=== PATIENT | female | born 1960 | race African-American/Black ===

== ENCOUNTER 2021-01-08 03:40 | Emergency (ER) | payer MEDICAID, SELFPAY ==
[2021-01-08 03:49] VITALS: BP 113/54; PULSE 79; RESP 16; TEMP 36.8; O2SAT 94; BMI 54.1
--- NOTE | 2021-01-08 07:08 | ED_ITS ---
HPI - Weakness General Chief complaint: Weakness Stated complaint: ? Time Seen by Provider: 01/08/21 07:07 Source: patient Mode of arrival: ambulatory Limitations: no limitations History of Present Illness HPI Narrative: Patient with history of CKD stage 4 been followed by shell trim tool setter plan for dialysis in future was seen in clinic and hospital 3 days ago for same creatinine was 3.9 comes here for increased nausea unable to eat because of nausea not any nausea medications no abdominal pain no vomiting no diarrhea patient is still able to urinate Related Data Previous Rx's Medication Instructions Recorded ondansetron 4 mg disintegrating 4 mg PO Q6-8H PRN #20 tab 01/08/21 tablet Allergies Allergy/AdvReac Type Severity Reaction Status Date / Time No Known Allergies Allergy Verified 01/08/21 07:09 Review of Systems Review of Systems: Constitutional : No Weight loss, No Fever, No Chills ENT/Mouth : No sore throat, No Rhinorrhea Eyes: No Eye Pain, No Swelling Cardiovascular : No Chest Pain, no palpitations Respiratory : No Cough, No Sputum, no shortness of breath Gastrointestinal :++ Nausea, No Vomiting, No Diarrhea, No abdominal Pain, no black stools Genitourinary : No Dysuria, No Urinary Frequency Musculoskeletal : No joint pain, No Myalgias, No Joint Swelling Skin : No Skin Lesions, No rash Neuro : No Weakness, No Numbness, No Dizziness, No Headache Psych : No Anxiety/Panic, No Depression Heme/Lymph: No Bruising, No Lymphadenopathy Endocrine : No Polyuria, No Polydipsia All other systems reviewed and are negative [facility] Social History Social History Advance Directives: No Advance Directives Information Provided: Yes Patient : No Physical Exam Vital Signs: Vital Signs: Last Vital Signs Temp 98.6 F 01/08/21 08:22 Pulse 74 01/08/21 09:41 Resp 78 H 01/08/21 09:41 BP 131/61 01/08/21 09:41 Pulse Ox 95 01/08/21 09:41 Body Mass Index 54.1 Appearance: Alert. Oriented X3. No acute distress. Eyes: PERRLA no pallor or icterus ENT: Pharynx normal. Oral Mucosa moist Neck: Normal inspection. Neck supple. CVS: Normal heart rate and rhythm. Pulses normal. Respiratory: No respiratory distress. Equal air entry bilateral, no w heezing/rales/rhonchi Abdomen: Soft and nontender. Bowel sounds are present, no mass palpable, no CVA tenderness Skin: Skin warm and dry. Normal skin color. Normal skin turgor. Extremities: No lower extremity edema. No calf tenderness Neuro: Oriented X 3. No motor deficit. No sensory deficit.No cerebellar signs , cranial nerves II-XII intact MDM - Weakness MDM Narrative Medical decision making narrative: Patient has CKD old records from [facility] were reviewed patient had creatinine of 3.2 and BUN of 89 on 01/05 patient already been following Dr. Angel shell trim tool setter which she saw yesterday patient received 1 L of saline bolus advised to follow with shell trim tool setter as scheduled Medical Records Attestation: I reviewed the patient's medical records. Lab Data Attestation: I reviewed the patient's lab results. Result diagrams: 01/08/21 08:22 01/08/21 08:22 Labs: Lab Results 01/08/21 01/08/21 01/08/21 Range/Units 08:22 08:22 08:22 WBC 7.0 (4.8-10.8) X10*3/uL RBC 3.66 L (4.20-5.50) X10*6/uL Hgb 10.7 L (12.0-16.0) g/dl Hct 33.5 L (37-47) % MCV 91.5 (80-98) fL MCH 29.2 (27.0-33.0) pg MCHC 31.9 (31.0-35.0) g/dl RDW 15.8 (11.0-16.0) % Plt Count 238 (160-400) X10*3/uL MPV 10.8 (9.4-12.3) fL Immature Gran % (Auto) 0.4 (0.0-0.4) % Neut % (Auto) 70.2 (45-73) % Lymph % (Auto) 16.8 L (20-40) % [place] % (Auto) 9.4 (2-11) % Eos % (Auto) 3.1 (0-4) % Baso % (Auto) 0.1 (0-2) % Lymph # (Auto) 1.2 (1.2-4.9) X10*3/uL [place] # (Auto) 0.7 (0.1-1.2) X10*3/uL Eos # (Auto) 0.2 (0.0-0.4) X10*3/uL Baso # (Auto) 0.0 (0.0-0.2) X10*3/uL Abs Immat Gran (auto) 0.03 (0.00-0.03) X10*3/uL Absolute Neuts (auto) 4.9 (2.0-8.3) X10*3/uL Absolute Nucleated RBC 0.000 (0.0-0.012) X10*3/uL Nucleated RBC % (auto) 0.0 (0.0-0.2) /100WBC Sodium 137 (135-145) mmol/L Potassium 4.2 (3.3-5.1) mmol/L Chloride 90 L (96-108) mmol/L Carbon Dioxide 36 H (22-29) mmol/L Anion Gap 15 (12-20) BUN 91 H* (9-16) mg/dL Creatinine 4.01 H* (0.5-1.4) mg/dL Estim Creat Clear Calc 18.2 Estimated GFR 11 Random Glucose 133 H (60-115) mg/dL Calcium 8.8 (8.4-10.2) mg/dL Magnesium 1.8 (1.6-2.6) mg/dL Total Bilirubin 0.2 (0.0-1.0) mg/dL Direct Bilirubin < 0.2 (0.0-0.5) mg/dL AST 23 (5-31) U/L ALT 10 (0-31) U/L Alkaline Phosphatase 82 (39-117) U/L Total Protein 6.7 (6.5-8.0) g/dL Albumin 3.7 (3.5-5.0) g/dL Discharge Plan Discharge Clinical Impression: Chronic kidney failure Qualifiers: Chronic kidney disease stage: stage 4 (severe) Qualified Code(s): N18.4 - Chronic kidney disease, stage 4 (severe) Patient Disposition: Home, Self-Care Instructions: Chronic Kidney Disease (ED) Additional Instructions: Follow-up with shell trim tool setter as scheduled Nausea medication as prescribed Prescriptions: New ondansetron 4 mg tablet,disintegrating 4 mg PO Q6-8H PRN (Reason: nausea and vomiting) Qty: 20 RF: 0 Interventions: ED Discharge Assessment Last Done: 01/08/21 12:56 Discharge Date/Time: 01/08/21 12:56
[2021-01-08 08:22] VITALS: BP 122/44; PULSE 69; RESP 16; TEMP 37; O2SAT 94
[2021-01-08 08:32] LABS: MANUAL DIFF FLAG NO
[2021-01-08 08:41] LABS: Basophils Percent Auto 0.1 % (0-2); Eosinophils Absolute Auto 0.2 X10*3/uL (0.0-0.4); Eosinophils Percent Auto 3.1 % (0-4); Hematocrit 33.5 % (37-47); Hemoglobin 10.7 g/dl (12.0-16.0); Imm Gran Abs Auto 0.03 X10*3/uL (0.00-0.03); Imm Gran Pct Auto 0.4 % (0.0-0.4); Lymphocytes Absolute Auto 1.2 X10*3/uL (1.2-4.9); Lymphocytes Percent Auto 16.8 % (20-40); Mean Corpuscular HGB Conc 31.9 g/dl (31.0-35.0); Mean Corpuscular Hemoglobin 29.2 pg (27.0-33.0); Mean Corpuscular Volume 91.5 fL (80-98); Mean Platelet Volume 10.8 fL (9.4-12.3); Monocytes Absolute Auto 0.7 X10*3/uL (0.1-1.2); Monocytes Percent Auto 9.4 % (2-11); Neutrophils Absolute Auto 4.9 X10*3/uL (2.0-8.3); Neutrophils Percent Auto 70.2 % (45-73); Platelet Count 238 X10*3/uL (160-400); Red Blood Count 3.66 X10*6/uL (4.20-5.50); Red Cell Distribution Width 15.8 % (11.0-16.0)
[2021-01-08 09:08] LABS: Alanine Aminotransferase 10 U/L (0-31); Albumin Level 3.7 g/dL (3.5-5.0); Alkaline Phosphatase 82 U/L (39-117); Aspartate Amino Transferase 23 U/L (5-31); Bilirubin Direct < 0.2 mg/dL (0.0-0.5); Bilirubin Total 0.2 mg/dL (0.0-1.0); Magnesium 1.8 mg/dL (1.6-2.6); Total Protein 6.7 g/dL (6.5-8.0)
[2021-01-08 09:22] LABS: Anion Gap 15 (12-20); Blood Urea Nitrogen 91 mg/dL (9-16); Calcium 8.8 mg/dL (8.4-10.2); Carbon Dioxide 36 mmol/L (22-29); Chloride 90 mmol/L (96-108); Creatinine Clr Calc Pharmacy 18.2; Estimated Glomerular Filt Rate 11; Glucose Random 133 mg/dL (60-115); Potassium 4.2 mmol/L (3.3-5.1); Sodium 137 mmol/L (135-145)
[2021-01-08] MEDS: Ondansetron ODT 4 MG TAB.RAPDIS TRANSLINGU (09:38)
[2021-01-08 09:41] VITALS: BP 131/61; PULSE 74; RESP 78; O2SAT 95
--- NOTE | 2021-01-08 10:27 | MHC.CM.ED ---
Addendum entered by Alice Figueroa 01/08/21 12:53: [facility] aware [facility] is in the ER and will be discharged home. Original Note: Received case management consult from Dr Arriaga. Patient came to ER due to weakness. Was recently at [facility]. Has a history of chronic kidney disease. Patient feels she is too weak to return home. Met with patient in regards to discharge planning. Patient lives alone, uses a cane for walking and a scotter for mobility when outside of her apartment. Patient has [employer] services through [facility]'s home care. PCP verified has Yolande Hardy in [place]. Patient received [employer] Covid vaccine. Patient is denying the need for STR at d/c. Cinthya SCHMITT and Dr Arriaga aware. Continue to monitor for d/c needs.
[2021-01-08] MEDS: 0.9 % Sodium Chloride 1,000 ML 999 ML IVCONT (10:46)
--- NOTE | 2021-01-08 11:00 | PC.NURSE ---
Pt alert and oriented x3, vss. Pt states she has been feeling nauseous for a few days, she took zofran at home but did not get any relief. Pt denies vomiting/diarrhea, no dizziness, no fever, no abdominal pain. Pt is a hard stick. An IJ was placed in left neck by ED provider, pt tolerated well. Fluid and med given as documented.
== END 2021-01-08 12:56 | disposition home or self-care (01) ==
PROVIDERS: Emergency Provider Internal Medicine; PCP Physician Assistant
DX: R11.0 Nausea (principal); N18.4 Chronic kidney disease, stage 4 (severe)
CPT/HCPCS: 36415; 80048; 80076; 83735; 85025; 96361; 96374; 99284

== ENCOUNTER 2023-02-19 02:17 | Emergency (ER) | payer MEDICAID, SELFPAY ==
[2023-02-19 02:21] VITALS: BP 102/53; PULSE 82; RESP 18; TEMP 36.6; O2SAT 97; BMI 23.4
--- NOTE | 2023-02-19 02:33 | ED.GENADULT ---
HPI - General Adult General Chief complaint: Anxiety Stated complaint: behavioral Time Seen by Provider: 02/19/23 02:32 Source: patient and EMS Mode of arrival: EMS History of Present Illness HPI narrative: 62-year-old female brought in by EMS for reported a verbal altercation with family. Patient states that the house is hers and that she has her own room and that she was trying to go to sleep and that her sister kept coming in in bothering her. She reports that she has an old fistula to the left upper extremity but currently gets dialysis Tuesday, , Tuesday through a left chest wall port. She denies any current shortness of breath or chest pain but does report lower abdominal discomfort of her skin. Related Data Previous Rx's Medication Instructions Recorded ondansetron 4 mg disintegrating 4 mg PO Q6-8H PRN nausea and 01/08/21 tablet vomiting #20 tabs nystatin 100,000 unit/gram topical 1 appl topical BID #60 grams 02/19/23 powder Allergies Allergy/AdvReac Type Severity Reaction Status Date / Time No Known Allergies Allergy Verified 01/08/21 07:09 Review of Systems Review of Systems: Pertinent positives and negatives as stated in HPI [facility] Past Medical History Source: nursing notes reviewed Social History Social History Advance Directives: No Advance Directives Information Provided: No Physical Exam ED Vital Signs: Vital Signs - 24 hr 02/19/23 02:21 Temperature 97.8 F Pulse Rate 82 Respiratory Rate 18 Blood Pressure 102/53 L Pulse Oximetry 97 Oxygen Delivery Method Room Air BMI result Body Mass Index 23.4 VITAL SIGNS: Reviewed. GENERAL: Well developed, well nourished, in no acute distress. HEAD: Normocephalic/atraumatic EYES: PERRLA, EOMI EARS: Ext canals without abnormality NOSE: Nares patent bilateral OROPHARYNX: no oral lesions noted, posterior pharynx clear NECK: Supple, no adenopathy LUNGS: Normal breath sounds. No adventitious sounds or accessory muscle use. SpO2<97>; CHEST WALL: There is a port at the left anterior chest wall without surrounding erythema or induration. CARDIOVASCULAR: Regular rate and rhythm without noted murmurs, no JVD or lower extremity edema. ABDOMEN: Soft, non-tender, non-distended with bowel sounds, patient has skin candidiasis of the pannus MUSCULOSKELETAL: No tenderness, deformities, or effusions noted on gross inspection. EXTREMITIES: No cyanosis, clubbing or edema. SKIN: Inspection of the skin reveals no rashes NEUROLOGIC: Alert and oriented x 4. Strength and sensation to light touch were grossly intact x 4. Medical Decision Making Medical Decision Making [facility] Narrative: 62-year-old female with history and clinical presentation, DDX: Will insure that there is no evidence of infection/electrolyte or other metabolic etiologies for or patient's behavioral outburst. In addition, requested that nursing contact family to obtain collateral information. Nystatin ordered for scanned candidiasis of the abdominal pannus. Nursing contacted the patient's daughter and they have concerns about patient's memory. I do not agree with this at all as patient is demonstrating that she is oriented to person time and place. In addition, patient is actively involved in working on a crossword puzzle, she is aware of her dialysis appointments. 0315: Informed by nursing that no Nystatin is available in the hospital. I reviewed all investigations and there is no leukocytosis, there is a normocytic anemia which is consistent with patient's underlying CKD. There is otherwise no evidence of tachycardia or hypotension. There is no thrombocytopenia. Chemistry indices are grossly within chronic stability there is no electrolyte abnormality and patient has a known CKD and has scheduled dialysis today. It is my impression the patient has appropriate cognitive function but obviously require some assistance with ADLs. Family does live with her in her home, patient has a shuttle available for transportation to and from the dialysis session. There is no evidence of infection or other concerns. She does have a skin yeast infection of the abdominal pannus for which she will receive a prescription as this hospital has no medication to treat this. Differential Diagnosis Differential Diagnoses: The differential diagnosis associated with the presentation includes Please see the discussion above Admission/Observation Consideration of admission/observation: Escalation of care including admission/observation considered Please see the discussion above Lab Data [facility] Lab Attestation statement: I reviewed the patient's lab results. Please see the discussion above 02/19/23 03:00 02/19/23 03:00 Labs: Lab Results 02/19/23 Range/Units 03:00 WBC 4.4 L (4.8-10.8) X10*3/uL RBC 2.98 L (4.20-5.50) X10*6/uL Hgb 8.5 L (12.0-16.0) g/dl Hct 26.2 L (37.0-47.0) % MCV 87.9 (80.0-98.0) fL MCH 28.5 (27.0-33.0) pg MCHC 32.4 (31.0-35.0) g/dl RDW 18.1 H (11.0-16.0) % Plt Count 214 (160-400) X10*3/uL MPV 10.8 (9.4-12.3) fL Immature Gran % (Auto) 0.2 (0.0-0.4) % Neut % (Auto) 48.6 (45-73) % Lymph % (Auto) 31.9 (20-40) % [place] % (Auto) 16.1 H (2-11) % Eos % (Auto) 2.1 (0-4) % Baso % (Auto) 1.1 (0-2) % Lymph # (Auto) 1.4 (1.2-4.9) X10*3/uL [place] # (Auto) 0.7 (0.1-1.2) X10*3/uL Eos # (Auto) 0.1 (0.0-0.4) X10*3/uL Baso # (Auto) 0.1 (0.0-0.2) X10*3/uL Abs Immat Gran (auto) 0.01 (0.00-0.03) X10*3/uL Absolute Neuts (auto) 2.1 (2.0-8.3) x10*3/uL Absolute Nucleated RBC 0.000 (0.0-0.012) X10*3/uL Nucleated RBC % (auto) 0.0 (0.0-0.2) /100WBC Sodium 138 (135-145) mmol/L Potassium 3.7 (3.3-5.1) mmol/L Chloride 101 (96-108) mmol/L Carbon Dioxide 23 (22-29) mmol/L Anion Gap 18 (12-20) BUN 24 H (9-16) mg/dL Creatinine 3.27 H (0.5-1.4) mg/dL Estim Creat Clear Calc 12.8 Estimated GFR 14 Random Glucose 91 (60-115) mg/dL Calcium 8.5 (8.4-10.2) mg/dL Total Bilirubin 0.3 (0.0-1.0) mg/dL AST 33 H (5-31) U/L ALT 30 (0-31) U/L Alkaline Phosphatase 143 H (39-117) U/L Ammonia 23 (13-55) umol/L Total Protein 5.7 L (6.5-8.0) g/dL Albumin 2.5 L (3.5-5.0) g/dL External Record Review External record reviewed: Outpatient record, Prior outpatient labs and Prior outpatient radiology Chronic Conditions Patient?s care impacted by: Diabetes and Other ESRD/dialysis Discharge Plan Discharge Clinical Impression: Encounter for medical assessment, ESRD on dialysis Patient Disposition: Home, Self-Care Instructions: End Stage Kidney Disease (ED) Additional Instructions: 1. Resume all home medications as prescribed. 2. Please attend your scheduled dialysis appointment today. 3. Follow-up with your primary care doctor by calling the office on Tuesday morning. Return to the ER for any worsening symptoms. Prescriptions: New nystatin 100,000 unit/gram powder 1 appl topical BID Qty: 60 0RF No Action ondansetron 4 mg tablet,disintegrating 4 mg PO Q6-8H PRN (Reason: nausea and vomiting) Qty: 20 0RF
--- OUTSIDE RECORDS SUMMARY | 2023-02-19 02:39 | XMS_ITS | Summary of Care ---
Author Name Unknown Organization [facility] Address [address] [place] [address]- Encounter 12/31/22 - 01/12/23 [facility] [address] [place] [address]- [place] [phone] Discharge Disposition: Home with Home Health Care Attending Physician: Dutch Esteban MD Admitting Physician: Brooke Ramirez MD Allergies, Adverse Reactions, Alerts Substance Reaction Severity Status acetaminophen-oxycodone Acti ve oxyCODONE Itching Active traZODone Itching Active Medications acetaminophen 325 mg oral tablet 650 mg = 2 tab, Oral, q6hr PRN, PAIN (Scale 1-6) Start Date: 12/31/22 Status: Ordered albuterol 2.5 mg/3 mL (0.083%) inhalation solution 2.5 mg, 3 mL, Soln-Inh, NEB, q4hr RT PRN, 50 EA, 0 Refill(s), Wheezing, Route to Pharmacy Electronically, [facility] #[id number], 152, cm, 01/12/23 6:05:00 EDT, Height/Length Dosing, 63.4, kg, 01/12/23 6:05:00 EDT, Weight Dosing Start Date: 01/12/23 Status: Ordered albuterol CFC free 90 mcg/inh inhalation aerosol 180 mcg, 2 puff, Aerosol, INH, q4hr RT PRN, 1 EA, 0 Refill(s), Wheezing, Route to Pharmacy Electronically, [facility] #[id number], 152, cm, 01/12/23 6:05:00 EDT, Height/Length Dosing, 63.4, kg, 01/12/23 6:05:00 EDT, Weight Dosing Start Date: 01/12/23 Status: Ordered albuterol-ipratropium 2.5 mg-0.5 mg/3 mL inhalation solution 3 mL, Soln-Inh, NEB, QID RT, EA Start Date: 12/31/22 Status: Ordered amiodarone 200 mg oral tablet 200 mg = 1 tab, Tab, Oral, Daily, 30 tab, 0 Refill(s), Route to Pharmacy Electronically, [facility]/pharmacy #[id number], 152, 01/12/23 6:05:00 EDT, Height/Length Dosing, cm, 63.4, 01/12/23 6:05:00 EDT, Weight Dosing, kg Start Date: 01/12/23 Status: Ordered amitriptyline 100 mg oral tablet 100 mg = 1 tab, Oral, QHS Start Date: 12/31/22 Status: Ordered Aspirin Enteric Coated 325 mg oral delayed release tablet 325 mg, = 1 tab, Tab-DR, Oral, Daily, 30 tab, 0 Refill(s), Route to Pharmacy Electronically, [facility]/pharmacy #[id number], 152, 01/12/23 6:05:00 EDT, Height/Length Dosing, cm, 63.4, 01/12/23 6:05:00 EDT, Weight Dosing, kg Start Date: 01/12/23 Status: Ordered atorvastatin 10 mg oral tablet 10 mg = 1 tab, Oral, QHS Start Date: 12/31/22 Status: Ordered benzocaine-menthol 6 mg-10 mg mucous membrane lozenge 1 lozenge, Oral, q2hr PRN, Sore throat Start Date: 12/31/22 Status: Ordered bisacodyl 10 mg rectal suppository 10 mg = 1 supp, Per rectum, Daily PRN, Constipation Start Date: 12/31/22 Status: Ordered calcitriol 0.5 mcg oral capsule 0.5 mcg = 1 cap, Cap, Oral, Daily Start Date: 12/31/22 Status: Ordered darbepoetin yessenia 60 mcg/mL injectable solution 60 mcg = 1 mL, Soln-Inj, IV Push, qSAT, 0 Refill(s) Start Date: 01/10/23 Status: Ordered diazePAM 2 mg oral tablet 2 mg = 1 tab, Tab, Oral, Daily PRN, 0 Refill(s), Anxiety Start Date: 01/10/23 Status: Ordered diazePAM 2 mg oral tablet 2 mg = 1 tab, Tab, Oral, BID, 60 tab, 0 Refill(s), Route to Pharmacy Electronically, [facility]/pharmacy #[id number], 152, 01/12/23 6:05:00 EDT, Height/Length Dosing, cm, 63.4, 01/12/23 6:05:00 EDT, Weight Dosing, kg Start Date: 01/12/23 Status: Ordered docusate sodium 100 mg oral capsule 100 mg, Cap, Oral, BID PRN, 60 cap, 0 Refill(s), as needed for constipation, Route to Pharmacy Electronically, [facility]/pharmacy #[id number], 152, 01/12/23 6:05:00 EDT, Height/Length Dosing, cm, 63.4, 01/12/23 6:05:00 EDT, Weight Dosing, kg Start Date: 01/12/23 Status: Ordered fexofenadine 180 mg oral tablet 180 mg, 1 tab, Tab, Oral, Daily, 30 tab, 0 Refill(s), Route to Pharmacy Electronically, [facility]/pharmacy #[id number], 152, 01/12/23 6:05:00 EDT, Height/Length Dosing, cm, 63.4, 01/12/23 6:05:00 EDT, Weight Dosing, kg Start Date: 01/12/23 Status: Ordered HumaLOG STANDARD Sliding Scale Insulin Subcutaneous, TIDAC Start Date: 12/31/22 Status: Ordered HumuLIN R STANDARD Sliding Scale Insulin Subcutaneous, QHS Start Date: 12/31/22 Status: Ordered HYDROmorphone 2 mg oral tablet 1 mg = 0.5 tab, Tab, Oral, q6hr PRN, 10 tab, 0 Refill(s), Partial fill upon patient request., PAIN (Scale 7-10), Route to Pharmacy Electronically, [facility]/pharmacy #[id number], 152, 01/12/23 6:05:00 EDT, Height/Length Dosing, cm, 63.4, 01/12/23 6:05:00 EDT, kg,... Start Date: 01/12/23 Status: Ordered hydrOXYzine hydrochloride 25 mg oral tablet 50 mg = 2 tab, Tab, Oral, q8hr PRN, 180 tab, 0 Refill(s), Anxiety, Route to Pharmacy Electronically, [facility]/pharmacy #[id number], 152, 01/12/23 6:05:00 EDT, Height/Length Dosing, cm, 63.4, 01/12/23 6:05:00 EDT, Weight Dosing, kg Start Date: 01/12/23 Status: Ordered lamoTRIgine 100 mg oral tablet 100 mg = 1 tab, Tab, Oral, QHS, 30 tab, 0 Refill(s), Route to Pharmacy Electronically, [facility]/pharmacy#[id number], 152, 01/12/23 6:05:00 EDT, Height/Length Dosing, cm, 63.4, 01/12/23 6:05:00 EDT, Weight Dosing, kg Start Date: 01/12/23 Status: Ordered lidocaine 4% topical film 2 patch, Film, Transdermal, QHS Start Date: 12/31/22 Status: Ordered lidocaine 4% topical film 2 patch, Film, Transdermal, QHS, 60 patch, 0 Refill(s), Route to Pharmacy Electronically, [facility]/pharmacy #[id number], 152, 01/12/23 6:05:00 EDT, Height/Length Dosing, cm, 63.4, 01/12/23 6:05:00 EDT, Weight Dosing, kg Start Date: 01/12/23 Status: Ordered melatonin 5 mg oral tablet 5 mg = 1 tab, Tab, Oral, QHS, 0 Refill(s) Start Date: 01/10/23 Status: Ordered metoprolol 12.5 mg = 0.5 tab (0.5 x 25 mg), Tab-ER, Oral, Start date 01/12/23 9:00:00 EDT, 12/31/22 16:35:00 EDT Start Date: 01/12/23 Stop Date: 01/12/23 Status: Completed metoprolol succinate 25 mg oral tablet, extended release 12.5 mg = 0.5 tab, Tab-ER, Oral, q12hr, 30 tab, 0 Refill(s), Route to Pharmacy Electronically, [facility]/pharmacy #[id number], 152, 01/12/23 6:05:00 EDT, Height/Length Dosing, cm, 63.4, 01/12/23 6:05:00 EDT, Weight Dosing, kg Start Date: 01/12/23 Status: Ordered miconazole 2% topical cream 1 bella, Cream, Topical BID, 30 gm, 0 Refill(s), Indication: Empiric Therapy, Route to Pharmacy Electronically, [facility]/pharmacy #[id number], 152, 01/12/23 6:05:00 EDT, Height/Length Dosing, cm, 63.4, 01/12/23 6:05:00 EDT, Weight Dosing, kg Start Date: 01/12/23 Status: Ordered midodrine 5 mg oral tablet 10 mg = 2 tab, Tab, Oral, Daily PRN, 0 Refill(s), Other (see comment) Start Date: 01/10/23 Status: Ordered midodrine 5 mg oral tablet 5 mg = 1 tab, Tab, Oral, TIDAC, 90 tab, 0 Refill(s), Route to Pharmacy Electronically, [facility]/pharmacy#[id number], 152, 01/12/23 6:05:00 EDT, Height/Length Dosing, cm, 63.4, 01/12/23 6:05:00 EDT, Weight Dosing, kg Start Date: 01/12/23 Status: Ordered mirtazapine 15 mg oral tablet 22.5 mg = 1.5 tab, Tab, Oral, QHS, 45 tab, 0 Refill(s), Route to Pharmacy Electronically, [facility]/pharmacy #[id number], 152, 01/12/23 6:05:00 EDT, Height/Length Dosing, cm, 63.4, 01/12/23 6:05:00 EDT, Weight Dosing, kg Start Date: 01/12/23 Status: Ordered Nephrocaps oral capsule 1 cap, Cap, Oral, Daily, 30 cap, 0 Refill(s), Route to Pharmacy Electronically, [facility]/pharmacy #[id number], 01/12/23 6:05:00 EDT, Height/Length Dosing, cm, 63.4, 01/12/23 6:05:00 EDT, Weight Dosing, kg Start Date: 01/12/23 Status: Ordered Normal Saline BOLUS 1000mL 0 Refill(s) Start Date: 01/10/23 Status: Ordered [place] 0.65% nasal spray 1 spray, Nasal, QID PRN, Nasal congestion Start Date: 12/31/22 Status: Ordered ocular lubricant preserved ophthalmic solution 1 drop, Soln-Opth, Eye-Both, QID PRN, mL, Dry eyes Start Date: 12/31/22 Status: Ordered omeprazole 20 mg oral delayed release capsule 20 mg = 1 cap, Cap-DR, Oral, Before breakfast, 30 cap, 0 Refill(s), Route to Pharmacy Electronically, [facility]/pharmacy #[id number], 152, 01/12/23 6:05:00 EDT, Height/Length Dosing, cm, 63.4, 01/12/23 6:05:00 EDT, Weight Dosing, kg Start Date: 01/12/23 Status: Ordered phenol 1.4% topical spray 1 spray, Oral q4hr, PRN, Sore throat Start Date: 12/31/22 Status: Ordered polyethylene glycol 3350 17 gm, Powder, Oral, BID Start Date: 12/31/22 Status: Ordered prochlorperazine 5 mg oral tablet 5 mg, = 1 tab, Tab, Oral, q6hr PRN, 30 tab, 0 Refill(s), Nausea or vomiting, Route to Pharmacy Electronically, [facility]/pharmacy #[id number], 152, 01/12/23 6:05:00 EDT, Height/Length Dosing, cm, 63.4, 01/12/23 6:05:00 EDT, Weight Dosing, kg Start Date: 01/12/23 Status: Ordered rOPINIRole 1 mg oral tablet 1 mg = 1 tab, Tab, Oral, TID, 90 tab, 0 Refill(s), Route to Pharmacy Electronically, [facility]/pharmacy #[id number], 152, 01/12/23 6:05:00 EDT, Height/Length Dosing, cm, 63.4, 01/12/23 6:05:00 EDT, Weight Dosing, kg Start Date: 01/12/23 Status: Ordered Sarna 0.5%-0.5% topical lotion 1 bella, Lotion, Topical QID, PRN, 1 EA, Refill(s) 0, May apply to other parts of the body as well, Itching, Route to Pharmacy Electronically, [facility]/pharmacy #[id number], 152, 01/12/23 6:05:00 EDT, Height/Length Dosing, cm, 63.4, 01/12/23 6:05:00 EDT, Weight Do... Start Date: 01/12/23 Status: Ordered senna (sennosides) 8.6 mg oral tablet 17.2 mg = 2 tab, Tab, Oral, BID, 50 tab, 0 Refill(s), Route to Pharmacy Electronically, [facility]/pharmacy #[id number], 152, 01/12/23 6:05:00 EDT, Height/Length Dosing, cm, 63.4, 01/12/23 6:05:00 EDT, Weight Dosing, kg Start Date: 01/12/23 Status: Ordered venlafaxine 75 mg oral capsule, extended release 75 mg = 1 cap, Cap-ER, Oral, Daily, 30 cap, 0 Refill(s), Route to Pharmacy Electronically, [facility]/pharmacy #[id number], 152, 01/12/23 6:05:00 EDT, Height/Length Dosing, cm, 63.4, 01/12/23 6:05:00 EDT, Weight Dosing, kg Start Date: 01/12/23 Status: Ordered Problem List Condition Effective Dates Status Health Status Inform ant Activity of daily living (AD L) alteration(Confirmed) Active Anemia(Confirmed) Active At risk of venous thromboembolus(Confirmed) 1 04/09/22 Active Balance impairment(Confirmed) Active Bathing-hygiene self-care deficit(Confirmed) Active CHF - Congestive heart failure(Confirmed) Active Chronic renal insufficiency(Confirmed) Active COPD (Chronic Obstructive Pulmonary Disease) Assessment Test scale(Confirmed) Active Depression(Confirmed) Active Diabetes(Confirmed) Active Gait difficulty(Confirmed) Active GERD - Gastro-esophageal ref lux disease(Confirmed) Active HTN - Hypertension(Confirmed) Active Hyperlipedemia(Confirmed) Active Impaired activity tolerance(Confirmed) Active MVR - Mitral valve replacement(Confirmed) Active Obesity(Confirmed) Active PTSD (post-traumatic stress disorder) checklist for DSM-5 (Diagnostic and Statistical Manual of Mental Disorders - Fifth Edition) total symptom severity score(Confirmed) Active Sleep apnea(Confirmed) Active Suspected disease caused by 2019 novel coronavirus(Confirmed) 2 04/09/22 - 04/09/22 Resolved 1Problem added by Discern Expert Rule: [id number]_VTERISKPROB_3 2Problem added automatically by Discern Expert based on clinical documentation Results Laboratory List Name Date Glucose, POC 01/10/23 Complete Blood Count w/Auto Diff - HN (C BC w/Diff - HN) 01/10/23 Glucose, POC 01/08/23 Glucose, POC 01/08/23 Basic Metabolic Panel - HN (BMP - HN) Complete Blood Count w/Auto Diff - HN (C BC w/Diff - HN) 01/08/23 Basic Metabolic Panel - HN (BMP - HN) Complete Blood Count w/Auto Diff - HN (C BC w/Diff - HN) 01/06/23 Basic Metabolic Panel - HN (BMP - HN) Albumin - HN 01/01/23 Magnesium - HN 01/01/23 Phosphorous - HN 01/01/23 Prealbumin - HN 01/01/23 Most recent to oldest [Reference Range]: 1 2 3 Creatinine Level 3.66 mg/dL *HI* (01/08/23 7:02 AM) 3.95 mg/dL *HI* (01/06/23 6:50 AM) 3.39 mg/dL *HI* (01/03/23 8:45 AM) est GFR(mL/min/1.73 sqM) [60] 13 1 *LOW* (01/08/23 7:02 AM) 11 2 *LOW* (01/06/23 6:50 AM) 14 3 *LOW* (01/03/23 8:45 AM) Estimated Creatinine Clearance 11.36 mL/min 4 (01/12/23 6:05 AM) 11.36 mL/min 5 (01/09/23 5:45 AM) 11.36 mL/min 6 (01/08/23 7:02 AM) Glucose POC RALS [74-106 mg/dL] 61 mg/dL 7 *LOW* (01/10/23 12:04 PM) 104 mg/dL (01/08/23 7:22 AM) 53 mg/dL 8 *LOW* (01/08/23 6:11 AM) Albumin - HN [3.5-5.0 gm/dL] 3.5 gm/dL (01/01/23 11:35 AM) BUN - HN [8-23 mg/dL] 20 mg/dL (01/08/23 7:02 AM) 19 mg/dL (01/06/23 6:50 AM) 13 mg/dL (01/03/23 8:45 AM) Calcium - HN [8.4-10.4 mg/dL] 8.9 mg/dL 9 (01/08/23 7:02 AM) 8.5 mg/dL 10 (01/06/23 6:50 AM) 8.9 mg/dL 11 (01/03/23 8:45 AM) Creatinine - HN [0.50-1.12 mg/dL] 3.66 mg/dL *HI* (01/08/23 7:02 AM) 3.95 mg/dL *HI* (01/06/23 6:50 AM) 3.39 mg/dL *HI* (01/03/23 8:45 AM) Magnesium - HN [1.5-2.5 mg/dL] 2.4 mg/dL (01/01/23 11:35 AM) Phosphorous - HN [2.5-4.5 mg/dL] 2.6 mg/dL (01/01/23 11:35 AM) Potassium - HN [3.5-5.1] 5.0 (01/08/23 7:02 AM) 5.2 *HI* (01/06/23 6:50 AM) 5.2 12 *HI* (01/03/23 8:45 AM) Prealbumin - HN [20-40 mg/dL] 11.1 mg/dL 13 *LOW* (01/01/23 11:35 AM) Sodium - HN [136-145] 135 *LOW* (01/08/23 7:02 AM) 134 *LOW* (01/06/23 6:50 AM) 137 (01/03/23 8:45 AM) MCHC - HN [31.0-36.0 G/DL] 31.9 G/DL (01/10/23 7:45 AM) 31.3 G/DL (01/08/23 7:02 AM) 31.7 G/DL (01/06/23 6:51 AM) RDWCV - HN [12-15 %] 18.5 % *HI* (01/10/23 7:45 AM) 18.7 % *HI* (01/08/23 7:02 AM) 19.2 % *HI* (01/06/23 6:51 AM) PLT - HN [140-440] 329 (01/10/23 7:45 AM) 300 (8/19/23 7:02 AM) 251 (01/06/23 6:51 AM) Segmented Neutrophils % - HN [50-75 %] 59 % (01/10/23 7:45 AM) 57 % (01/08/23 7:02 AM) 51 % (01/06/23 6:51 AM) Immature Granulocytes% - HN [0.0-0.9 %] 0.4 % (01/10/23 7:45 AM) 0.4 % (01/08/23 7:02 AM) 0.2 % (01/06/23 6:51 AM) Lymphocytes % - HN [20-44 %] 23 % (01/10/23 7:45 AM) 24 % (01/08/23 7:02 AM) 28 % (01/06/23 6:51 AM) Monocytes % - HN [0-14 %] 11 % (01/10/23 7:45 AM) 11 % (01/08/23 7:02 AM) 13 % (01/06/23 6:51 AM) MCH - HN [26.0-34.0 pg] 28.4 pg (01/10/23 7:45 AM) 28.1 pg (01/08/23 7:02 AM) 28.1 pg (01/06/23 6:51 AM) RDW-SD - HN [36.4-46.3 fL] 59.7 fL *HI* (01/10/23 7:45 AM) 62.5 fL *HI* (01/08/23 7:02 AM) 62.4 fL *HI* (01/06/23 6:51 AM) WBC - HN [4.8-10.8] 4.8 (01/10/23 7:45 AM) 4.5 *LOW* (01/08/23 7:02 AM) 4.5 *LOW* (01/06/23 6:51 AM) RBC - HN [4.20-5.40] 3.51 *LOW* (01/10/23 7:45 AM) 3.55 *LOW* (01/08/23 7:02 AM) 2.95 *LOW* (01/06/23 6:51 AM) Hemoglobin - HN [11.7-15.5 G/DL] 10.0 G/DL *LOW* (01/10/23 7:45 AM) 10.0 G/DL 14 *LOW* (01/08/23 7:02 AM) 8.3 G/DL *LOW* (01/06/23 6:51 AM) Hematocrit - HN [35.7-45.8 %] 31.3 % *LOW* (01/10/23 7:45 AM) 32.0 % *LOW* (01/08/23 7:02 AM) 26.2 % *LOW* (01/06/23 6:51 AM) MCV - HN [81.0-99.0] 89.2 (01/10/23 7:45 AM) 90.1 (01/08/23 7:02 AM) 88.8 (01/06/23 6:51 AM) MPV - HN [9.4-12.3 fL] 11.0 fL (01/10/23 7:45 AM) 10.7 fL (01/08/23 7:02 AM) 11.0 fL (01/06/23 6:51 AM) Eosinophils % - HN [0-5 %] 5 % (01/10/23 7:45 AM) 6 % *HI* (01/08/23 7:02 AM) 6 % *HI* (01/06/23 6:51 AM) Segmented Neutrophils Abs - HN [1.80-7.70] 2.82 (01/10/23 7:45 AM) 2.58 (01/08/23 7:02 AM) 2.31 (01/06/23 6:51 AM) Lymphocytes Abs - HN [1.00-4.75] 1.11 (01/10/23 7:45 AM) 1.06 (01/08/23 7:02 AM) 1.25 (01/06/23 6:51 AM) Basophils % - HN [0-2 %] 1 % (01/10/23 7:45 AM) 2 % (01/08/23 7:02 AM) 1 % (01/06/23 6:51 AM) Immature Granulocytes Abs - HN [0.00-0.03] 0.02 (01/10/23 7:45 AM) 0.02 (01/08/23 7:02 AM) 0.01 (01/06/23 6:51 AM) Monocytes Abs - HN [0-0.86] 0.53 (01/10/23 7:45 AM) 0.50 (01/08/23 7:02 AM) 0.59 (01/06/23 6:51 AM) Eosinophils Abs - HN [0.00-0.80] 0.26 (01/10/23 7:45 AM) 0.27 (01/08/23 7:02 AM) 0.27 (01/06/23 6:51 AM) Basophils Abs - HN [0.00-0.20] 0.06 (01/10/23 7:45 AM) 0.09 (01/08/23 7:02 AM) 0.05 (01/06/23 6:51 AM) NRBC - HN [0-0] 0 15 (01/10/23 7:45 AM) 0 16 (01/08/23 7:02 AM) 0 17 (01/06/23 6:51 AM) Platelets Appearance - HN ADEQUATE (01/03/23 8:45 AM) ADEQUATE (01/01/23 11:35 AM) Hypochromasia - HN 1+ (01/03/23 8:45 AM) 1+ (01/01/23 11:35 AM) Microcytosis - HN 1+ (01/01/23 11:35 AM) Macrocytosis - HN 1+ (01/03/23 8:45 AM) 1+ (01/01/23 11:35 AM) Target Cells - HN 1+ (01/03/23 8:45 AM) Tear Drop Cells - HN OCC (01/03/23 8:45 AM) Ovalocytes - HN OCC 18 (01/01/23 11:35 AM) Polychromasia - HN 1+ (01/01/23 11:35 AM) Schistocytes - HN 1+ 19 (01/03/23 8:45 AM) Chloride - HN [98.0-109.0] 98 (01/08/23 7:02 AM) 100 (01/06/23 6:50 AM) 99 (01/03/23 8:45 AM) Carbon Dioxide - HN [23-32] 21 *LOW* (01/08/23 7:02 AM) 22 *LOW* (01/06/23 6:50 AM) 23 (01/03/23 8:45 AM) Anion Gap - HN [11-21] 21 (01/08/23 7:02 AM) 17 (01/06/23 6:50 AM) 20 (01/03/23 8:45 AM) Glucose - HN [60-99 mg/dL] 74 mg/dL (01/08/23 7:02 AM) 64 mg/dL (01/06/23 6:50 AM) 88 mg/dL (01/03/23 8:45 AM) Hepatitis B Surface Antigen - HN [NONREACTIVE-NONREACTIVE] NONREACTIVE 20 (01/07/23 6:14 AM) NRBC Abs - HN [0.00-0.13] 0.00 21 (01/10/23 7:45 AM) 0.00 22 (01/08/23 7:02 AM) 0.00 23 (01/06/23 6:51 AM) 1Result Comment: GFR<15mL/min/1.73m\S\2; VERY SEVERE OR ENDSTAGE KIDNEY FAILURE (STAGE G5) 2Result Comment: GFR<15mL/min/1.73m\S\2; VERY SEVERE OR ENDSTAGE KIDNEY FAILURE (STAGE G5) 3Result Comment: GFR<15mL/min/1.73m\S\2; VERY SEVERE OR ENDSTAGE KIDNEY FAILURE (STAGE G5) 4Result Comment: Calculated using method: Cockcroft-Gault (default) Calculated using Formula : 0.85*(140-ageInYears)*IBW/(72*scrInMGperDL) Age: 62 (45993881415.0) Serum Creatinine: 3.66 mg/dL (35520956568.0) Height: 152 cm (14505225681.0) Weight: 63.4 kg (IBW = 45.138 kg) 5Result Comment: Calculated using method: Cockcroft-Gault (default) Calculated using Formula : 0.85*(140-ageInYears)*IBW/(72*scrInMGperDL) Age: 62 (46754748780.0) Serum Creatinine: 3.66 mg/dL (15056252447.0) Height: 152 cm (29439849314.0) Weight: 65.9 kg (IBW = 45.138 kg) 6Result Comment: Calculated using method: Cockcroft-Gault (default) Calculated using Formula : 0.85*(140-ageInYears)*IBW/(72*scrInMGperDL) Age: 62 (84361564161.0) Serum Creatinine: 3.66 mg/dL (77299811982.0) Height: 152 cm (77906353825.0) Weight: 62.6 kg (IBW = 45.138 kg) 7Result Comment: Notify DR/RN 8Result Comment: Notify DR/RN 9Result Comment: Performing Lab: [facility] 10Result Comment: Performing Lab: [facility] 11Result Comment: Performing Lab: [facility] 12Result Comment: ALL DELTA RESULTS REVIEWED 13Result Comment: Performing Lab: [facility] 14Result Comment: ALL DELTA RESULTS REVIEWED 15Result Comment: NORMALS FOR NRBC Premature Infant = 0 - 6 /100WBC Term Infant = 0 - 2 /100WBC Normal Adult = 0 - 0 /100WBC 16Result Comment: NORMALS FOR NRBC Premature Infant = 0 - 6 /100WBC Term = 0 - 2 /100WBC Normal Adult = 0 - 0 /100WBC 17Result Comment: NORMALS FOR NRBC Premature Infant = 0 - 6 /100WBC Term Infant = 0 - 2 /100WBC Normal Adult = 0 - 0 /100WBC 18Result Comment: Performing Lab: [facility] 19Result Comment: Performing Lab: [facility] 20Result Comment: Performing Lab: [facility] 21Result Comment: Performing Lab: [facility] 22Result Comment: Performing Lab: [facility] 23Result Comment: Performing Lab: [facility] Vital Signs Most recent to oldest [Reference Range]: 1 2 3 Temperature Oral F [96.4-99.1 DegF] 97.9 DegF (01/12/23 11:56 AM) 97.4 DegF (01/12/23 6:00 AM) 98.7 DegF (01/11/23 7:19 PM) Peripheral Pulse Rate [60-100 bpm] 89 bpm (01/12/23 11:57 AM) 80 bpm (01/12/23 9:39 AM) 80 bpm (01/12/23 6:00 AM) Respiratory Rate [14-20 br/min] 18 br/min (01/02/23 2:07 AM) 18 br/min (01/02/23 1:00 AM) 18 br/min (01/01/23 8:22 AM) Blood Pressure [90-140/60-90 mmHg] 121/77mmHg (01/12/23 11:56 AM) 102/69mmHg (01/12/23 9:39 AM) 102/69mmHg (01/12/23 5:58 AM) Mean Arterial Pressure, Cuff 92 mmHg (01/12/23 11:56 AM) 80 mmHg (01/12/23 5:58 AM) 75 mmHg (01/11/23 11:42 PM) Extremity used to obtain blood pressure Right Arm (01/07/23 2:22 PM) Right Arm (12/31/22 4:10 PM) Cuff Size. Medium (12/31/22 4:10 PM) Vital Signs Additional Information see I and O (01/01/23 10:30 AM) Temperature Oral 36.6 DegC 1 (01/12/23 11:56 AM) 36.3 DegC 2 (01/12/23 6:00 AM) 37.1 DegC 3 (01/11/23 7:19 PM) 1Result Comment: Charted by SYSTEM secondary to charting of Temperature Oral F on a Vitals Monitor. Rule: VITALSLINK_CALCULATIONS_2 2Result Comment: Charted by SYSTEM secondary to charting of Temperature Oral F on a Vitals Monitor. Rule: VITALSLINK_CALCULATIONS_2 3Result Comment: Charted by SYSTEM secondary to charting of Temperature Oral F on a Vitals Monitor. Rule: VITALSLINK_CALCULATIONS_2
--- OUTSIDE RECORDS SUMMARY | 2023-02-19 02:40 | XMS_ITS | Continuity of Care Document ---
Author Name Unknown Organization [facility] Address [address] [place] [address]- Care Team Providers Care Auto Rental Supervisor Name Role Phone Wily PETERSON, Oli Cevallos Primary Care Physician [phone] Encounter [facility] [place] Date(s): 05/07/21 - 05/14/21 [facility] [address] [place] [address]- Attending Physician: Cullen Smart MD Admitting Physician: Cullen Smart MD Referring Physician: Vinny Goff MD Allergies, Adverse Reactions, Alerts Substance Reaction Severity Status Percocet Active Medications Allopurinol Refills 0, Maintenance, 05/08/21 14:09:00 EST, Partial fill upon patient request if the prescription is for a schedule II opioid drug. Start Date: 05/08/21 Status: Ordered amiTRIPTYLINE By Mouth, Daily at bedtime, 0 Refills, Maintenance, 05/08/21 14:09:00 EST, Partial fill upon patient request if the prescription is for a schedule II opioid drug. Start Date: 05/08/21 Status: Ordered BD CARISA 2 GEN PEN NDL [id number] Maintenance, 05/07/21 14:48:00 EST, Supply Start Date: 05/07/21 Status: Ordered Carvedilol By Mouth, Refills 0, Maintenance, 05/08/21 14:10:00 EST, Partial fill upon patient request if the prescription is for a schedule II opioid drug. Start Date: 05/08/21 Status: Ordered Diazepam 0 Refills, Maintenance, 05/08/21 14:09:00 EST, Partial fill upon patient request if the prescription is for a schedule II opioid drug. Start Date: 05/08/21 Status: Ordered Diltiazem 0 Refills, Maintenance, 05/08/21 14:10:00 EST, Partial fill upon patient request if the prescription is for a schedule II opioid drug. Start Date: 05/08/21 Status: Ordered Diltiazem 0 Refills, Maintenance, 05/08/21 14:11:00 EST, Partial fill upon patient request if the prescription is for a schedule II opioid drug. Start Date: 05/08/21 Status: Ordered Gabapentin By Mouth, 0 Refills, Maintenance, 05/08/21 14:10:00 EST, Partial fill upon patient request if the prescription is for a schedule II opioid drug. Start Date: 05/08/21 Status: Ordered Humalog Kwik Pen 100 units/mL subcutaneous injection 0 Refills, Maintenance, 05/07/21 14:48:00 EST, Partial fill upon patient request if the prescription is for a schedule II opioid drug. Start Date: 05/07/21 Status: Ordered hydrALAZINE 0 Refills, Maintenance, 05/08/21 14:10:00 EST, Partial fill upon patient request if the prescription is for a schedule II opioid drug. Start Date: 05/08/21 Status: Ordered Lantus Solostar Pen 100 units/mL subcutaneous solution 0 Refills, Maintenance, 05/07/21 14:48:00 EST, Partial fill upon patient request if the prescription is for a schedule II opioid drug. Start Date: 05/07/21 Status: Ordered Meclizine By Mouth, 3 times a day, 0 Refills, Maintenance, 05/08/21 14:13:00 EST, Partial fill upon patient request if the prescription is for a schedule II opioid drug. Start Date: 05/08/21 Status: Ordered Omeprazole By Mouth, Daily, 0 Refills, Maintenance, 05/08/21 14:11:00 EST, Partial fill upon patient request if the prescription is for a schedule II opioid drug. Start Date: 05/08/21 Status: Ordered Remeron Tablet By Mouth, Daily at bedtime, 0 Refills, Maintenance, 05/08/21 14:08:00 EST, Partial fill upon patient request if the prescription is for a schedule II opioid drug. Start Date: 05/08/21 Status: Ordered Vital Signs Most recent to oldest [Reference Range]: 1 Weight 112.2 kg (05/07/21 2:46 PM) Oxygen Saturation [94-100 %] 93 % *L* (05/07/21 2:46 PM) Pulse Rate [55-90 bpm] 57 bpm (05/07/21 2:46 PM) Blood Pressure [90-138/55-84 mm Hg] 106/ 72mm Hg (05/07/21 2:46 PM) Mode of Delivery (Oxygen) Room air (05/07/21 2:46 PM) Blood pressure sites Arm, left (05/07/21 2:46 PM) Weight Obtained Via Patient/family state d (05/07/21 2:46 PM)
--- OUTSIDE RECORDS SUMMARY | 2023-02-19 02:40 | XMS_ITS | Continuity of Care Document ---
Author Name Unknown Organization [facility] Address [address] [place] [address]- Care Team Providers Care Mulcher Operator Name Role Phone Wily PETERSON, Oli Cevallos Primary Care Physician [phone] [place] [facility] [place] 07/[place]/21 - 10/02/21 [facility] [address] [place], [place] [address] Attending Physician: Cullen Smart MD Admitting Physician: Cullen Smart MD Allergies, Adverse Reactions, Alerts Substance Reaction Severity Status Percocet itching Active TraZODone Hydrochloride Acti ve Medications acyclovir 400 mg oral tablet 1 tablet = 400 mg, By Mouth, 2 times a day, # 14 tablet, 0 Refills, Maintenance, 07/03/21 12:15:00 EST, Tablet, Partial fill upon patient request if the prescription is for a schedule II opioid drug. Start Date: 07/03/21 Status: Ordered Allopurinol 100 mg, 2 times a day, Refills 0, Maintenance, 05/08/21 14:09:00 EST, Partial fill upon patient request if the prescription is for a schedule II opioid drug. Start Date: 05/08/21 Status: Ordered amiTRIPTYLINE = 100 mg, By Mouth, Daily at bedtime, 0 Refills, Maintenance, 05/08/21 14:09:00 EST, Partial fill upon patient request if the prescription is for a schedule II opioid drug. Start Date: 05/08/21 Status: Ordered aspirin 81 mg oral delayed release tablet 81 mg, 1, tablet, By Mouth, Daily, # 30 tablet, Refills 0, Maintenance, 07/03/21 12:10:00 EST, Partial fill upon patient request if the prescription is for a schedule II opioid drug. Start Date: 07/03/21 Status: Ordered atorvastatin 40 mg oral tablet 1 tablet = 40 mg, By Mouth, Daily at bedtime, # 30 tablet, 5 Refills, Maintenance, 07/03/21 12:15:00 EST, Tablet, Partial fill upon patient request if the prescription is for a schedule II opioid drug. Start Date: 07/03/21 Status: Ordered Auryxia 210 mg oral tablet 2 tablet = 420 mg, By Mouth, 3 times a day with meals, # 200 each, 0 Refills, Maintenance, 08/13/2217:20:00 EDT, Tablet, Partial fill upon patient request if the prescription is for a schedule II opioid drug. Start Date: 08/13/21 Status: Ordered BD CARISA 2 GEN PEN NDL [id number] Maintenance, 05/07/21 14:48:00 EST, Supply Start Date: 05/07/21 Status: Ordered busPIRone 30 mg oral tablet 1 tablet = 30 mg, By Mouth, 2 times a day, # 60 tablet, 0 Refills, Maintenance, 07/03/21 12:14:00 EST, Tablet, Partial fill upon patient request if the prescription is for a schedule II opioid drug. Start Date: 07/03/21 Status: Ordered Carvedilol 25 mg, By Mouth, 2 times a day, Refills 0, Maintenance, 05/08/21 14:10:00 EST, Partial fill upon patient request if the prescription is for a schedule II opioid drug. Start Date: 05/08/21 Status: Ordered Compazine Tablet = 10 mg, By Mouth, 4 times a day, 0 Refills, Maintenance, 08/13/21 18:13:00 EDT, Tablet, Partial fill upon patient request if the prescription is for a schedule II opioid drug. Start Date: 08/13/21 Status: Ordered Diazepam = 5 mg, 2 times a day, 0 Refills, Maintenance, 05/08/21 14:09:00 EST, Partial fill upon patient request if the prescription is for a schedule II opioid drug. Start Date: 05/08/21 Status: Ordered Diltiazem = 360 mg, Daily, 0 Refills, Maintenance, 05/08/21 14:11:00 EST, Partial fill upon patient request if the prescription is for a schedule II opioid drug. Start Date: 05/08/21 Status: Ordered duloxetine 60 mg oral enteric coated capsule 1 capsule = 60 mg, By Mouth, Daily, # 30 capsule, 0 Refills, Maintenance, 07/03/21 12:16:00 EST, ECCapsule, Partial fill upon patient request if the prescription is for a schedule II opioid drug. Start Date: 07/03/21 Status: Ordered Humalog Kwik Pen 100 units/mL subcutaneous injection slidhs scale 2/10 units, 0 Refills, Maintenance, 05/07/21 14:48:00 EST, Partial fill upon patient request if the prescription is for a schedule II opioid drug. Start Date: 05/07/21 Status: Ordered Lantus Solostar Pen 100 units/mL subcutaneous solution = 17 units, Daily at bedtime, sliding scale, 0 Refills, Maintenance, 05/07/21 14:48:00 EST, Partialfill upon patient request if the prescription is for a schedule II opioid drug. Start Date: 05/07/21 Status: Ordered Meclizine By Mouth, 3 times a day, 0 Refills, Maintenance, 05/08/21 14:13:00 EST, Partial fill upon patient request if the prescription is for a schedule II opioid drug. Start Date: 05/08/21 Status: Ordered Omeprazole = 40 mg, By Mouth, 2 times a day, 0 Refills, Maintenance, 05/08/21 14:11:00 EST, Partial fill upon patient request if the prescription is for a schedule II opioid drug. Start Date: 05/08/21 Status: Ordered Remeron Tablet = 30 mg, By Mouth, Daily at bedtime, 0 Refills, Maintenance, 05/08/21 14:08:00 EST, Partial fill upon patient request if the prescription is for a schedule II opioid drug. Start Date: 05/08/21 Status: Ordered Requip = 5 mg, By Mouth, 2 times a day, 0 Refills, Maintenance, 07/03/21 12:13:00 EST, Partial fill upon patient request if the prescription is for a schedule II opioid drug. Start Date: 07/03/21 Status: Ordered Problem List Condition Effective Dates Status Health Status Inform ant Severe obesity(Confirmed) Active
--- OUTSIDE RECORDS SUMMARY | 2023-02-19 02:40 | XMS_ITS | Continuity of Care Document ---
Author Name Unknown Organization [facility] Address [address] [place] [address]- Care Team Providers Care Humidifier Attendant Name Role Phone Wily PETERSON, Oli Cevallos Primary Care Physician [place] [facility] [place] 08/19/21 [facility] [address] [place], [place] [address] Allergies, Adverse Reactions, Alerts Substance Reaction Severity Status Percocet itching Active TraZODone Hydrochloride Acti ve Medications acetaminophen 650 mg oral tablet, extended release 2 tablet = 1,300 mg, By Mouth, Every 4 hours, PRN as needed for pain, for 5 days, # 60 tablet, 0 Refills, Acute 08/24/21 11:49:00 EDT, 08/19/21 11:49:00 EDT, ER Tablet, [id number], Partial fill upon patient request if the prescription is for a... Start Date: 08/19/21 Stop Date: 08/24/21 Status: Ordered acyclovir 400 mg oral tablet 1 tablet [...] Ordered BD CARISA 2 GEN PEN NDL [id number] Maintenance, 05/07/21 14:48:00 EST, Supply Start Date: [...] opioid drug. Start Date: 05/08/21 Status: Ordered Dilaudid 2 mg oral tablet 1 tablet = 2 mg, By Mouth, Every 6 hours, PRN as needed for pain, for 2 days, # 5 tablet, 0 Refills, Acute 08/21/21 11:49:00 EDT, 08/19/21 11:49:00 EDT, Tablet, [id number], Partial fill upon patient request if the prescription is for a schedul... Start Date: 08/19/21 Stop Date: 08/21/21 Status: Ordered Diltiazem = 360 mg, Daily, [...] opioid drug. Start Date: 07/03/21 Status: Ordered Tylenol 325 mg oral tablet 650 mg, 2, tablet, By Mouth, Every 4 hours, PRN, Refills 0, Maintenance, Pain , Mild, 07/15/21 13:58:00 EST, Partial fill upon patient request if the prescription is for a schedule II opioid drug. Start Date: 07/15/21 Status: Ordered Problem List Condition Effective Dates Status Health Status Inform ant Severe obesity(Confirmed) Active
--- OUTSIDE RECORDS SUMMARY | 2023-02-19 02:40 | XMS_ITS | Continuity of Care Document ---
Author Name Unknown Organization [facility] Address [address] [place] [address]- Care Team Providers Care Cushion Cover Inspector Name Role Phone Oli Julien MD Primary Care Physician Encounter [facility] [place] Date(s): 07/15/21 - 08/14/[address] [address] Attending Physician: Not on Staff, Attending MD Admitting Physician: Not on Staff, Admitting MD Referring Physician: Not on Staff, Referring MD Allergies, Adverse Reactions, Alerts Substance Reaction Severity Status Percocet itching Active Medications acyclovir 400 mg oral tablet 1 [...] Ordered BD CARISA 2 GEN PEN NDL [id number] Maintenance, 05/07/21 14:48:00 EST, Supply Start Date: [...]
--- OUTSIDE RECORDS SUMMARY | 2023-02-19 02:40 | XMS_ITS | Continuity of Care Document ---
Author Name Unknown Organization [facility] Address [address] [place] [address]- Care Team Providers Care Strategic Intelligence Officer Name Role Phone Yolande Gallagher Primary Care Physician [id number] Date(s): 10/15/21 - 01/17/22 [facility] [address] [place] [address]- Attending Physician: Cullen Smart MD Admitting Physician: [...] Ordered BD CARISA 2 GEN PEN NDL [id number] Maintenance, 05/07/21 14:48:00 EST, Supply Start Date: [...] Health Status Inform ant Severe obesity(Confirmed) Active Care Team Personnel Name: Yolande Gallagher Address: [address] [place] [address]
--- OUTSIDE RECORDS SUMMARY | 2023-02-19 02:40 | XMS_ITS | Continuity of Care Document ---
Author Name Unknown Organization [facility] Address Unknown Care Team Providers Care Customs And Border Protection Inspector Name Role Phone Wily PETERSON, Oli Cevallos Primary Care Physician [place] [facility] [place] Date(s): 08/25/21 - 10/22/21 [facility] Attending Physician: Mason Morrison MD Admitting Physician: Mason Morrison MD Allergies, Adverse Reactions, Alerts Substance Reaction [...] Ordered BD CARISA 2 GEN PEN NDL [id number] Maintenance, 05/07/21 14:48:00 EST, Supply Start Date: [...]
--- OUTSIDE RECORDS SUMMARY | 2023-02-19 02:40 | XMS_ITS | Continuity of Care Document ---
Author Name Unknown Organization [facility] Address [address] [place] [address]- Care Team Providers Care Marketing Intelligence Manager Name Role Phone Oli Julien MD Primary Care Physician [place] [facility] [place] 08/29/21 [facility] [address] [place], [place] [address] Attending Physician: Benny Borges Admitting Physician: AdmBenny calzada Referring Physician: Admtr Ar8 Allergies, Adverse Reactions, Alerts Substance Reaction Severity [...] Ordered BD CARISA 2 GEN PEN NDL [id number] Maintenance, 05/07/21 14:48:00 EST, Supply Start Date: [...]
--- OUTSIDE RECORDS SUMMARY | 2023-02-19 02:40 | XMS_ITS | Continuity of Care Document ---
Author Name Unknown Organization [facility] Address [address] [place] [address]- Care Team Providers Care Central Service Supply Distributor Name Role Phone Wily PETERSON, Oli Cevallos Primary Care Physician [phone] Encounter [facility] [place] Date(s): 07/07/21 - 08/06/21 [facility] [address] [place], [place] [address] Allergies, Adverse Reactions, Alerts Substance Reaction [...] opioid drug. Start Date: 07/03/21 Status: Ordered BD CARISA 2 GEN PEN NDL [id number] Maintenance, 05/07/21 14:48:00 EST, Supply Start Date: [...] drug. Start Date: 05/08/21 Status: Ordered Diazepam = 5 mg, 2 [...] opioid drug. Start Date: 07/03/21 Status: Ordered sevelamer carbonate 800 mg oral tablet 3 tablet = 2,400 mg, By Mouth, 3 times a day, # 270 tablet, 0 Refills, Maintenance, 07/03/21 12:14:00 EST, [...]
--- OUTSIDE RECORDS SUMMARY | 2023-02-19 02:40 | XMS_ITS | Continuity of Care Document ---
Author Name Unknown Organization [facility] Address [address] [facility] [address] [place] [address]- Care Team Providers Care Paving And Surfacing Labourer Name Role Phone Yolande Gallagher Primary Care Physician Encounter [facility] [place] Date(s): 12/13/22 - 01/12/23 [facility] [address] [facility] [address] [place] [address]- Attending Physician: Benny Borges Admitting Physician: Benny Borges Referring Physician: AdmtrBenny Allergies, Adverse Reactions, Alerts Substance Reaction Severity Status Percocet itching Active TraZODone Hydrochloride Acti ve Medications amiTRIPTYLINE = 100 mg, By Mouth, Daily [...] drug. Start Date: 07/03/21 Status: Ordered atorvastatin 10 mg oral tablet 1 tablet = 10 mg, By Mouth, Daily, # 30 tablet, 0 Refills, Maintenance, 11/14/22 5:06:00 EDT, Partial fill upon patient request if the prescription is for a schedule II opioid drug. Start Date: 11/14/22 Status: Ordered Auryxia 210 mg oral tablet 2 tablet = 420 mg, By Mouth, 3 times a day with meals, # 200 each, 0 Refills, Maintenance, 08/13/2217:20:00 EDT, Tablet, Partial fill upon patient request if the prescription is for a schedule II opioid drug. Start Date: 08/13/21 Status: Ordered BD CARISA 2 GEN PEN NDL [id number] Maintenance, 05/07/21 14:48:00 EST, Supply Start Date: 05/07/21 Status: Ordered Compazine Tablet = 5 mg, By Mouth, Daily, PRN Nausea, 0 Refills, Maintenance, 08/13/21 18:13:00 EDT, Tablet, Partialfill upon patient request if the prescription is for a schedule II opioid drug. Start Date: 08/13/21 Status: Ordered diazepam 2 mg oral tablet 2 mg, 1, tablet, By Mouth, 2 times a day, PRN, Anxiety, Refills 0, Maintenance, Other, 11/14/22 5:11:00 EDT, Partial fill upon patient request if the prescription is for a schedule II opioid drug. Start Date: 11/14/22 Status: Ordered Epoetin Thomas 0.5 mL = 20,000 units, Subcutaneous Injection, Every week, 0 Refills, Maintenance, 11/22/22 13:49:00 EDT, Injection, Partial fill upon patient request if the prescription is for a schedule II opioid drug. Start Date: 11/22/22 Status: Ordered hydrOXYzine hydrochloride 25 mg oral tablet 1 tablet = 25 mg, By Mouth, 4 times a day, PRN for anxiety, # 40 tablet, 0 Refills, Maintenance, 11/14/22 5:11:00 EDT, Tablet, Partial fill upon patient request if the prescription is for a schedule II opioid drug. Start Date: 11/14/22 Status: Ordered metoprolol 25 mg oral tablet, extended release 25 mg, By Mouth, Daily, Refills 0, Maintenance, 11/22/22 13:49:00 EDT, Partial fill upon patient request if the prescription is for a schedule II opioid drug. Start Date: 11/22/22 Status: Ordered midodrine 5 mg oral tablet 10 mg, 2, tablet, By Mouth, Daily, PRN, hypotension for dialysis, # 180 tablet, Refills 0, Maintenance, other, 11/14/22 5:13:00 EDT, Partial fill upon patient request if the prescription is for a schedule II opioid drug. Start Date: 11/14/22 Status: Ordered Omeprazole = 40 mg, By Mouth, 2 times a day, 0 Refills, Maintenance, 05/08/21 14:11:00 EST, Partial fill upon patient request if the prescription is for a schedule II opioid drug. Start Date: 05/08/21 Status: Ordered Remeron Tablet = 22.5 mg, By Mouth, Daily at bedtime, 0 Refills, Maintenance, 05/08/21 14:08:00 EST, Partial fill upon patient request if the prescription is for a schedule II opioid drug. Start Date: 05/08/21 Status: Ordered Requip = 1 mg, By Mouth, 3 times a day, 0 Refills, Maintenance, 07/03/21 12:13:00 EST, Partial fill upon patient request if the prescription is for a schedule II opioid drug. Start Date: 07/03/21 Status: Ordered venlafaxine 75 mg oral tablet 1 tablet = 75 mg, By Mouth, Daily, 0 Refills, Maintenance, 11/14/22 5:10:00 EDT, Tablet, Partial fill upon patient request if the prescription is for a schedule II opioid drug. Start Date: 11/14/22 Stop Date: 12/14/22 Status: Ordered Patient Care team information Care Team Personnel Name: Enid Mcguire RN Position: [facility] AMB Nurse Member Role: Primary Care Nurse Name: Sree Matamoros MD Position: [facility] Renal MD Member Role: Lifetime Consulting Physician Address: Address: [address] [place] [address] [facility] [address] Name: Yolande Gallagher Position: Reference Physician Member Role: PCP Address: Address: [address] [place] [address]- Name: Denver Pierce DO Position: [facility] Renal MD Member Role: Lifetime Consulting Physician Address: Address: [address] [place] [address] [facility] [place] [address]- Name: Kamila Blair Position: [facility] Outreach Member Role: Lifetime Consulting Physician Name: Darvin Cardona Position: [facility] Associate Professional Member Role: Lifetime Consulting Provider Address: Address: [address] [place] [address]- Name: Phoebe Zazueta RN Position: [facility] RN Member Role: Primary Care Nurse Name: Alyssa Alcazar Position: [facility] Outreach Member Role: Lifetime Consulting Physician Name: Butch Maria MD Position: [facility] Renal MD Member Role: Lifetime Consulting Physician Address: Address: [address] [facility] [address] [facility] [place] [address]- Name: Xiao Navarro RN Position: [facility] RN Member Role: Primary Care Nurse Care Team Related Persons Name: DENIA STEVENS Address: home [address] [address] Name: VIRGIL ROMO Address: home [address] [place] [address]
--- OUTSIDE RECORDS SUMMARY | 2023-02-19 02:40 | XMS_ITS | Continuity of Care Document ---
Author Name Unknown Organization [facility] Address [address] [place] [address]- Care Team Providers Care Ukrainian Folk Arts Instructor Name Role Phone Oli Julien MD Primary Care Physician Encounter 07/18/21 - 07/21/21 [facility] [address] [place] [address]- Discharge Disposition: CLIENT NO LONGER REQUIRES SKILLED CARE Allergies, Adverse Reactions, Alerts Substance Reaction Severity [...] Ordered BD CARISA 2 GEN PEN NDL [id number] Maintenance, 05/07/21 14:48:00 EST, Supply Start Date: [...]
--- OUTSIDE RECORDS SUMMARY | 2023-02-19 02:40 | XMS_ITS | Continuity of Care Document ---
Author Name Unknown Organization [facility] Address [address] [place] [address]- Care Team Providers Care Fish Farm Manager Name Role Phone Oli Julien MD Primary Care Physician Encounter [facility] [place] [place] Date(s): 05/07/21 - 06/06/21 [facility] [address] [place], [place] [address] Attending Physician: Benny Borges Admitting Physician: AdmtrBenny Referring Physician: Admtr Ar8 Allergies, Adverse Reactions, [...] Ordered BD CARISA 2 GEN PEN NDL [id number] Maintenance, 05/07/21 14:48:00 EST, Supply Start Date: [...]
--- OUTSIDE RECORDS SUMMARY | 2023-02-19 02:40 | XMS_ITS | Continuity of Care Document ---
Author Name Unknown Organization [facility] Address [address] [place] [address]- Care Team Providers Care Cd Mixer Helper Name Role Phone Wily PETERSON, Oli Cevallos Primary Care Physician En[place] [facility] [place](s): 07/30/21 - 08/06/21 [facility] [address] [place], [place] [address] Attending Physician: Wale GONZALEZ, Jazmin Remy Admitting Physician: Wale GONZALEZ, Jazmin Remy Referring Physician: Cullen Smart MD Allergies, Adverse Reactions, [...] Ordered BD CARISA 2 GEN PEN NDL [id number] Maintenance, 05/07/21 14:48:00 EST, Supply Start Date: [...] Health Status Inform ant Severe obesity(Confirmed) Active Vital Signs Most recent to oldest [Reference Range]: 1 Height 152.3 cm (07/30/21 9:30 AM) Weight 111.81 kg (07/30/21 9:30 AM) Pulse Rate [55-90 bpm] 75 bpm (07/30/21 9:30 AM) Body Mass Index [18.5-24.99] 48.2 *>HHI* (07/30/21 9:30 AM) Blood Pressure [90-138/55-84 mm Hg] 128/ 78mm Hg (07/30/21 9:30 AM) Mode of Delivery (Oxygen) Room air (07/30/21 9:30 AM) Blood pressure sites Arm, left (07/30/21 9:30 AM) Weight Obtained Via Patient/family state d (07/30/21 9:30 AM)
--- OUTSIDE RECORDS SUMMARY | 2023-02-19 02:40 | XMS_ITS | Continuity of Care Document ---
Author Name Unknown Organization [facility] Address [address] [place] [address]- Care Team Providers Care Near Eastern Archaeology Lecturer Name Role Phone Yolande Gallagher Primary Care Physician [place] [facility] [place] 04/26/22 - 05/26/22 [facility] [address] [place] [address]- Allergies, Adverse Reactions, Alerts Substance Reaction Severity [...] Ordered BD CARISA 2 GEN PEN NDL [id number] Maintenance, 05/07/21 14:48:00 EST, Supply Start Date: [...] Date: 07/03/21 Status: Ordered Problem List Condition Confirmation Course Effective Dates Status Health St atus Informant Severe obesity Confirmed Active Patient Care team information Care Team Personnel Name: Enid Mcguire RN Position: [facility] RN Member Role: Primary Care Nurse Name: Yolande Gallagher Position: Reference Physician Member Role: PCP Address: Address: [address] [place] [address] [id number] Name: Kamila Blair Position: [facility] Outreach Member Role: Lifetime Consulting Physician Name: Darvin Cardona Position: [facility] Associate Professional Member Role: Lifetime Consulting Provider Address: Address: [address] [place] [address]- Name: Phoebe Zazueta RN Position: [facility] RN Member Role: Primary Care Nurse Name: Alyssa Alcazar Position: [facility] Outreach Member Role: Lifetime Consulting Physician Name: Butch Maria MD Position: [facility] Renal MD Member Role: Lifetime Consulting Physician Address: Address: [address] [place] [address] [address] [facility] [place] [address]- Name: Xiao Navarro RN Position: [facility] RN Member Role: Primary Care Nurse Care Team Related Persons Name: DENIA STEVENS Address: home [address] [address] Name: VIRGIL ROMO Address: home [address] [place] [address]
--- OUTSIDE RECORDS SUMMARY | 2023-02-19 02:40 | XMS_ITS | Continuity of Care Document ---
Author Name Unknown Organization [facility] Address [address] [place] [address]- Care Team Providers Care Contact Lens Technician Name Role Phone Wily PETERSON, Oli Cevallos Primary Care Physician [place] [facility] [facility] [place] 08[place]21 [facility] [address] [place], [place] [address] Allergies, Adverse Reactions, Alerts Substance Reaction Severity [...] Ordered BD CARISA 2 GEN PEN NDL [id number] Maintenance, 05/07/21 14:48:00 EST, Supply Start Date: [...]
--- OUTSIDE RECORDS SUMMARY | 2023-02-19 02:40 | XMS_ITS | Continuity of Care Document ---
Author Name Unknown Organization [facility] Address Unknown Care Team Providers Care Dynamotor Repairer Name Role Phone Wily PETERSON, Oli Cevallos Primary Care Physician En[place] [facility] [place] Date(s): 12/08/21 - 01/07/22 [facility] Attending Physician: Benny Borges Admitting Physician: Benny Borges Referring Physician: Benny Borges Allergies, Adverse Reactions, Alerts Substance Reaction Severity [...] Ordered BD CARISA 2 GEN PEN NDL [id number] Maintenance, 05/07/21 14:48:00 EST, Supply Start Date: [...]
--- OUTSIDE RECORDS SUMMARY | 2023-02-19 02:40 | XMS_ITS | Continuity of Care Document ---
Author Name Unknown Organization [facility] ter Address [address] [place] [address]- Care Team Providers Care Quality Rn Name Role Phone Wily PETERSON, Oli Cevallos Primary Care Physician Encounter [facility] [place] Date(s): 08/19/21 - 08/20/[address] [address] Discharge Disposition: A-D/C Home Attending Physician: Cullen Smart MD Admitting Physician: Cullen Smart MD Referring Physician: Cullen Smart MD Allergies, Adverse Reactions, Alerts Substance Reaction Severity Status Percocet itching Active TraZODone Hydrochloride Acti ve Medications acetaminophen 325 mg oral tablet 650 mg, Tablet, By Mouth, 08/20/21 1:00:00 EDT Start Date: 08/20/21 Stop Date: 08/20/21 Status: Completed acetaminophen 650 mg oral tablet, extended release 2 tablet = 1,300 mg, By Mouth, Every 4 hours, PRN as needed for pain, for 5 days, not to exceed 6 tablets/day (4000mg) do not crush or chew, # 60 tablet, 0 Refills, Acute 08/24/21 11:49:00 EDT, 08/19/21 11:49:00 EDT, ER Tablet, [facility]/pharmacy #[id number], [place]... Start Date: 08/19/21 Stop Date: 08/24/21 Status: [...] Ordered BD CARISA 2 GEN PEN NDL [id number] Maintenance, 05/07/21 14:48:00 EST, Supply Start Date: [...] opioid drug. Start Date: 05/08/21 Status: Ordered carvedilol 25 mg oral tablet 25 mg, Tablet, By Mouth, 08/20/21 9:00:00 EDT Start Date: 08/20/21 Stop Date: 08/20/21 Status: Completed Compazine Tablet = 10 mg, By Mouth, [...] 08/21/21 11:49:00 EDT, 08/19/21 11:49:00 EDT, Tablet, [facility]/pharmacy #[id number], Partial fill upon patient request if the prescription is for a schedul... Start Date: 08/19/21 Stop Date: 08/21/21 Status: Ordered Dilaudid 2 mg oral tablet 2 mg, Tablet, By Mouth, Every 4 hours, PRN for Pain , Severe, Routine, 08/19/21 15:31:00 EDT Start Date: 08/19/21 Stop Date: 08/20/21 Status: Discontinued Diltiazem = 360 mg, Daily, 0 Refills, [...] to oldest [Reference Range]: 1 2 3 Height 152.40 cm (08/20/21 8:18 AM) 152.40 cm (08/19/21 6:28 PM) 152.40 cm (08/19/21 8:01 AM) Weight 111.0 kg (08/19/21 6:28 PM) 115.8 kg (08/19/21 8:01 AM) Oxygen Saturation [94-100 %] 99 % (08/20/21 8:18 AM) 91 % *L* (08/20/21 4:00 AM) 91 % *L* (08/20/21 12:00 AM) Pulse Rate [55-90 bpm] 85 bpm (08/20/21 9:50 AM) 79 bpm (08/20/21 8:18 AM) 85 bpm (08/20/21 4:00 AM) Body Mass Index [18.5-24.99] 47.79 *>HHI* (08/19/21 6:28 PM) 49.86 *>HHI* (08/19/21 8:01 AM) Blood Pressure [90-138/55-84 mm Hg] 113/56mm Hg (08/20/21 9:50 AM) 113/56mm Hg (08/20/21 8:18 AM) 116/83mm Hg (08/20/21 4:00 AM) Respiratory Rate [16-30 br/min] 22 br/min (08/20/21 9:53 AM) 18 br/min (08/20/21 8:18 AM) 18 br/min (08/20/21 4:32 AM) Temperature [96.8-100.4 DegF] 97.9 DegF (08/20/21 8:18 AM) 98.9 DegF (08/20/21 4:00 AM) 98.5 DegF (08/20/21 12:00 AM) Liters per Minute 2 L/min (08/19/21 1:15 PM) 3 L/min (08/19/21 12:00 PM) 4 L/min (08/19/21 11:30 AM) Mode of Delivery (Oxygen) Room air (08/20/21 8:18 AM) Room air (08/20/21 4:00 AM) Room air (08/20/21 12:00 AM) Blood pressure sites Arm, right (08/20/21 8:18 AM) Arm, right (08/20/21 4:00 AM) Arm, right (08/20/21 12:00 AM) Temperature Route Oral (08/20/21 8:18 AM) Oral (08/20/21 4:00 AM) Oral (08/20/21 12:00 AM) Weight Obtained Via Bed scale (08/19/21 6:28 PM) Standing scale (08/19/21 8:01 AM)
--- OUTSIDE RECORDS SUMMARY | 2023-02-19 02:40 | XMS_ITS | Continuity of Care Document ---
Author Name Unknown Organization [facility] Address [address] [place] [address]- Care Team Providers Care Coffin Maker Name Role Phone Oli Julien MD Primary Care Physician Encounter [facility] [place] Date(s): 10/15/21 - 10/22/21 [facility] [address] [place], [place] [address] Attending Physician: Cullen Smart MD Admitting Physician: Cullen Smart MD Referring Physician: Oli Julien MD Allergies, Adverse Reactions, Alerts Substance Reaction [...] Ordered BD CARISA 2 GEN PEN NDL [id number] Maintenance, 05/07/21 14:48:00 EST, Supply Start Date: [...] recent to oldest [Reference Range]: 1 Height 152.40 cm (10/15/21 11:49 AM) Weight 109.0 kg (10/15/21 11:49 AM) Pulse Rate [55-90 bpm] 80 bpm (10/15/21 11:49 AM) Body Mass Index [18.5-24.99] 46.93 *>HHI* (10/15/21 11:49 AM) Blood Pressure [90-138/55-84 mm Hg] 124/ 76mm Hg (10/15/21 11:49 AM) Blood pressure sites Arm, right (10/15/21 11:49 AM) Weight Obtained Via Patient/family state d (10/15/21 11:49 AM)
--- OUTSIDE RECORDS SUMMARY | 2023-02-19 02:40 | XMS_ITS | Continuity of Care Document ---
Author Name Unknown Organization [facility] Address Unknown Care Team Providers Care Railway Signalling Engineer Name Role Phone Wily PETERSON, Oli Cevallos Primary Care Physician [phone] Encounter [facility] [place] Date(s): 08/05/21 - 09/24/21 [facility] Attending Physician: Zoya Dunlap MD Admitting Physician: Zoya Dunlap MD Allergies, Adverse Reactions, Alerts Substance Reaction [...] Ordered BD CARISA 2 GEN PEN NDL [id number] Maintenance, 05/07/21 14:48:00 EST, Supply Start Date: [...]
--- OUTSIDE RECORDS SUMMARY | 2023-02-19 02:40 | XMS_ITS | Continuity of Care Document ---
Author Name Unknown Organization [facility] Address Unknown Care Team Providers Care Mobile Qa Tester Name Role Phone Wily PETERSON, Oli Cevallos Primary Care Physician Encounter [facility] [place] Date(s): 11/24/21 - 01/07/22 [facility] Attending Physician: Mason Morrison MD [...] Ordered BD CARISA 2 GEN PEN NDL [id number] Maintenance, 05/07/21 14:48:00 EST, Supply Start Date: [...]
--- OUTSIDE RECORDS SUMMARY | 2023-02-19 02:40 | XMS_ITS | Continuity of Care Document ---
Author Name Unknown Organization [facility] Address [address] [place] [address]- Care Team Providers Care Gas Dispenser Name Role Phone Yolande Gallagher Primary Care Physician [id number] Date[facility] - 01/12/23 [facility] [address] [facility] [address] [place] [address]- Attending Physician: Marv Toney MD Admitting Physician: Marv Toney MD Referring Physician: Yolande Gallagher Allergies, Adverse Reactions, Alerts Substance Reaction Severity [...] Ordered BD CARISA 2 GEN PEN NDL [id number] Maintenance, 05/07/21 14:48:00 EST, Supply Start Date: [...] Team Personnel Name: Enid Mcguire RN Position: [facility] AMB Nurse Member Role: Primary Care Nurse Name: Sree Matamoros MD Position: [facility] Renal MD Member Role: Lifetime Consulting Physician Address: Address: [address] [place] [address] [facility] [address] Name: Yolande Gallagher Position: Reference Physician Member Role: PCP Address: Address: [address] [place] [address]- Name: Denver Pierce DO Position: [facility] Renal MD Member Role: Lifetime Consulting Physician Address: Address: [address] [place] [address] [facility] [place] [address]- Name: Kamila Blair Position: [facility] Outreach Member Role: Lifetime Consulting Physician Name: Darvin Cardona Position: [facility] Associate Professional Member Role: Lifetime Consulting Provider Address: Address: [address] [place] [address]- Name: Phoebe Zazueta RN Position: [facility] RN Member Role: Primary Care Nurse Name: Alyssa Alcazar Position: [facility] Outreach Member Role: Lifetime Consulting Physician Name: Butch Maria MD Position: [facility] Renal MD Member Role: Lifetime Consulting Physician Address: Address: [address] [facility] [place] [address]- Name: Xiao Navarro RN Position: [facility] RN Member Role: Primary Care Nurse Care Team Related Persons Name: DENIA STEVENS Address: home [address] [address] Name: VIRGIL ROMO Address: home [address] [place] [address] UM
--- OUTSIDE RECORDS SUMMARY | 2023-02-19 02:40 | XMS_ITS | Continuity of Care Document ---
Author Name Unknown Organization [facility] Address [address] [place] [address]- Care Team Providers Care Signals Officer Name Role Phone Wily PETERSON, Oli Cevallos Primary Care Physician [phone] [place] [facility] [place]/21 [facility] [address] [place], [place] [address] Attending Physician: Benny Borges Admitting Physician: Benny [...] Ordered BD CARISA 2 GEN PEN NDL [id number] Maintenance, 05/07/21 14:48:00 EST, Supply Start Date: [...]
--- OUTSIDE RECORDS SUMMARY | 2023-02-19 02:40 | XMS_ITS | Continuity of Care Document ---
Author Name Unknown Organization [facility] Address [address] [place] [address]- Care Team Providers Care Therapist Asst Name Role Phone Yolande Gallagher Primary Care Physician [place] [facility] [place] 12/18/21 - 01/17/22 [facility] [address] [place], [place] [address] Attending Physician: Benny Borges Admitting Physician: AdmBenny calzada Referring Physician: AdmtrBenny Allergies, Adverse Reactions, Alerts [...] Ordered BD CARISA 2 GEN PEN NDL [id number] Maintenance, 05/07/21 14:48:00 EST, Supply Start Date: [...] Care Team Personnel Name: Yolande Gallagher Address: [address] [place] [address]
--- OUTSIDE RECORDS SUMMARY | 2023-02-19 02:40 | XMS_ITS | Continuity of Care Document ---
Author Name Unknown Organization [facility] Address Unknown Care Team Providers Care Machine Assistant Name Role Phone Wily PETERSON, Oli Cevallos Primary Care Physician [id number] Date(s[facility] 11/04/21 - 12/24/21 [facility] Attending Physician: Mason Morrison MD Admitting Physician: Mason oMrrison MD Allergies, Adverse Reactions, Alerts Substance Reaction [...] Ordered BD CARISA 2 GEN PEN NDL [id number] Maintenance, 05/07/21 14:48:00 EST, Supply Start Date: [...]
--- OUTSIDE RECORDS SUMMARY | 2023-02-19 02:40 | XMS_ITS | Continuity of Care Document ---
Author Name Unknown Organization [facility] Address [address] [place] [address]- Care Team Providers Care Buy Boat Operator Name Role Phone Wily PETERSON, Oli Cevallos Primary Care Physician [place] [facility] [place] 07/30/21 - 08/29/21 [facility] [address] [place] [address]- Allergies, Adverse Reactions, Alerts Substance Reaction Severity [...] Ordered BD CARISA 2 GEN PEN NDL [id number] Maintenance, 05/07/21 14:48:00 EST, Supply Start Date: [...]
--- OUTSIDE RECORDS SUMMARY | 2023-02-19 02:40 | XMS_ITS | Continuity of Care Document ---
Author Name Unknown Organization [facility] Address [address] [place] [address]- Care Team Providers Care Sack Cleaner Name Role Phone Oli Julien MD Primary Care Physician [phone] [facility] [place] Date(s): 05/07/21 - 06/06/21 [facility] [address] [place], [place] [address] Attending Physician: Benny Borges Admitting Physician: AdmtrBenny Referring Physician: Admtr, Ar8 Allergies, Adverse Reactions, Alerts Substance Reaction [...] Ordered BD CARISA 2 GEN PEN NDL [id number] Maintenance, 05/07/21 14:48:00 EST, Supply Start Date: [...]
--- OUTSIDE RECORDS SUMMARY | 2023-02-19 02:41 | XMS_ITS | Continuity of Care Document ---
Author Name Unknown Organization [facility] Address Unknown Care Team Providers Care Featheredge Machine Operator Name Role Phone Wily PETERSON, Oli Cevallos Primary Care Physician [place] [facility] [place] 09[place]21 - 10/22/21 [facility] Attending Physician: Benny Borges Admitting [...] Ordered BD CARISA 2 GEN PEN NDL [id number] Maintenance, 05/07/21 14:48:00 EST, Supply Start Date: [...]
--- OUTSIDE RECORDS SUMMARY | 2023-02-19 02:41 | XMS_ITS | Continuity of Care Document ---
Author Name Unknown Organization [facility] ter Address [address] [place] [address]- Care Team Providers Care Sewing Teacher Name Role Phone Oli Julien MD Primary Care Physician Encounter [facility] [place] Date(s): 07/14/21 - 07/15/[address] [address] Discharge Disposition: A-D/C Home Attending Physician: [...] Ordered BD CARISA 2 GEN PEN NDL [id number] Maintenance, 05/07/21 14:48:00 EST, Supply Start Date: [...] Ordered Dilaudid 2 mg oral tablet 1 mg, Tablet, By Mouth, Once, Routine, 07/15/21 10:10:00 EST, Stop date 07/15/21 10:10:00 EST Start Date: 07/15/21 Stop Date: 07/15/21 Status: Completed Diltiazem = 360 mg, Daily, 0 Refills, [...] opioid drug. Start Date: 07/03/21 Status: Ordered traMADol 50 mg oral tablet 0.5 tablet = 25 mg, By Mouth, Every 4 hours, PRN Pain , Moderate, for 5 days, # 15 tablet, 0 Refills, Acute 07/20/21 14:00:00 EST, 07/15/21 14:00:00 EST, Tablet, [facility]/pharmacy #[id number], Partial fill uponpatient request if the prescription is for a schedu... Start Date: 07/15/21 Stop Date: 07/20/21 Status: Ordered Tylenol 325 mg oral tablet [...] oldest [Reference Range]: 1 2 3 Height 152.3 cm (07/15/21 1:30 PM) 152.3 cm (07/15/21 8:45 AM) 152.3 cm (07/15/21 5:36 AM) Weight 96.9 kg (07/15/21 5:41 AM) 98.2 kg (07/14/21 3:30 PM) 112.5 kg (07/14/21 7:23 AM) Oxygen Saturation [94-100 %] 100 % (07/15/21 1:30 PM) 98 % (07/15/21 8:45 AM) 96 % (07/15/21 5:36 AM) Pulse Rate [55-90 bpm] 80 bpm (07/15/21 1:30 PM) 75 bpm (07/15/21 8:45 AM) 79 bpm (07/15/21 5:36 AM) Body Mass Index [18.5-24.99] 42.34 *>HHI* (07/14/21 3:30 PM) 48.5 *>HHI* (07/14/21 7:23 AM) 48.5 *>HHI* (07/03/21 1:03 PM) Blood Pressure [90-138/55-84 mm Hg] 90/64mm Hg (07/15/21 1:30 PM) 117/72mm Hg (07/15/21 8:45 AM) 98/62mm Hg (07/15/21 5:36 AM) Respiratory Rate [16-30 br/min] 17 br/min (07/15/21 1:30 PM) 20 br/min (07/15/21 10:14 AM) 18 br/min (07/15/21 8:45 AM) Temperature [96.8-100.4 DegF] 98.4 DegF (07/15/21 1:30 PM) 98.7 DegF (07/15/21 8:45 AM) 98.7 DegF (07/15/21 5:36 AM) Liters per Minute 2 L/min (07/14/21 1:15 PM) 2 L/min (07/14/21 11:30 AM) 2 L/min (07/14/21 11:15 AM) Mode of Delivery (Oxygen) Room air (07/15/21 1:30 PM) Room air (07/15/21 8:45 AM) Room air (07/15/21 5:36 AM) Blood pressure sites Arm, right (07/15/21 1:30 PM) Arm, right (07/15/21 8:45 AM) Arm, right (07/14/21 11:27 PM) Temperature Route Oral (07/15/21 1:30 PM) Oral (07/15/21 8:45 AM) Oral (07/15/21 5:36 AM) Dry Weight 112.5 kg (07/14/21 7:23 AM) 112.5 kg (07/03/21 1:03 PM) Weight Obtained Via Bed scale (07/15/21 5:41 AM) Bed scale (07/14/21 3:30 PM) Dry Weight Obtained Via Patient/family s tated (07/03/21 1:03 PM)
--- OUTSIDE RECORDS SUMMARY | 2023-02-19 02:41 | XMS_ITS | Continuity of Care Document ---
Author Name Unknown Organization [facility] ter Address [address] [place] [id number]- Care Team Providers Care Input Output Clerk Name Role Phone Yolande Gallagher Primary Care Physician [place] [facility] [place]): [place]13/22 - 11/22/[address] [id number] Discharge Disposition: Discharge Spec Fac/Child or Cancer Ctr Attending Physician: Jennie Lei MD Admitting Physician: Nabeel Forbes MD Referring Physician: Not on Staff, Referring [...] Ordered BD CARISA 2 GEN PEN NDL [id number] Maintenance, 05/07/21 14:48:00 EST, Supply Start Date: [...] drug. Start Date: 11/14/22 Status: Ordered Epoetin Yessenia 0.5 mL = 20,000 units, Subcutaneous Injection, [...] opioid drug. Start Date: 11/22/22 Status: Ordered metoprolol 25 mg oral tablet, extended release 25 mg, XL Tablet, By Mouth, Hold for: SBP <85, 11/22/22 9:00:00 EDT Start Date: 11/22/22 Stop Date: 11/22/22 Status: Completed midodrine 5 mg oral tablet 10 mg, 2, tablet, By Mouth, Daily, PRN, hypotension for dialysis, # 180 tablet, Refills 0, Maintenance, other, 11/14/22 5:13:00 EDT, Partial fill upon patient request if the prescription is for a schedule II opioid drug. Start Date: 11/14/22 Status: Ordered midodrine 5 mg oral tablet 10 mg, Tablet, By Mouth, 11/22/22 15:00:00 EDT Start Date: 11/22/22 Stop Date: 11/22/22 Status: Completed Omeprazole = 40 mg, By Mouth, 2 [...] Date: 11/14/22 Stop Date: 12/14/22 Status: Ordered Results Orders for Microbiology Reports Name Date Blood Culture 11/13/22 Blood Culture #2 11/13/22 Microbiology Reports TEST:Blood Culture STATUS:Auth (Verified) BODY SITE: SOURCE:Blood COLLECTED DATE/TIME:11/13/22 9:12 PM Blood Culture SPECIMEN DESCRIPTION : BLOOD R HAND SPECIAL REQUESTS : NONE CULTURE : NO GROWTH 5 DAYS. REPORT STATUS : FINAL 11/18/2022 TEST:Blood Culture, Second Order STATUS:Auth (Verified) BODY SITE: SOURCE:Blood COLLECTED DATE/TIME:11/13/22 9:12 PM Blood Culture, Second Order SPECIMEN DESCRIPTION : BLOOD RAC SPECIAL REQUESTS : NONE CULTURE : NO GROWTH 5 DAYS. REPORT STATUS : FINAL 11/18/2022 Radiology Reports * Exam Date Time Procedure Performing Provider Status 11/19/22 9:[address] Chest W/O Contrast Petra Moser; Margarette (Verified) Notes: (CT Chest W/O Contrast) Reason For Exam: 62 yo F with concern for pulmonary fibrosis/interstitial lung disease.;Other: RESULT: CT Chest W/O Contrast CT Chest W/O Contrast INDICATION: Reason: Other:; 62 yo F with concern for pulmonary fibrosis interstitial lung disease.;Clinical Question(s): Other:; Pulmonary fibrosis; Order Comment: TECHNIQUE: Helical CT scan of the chest without IV contrast, formatted in 3 planes. Weight-based protocol was performed using automatic exposure control. CTDIvol Body: 5.53 mGy, DLP Body: 365 mGy*cm. COMPARISON: None. FINDINGS: Leasing Associate view findings, lines and tubes: There is a right IJ central line with its tip in the right atrium. Trachea and airways: Patent without evidence of tracheal or endobronchial lesion. Lungs and pleura: There is interlobular septal thickening with predominantly perihilar groundglass and solid lung opacities with bronchiectasis. No effusion or pneumothorax. Mediastinum and jared: Limited noncontrast evaluation demonstrates soft tissue prominence at the right mediastinum/hilum. There is a moderate-sized hiatal hernia. Heart: Heart is normal in size. No pericardial effusion. Moderate coronary artery calcification. Aorta: Mild vascular calcification but no aneurysm. Pulmonary arteries: The central pulmonary artery at is prominent. Chest wall soft tissues: No acute abnormality. Diaphragm: Intact. Upper abdomen: Limited evaluation of the imaged portion of the kidneys demonstrate multiple renal lesions some of which demonstrate fluid attenuation and some of which demonstrate soft tissue attenuation. Bones: No acute abnormality. Multilevel discogenic degenerative changes at the thoracic spine. IMPRESSION: 1. Soft tissue prominence at the right mediastinum/hilum. Further evaluation with a contrast-enhanced study is recommended. 2. Prominence of the main pulmonary artery which may be related to pulmonary artery hypertension. 3. Extensive bilateral predominantly perihilar groundglass/solid airspace opacities. 4. Interlobular septal thickening with bronchiectasis. 5. Indeterminate bilateral renal lesions. Further evaluation with renal ultrasound scan DEDICATED pre and postcontrast ultrasound scan of the abdomen is recommended. WSN: [id number] Ordering Physician: Caron Du Dictated By: Claudia Wyatt MD Dictated Date/Time: 11/20/22 5:17 pm Reviewed By: Claudia Wyatt MD Signed By: Claudia Wyatt MD Signed Date/Time: 11/20/22 5:17 pm Transcribed By: WESTON Transcribed Date/Time: 11/20/22 5:05 pm * Exam Date Time Procedure Performing Provider Status 11/17/22 10:49 AM Chest Portable Gino Medina; Auth ( Verified) Notes: (Chest Portable) Reason For Exam: Cough RESULT: Chest Portable Chest Portable Reason: Cough; Clinical Question(s): Pneumonia / Pneumonia COMPARISON: 11/13/2022 FINDINGS: LINES AND TUBES: Right internal jugular PermCath with tip projecting in the right atrium. LUNGS AND PLEURA: Bilateral primarily perihilar interstitial and alveolar opacities, minimally improved from prior. No pleural effusion. No pneumothorax. HEART, MEDIASTINUM AND JARED: Unchanged. BONES AND SOFT TISSUES: No acute abnormality. Surgical clips in the upper abdomen. IMPRESSION: Minimally improved aeration of the lungs. WSN: [id number] Ordering Physician: Caron Du Dictated By: Amari De MD Dictated Date/Time: 11/17/22 11:17 a Reviewed By: Amari De MD Signed By: Amari De MD Signed Date/Time: 11/17/22 11:17 am Transcribed By: WESTON Transcribed Date/Time: 11/17/22 11:16 am * Exam Date Time Procedure Performing Provider Status 11/13/22 10:10 PM Chest Portable Rock Arora; Auth (Ve rified) Notes: (Chest Portable) Reason For Exam: port placement;Other: RESULT: Chest Portable Chest Portable Reason: Other:; port placement; Clinical Question(s): Other: COMPARISON: None. FINDINGS: LINES AND TUBES: Right IJ dual-lumen catheter with the tip projecting over the right atrium. LUNGS AND PLEURA: Bilateral airspace opacities, predominantly central. Probable trace right pleural effusion. Low lung volumes. No pneumothorax. HEART, MEDIASTINUM AND JARED: Mild prominence of the cardiac silhouette. Normal mediastinal and hilar contour. BONES AND SOFT TISSUES: No acute abnormality. Extensive upper abdominal surgical clips. IMPRESSION: Bilateral predominately central airspace opacities and probable trace right pleural effusion which may represent pulmonary edema in the proper clinical setting. I have personally reviewed the images and I agree with this report. WSN: [id number] Ordering Physician: Rich Padron Dictated By: Cindy Weir MD Dictated Date/Time: 11/13/22 10:28 p Reviewed By: Rodri Chatterjee MD Signed By: Rodri Chatterjee MD Signed Date/Time: 11/13/22 10:33 pm Transcribed By: WESTON Transcribed Date/Time: 11/13/22 10:19 pm Vital Signs Most recent to oldest [Reference Range]: 1 2 3 Height 152 cm (11/22/22 2:41 PM) 152 cm (11/22/22 7:19 AM) 152 cm (11/22/22 2:47 AM) Weight 66.6 kg (11/22/22 5:19 AM) 65.1 kg (11/21/22 5:17 AM) 65.0 kg (11/20/22 5:52 AM) Oxygen Saturation [94-100 %] 96 % (11/22/22 2:41 PM) 96 % (11/22/22 7:19 AM) 97 % (11/22/22 2:47 AM) Pulse Rate [55-90 bpm] 84 bpm (11/22/22 2:41 PM) 94 bpm *H* (11/22/22 2:23 PM) 89 bpm (11/22/22 8:53 AM) Body Mass Index [18.5-24.99 kg/m2] 27.35 kg/m2 *H* (11/13/22 6:44 PM) Blood Pressure [90-138/55-84 mm Hg] 103/78mm Hg (11/22/22 2:23 PM) 83/55mm Hg *L* (11/22/22 8:58 AM) 111/94mm Hg (11/22/22 8:53 AM) Respiratory Rate [16-30 br/min] 18 br/min (11/22/22 2:41 PM) 18 br/min (11/22/22 2:00 PM) 18 br/min (11/22/22 7:19 AM) Temperature [96.8-100.4 DegF] 97.6 DegF (7/3/23 2:41 PM) 97.8 DegF (11/22/22 2:00 PM) 97.0 DegF (11/22/22 7:19 AM) Liters per Minute 2 L/min (11/20/22 2:09 PM) 2 L/min (11/20/22 1:31 AM) 2 L/min (11/19/22 8:02 PM) Mode of Delivery (Oxygen) Room air (11/22/22 2:41 PM) Room air (11/22/22 2:00 PM) Room air (11/22/22 7:19 AM) Blood pressure sites Arm, right (11/22/22 2:00 PM) Arm, right (11/22/22 7:19 AM) Arm, right (11/22/22 2:47 AM) Temperature Route Temporal (11/22/22 2:41 PM) Temporal (11/22/22 2:00 PM) Temporal (11/22/22 7:19 AM) Dry Weight 64 kg (11/13/22 6:44 PM) Weight Obtained Via Bed scale (11/22/22 5:19 AM) Bed scale (11/21/22 5:17 AM) Bed scale (11/20/22 5:52 AM) Consult note * Quinten Corley: MODIFY, PERFORM Event Display: Consult Authored Date: [id number] Patient: ??MICHELLE AYALA ? Age:??62 Years?Sex:??Female?:??1960?? History of Present Illness The patient is a 61-year-old female with past medical history of extensive MR, two prior endocarditis (c/b pseudomonas/MRSA in 01/2022, and with??Staph Epi??in 05/2022), ESRD on hemodialysis Tuesday, COPD on 2 L oxygen, type 2 diabetes not controlled with diet after massive weight loss, presented to [facility] for worsening weakness and shortness of breath. ?? The patient was admitted to [facility] for worsening respiratory distress (she??needed 5L supplemental O2??upon admission)??and evaluated by a imaging center manager , who admitted the patient in the setting of severe mitral regurgitation contributing to her volume overload. Written report of CT from [facility] has evidence of acute volume overload with pulmonary edema with a BNP of 14,677 (baseline appears to be bella 1520). CT also revealed background chronic pulmonary fibrotic changes??which prompted Dr. Radhika Bansal??to obtain serologic testing to evaluate for bronchiectasis and ILD (we don't have access to results of these tests at the moment). She was started on empiric ceftriaxone and doxycycline.??The patient underwent dialysis after which an arrangement for transfer to [facility]??was made by Dr. Alberto??to [facility] [place] the patient to be evaluated for mitral valve replacement. Pulmonary Medicine was consulted for further recommendations on her respiratory distress. ?? On our interview, the patient reports that she has been feeling progressively weak, and has worsening dry cough. She denies chest pain, dizziness, shortness of breath, nausea, nasuea, vomiting, any recent sick contacts, recent travel, exposure to chemicals, and exposure to TB. ?? Of note, the patient had a sleep study in August of 2021, which was consistent with nocturnal hypoxia presumably??in the setting of obesity hypoventilation syndrome. ?? Review of Systems Constitutional:??+weight loss, no fever, cno hills, +weakness or fatigue. Allergy/Immune: Denies any??Eczema or hives Eyes:??No visual loss, blurred vision, double vision or yellow sclera ENT:??No hearing loss, sneezing, congestion, runny nose or sore throat. Respiratory:??+shortness of breath, +cough, no sputum production. Cardiovascular:??No chest pain, chest pressure or chest discomfort. No palpitations or pedal edema. Gastrointestinal:??No anorexia, nausea, vomiting or diarrhea. No abdominal pain or blood in stool. Neurologic:??No headache, dizziness, syncope, unilateral weakness, ataxia, numbness or tingling in the extremities. No change in bowel or bladder control. Musculoskeletal:??No muscle pain, back pain, joint pain or stiffness. Psychiatric:??No depression or anxiety. Physical Exam Vitals & Measurements T:??97.3?F?? TMIN:??97.3?F?? TMAX:??98.2?F?? HR:??87??(Peripheral)?? RR:??16?? BP:??96/76?? SpO2:??100%?? WT:??63.5??kg?? Constitutional: Alert, in no distress. Mental Status: Oriented to person, place and time. Head: Normocephalic. Eyes: Pupils are equal, round and reactive to light. Extraocular muscles intact. Ear, Nose and Throat: Oropharynx clear, mucous membranes moist. Ears and nose without masses, lesions or deformities. Trachea midline. Neck: Supple, Full range of motion. Respiratory: Course crackles throughout, worse on bases Cardiovascular: . Peripheral pulses are 2+ bilaterally. Normal S1 and S2. Holosystolic murmur best heard on apex. Gastrointestinal: Abdomen soft, non-tender, non-distended. Normal bowel sounds. No pulsatile mass. No hepatosplenomegaly. Neurologic: Cranial nerves II-XII grossly intact. No focal neurological deficits. Flexor plantar response. Moves all extremities spontaneously. Sensation intact bilaterally. Psychiatric: Normal mood and affect Assessment/Plan #Acute Respiratory Failure with Hypoxia #Community Acquired Pneumonia #Possible Fibrosis/ILD ?? # Michelle is a 62 y/o F with a PMHx as mentioned above??transferred??from [facility] with worsening SOB,??with??CT imaging revealing volume overload along with interstitial changes of inflammation versus infection versus fibrosis. Patient was seen by cardiology and renal, underwent dialysis and then was transferred to [facility] for evaluation for MV replacement. #??Procal elevated at 0.52, patient has course??crackles on lung exam. Currently saturating at 100%on 2L O2 # ASTON at [facility] showed very severe, highly eccentric (posteriorly directed) mitral??regurgitation.There is moderate tricuspid regurgitation.??The pulmonary artery systolic pressure estimation is severely elevated, 66??mmHg plus CVP. # Etiology of her symptoms are multifactorial. She does have severe MR??leading to pulmonary congestion.??Elevated procalc may suggest underlying PNA, though no leukocytosis and fever are present. The patient may have underlying ILD but she will need outpatient work-up once she is euvolemic. COPD exacerbation is possible, though she does not have a documented diagnosis, and we did not appreciate wheezing on exam. ?? Recommendations - Continue steroids as patient's being treated for CAP.?? 5 day course is reasonable. - Please repeat procalcitonin level. Plan for 5-7 day course of abx. - Would recommend high resolution chest CT w/out contrast - Aggressive airway clearance measures such as IS, acapella, bed CPT - Duonebs can be moved to as needed - Outpatient follow up with pulmonary function testing ?? Case Discussed with MD Linda ?? Quinten Villarrealdemir, MS-4 Problem List/Past Medical History Ongoing No qualifying data Medications Inpatient acetaminophen 325 mg oral tablet, 975 mg, By Mouth, Every 6 hours, PRN aspirin 81 mg oral delayed release tablet, 81 mg, By Mouth, Daily atorvastatin 10 mg oral tablet, 10 mg, By Mouth, Daily Benzonatate Capsule, 100 mg, By Mouth, 3 times a day, PRN Ceftriaxone Inj, 1 Gm, IVPB, Every 24 hours Colace sodium 100 mg oral capsule, 100 mg= 1 capsule, By Mouth, 2 times a day diazepam 2 mg oral tablet, 2 mg, By Mouth, 2 times a day, PRN Docusate/Senna Tablet, 1 tablet, By Mouth, 2 times a day, PRN Doxycycline Tablet, 100 mg, By Mouth, Every 12 hours Duoneb Inhalation Solution, 1 vials, BAND Nebulizer, 4 times a day Elavil Tablet, 100 mg, By Mouth, Daily at bedtime Heparin Inj, 5000 units= 1 mL, Subcutaneous Injection, 3 times a day hydrOXYzine pamoate 25 mg oral capsule, 25 mg, By Mouth, 3 times a day, PRN Insulin LISPRO Sliding Scale, 2-10 units, Subcutaneous Injection, 3 times a day before meals Lansoprazole OD Tablet, 15 mg, By Mouth, Daily Melatonin Tablet, 3 mg, By Mouth, Daily at bedtime, PRN metoprolol 25 mg oral tablet, extended release, 25 mg, By Mouth, Daily midodrine 5 mg oral tablet, 10 mg, By Mouth, 3 times a day MiraLax Powder, 17 Gm= 1 pack/packet, By Mouth, Daily, PRN NaCL 0.9% Flush, 3 mL, IV Push, Every 8 hours NaCL 0.9% Flush, 3 mL, IV Push, Every 8 hours, PRN Nephrocap Capsule, 1 capsule, By Mouth, Daily predniSONE 20 mg oral tablet, 40 mg, By Mouth, Daily Remeron Tablet, 22.5 mg, By Mouth, Daily at bedtime Robitussin DM Liquid, 10 mL, By Mouth, Every 4 hours, PRN rOPINIRole 1 mg oral tablet, 1 mg, By Mouth, 2 times a day Senna 8.6 mg oral tablet, 8.6 mg= 1 tablet, By Mouth, Daily Simethicone Tablet, 80 mg, Chew, 3 times a day, PRN Venlafaxine IR 75 mg tablet, 75 mg, By Mouth, Daily Home amiTRIPTYLINE, 100 mg, By Mouth, Daily at bedtime aspirin 81 mg oral delayed release tablet, 81 mg= 1 tablet, By Mouth, Daily atorvastatin 10 mg oral tablet, 10 mg= 1 tablet, By Mouth, Daily Auryxia 210 mg oral tablet, 420 mg= 2 tablet, By Mouth, 3 times a day with meals BD ACRISA 2 GEN PEN NDL [id number] Compazine Tablet, 5 mg, By Mouth, Daily, PRN diazepam 2 mg oral tablet, 2 mg= 1 tablet, By Mouth, 2 times a day, PRN hydrOXYzine hydrochloride 25 mg oral tablet, 25 mg= 1 tablet, By Mouth, 4 times a day, PRN Metoprolol Succinate ER 25 mg oral tablet, extended release, 12.5 mg= 0.5 tablet, By Mouth, Daily midodrine 5 mg oral tablet, 10 mg= 2 tablet, By Mouth, Daily, PRN Omeprazole, 40 mg, By Mouth, 2 times a day Remeron Tablet, 22.5 mg, By Mouth, Daily at bedtime Requip, 1 mg, By Mouth, 3 times a day Tiadylt ER 180 mg/24 hours oral capsule, extended release venlafaxine 75 mg oral tablet, 75 mg= 1 tablet, By Mouth, Daily Allergies Percocet??(itching) TraZODone Hydrochloride Social History - Smoked on-off until 2003 Family History - No known lung disease in the family * Shoaib PETERSON, Wale Meyers: PERFORM Event Display: Consult Authored Date: Patient seen and discussed with Quinten BUTLERIV and agree with his findings and recommendations. * Event Display: Consultation Note Authored Date: [id number] CONSULTATION DATE: 11/17/2022 CHIEF COMPLAINT: Shortness of breath. HISTORY OF PRESENT ILLNESS: The patient is a 62-year-old Quaker, who has an extensive past medical history. It includes mitral regurgitation secondary to endocarditis about 6 months ago, history of pulmonary hypertension, end-stage renal disease on hemodialysis, chronic respiratory failure, on 2 liters oxygen at home, COPD, type 2 diabetes, status post massive weight loss secondary to gastric sleeve operation. The patient presents with worsening shortness of breath and congestive heart failure and worsening mitral regurgitation and is referred for consideration for mitral valve repair or replacement. Her past medical history is remarkable for chronic renal failure, has been on dialysis for about 2 years. She is diabetic. In 2017, she underwent a gastric sleeve resection and haslost a remarkable amount of weight since then. She has a history of chronic heart failure. She has type 2 diabetes, pulmonary artery hypertension, chronic anemia secondary to CKD, hypertension, suprav entricular tachycardia. She has a left renal mass, which is undiagnosed. She has restless leg syndrome and depression, anxiety. She presented to [facility] and was transferred to [facility]. Past surgical history is remarkable for access surgeries in the left arm. She also has had a gastric sleeve resection. She has had a transesophageal echo. She has a history of endocarditis. It was thought to have a perforation of the anterior leaflet of the mitral valve. However, on ASTON today, it appears as though there might be a perforation, maybe a ruptured cord with prolapse of the anterior leaflet over the posterior leaflet. List of her medications includes albuterol, amitriptyline, aspirin, atorvastatin, ceftriaxone, docusate, heparin, insulin, lansoprazole, metoprolol, mirtazapine, ropinirole, senna, venlafaxine, diazepam, melatonin, midodrine, simethicone. SOCIAL HISTORY: Remarkable for being . She has 2 children, one of whom has . She used to smoke, stopped in 2003 and has a rare alcoholic beverage. PAST SURGICAL HISTORY: Also include bilateral carpal tunnel with revisions. She had arthroscopic knee surgery as well, and hysterectomy. PHYSICAL EXAMINATION: GENERAL: She is an elderly-appearing female. She appears much older than her stated age of 62. VITAL SIGNS: Remarkable for a height of 152 cm and weight of 62 kg. Her heart rate in the 90s. Her blood pressure is in the mid 80s/60s. Her O2 sat is 93% on 2 liters nasal cannula. HEENT: Normocephalic, atraumatic. PERRLA, EOMI. Membranes are moist. NECK: Supple, no masses, no jugular venous distention. LUNGS: Remarkable for bilateral crackles in the bases. HEART: Sounds are remarkable for a grade 3/6 systolic murmur heard across the precordium. ABDOMEN: Not obese, without palpable masses or tenderness, no hepatosplenomegaly, no ascites. EXTREMITIES: She has an old fistula in the left arm. She has a Perm-A-Cath overlying the right chest. MUSCULOSKELETAL: Intact. NEUROLOGIC: No gross motor or sensory deficits. Review of the ASTON is remarkable for severe MR. It was a posteriorly directed jet, which looks like it comes from the A2 P2 area and there might be a ruptured cord, although there is evidence of healed vegetation there as well; it is hard to tell really. EF is 55%. There is pulmonary hypertension with PA pressures of 66+ CVP. In summary, Ms. Michelle Ayala is a 62-year-old lady with severe mitral regurgitation, probably secondary to previous endocarditis. The mechanism of the EMR that appears on her most recent ASTON is possible ruptured cord on the anterior leaflet with a posterior directed jet. This would conceivably be s omething relatively easy to fix at the time of mitral valve surgery; however, she represents a significant risk for open mitral valve surgery due to her chronic renal failure and chronic anemia and her Quaker desire not to receive any blood transfusions. I think given her body size and the obligatory dilution from the heart lung machine, she will be starting off with a hematocrit between 20-21 once we went on bypass. This does not give me enough margin of error to safely repair or replace her mitral valve and get through that major surgery without a transfusion and she without reservation said that she would rather than to get a blood transfusion. For this reason, I do not think that I can in good conscious offer her a mitral valve operation since I do not think I could accomplish it with a margin of safety. For that reason some alternative approach to her mitral regurgitation should be investigated and carefully evaluated. If indeed she has a ruptured cord on the anterior leaflet, a MitraClip may serve as an alternative treatment for her mitral regurgitation and could probably be accomplished without the need of blood transfusion. This was discussed with Dr. Lebron Cade, who considers MitraClip is a possible option. Dictated by: Derrell Chamberlain M.D. Signing Clinician: Derrell Chamberlain M.D. Dictated: 11/17/2022 05:44:08 Transcribed: 01:34:18 PM Transcribed by: JO ANN/LESLIE DocID: [id number] PRELIMINARY REPORT UNLESS MANUALLY/ELECTRONICALLY SIGNED * Rayo PETERSON, Shannan Montez: MODIFY, PERFORM Event Display: Consultation Note Authored Date: [id number] Patient: ??MICHELLE AYALA ? Age:??62 Years?Sex:??Female?:??1960?? History of Present Illness/Interval History 62-year-old lady with complex past medical history including??chronic respiratory failure??on oxygen, end-stage renal disease on dialysis, history of mitral valve endocarditis, anterior mitral leaflet perforation and severe mitral regurgitation, tricuspid regurgitation, pulmonary hypertension, discitis and osteomyelitis, heart failure with preserved EF, diabetes, anemia, SVT, hypertension, renal mass, anxiety, depression who has had recurrent admission to outside hospitals with acute on chronicrespiratory failure, now was transferred from [facility] for management of respiratory failure, severe MR and renal mass ?? Patient reports has had??many hospital admissions.?? April last year??reportedly she was at [facility]??with bacteremia,??ASTON showed 5 mm??mitral valve vegetation??and large??A2 perforation??with severe MR and EROA of??0.7??cm, moderate TR, pulmonary hypertension and normal LV systolic function.?? Atthat time cardiac catheterization did not show obstructive CAD.?? I do not have the full records from [facility], we should obtain the records.?? According to the patient??she was told she needs a??mitralvalve surgery??but it has not happened. ?? She continues to feel short of breath,??coughing and decompensated congestive heart failure.She hasorthopnea and PND. ?? On telemetry she is in sinus rhythm. ?? Labs are significant for hemoglobin of 11.2, white cell count is reduced at 2.1, sodium 133, potassium 4.8, blood cultures drawn on 11/13 are negative, chest x- ray shows bilateral central airspace opacities possible due to pulmonary edema. ?? EKG shows sinus rhythm heart rate of 89 bpm, baseline artifact. Review of Systems All systems reviewed and negative except as in HPI Physical Exam Vitals & Measurements T:??98.4?F?? HR:??80??(Peripheral)?? RR:??19?? BP:??86/65?? SpO2:??97%?? HT:??152??cm?? WT:??65.1??kg?? BMI:??27.35?? Weight lb/oz: 143 lb 8 oz HEENT:? pale conjunctivae.?No jaundice.? Mouth: moist mucous membranes.? Neck: carotid pulses symmetrical.?No carotid bruit.? Cardiac:??Regular rate and rhythm, no JVD,??systolic murmur but difficult to appreciate heart sounds due to significant??additional breathing sounds and crackles Chest: Bilateral crackles, airway sounds??and reduced air entry Abdomen: soft, nontender, bowel sounds present.? Peripheral exam:??Dialysis access in upper extremities.?? No significant peripheral edema. Assessment/Plan 1.??Acute on chronic respiratory failure 2.??Volume overload 3.??Mitral regurgitation 4.??History of endocarditis 5.??Heart failure with preserved ejection fraction 6.??ESRD on dialysis 7.??Type 2 diabetes mellitus 8.??Pulmonary artery hypertension 9.??History of anemia due to CKD 10.??Chronic hypotension 11.??SVT (supraventricular tachycardia) 12.??Left renal mass 13.??Restless leg syndrome 14.??Depression 15.??Anxiety Orders: Echo Transesophageal NPO after Midnight Except for Meds 62-year-old lady with complex past medical history including??chronic respiratory failure??on oxygen, end-stage renal disease on dialysis, history of mitral valve endocarditis, anterior mitral leaflet perforation and severe mitral regurgitation, tricuspid regurgitation, pulmonary hypertension, discitis and osteomyelitis, heart failure with preserved EF, diabetes, anemia, SVT, hypertension, renal mass, anxiety, depression who has had recurrent admission to outside hospitals with acute on chronicrespiratory failure, now was transferred from [facility] for management of respiratory failure, severe MR and renal mass ?? History of mitral valve endocarditis, perforation of anterior mitral valve leaflet??and severe MR??based on ASTON??in April??last year??done in outside hospital Recurrent admissions with decompensated congestive heart failure Chronic respiratory failure on home oxygen COPD End-stage renal disease on dialysis ?? We should obtain the full records from??[facility].?? She needs a ASTON??to reassess the mitral valve??anatomy. ??We will keep her n.p.o.??from midnight.?I have??requested a??cardiac surgery consultation.?? Her volume status??adjusted by dialysis and she will need more volume removal during the dialysis if possible. ?? Thank you for your consultation Allergies Percocet??(itching) TraZODone Hydrochloride Home Medications amiTRIPTYLINE: 100 mg, By Mouth, Daily at bedtime Aspirin: 81 mg = 1 tablet, By Mouth, Daily Atorvastatin: 10 mg = 1 tablet, By Mouth, Daily Diazepam: 2 mg = 1 tablet, By Mouth, 2 times a day, PRN (Other), Anxiety Diltiazem: TAKE 2 CAPSULES BY MOUTH EVERY DAY Durable Medical Equipment ferric citrate: 420 mg = 2 tablet, By Mouth, 3 times a day with meals HydrOXYzine: 25 mg = 1 tablet, By Mouth, 4 times a day, PRN (for anxiety) Metoprolol: 12.5 mg = 0.5 tablet, By Mouth, Daily Midodrine: 10 mg = 2 tablet, By Mouth, Daily, PRN (other), hypotension for dialysis Mirtazapine: 22.5 mg, By Mouth, Daily at bedtime Omeprazole: 40 mg, By Mouth, 2 times a day PROCHLORperazine: 5 mg, By Mouth, Daily, PRN (Nausea) Ropinirole: 1 mg, By Mouth, 3 times a day Venlafaxine: 75 mg = 1 tablet, By Mouth, Daily Hospital Medications Medications (25) Active SCHEDULED: (16) Albuterol/Ipratropium Inhalation Thu 3mL (Duoneb Inhalation Solution) ??1 vials, BAND Nebulizer, 4 times a day Amitriptyline 25 mg Tablet (Elavil Tablet) ??100 mg, By Mouth, Daily at bedtime Aspirin 81 mg EC Tablet (aspirin 81 mg oral delayed release tablet) ??81 mg, By Mouth, Daily Atorvastatin 10 mg Tablet (atorvastatin 10 mg oral tablet) ??10 mg, By Mouth, Daily Ceftriaxone 1 Gm Inj (Ceftriaxone Inj) ??1 Gm, IVPB, Every 24 hours Docusate Sodium 100 mg Capsule (Colace sodium 100 mg oral capsule) ??100 mg 1 capsule, By Mouth, 2 times a day Doxycycline 100 mg Tablet (Doxycycline Tablet) ??100 mg, By Mouth, Every 12 hours Heparin 5000 units/mL Inj (1 mL) (Heparin Inj) ??5,000 units 1 mL, Subcutaneous Injection, 3 times a day Insulin Lispro 100 units/mL Inj (3mL) (Insulin LISPRO Sliding Scale) ??2-10 units, Subcutaneous Injection, 3 times a day before meals Lansoprazole 15 mg OD Tablet (Lansoprazole OD Tablet) ??15 mg, By Mouth, Daily Metoprolol 25 mg XL Tablet (metoprolol 25 mg oral tablet, extended release) ??25 mg, By Mouth, Daily Mirtazapine 15 mg Tablet (Remeron Tablet) ??22.5 mg, By Mouth, Daily at bedtime NaCl 0.9% Flush 3ml (NaCL 0.9% Flush) ??3 mL, IV Push, Every 8 hours Ropinirole 1 mg Tablet (rOPINIRole 1 mg oral tablet) ??1 mg, By Mouth, 2 times a day Senna Tablet (Senna 8.6 mg oral tablet) ??8.6 mg 1 tablet, By Mouth, Daily Venlafaxine IR 75 mg Tablet (Venlafaxine IR 75 mg tablet) ??75 mg, By Mouth, Daily CONTINUOUS: (0) PRN: (9) Dextromethorphan-Guaifenesin 20 mg-200 mg/10 mL Liqu UD (Robitussin DM Liquid) ??10 mL, By Mouth, Every 4 hours Diazepam 2 mg Tablet (diazepam 2 mg oral tablet) ??2 mg, By Mouth, 2 times a day HydrOXYzine Pamoate 25mg Capsule (hydrOXYzine pamoate 25 mg oral capsule) ??25 mg, By Mouth, 3 times a day Melatonin 3 mg Tablet (Melatonin Tablet) ??3 mg, By Mouth, Daily at bedtime Midodrine 5 mg Tablet (midodrine 5 mg oral tablet) ??10 mg, By Mouth, Daily NaCl 0.9% Flush 3ml (NaCL 0.9% Flush) ??3 mL, IV Push, Every 8 hours Polyethylene Glycol 17 Gm Powder (MiraLax Powder) ??17 Gm 1 pack/packet, By Mouth, Daily Senna 8.6 mg / Docusate 50 mg tablet (Docusate/Senna Tablet) ??1 tablet, By Mouth, 2 times a day Simethicone 80 mg Chewable Tablet (Simethicone Tablet) ??80 mg, Chew, 3 times a day Lab Results Cardiology Labs WBC:??2.1 k/mm3??Low (11/13/22) RBC:??4.14 m/mm3??Low (11/13/22) Hgb:??11.2 Gm/dL??Low (11/13/22) Hct:??33.9 %??Low (11/13/22) MCV: 81.9 femtoliters (11/13/22) MCH: 27.1 pg (11/13/22) MCHC: 33 g/dL (11/13/22) Platelet Count: 240 k/mm3 (11/13/22) RDW-SD: 46.9 femtoliters (11/13/22) Nucleated RBC (Automated): 0 #/100 WBC'S (11/13/22) Sodium: 133 mmol/L (11/13/22) Potassium: 4.8 mmol/L (11/13/22) Chloride:??96 mmol/L??Low (11/13/22) Bicarbonate Level:??21 mmol/L??Low (11/13/22) Glucose Level:??275 mg/dL??High (11/13/22) BUN: 12 mg/dL (11/13/22) Creatinine-Blood:??2.5 mg/dL??High (11/13/22) Calcium: 8.9 mg/dL (11/13/22) Protein, Total: 7.3 Gm/dL (11/13/22) Albumin: 3.7 Gm/dL (11/13/22) Alkaline Phosphatase:??121 units/L??High (11/13/22) AST (SGOT):??39 units/L??High (11/13/22) ALT (SGPT):??38 units/L??High (11/13/22) Bilirubin, Total: 0.2 mg/dL (11/13/22) Diagnostic Impression ECG ECG 12-Lead ?? 07:50:49 Please click on pdf link to open report ?? Signed By: Dewey Barton MD ?? ECG 12-Lead ?? 07:50:49 Ventricular Rate: 89 BPM Atrial Rate: 89 BPM P-R Interval: 144 ms QRS Duration: 88 ms Q-T Interval: 374 ms QTC Calculation(Bazett): 455 ms P [place]: 45 degrees R [place]: 54 degrees T [place]: 13 degrees Normal sinus rhythm Normal ECG When compared with ECG of 20-MAR-1996 18:09, T wave inversion no longer evident in Lateral leads Confirmed by MARIO BARTON MD ([id number]) on 11/14/2022 10:10:02 PM ?? Holly: MARIO BARTON MD ?? Signed By: Dewey Barton MD Problem List/Past Medical History Ongoing No qualifying data Procedure/Surgical History No qualifying data available. Family History No family history recorded. * Event Display: Consultation Note Authored Date: [id number] CONSULTATION DATE: 11/14/2022 RENAL INITIAL VISIT/CONSULTATION PRIMARY CARE PROVIDER: Yolande Hardy, physician office manager executive assistant. REQUESTING PHYSICIAN: Rich Padron M.D. REASON FOR CONSULTATION: Management of end-stage renal disease. HISTORY OF PRESENT ILLNESS: Ms. Ayala is a 62-year-old female, well known to me with history of end-stage renal disease due to presumed diabetic nephropathy, receiving maintenance hemodialysis every Tuesday, , Tuesday via permanent right IJ tunneled dialysis catheter at [facility], who was transferred from [facility] yesterday after she was admitted therea couple of days ago with recurrent pulmonary edema. She underwent ultrafiltration with her dialysis for which we removed 3.8 liters, but then was transferred down here electively due to worsening mitral regurgitation. She has lost a lot of weight over the last several months and has been very compliant with trying to limit her fluid intake, nevertheless, she has had recurring issues with pulmonary edema. Her imaging center manager, Dr. Alberto, feels that the valve could be playing a major role in this recurrent pulmonary edema. She does suffer from endocarditis secondary to osteomyelitis less than a year ago, when she was hospitalized at [facility]. Since she has been admitted, she was placed on ceftriaxone out of concerns for possible pneumonia as well. She denies any fevers or chills and has a nonproductive cough. She is otherwise feeling welland I saw her today and denied any significant dyspnea. She reports that the dialysis treatment didhelp her quite a bit. Remainder of 12-point review of systems was obtained and otherwise negative. PAST MEDICAL HISTORY: Significant for end-stage renal disease due to diabetic nephropathy. She has had a failed AV graft in the past and now has been living with a tunneled dialysis catheter, right IJ, which she received all of her dialysis treatments. She has a prior history of osteomyelitis of the spine with subsequent endocarditis over 6 months ago as mentioned above. She also has a history of; 1. Type 2 diabetes mellitus. 2. History of previous morbid obesity. 3. COPD with baseline 2 liters nasal cannula oxygen requirement. 4. Anemia of chronic kidney disease. 5. Secondary hyperparathyroidism from renal disease. 6. Hypertension. 7. Depression. 8. History of intradialytic hypotension. ALLERGIES: She has allergies to PERCOCET, TRAZODONE. MEDICATIONS: Reviewed in the MAR to include; 1. Amitriptyline 100 mg at bedtime. 2. Baby aspirin daily. 3. Atorvastatin 10 mg daily. 4. Diazepam 2 mg b.i.d. p.r.n. anxiety. 5. Diltiazem 360 mg daily. 6. Auryxia 2 tablets with each meal. 7. Hydroxyzine p.r.n. anxiety. 8. Metoprolol succinate ER 12.5 mg daily. 9. Midodrine 10 mg b.i.d. p.r.n. hypotension. 10. Remeron 22.5 mg at bedtime. 11. Omeprazole 40 mg daily. 12. Requip 1 mg t.i.d. 13. Venlafaxine 75 mg daily. 14. Ceftriaxone was initiated. SOCIAL HISTORY: Negative for any active tobacco, alcohol, or illicit drug use. FAMILY HISTORY: Noncontributory. PHYSICAL EXAMINATION: GENERAL: She is pleasant, alert, in no acute distress. HEENT: Sclerae nonicteric. Oropharynx clear. NECK: Supple. There was no JVD. VITAL SIGNS: Show temperature 97.1, pulse 92, blood pressure 99/67, satting 91% on 3 liters nasal cannula. HEART: Regular. LUNGS: Showed diminished breath sounds in the bases, but no rales or rhonchi. ABDOMEN: Soft, nontender. EXTREMITIES: Shows minimal lower extremity edema. She has remnants of an old upper extremity AV graft and a right IJ tunneled dialysis catheter that is clean, dry and intact. NEUROLOGIC: She is nonfocal. LABORATORY DATA: Significant for white count 2.1, hemoglobin 11.2, platelet count 240,000. Sodium 133, potassium 4.8, chloride 96, bicarbonate 21, anion gap 16, BUN 12, creatinine 2.5, alkaline phosphatase 121, AST is 39, ALT is 38. Normal bilirubin. Normal lactate at 1.5 with a procalcitonin levelof 0.52, within normal limits. Her chest x-ray report showed bilateral central airspace opacities with trace right pleural effusion. IMPRESSION: Ms. Ayala is a 62-year-old female with end-stage renal disease due to presumed diabetic nephropathy, receiving maintenance hemodialysis every Tuesday, , Tuesday at [facility] via permanent right IJ tunneled dialysis catheter, who was transferred from [facility] to [facility] for possible surgical management of severe mitral regurgitation with recurrent pulmonary edema. 1. End-stage renal disease. -- Status post ultrafiltration and dialysis yesterday with 3.8 liters of volume removal. -- Clinically stable from a volume perspective today after we balanced this with some of her chronic hypotension. -- She has a history of some atrial arrhythmias, which she is on diltiazem and metoprolol, which wehad to balance out with the use of midodrine p.r.n. We could certainly add Florinef 0.1 mg b.i.d. if needed, if systolic blood pressures remain less than 100 mmHg. -- We will otherwise plan for next dialysis treatment on Tuesday and reassess tomorrow for possibleultrafiltration as clinically indicated. -- I am perfectly fine with her receiving IV contrast loads via heart catheterization if needed. 2. Severe mitral regurgitation. -- Await further input from cardiology and cardiothoracic surgery potentially. 3. Anemia of chronic kidney disease. -- Hemoglobin 11.2 with no indication for MEGAN at this time. 4. Elevated liver function tests. -- Including alkaline phosphatase, AST and ALT with normal bilirubin going against biliary pathology. I wonder if this is related to some hepatic congestion from her mitral regurgitation leading to biventricular dysfunction. We would at least trend this and I will make sure we have updated hepatitis serologies on her as well. Thank you very much for allowing me to participate in her care. Sincerely, Dictated by: Denver Pierce D.O. Signing Clinician: Denver Pierce D.O. Dictated: 11/14/2022 11:59:01 Transcribed: 07:53:22 AM Transcribed by: MARILEE DocID: [id number] PRELIMINARY REPORT UNLESS MANUALLY/ELECTRONICALLY SIGNED cc: Rich Padron M.D. [address], [address] History and physical note * Vito PETERSON, Rich: PERFORM Event Display: History and Physical Hospital Authored Date: [id number] Patient: ??MICHELLE AYALA ? Age:??62 Years?Sex:??Female?:??1960?? Chief Complaint/Reason for Consultation shortness of breath History of Present Illness 61-year-old female with past medical history of extensive MR, endocarditis about 6 months ago, history of pulmonary hypertension, end-stage renal disease on hemodialysis Tuesday, chronic respiratory failure on 2 L oxygen, COPD, type 2 diabetes not controlled with diet after massive weight loss, presented to [facility] with worsening shortness of breath.?? CT imaging revealed volume overload along with interstitial changes of inflammation versus infection versus fibrosis.?? Patient was seen by cardiology and renal, underwent dialysis and is now being transferred here for mitral valve evaluation ?? She reports feeling??slightly improved after dialysis??but continues to feel short of breath??with minimal activity. ??He denies any chest pain??or palpitation to me.?? She reports anxiety and wants her??neck medications.?? She denies any fever or chills. ??She has been coughing for the past fewdays??but is mostly nonproductive now.?? She denies any history of DVT or PE.?? She is unable to provide much details about her??endocarditis admission.?? No??confusion or headache or lightheadedness. ??No??new weakness. ??No??abdominal pain no constipation or diarrhea or nausea or vomiting. ??No urinary complaints.?? She is being admitted for further management. Review of Systems All other review of systems were negative with the exception of those noted above in the HPI.?? Objective Measurements?? Height: 152 cm (11/14/22) Weight: 63.9 kg (11/14/22) Dry Weight: 64 kg (11/13/22) Body Mass Index:??27.35 kg/m2??High (11/13/22) ? Vital Signs?? Temperature: 97.4 DegF (11/14/22 03:25:00) Temperature Route: Temporal (11/14/22 03:25:00) Pulse Rate: 81 bpm (11/14/22 03:25:00) Respiratory Rate: 18 br/min (11/14/22 03:25:00) Systolic Blood Pressure: 90 mm Hg (11/14/22 03:25:00) Diastolic Blood Pressure: 59 mm Hg (11/14/22 03:25:00) Blood pressure sites: Arm, right (11/14/22 03:25:00) Mean Arterial Pressure: 69 mm Hg (11/14/22 03:25:00) Pulse Pressure: 31 mm Hg (11/14/22 03:25:00) Oxygen Saturation: 97 % (11/14/22 03:25:00) Liters per Minute: 2.5 L/min (11/14/22 03:25:00) Mode of Delivery (Oxygen): Nasal cannula (11/14/22 03:25:00) Early Warning Score: 7 (11/14/22 03:28:21) ? Intake/Output? 11/13 18:41 11/14 07:00 11/13 07:00 11/12 07:00 11/11 07:00 ?? 11/14 06:22 11/14 06:22 11/14 06:59 11/13 06:59 11/12 06:59 Intake ?420 ?0 ?420 ?0 ?0 Output ?0 ?0 ?0 ?0 ?0 Net Total ?420 ?0 ?420 ?0 ?0 ? Physical Exam Constitutional: Alert, in no acute distress. Head EENT: Extraocular muscle movement intact.??Moist mucous membranes.?? Neck: Supple. No JVD. Respiratory: Bilateral rhonchi present. Cardiovascular: Murmur present, regular Gastrointestinal: Abdomen soft, non-tender, non-distended. Normal bowel sounds. Genitourinary: No CVA tenderness. Extremities: No lower extremity pitting??edema. No cyanosis or clubbing. Neurologic: AAOx3, Speech normal. No focal neurological deficits. Skin: No new??rash Psychiatric: No SI or HI Assessment/Plan Diagnoses 1. ??Acute on chronic respiratory failure ??(J96.20) 2. ??Volume overload ??(E87.70) 3. ??Mitral regurgitation ??(I34.0) 4. ??History of endocarditis ??(Z86.79) 5. ??Heart failure with preserved ejection fraction ??(I50.30) 6. ??ESRD on dialysis ??(N18.6) 7. ??Type 2 diabetes mellitus ??(E11.9) 8. ??Pulmonary artery hypertension ??(I27.21) 9. ??History of anemia due to CKD ??(N18.9) 10. ??Chronic hypotension ??(I95.89) 11. ??SVT (supraventricular tachycardia) ??(I47.1) 12. ??Left renal mass ??(N28.89) 13. ??Restless leg syndrome ??(G25.81) 14. ??Depression ??(F32.A) 15. ??Anxiety ??(F41.9) ?? Acute on chronic respiratory failure (J96.20):??: ?? Volume overload (E87.70):??: ?? Mitral regurgitation (I34.0):??: ?? History of endocarditis (Z86.79):??: ?? Heart failure with preserved ejection fraction (I50.30):? Possible pneumonia Possible pulmonary fibrosis COPD ?? -Respiratory failure thought to be multifactorial secondary to volume overload in the setting of possible pneumonia and fibrosis. BNP 69288 on presentation -Volume overload thought to be in part due to several mitral regurgitation. Per??records sent,??shehad a ASTON and heart cath 6 months ago at [facility] per records with an episode of endocarditis.??Cath at that time revealed normal coronary arteries and severe pulmonary regurgitation.??ASTON and cath report not available for my review.?At [facility]??she was seen by cardiology Dr. Alberto and given severe MR with recurrent hospitalization with volume overload requiring dialysisrecommended transfer to [facility] for definite mitral valve replacement.??Team at [facility] discussed with ??Perry??at [facility]. [facility] cardiology??consulted to assistwith??volume management, heart failure management,??ASTON/planning for??mitral valve replacement - EKG ordered, pending -We will defer troponin she is not??having any chest pain or shortness of breath at this time -Continue aspirin, statin. Hold metoprolol??in the setting of??borderline hypotension. --CT revealing worsening peribronchial and subpleural opacities in both lungs question of infectionversus inflammatory etiology. CT also revealed background chronic pulmonary fibrotic changes. He was evaluated by pulmonology at outside hospital, serological testing submitted to evaluate for bronchiectasis and ILD. On empiric ceftriaxone and doxycycline underlying pneumonia.??Procalcitonin checked, 0.52, continue ceftriaxone??and doxycycline for now.??Blood cultures sent., Pending.??Day team can request other serology sent at outside hospital.??Consider pulmonary consult in the morning. Recommendation per outside hospital discharge summary was to follow with Dr. Olivares once discharged from [facility] for results of testing.??Plan for repeat CT in about 8 weeks.? - Breathing treatment for COPD, prednisone 60 mg daily recommended??by pulmonary??ordered, day team to taper prednisone ?? ESRD on dialysis (N18.6):??-Midodrine for support of the blood pressure through dialysis, -On hemodialysis Tuesday -Renal consulted to assess for dialysis -May need ultrafiltration if blood pressure is unable to support. ?? Type 2 diabetes mellitus (E11.9):??Managed with diet, sliding scale insulin and POC glucose for now ?? Pulmonary artery hypertension (I27.21):??Pulmonary management as above ?? History of anemia due to CKD (N18.9):??Monitor ?? Chronic hypotension (I95.89):??Midodrine??as needed with dialysis ?? SVT (supraventricular tachycardia) (I47.1):?? -Hold diltiazem and metoprolol in the setting of borderline hypotension Continue telemetry monitoring Restart diltiazem and metoprolol as able. ?? 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 Will need follow-up with nephrology with regards to this left renal mass ?? Restless leg syndrome (G25.81): Continue??ropinirole ?? Depression (F32.A):?? Anxiety (F41.9):?? Continue venlafaxine??and amitriptyline??with as needed??diazepam as she takes at home Continue??hydroxyzine as needed Anxious but??denies any SI or HI to me ?? VTE Prophylaxis:??;??Heparin ? Full code, confirmed with patient ? Histories Allergies Allergies ?(Active and Proposed Allergies Only) TraZODone Hydrochloride? (Severity: Unknown severity, Onset: Unknown) Percocet? (Severity: Unknown severity, Onset: Unknown) ?Reactions: itching ? Past Medical History/Problem List/past surgical history See HPI ?? Social History She denies any active smoking or alcohol use at this time??but remote history is unclear ? Family History Unknown ? Medications Home Medications amiTRIPTYLINE?100?Milligram?By Mouth?Daily at bedtime Aspirin (aspirin 81 mg oral delayed release tablet)?81?Milligram?1?tablet?By Mouth?Daily Atorvastatin (atorvastatin 10 mg oral tablet)?1?tab(s)?10?Milligram?By Mouth?Daily Diazepam (diazepam 2 mg oral tablet)?2?Milligram?1?tablet?By Mouth?2 times a day?as needed?Anxiety?Other Diltiazem?360?Milligram?Daily ferric citrate (Auryxia 210 mg oral tablet)?2?tab(s)?420?Milligram?By Mouth?3 times a day with meals HydrOXYzine (hydrOXYzine hydrochloride 25 mg oral tablet)?1?tab(s)?25?Milligram?By Mouth?4 times a day?as needed?for anxiety Metoprolol (Metoprolol Succinate ER 25 mg oral tablet, extended release)?0.5?tab(s)?12.5?Milligram?By Mouth?Daily Midodrine (midodrine 5 mg oral tablet)?10?Milligram?2?tablet?By Mouth?Daily?asneeded?hypotension for dialysis?other Mirtazapine (Remeron Tablet)?22.5?Milligram?By Mouth?Daily at bedtime Omeprazole?40?Milligram?By Mouth?2 times a day PROCHLORperazine (Compazine Tablet)?5?Milligram?By Mouth?Daily?as needed?Nausea Ropinirole (Requip)?1?Milligram?By Mouth?3 times a day Venlafaxine (venlafaxine 75 mg oral tablet)?1?tab(s)?75?Milligram?By Mouth?Daily?for 30?Days ? Inpatient Medications Medications (21) Active SCHEDULED: (12) Albuterol/Ipratropium Inhalation Thu 3mL (Duoneb Inhalation Solution) ??1 vials, BAND Nebulizer, 4 times a day Amitriptyline 25 mg Tablet (Elavil Tablet) ??100 mg, By Mouth, Daily at bedtime Aspirin 81 mg EC Tablet (aspirin 81 mg oral delayed release tablet) ??81 mg, By Mouth, Daily Atorvastatin 10 mg Tablet (atorvastatin 10 mg oral tablet) ??10 mg, By Mouth, Daily Ceftriaxone 1 Gm Inj (Ceftriaxone Inj) ??1 Gm, IVPB, Every 24 hours Doxycycline 100 mg Tablet (Doxycycline Tablet) ??100 mg, By Mouth, Every 12 hours Insulin Lispro 100 units/mL Inj (3mL) (Insulin LISPRO Sliding Scale) ??2-10 units, Subcutaneous Injection, 3 times a day before meals Lansoprazole 15 mg OD Tablet (Lansoprazole OD Tablet) ??15 mg, By Mouth, Daily Mirtazapine 15 mg Tablet (Remeron Tablet) ??22.5 mg, By Mouth, Daily at bedtime NaCl 0.9% Flush 3ml (NaCL 0.9% Flush) ??3 mL, IV Push, Every 8 hours Ropinirole 1 mg Tablet (rOPINIRole 1 mg oral tablet) ??1 mg, By Mouth, 2 times a day Venlafaxine IR 75 mg Tablet (Venlafaxine IR 75 mg tablet) ??75 mg, By Mouth, Daily CONTINUOUS: (0) PRN: (9) Dextromethorphan-Guaifenesin 20 mg-200 mg/10 mL Liqu UD (Robitussin DM Liquid) ??10 mL, By Mouth, Every 4 hours Diazepam 2 mg Tablet (diazepam 2 mg oral tablet) ??2 mg, By Mouth, 2 times a day HydrOXYzine Pamoate 25mg Capsule (hydrOXYzine pamoate 25 mg oral capsule) ??25 mg, By Mouth, Every 12 hours Melatonin 3 mg Tablet (Melatonin Tablet) ??3 mg, By Mouth, Daily at bedtime Midodrine 5 mg Tablet (midodrine 5 mg oral tablet) ??10 mg, By Mouth, Daily NaCl 0.9% Flush 3ml (NaCL 0.9% Flush) ??3 mL, IV Push, Every 8 hours Polyethylene Glycol 17 Gm Powder (MiraLax Powder) ??17 Gm 1 pack/packet, By Mouth, Daily Senna 8.6 mg / Docusate 50 mg tablet (Docusate/Senna Tablet) ??1 tablet, By Mouth, 2 times a day Simethicone 80 mg Chewable Tablet (Simethicone Tablet) ??80 mg, Chew, 3 times a day ? Results Recent Labs BLOOD COUNT & DIFF WBC 2.1 k/mm3 (Low)?? 11/13/2022 21:12 RBC 4.14 m/mm3 (Low)?? 11/13/2022 21:12 Hgb 11.2 Gm/dL (Low)?? 11/13/2022 21:12 Hct 33.9 % (Low)?? 11/13/2022 21:12 MCV 81.9 femtoliters ()?? 11/13/2022 21:12 MCH 27.1 pg ()?? 11/13/2022 21:12 MCHC 33.0 g/dL ()?? 11/13/2022 21:12 Platelet Count 240 k/mm3 ()?? 11/13/2022 21:12 RDW-SD 46.9 femtoliters ()?? 11/13/2022 21:12 MPV 11.0 femtoliters ()?? 11/13/2022 21:12 Nucleated RBC (Automated) 0.0 #/100 WBC'S ()?? 11/13/2022 21:12 Abs. NRBC 0.0 k/mm3 ()?? 11/13/2022 21:12 ?? CHEM GENERAL Sodium 133 mmol/L ()?? 11/13/2022 21:12 Potassium 4.8 mmol/L ()?? 11/13/2022 21:12 Chloride 96 mmol/L (Low)?? 11/13/2022 21:12 Bicarbonate Level 21 mmol/L (Low)?? 11/13/2022 21:12 Anion Gap 16 ()?? 11/13/2022 21:12 Glucose Level 275 mg/dL (High)?? 11/13/2022 21:12 Glucose, POC 253 mg/dL (High)?? 11/13/2022 19:43 BUN 12 mg/dL ()?? 11/13/2022 21:12 Creatinine-Blood 2.5 mg/dL (High)?? 11/13/2022 21:12 Estimated GFR Creatinine 21 ML/MIN/1.73 M2 ()?? 11/13/2022 21:12 Calcium 8.9 mg/dL ()?? 11/13/2022 21:12 Phosphorus 3.0 mg/dL ()?? 11/13/2022 21:12 Magnesium 1.9 mg/dL ()?? 11/13/2022 21:12 Protein, Total 7.3 Gm/dL ()?? 11/13/2022 21:12 Albumin 3.7 Gm/dL ()?? 11/13/2022 21:12 AG Ratio 1.0 ()?? 11/13/2022 21:12 Alkaline Phosphatase 121 units/L (High)?? 11/13/2022 21:12 AST (SGOT) 39 units/L (High)?? 11/13/2022 21:12 ALT (SGPT) 38 units/L (High)?? 11/13/2022 21:12 Bilirubin, Total 0.2 mg/dL ()?? 11/13/2022 21:12 Lactate 1.5 mmol/L ()?? 11/13/2022 21:12 ?? HEME OTHER Hold Lavender Top SPECIMEN DISCARDED AFTER 24 HOURS. ()?? 11/13/2022 21:12 Hold Blue Top SPECIMEN DISCARDED AFTER 4 HOURS. ()?? 11/13/2022 21:12 ?? MISC. CHEMISTRY Hold Green Top SPECIMEN DISCARDED AFTER 1 WEEK ()?? 11/13/2022 21:12 Procalcitonin 0.52 ng/mL ()?? 11/13/2022 21:12 ?? URINE OTHER Est Creatinine Clearance 16.63 mL/min ()?? 11/13/2022 21:58 ? EKG study * Event Display: EKG Authored Date: * Event Display: ECG 12-Lead Authored Date: Please click on pdf link to open report * Event Display: ECG 12-Lead Authored Date: Ventricular Rate: 89 BPM Atrial Rate: 89 BPM P-R Interval: 144 ms QRS Duration: 88 ms Q-T Interval: 374 ms QTC Calculation(Bazett): 455 ms P [place]: 45 degrees R [place]: 54 degrees T [place]: 13 degrees Normal sinus rhythm Normal ECG When compared with ECG of 20-MAR-1996 18:09, T wave inversion no longer evident in Lateral leads Confirmed by MARIO BARTON MD ([id number]) on 11/14/2022 10:10:02 PM Holly: MARIO BARTON MD US Heart Transesophageal * Event Display: Trans-esophageal Echocardiogram Authored Date: [id number] Transesophageal Echocardiography Report (ASTON) Patient Demographics Patient Name MICHELLE AYALA Date of Study 11/16/2022 Corporate Gender Female Facility Race Black Ethnicity Date of 1960 Height: 60 inches Age 62 year(s) Weight: 185 pounds Accession Number [id number] BSA: 1.81 m2 Room Number [id number] BMI: 36.13 kg/m2 Referring Physician Shannan Montez Interpreting Rayo Feng Physician Cardiac Cath Tech Valencia Campos CS Indications Endocarditis. Study Data Type of Study ASTON procedure:ASTON with Doppler and Colorflow, 3D Rendering without post processing. Study Date11/16/2022 Start Time: 03:48 PM Study Location: [facility] Study Status: ASTON Suite Patient Status: Routine Technical Quality: Adequate Blood Pressure:92/77 mmHg EKG: Normal sinus rhythm HR: 95 bpm ASTON Performed By: Robi Lambert MD Type of Anesthesia: Anesthesia administered by anesthesiologist. Doppler Measurements MV Mean Gradient: 5 mmHg TR Velocity:287 cm/s TR Gradient:32.95 mmHg Cardiac Anatomy Left Ventricle/Interventricular Septum Overall left ventricular systolic function appears normal. LVEF 60-65%. Left Atrium/Interatrial Septum The left atrium is severely dilated. Left atrial appendage function is normal. There is no thrombus in the left atrium or left atrial appendage. The interatrial septum appears intact. There is rightward deviation of the interatrial septum consistent with elevated left atrial pressure. Aortic Valve The aortic valve appears mildly thickened. No evidence of mitral stenosis Mitral Valve The posterior mitral annulus is severely thickened and calcified. The posterior leaflet is tethered, restricted, and shortened. There is no significant mitral stenosis. There is a torn anterior chord with a partially flail A2 segment of the anterior leaflet. There is a 0.7 x 0.5cm echodensity on the tip of the anterior leaflet that appears most consistent with calcification or healed vegetation. There is very severe, highly eccentric (posteriorly directed) mitral regurgitation. Aorta There is severe plaque in the descending aorta . Right Ventricle The right ventricular size and function appear grossly normal. Right Atrium There is no mass or thrombus in the right atrium. Pulmonic Valve The pulmonic valve morphology is poorly visualized. The pulmonic valve if functionally normal. Tricuspid Valve The tricuspid valve annulus is dilated. There is moderate tricuspid regurgitation. Pumonary Artery The pulmonary artery systolic pressure estimation is severely elevated, 66 mmHg plus CVP. Venous Structures There is systolic flow reversal in 3 of 4 pulmonary veins consistent with severe mitral regurgitation. Pericardium/Extracardiac There is no significant pericardial effusion. Summary Technically difficult transgastric windows. Good transesophageal windows. Normal biventricular systolic function. The posterior leaflet is tethered, restricted, and shortened. There is no significant mitral stenosis. There is a torn anterior chord with a partially flail A2 segment of the anterior leaflet. There is a 0.7 x 0.5cm echodensity on the tip of the anterior leaflet that appears most consistent with calcification or healed vegetation. There is very severe, highly eccentric (posteriorly directed) mitral regurgitation. There is systolic flow reversal in 3 of 4 pulmonary veins consistent with severe mitral regurgitation. There is moderate tricuspid regurgitation. The pulmonary artery systolic pressure estimation is severely elevated, 66 mmHg plus CVP. There is severe plaque in the descending aorta . Recommendation Consider cardiac surgery consultation. Comparison Direct visual comparison is made to the (outside) study of May 07, 2022. Degree of mitral regurgitation appears similar. Signature * Event Display: Trans-esophageal Echocardiogram Authored Date: [id number] Cardiology * Event Display: Cardiac Rhythm Strips Authored Date: * Event Display: Cardiac Rhythm Strips Authored Date: * Event Display: Outside Images Cath Images acquired from non-[facility] facility Demographics Patient Name LUCY MARTINEZ Gender Female Corporate Race Black Facility BSA 1.81 m2 Date of 1960 Age 61 year(s) Accession Number [id number] Procedure Procedure Type Outside Images/Consult:Outside Images Cath * Event Display: Outside Images Echo Images acquired from non-[facility] facility Demographics Patient Name LUCY MARTINEZ Gender Female Corporate Race Black Facility BSA 1.81 m2 Date of 1960 Age 61 year(s) Accession Number [id number] Procedure Procedure Type Outside Images:Outside Images Echo * Event Display: Outside Images Echo Images acquired from non-[facility] facility Demographics Patient Name LUCY MARTINEZ Gender Female Corporate Race Black Facility BSA 1.81 m2 Date of 1960 Age 61 year(s) Accession Number [id number] Procedure Procedure Type Outside Images:Outside Images Echo Hospital Progress note * Obdulia Augustin RN: VERIFY, PERFORM, SIGN Event Display: Progress Note Hospital Authored Date: [id number] Patient: MICHELLE AYALA Age: 62 years Sex: Female : 1960 Associated Diagnoses: None Author: Obdulia Augustin RN Findings Problem Related to Alteration in Cardiac Function (new) : Alteration in Cardiac Function/new 11/21/2022 18:00 EDT Alteration in Cardiac Status Related to Heart failure Goals & Outcomes, Cardiac Status Pt will resume/maintain adequate cardiac output, Pt will resume/maintain adequate hemodynamic status, Pt will resume/maintain adequate respiratory function Cardiac Interventions Implemented Assess/monitor cardiac status, Assess/monitor neuro status, Assess/monitor respiratory status, Call/Report variances in ECG to provider, Document & Monitor O2 Sats; Administer O2 as ordered, Ensure adequate caloric intake, If no bowel movement in 3 days activate bowel regime, Monitor & document daily weight, Monitor anticoagulation values, Monitor ECG w/ad ministration of antiarrhythmics (CO 13.420), Obtain 12 Lead ECG and CXR as ordered, Prep pt for treatments & procedures, Teach/encourage deep breath & cough exercises, Teach/encourage use of incentive spirometer, Team conversation regarding appropriate level of care BH Goals/Interventions, Cardiac Yes Cardiac, Problem Start 11/14/2022 3:55 Reviewed Plan with, Cardiac Status Patient, Children Patient Progression, Cardiac Status Patient progressing according to plan . Nursing Data Vital Signs : VITAL SIGNS SECTION 11/22/2022 14:23 EDT Pulse Rate 94 bpm H Systolic Blood Pressure 103 mm Hg Diastolic Blood Pressure 78 mm Hg 11/22/2022 14:00 EDT Temperature 97.8 DegF Temperature Route Temporal Respiratory Rate 18 br/min Blood pressure sites Arm, right Mode of Delivery (Oxygen) Room air . Narrative/Incidental Continues on scheduled midodrine. Report called to Derrick Bland at [facility]. Report given to EMS. Transported to [facility] via stretcher by EMS. All belongings sent with patient.. Discharge Information Case Management Discharge Plan : Case Management Discharge Plan Data 11/22/2022 17:35 EDT Discharge Level of Care at Discharge Inpatient Rehab Facility/Unit Rehabilitation Discharge : Rehab Discharge Index 11/19/2022 16:26 EDT Walker: distance >50 * Pranay Herrera MD, I: PERFORM, SIGN, VERIFY Event Display: Progress Note Hospital Authored Date: [id number] Patient: MICHELLE AYALA Age: 62 years Sex: Female : 1960 Associated Diagnoses: None Author: Pranay Herrera MD, I Overnight Events & Current Issues breathing is better off oxygen this am Review of Systems Review of Systems Respiratory: shortness of breath. Cardiovascular: peripheral edema. Constitutional negative. Review / Management Kern Catheter No. Physical Examination Vitals Vitals : VITAL SIGNS SECTION 11/22/2022 14:41 EDT Early Warning Score 3.00 11/22/2022 14:41 EDT Temperature 97.6 DegF Temperature Route Temporal Pulse Rate 84 bpm Respiratory Rate 18 br/min Oxygen Saturation 96 % Mode of Delivery (Oxygen) Room air 11/22/2022 14:33 EDT Early Warning Score 3.00 11/22/2022 14:33 EDT Early Warning Score 3.00 11/22/2022 14:23 EDT Pulse Rate 94 bpm H Systolic Blood Pressure 103 mm Hg Diastolic Blood Pressure 78 mm Hg . General Appearance Fatigued. Respiratory Decreased breath sounds. Cardiac No murmur/gallop/rub. Rhythms: RRR. Abdomen/GI Soft. Non-tender. Non-distended. Bowel sounds. Extremities No edema. Neurologic Alert. Impression and Plan Ms. Ayala is a 62-year-old female with end-stage renal disease due to presumed diabetic nephropathy, receiving maintenance hemodialysis every Tuesday, , Tuesday at [facility] via permanent right IJ tunneled dialysis catheter, who was transferred from [facility] to [facility] for possible surgical management of severe mitral regurgitation with recurrent pulmonary edema. 1. End-stage renal disease. - continue HD TTS - epogen is ordered -K was high today, s/p lokelma, HD tomorrow 2. Severe mitral regurgitation. -- Await further input from cardiology and cardiothoracic surgery potentially, I was told primary team found cardiac surgeon in [place] who will do mitral valve 3. Anemia of chronic kidney disease. -- Hemoglobin 11.5 with no indication for MEGAN at this time. 4. Anion gap MA --resolved 5. CAP --on antibiotics 6. 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 Age:??62 Years?Sex:??Female?:??1960?? Subjective No acute events overnight Patient??sitting up in bed listening to music, in good spirits.?? She reports feeling a little bit better but still has a troublesome cough and chest congestion. Potassium elevated, given??Lokelma, insulin, calcium gluconate. Review of Systems All ROS negative except those stated above Objective Vital Signs?? Temperature: 97.6 DegF (11/21/22 07:16:00) Temperature Route: Temporal (11/21/22 07:16:00) Pulse Rate: 87 bpm (11/21/22 08:58:00) Pulse Rate: 87 bpm (11/21/22 08:58:00) Respiratory Rate: 18 br/min (11/21/22 07:16:00) Systolic Blood Pressure: 103 mm Hg (11/21/22 08:58:00) Systolic Blood Pressure: 103 mm Hg (11/21/22 08:58:00) Diastolic Blood Pressure: 64 mm Hg (11/21/22 08:58:00) Diastolic Blood Pressure: 64 mm Hg (11/21/22 08:58:00) Blood pressure sites: Arm, right (11/21/22 07:16:00) Mean Arterial Pressure: 77 mm Hg (11/21/22 07:16:00) Pulse Pressure: 39 mm Hg (11/21/22 07:16:00) Oxygen Saturation: 94 % (11/21/22 07:16:00) Mode of Delivery (Oxygen): Room air (11/21/22 07:16:00) Early Warning Score: 6 (11/21/22 11:45:21) ? Intake/Output? 11/13 18:41 11/21 07:00 11/20 07:00 11/19 07:00 11/18 07:00 ?? 11/21 15:28 11/21 15:28 11/21 06:59 11/20 06:59 11/19 06:59 Intake ? 6800 ?470 ? 1320 ?840 ?780 Output ? 5100 ?0 ? 1500 ?0 ?500 Net Total ? 1700 ?470 ? -180 ?840 ?280 ? Physical Exam General: Alert, sitting up on side of bed in NAD. Head:??Normocephalic. Atraumatic. Eyes:??PERRL. EOMI.?? ENT:??Moist mucous membranes. Respiratory:??Lungs more clear today, still with areas that are coarse, rhonchorous. Bibasilar crackles. No wheeze appreciated Cardiovascular:??Regular rate and rhythm. S1, S2 normal. Systolic murmur best appreciated at LSB. Gastrointestinal:??Soft. Non-distended. Normoactive bowel sounds. Non-tender. Musculoskeletal:??No clubbing, cyanosis. No edema. Skin:??Warm, dry. No rashes. _ Inpatient Medications Medications (27) Active SCHEDULED: (18) Albuterol/Ipratropium Inhalation Thu 3mL (Duoneb Inhalation Solution) ??1 vials, BAND Nebulizer, 4 times a day Amitriptyline 25 mg Tablet (Elavil Tablet) ??100 mg, By Mouth, Daily at bedtime Aspirin 81 mg EC Tablet (aspirin 81 mg oral delayed release tablet) ??81 mg, By Mouth, Daily Atorvastatin 10 mg Tablet (atorvastatin 10 mg oral tablet) ??10 mg, By Mouth, Daily Docusate Sodium 100 mg Capsule (Colace sodium 100 mg oral capsule) ??100 mg 1 capsule, By Mouth, 2 times a day Epoetin Yessenia biosimilar 40,000 Units/ml Inj (ESRD) (Retacrit Inj (ESRD)) ??20,000 units 0.5 mL, Subcutaneous Injection, Every week Folic Acid/Vit B Comp/C Capsule (Nephrocap Capsule) ??1 capsule, By Mouth, Daily Heparin 5000 units/mL Inj (1 mL) (Heparin Inj) ??5,000 units 1 mL, Subcutaneous Injection, 3 times a day Insulin Lispro 100 units/mL Inj (3mL) (Insulin LISPRO Sliding Scale) ??2-10 units, Subcutaneous Injection, 3 times a day before meals Lansoprazole 15 mg OD Tablet (Lansoprazole OD Tablet) ??15 mg, By Mouth, Daily Metoprolol 25 mg XL Tablet (metoprolol 25 mg oral tablet, extended release) ??25 mg, By Mouth, Daily Midodrine 5 mg Tablet (midodrine 5 mg oral tablet) ??10 mg, By Mouth, 3 times a day Mirtazapine 15 mg Tablet (Remeron Tablet) ??22.5 mg, By Mouth, Daily at bedtime NaCl 0.9% Flush 3ml (NaCL 0.9% Flush) ??3 mL, IV Push, Every 8 hours Polyethylene Glycol 17 Gm Powder (MiraLax Powder) ??17 Gm 1 pack/packet, By Mouth, 2 times a day Ropinirole 1 mg Tablet (rOPINIRole 1 mg oral tablet) ??1 mg, By Mouth, 2 times a day Senna Tablet (Senna 8.6 mg oral tablet) ??8.6 mg 1 tablet, By Mouth, Daily Venlafaxine IR 75 mg Tablet (Venlafaxine IR 75 mg tablet) ??75 mg, By Mouth, Daily CONTINUOUS: (0) PRN: (9) Acetaminophen 325 mg Tablet (acetaminophen 325 mg oral tablet) ??975 mg, By Mouth, Every 6 hours Benzonatate 100 mg Capsule (Benzonatate Capsule) ??100 mg, By Mouth, 3 times a day Dextromethorphan-Guaifenesin 20 mg-200 mg/10 mL Liqu UD (Robitussin DM Liquid) ??10 mL, By Mouth, Every 4 hours Diazepam 2 mg Tablet (diazepam 2 mg oral tablet) ??2 mg, By Mouth, 2 times a day HydrOXYzine Pamoate 25mg Capsule (hydrOXYzine pamoate 25 mg oral capsule) ??25 mg, By Mouth, 3 times a day Melatonin 3 mg Tablet (Melatonin Tablet) ??3 mg, By Mouth, Daily at bedtime NaCl 0.9% Flush 3ml (NaCL 0.9% Flush) ??3 mL, IV Push, Every 8 hours Senna 8.6 mg / Docusate 50 mg tablet (Docusate/Senna Tablet) ??1 tablet, By Mouth, 2 times a day Simethicone 80 mg Chewable Tablet (Simethicone Tablet) ??80 mg, Chew, 3 times a day ? Results Recent Labs BLOOD COUNT & DIFF WBC 5.3 k/mm3 ()?? 11/21/2022 06:33 RBC 3.43 m/mm3 (Low)?? 11/21/2022 06:33 Hgb 9.2 Gm/dL (Low)?? 11/21/2022 06:33 Hct 28.2 % (Low)?? 11/21/2022 06:33 MCV 82.2 femtoliters ()?? 11/21/2022 06:33 MCH 26.8 pg (Low)?? 11/21/2022 06:33 MCHC 32.6 g/dL (Low)?? 11/21/2022 06:33 Platelet Count 257 k/mm3 ()?? 11/21/2022 06:33 RDW-SD 50.5 femtoliters (High)?? 11/21/2022 06:33 MPV 10.5 femtoliters ()?? 11/21/2022 06:33 Nucleated RBC (Automated) 0.0 #/100 WBC'S ()?? 11/21/2022 06:33 Abs. NRBC 0.0 k/mm3 ()?? 11/21/2022 06:33 ?? CHEM GENERAL Sodium 129 mmol/L (Low)?? 11/21/2022 06:36 Potassium 5.7 mmol/L (High)?? 11/21/2022 06:36 Chloride 93 mmol/L (Low)?? 11/21/2022 06:36 Bicarbonate Level 25 mmol/L ()?? 11/21/2022 06:36 Anion Gap 11 ()?? 11/21/2022 06:36 Glucose Level 277 mg/dL (High)?? 11/21/2022 06:36 Glucose, POC 218 mg/dL (High)?? 11/21/2022 11:43 BUN 48 mg/dL (High)?? 11/21/2022 06:36 Creatinine-Blood 3.4 mg/dL (High)?? 11/21/2022 06:36 Estimated GFR Creatinine 15 ML/MIN/1.73 M2 ()?? 11/21/2022 06:36 Calcium 8.7 mg/dL ()?? 11/21/2022 06:36 Phosphorus 3.3 mg/dL ()?? 11/21/2022 06:36 Magnesium 2.2 mg/dL ()?? 11/21/2022 06:36 ?? IMMUNOLOGY GENERAL IgG 1120 mg/dL ()?? 11/21/2022 06:36 IgA 256 mg/dL ()?? 11/21/2022 06:36 IgM 73 mg/dL ()?? 11/21/2022 06:36 Immunoglobulin IgE 22 IU/mL ()?? 11/21/2022 06:36 ?? MISC. CHEMISTRY Procalcitonin 0.19 ng/mL ()?? 11/20/2022 06:55 ?? URINE OTHER Est Creatinine Clearance 12.22 mL/min ()?? 11/21/2022 07:33 ? Assessment/Plan Michelle is a 62 y/o F with a PMHx of extensive MR, endocarditis about 6 months ago, Pul HTN, ESRD on HD TTS, chronic respiratory failure on 2 L NC, COPD, T2DM uncontrolled??with diet after massive weight loss who presented to [facility] with worsening SOB.??CT imaging revealed volume overload along with interstitial changes of inflammation versus infection versus fibrosis. Additionally found to be in CHF exacerbation likely 2/2 MV dysfunction v ?pulmonary fibrosis. Patient was seen by cardiology and renal, underwent dialysis and then was transferred to [facility] for evaluation for MV replacement. ? Severe Mitral Regurgitation?? Hypotension - improved with midodrine History of endocarditis? HFpEF History of Hypertension Patient presented??on 11/13??with??SOB, BNP 14,667. On 2 L O2 at home for chronic respiratory failure Acute??on chronic resp failure??thought to be multifactorial 2/2 fluid overload in the setting of MV dysfunction vs pneumonia, pulmonary fibrosis, COPD exacerbation?? Per??records sent,??she had a ASTON and heart cath 6 months ago at [facility] with an episode of endocarditis Cath at that time revealed normal coronary arteries and severe MR At[facility]she [facility] evaluated by [facility], given severe MR with recurrent hospitalization with volume overload requiring dialysis recommended transfer to[facility] [place] valve replacement Patient continues to be symptomatic with dyspnea, orthopnea requiring dialysis sessions for fluid removal, has also had periods of hypotension BP 80s systolic ASTON 11/16 with very severe, highly eccentric (posteriorly directed)??MR. ?? Status: Seen by CT surg and cardiology.??Patient is not a candidate for surgical MVR or MitraClip. There is a??Cardiac Surgeon??in [place] Dr. Derrell Elmore who would be willing to do mitral valve repair ?? Plan: - Plan for possibly transfer to [place] for mitral valve repair with Dr. Derrell Elmore (He is out of office until 11/24, will keep patient at [facility] until then) - [facility] cardiology??consulted, appreciate recommendations - Midodrine 10 mg increasing to three times daily given hypotension - continue aspirin 81 mg daily - continue atorvastatin 10 mg daily - Continue Metoprolol 25 mg??XL daily; hold for SBP <85 ? Acute on Chronic Respiratory Failure Suspected Pulmonary Fibrosis/ILD COPD exacerbation, on 2 L home O2 Community Acquired Pneumonia - resolved CT revealing worsening peribronchial and subpleural opacities in both lungs question of infection versus inflammatory etiology;??also revealed background chronic pulmonary fibrotic changes Evaluated by pulmonology at[facility], serological testing submitted to evaluate for bronchiectasis and ILD. Has been treated for CAP (5 days of CTX, Doxy). Also has been treated for COPD exacerbation with 7 days of steroids. Pulmonology consulted. ?? CT chest obtained 11/19: 1. Soft tissue prominence at the right mediastinum/hilum. Further evaluation with a contrast-enhanced study is recommended. 2. Prominence of the main pulmonary artery which may be related to pulmonary artery hypertension. 3. Extensive bilateral predominantly perihilar groundglass/solid airspace opacities. 4. Interlobular septal thickening with bronchiectasis. ? Plan: - Finished steroid course - Stopped antibiotics -??Pulmonology consulted, appreciate recs - Obtain records of CT chest from [facility] - Elena PRN - CPT mckenna, IS - Jessica - Recommendation per outside hospital discharge summary was to follow with Dr. Olivares once discharged for results of pulmonary testing - Plan for repeat CT in about 8 weeks.? ESRD on dialysis TTS History of anemia due to CKD Chronic hypotension in the setting of HD Receives HD ?? Plan: - Midodrine scheduled??for support of the blood pressure through dialysis --> increased to 10 mgTID - Renal??consulted, appreciate recommendations - Started epogen??to optimize patients anemia before mitral valve repair ? 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 Spoke with urology, given mass has been stable for approximately a year and very small urology recommends??following up with [facility] in 1 month for further work up (closer in location to patient than [facility] urology) ? Weight Loss Family and patient very concerned that patient has had an approximately 70-80 lb??unintentional weight loss over the last year She has had a gastric bypass per daughter but this was years ago in 2017 Suspect this is multifactorial from her??multiple illnesses and hospitalizations. Over last year patient has had endocarditis and now with severe mitral??regurgitation, suspected interstitial lung disease, end stage renal disease on HD. Renal mass??pending further work up with urology,??unclear if she??has undiagnosed malignancy Nutrition consulted, appreciate recs ?? Plan: - Cardiac diet with extra protein, double portions - Consider appetite stimulant - Oral supplements - Monitor weight ? Type 2 diabetes mellitus - Managed with diet - sliding scale insulin and??POC glucose??while inpt ? Restless leg syndrome - Continue??ropinirole 1 mg BID ? Depression Anxiety - Continue venlafaxine??75 mg daily - Continue??amitriptyline 100 mg daily - Continue mirtazapine 22.5 mg at??bedtime - Diazepam 2 mg BID PRN - Continue??hydroxyzine 25 mg BID PRN ? Quality Measures: Code Status: Full Code, confirmed with patient DVT PPx: Heparin Subcu Diet: Cardiac, extra protein, double portions ?? Patient care was discussed with ??Kurtis ?? Caron Du MD PGY-3, Internal Medicine-Pediatrics Pager: [phone] * Kurtis PETERSON [place]: PERFORM Event Display: Progress Note Hospital Authored Date: [id number] Attending Attestation:??I saw and examined the patient with the resident team and reviewed the chart on the day of service. ??I have discussed the case and its management??with the resident as documented in the resident note on the day of service.??I agree with the resident's note and plan as documented. Note * Obdulia Augustin RN: PERFORM Event Display: Discharge/Transfer Note Hospital Authored Date: [id number] Nursing Discharge Note Entered On: 11/22/2022 18:10 EDT Performed On: 11/22/2022 17:35 EDT by Obdulia Augustin RN Nursing Discharge Note 2 Discharge Time : 11/22/2022 17:35 EDT Discharge Level of Care at Discharge : Inpatient Rehab Facility/Unit Patient Left Unit Via : Ambulance Patient Accompanied Off Unit with : Ambulance/Chair Van Personnel Handover Given to Transport Personnel : Yes DC Instructions Provided & Signed by Pt : Yes Patient Understands D/C Instructions : Yes Patient Instructions Discharge Signed : Yes Did Pt have Specialty Bed or Wound Vac : No Obdulia Augustin RN - 11/22/2022 18:09 EDT * Jean Sow MD: MODIFY, MODIFY, PERFORM, MODIFY, MODIFY, MODIFY Event Display: Discharge/Transfer Note Hospital Authored Date: [id number] Patient: ??MICHELLE AYALA ? Age:??62 Years?Sex:??Female?:??1960?? Patient Information Discharge Location: 7 Primary Care Physician: Yolande Gallagher Admit Date/Time: 11/13/22 18:41 Discharge Disposition Discharge Disposition:?[facility] [place] Diagnosis Acute on chronic respiratory failure (J96.20) Volume overload (E87.70) Mitral regurgitation (I34.0) History of endocarditis (Z86.79) Heart failure with preserved ejection fraction (I50.30) ESRD on dialysis (N18.6) Type 2 diabetes mellitus (E11.9) Pulmonary artery hypertension (I27.21) History of anemia due to CKD (N18.9) Chronic hypotension (I95.89) SVT (supraventricular tachycardia) (I47.1) Left renal mass (N28.89) Restless leg syndrome (G25.81) Depression (F32.A) Anxiety (F41.9) ?? _ Discharge Medications amiTRIPTYLINE?100?Milligram?By Mouth?Daily at bedtime Aspirin (aspirin 81 mg oral delayed release tablet)?81?Milligram?1?tablet?By Mouth?Daily Atorvastatin (atorvastatin 10 mg oral tablet)?1?tab(s)?10?Milligram?By Mouth?Daily Diazepam (diazepam 2 mg oral tablet)?2?Milligram?1?tablet?By Mouth?2 times a day?as needed?Anxiety?Other Epoetin Yessenia?0.5?Milliliter?20,000?unit(s)?Subcutaneous Injection?Every week ferric citrate (Auryxia 210 mg oral tablet)?2?tab(s)?420?Milligram?By Mouth?3 times a day with meals HydrOXYzine (hydrOXYzine hydrochloride 25 mg oral tablet)?1?tab(s)?25?Milligram?By Mouth?4 times a day?as needed?for anxiety Metoprolol (metoprolol 25 mg oral tablet, extended release)?25?Milligram?By Mouth?Daily Midodrine (midodrine 5 mg oral tablet)?10?Milligram?2?tablet?By Mouth?Daily?asneeded?hypotension for dialysis?other Mirtazapine (Remeron Tablet)?22.5?Milligram?By Mouth?Daily at bedtime Omeprazole?40?Milligram?By Mouth?2 times a day PROCHLORperazine (Compazine Tablet)?5?Milligram?By Mouth?Daily?as needed?Nausea Ropinirole (Requip)?1?Milligram?By Mouth?3 times a day Venlafaxine (venlafaxine 75 mg oral tablet)?1?tab(s)?75?Milligram?By Mouth?Daily?for 30?Days ? Inpatient Medications Medications (30) Active SCHEDULED: (19) Albuterol/Ipratropium Inhalation Thu 3mL (Duoneb Inhalation Solution) ??1 vials, BAND Nebulizer, 4 times a day Amitriptyline 25 mg Tablet (Elavil Tablet) ??100 mg, By Mouth, Daily at bedtime Aspirin 81 mg EC Tablet (aspirin 81 mg oral delayed release tablet) ??81 mg, By Mouth, Daily Atorvastatin 10 mg Tablet (atorvastatin 10 mg oral tablet) ??10 mg, By Mouth, Daily Bisacodyl 10 mg Suppository (Bisacodyl Supp) ??10 mg 1 supp, Rectally, Once Docusate Sodium 100 mg Capsule (Colace sodium 100 mg oral capsule) ??100 mg 1 capsule, By Mouth, 2 times a day Epoetin Yessenia biosimilar 40,000 Units/ml Inj (ESRD) (Retacrit Inj (ESRD)) ??20,000 units 0.5 mL, Subcutaneous Injection, Every week Folic Acid/Vit B Comp/C Capsule (Nephrocap Capsule) ??1 capsule, By Mouth, Daily Heparin 5000 units/mL Inj (1 mL) (Heparin Inj) ??5,000 units 1 mL, Subcutaneous Injection, 3 times a day Insulin Lispro 100 units/mL Inj (3mL) (Insulin LISPRO Sliding Scale) ??2-10 units, Subcutaneous Injection, 3 times a day before meals Lansoprazole 15 mg OD Tablet (Lansoprazole OD Tablet) ??15 mg, By Mouth, Daily Metoprolol 25 mg XL Tablet (metoprolol 25 mg oral tablet, extended release) ??25 mg, By Mouth, Daily Midodrine 5 mg Tablet (midodrine 5 mg oral tablet) ??10 mg, By Mouth, 3 times a day Mirtazapine 15 mg Tablet (Remeron Tablet) ??22.5 mg, By Mouth, Daily at bedtime NaCl 0.9% Flush 3ml (NaCL 0.9% Flush) ??3 mL, IV Push, Every 8 hours Polyethylene Glycol 17 Gm Powder (MiraLax Powder) ??17 Gm 1 pack/packet, By Mouth, 2 times a day Ropinirole 1 mg Tablet (rOPINIRole 1 mg oral tablet) ??1 mg, By Mouth, 2 times a day Senna Tablet (Senna 8.6 mg oral tablet) ??8.6 mg 1 tablet, By Mouth, Daily Venlafaxine IR 75 mg Tablet (Venlafaxine IR 75 mg tablet) ??75 mg, By Mouth, Daily CONTINUOUS: (0) PRN: (11) Acetaminophen 325 mg Tablet (acetaminophen 325 mg oral tablet) ??975 mg, By Mouth, Every 6 hours Benzonatate 100 mg Capsule (Benzonatate Capsule) ??100 mg, By Mouth, 3 times a day Dextromethorphan-Guaifenesin 20 mg-200 mg/10 mL Liqu UD (Robitussin DM Liquid) ??10 mL, By Mouth, Every 4 hours Diazepam 2 mg Tablet (diazepam 2 mg oral tablet) ??2 mg, By Mouth, 2 times a day HydrOXYzine Pamoate 25mg Capsule (hydrOXYzine pamoate 25 mg oral capsule) ??25 mg, By Mouth, 3 times a day Lactulose 20 Gm/30mL Syrup (lactulose 10 gm/15 ml oral syrup) ??20 Gm 30 mL, By Mouth, 3 times a day Melatonin 3 mg Tablet (Melatonin Tablet) ??3 mg, By Mouth, Daily at bedtime NaCl 0.9% Flush 3ml (NaCL 0.9% Flush) ??3 mL, IV Push, Every 8 hours PROCHLORperazine 5mg/ml Inj (Compazine Inj) ??5 mg 1 mL, IV Push, Every 6 hours Senna 8.6 mg / Docusate 50 mg tablet (Docusate/Senna Tablet) ??1 tablet, By Mouth, 2 times a day Simethicone 80 mg Chewable Tablet (Simethicone Tablet) ??80 mg, Chew, 3 times a day ? Medications Started Erythropoietin ?? Medications Discontinued Diltiazem Doses Changed Midodrine increased to 10 mg TID Metoprolol increased to??25 mg XL QD Allergies Allergies ?(Active and Proposed Allergies Only) TraZODone Hydrochloride? (Severity: Unknown severity, Onset: Unknown) Percocet? (Severity: Unknown severity, Onset: Unknown) ?Reactions: itching ? Hospital Course 62-year-old female with PMH of??COPD/ILD, chronic respiratory failure on home oxygen, cDCHF, ESRD on TTS HD, remote tobacco use, Obesity/LALI, type 2 diabetes diet-controlled, progressive end-stage renal disease on hemodialysis, progressive mitral regurgitation secondary TR and PAH, now in the severe range diagnosed a few months ago based on imaging at [facility], suspicion for perforated mitral leaflet is a sequelae of endocarditis, presented with recurrent congestive heart failure [facility], and was ??transferred to [facility] [place] ??evaluation for MV replacement. ??Due to her chronic renal failure, chronic anemia and being a Quaker with desire to not receive any blood transfusions, she was deemed high risk by cardiac surgery and intervention was not offered. ??She also diagnosed with community-acquired pneumonia and treated with 5-day course of steroidsas well as ceftriaxone and doxycycline. ??She was deemed to not be a candidate for MitraClip considering anteriorly perforation, short posterior leaflet and MAC. ??She was subsequently excepted at [facility] for consideration of mitral valve repair. Objective Michelle is a 62 y/o F with a PMHx of extensive MR, endocarditis about 6 months ago, Pul HTN, ESRD on HD TTS, chronic respiratory failure on 2 L NC, COPD, T2DM uncontrolled??with diet after massive weight loss who presented to [facility] with worsening SOB.??CT imaging revealed volume overload along with interstitial changes of inflammation versus infection versus fibrosis. Additionally found to be in CHF exacerbation likely 2/2 MV dysfunction v ?pulmonary fibrosis. Patient was seen by cardiology and renal, underwent dialysis and then was transferred to [facility] for evaluation for MV replacement. ? Severe Mitral Regurgitation?? Hypotension - improved with midodrine History of endocarditis? HFpEF History of Hypertension Patient presented??on 11/13??with??SOB, BNP 14,667. On 2 L O2 at home for chronic respiratory failure Acute??on chronic resp failure??thought to be multifactorial 2/2 fluid overload in the setting of MV dysfunction vs pneumonia, pulmonary fibrosis, COPD exacerbation?? Per??records sent,??she had a ASTON and heart cath 6 months ago at [facility] with an episode of endocarditis Cath at that time revealed normal coronary arteries and severe MR At[facility]she was evaluated by [facility], given severe MR with recurrent hospitalization with volume overload requiring dialysis recommended transfer to??[facility] for mitral valve replacement Patient continues to be symptomatic with dyspnea, orthopnea requiring dialysis sessions for fluid removal, has also had periods of hypotension BP 80s systolic ASTON 11/16 with very severe, highly eccentric (posteriorly directed)??MR. ?? Status: Seen by CT surg and cardiology.??Patient is not a candidate for surgical MVR or MitraClip. There is a??Cardiac Surgeon??in [place] Dr. Derrell Elmore who would be willing to do mitral valve repair Plan for transfer to [place] for mitral valve repair with Dr. Derrell Elmore Recommendations - Midodrine 10 mg increasing to three times daily given hypotension - continue aspirin 81 mg daily - continue atorvastatin 10 mg daily - Continue Metoprolol 25 mg??XL daily; hold for SBP <85 ? Acute on Chronic Respiratory Failure Suspected Pulmonary Fibrosis/ILD COPD exacerbation, on 2 L home O2 Community Acquired Pneumonia - resolved CT revealing worsening peribronchial and subpleural opacities in both lungs question of infection versus inflammatory etiology;??also revealed background chronic pulmonary fibrotic changes Evaluated by pulmonology at[facility], serological testing submitted to evaluate for bronchiectasis and ILD. Has been treated for CAP (5 days of CTX, Doxy). Also has been treated for COPD exacerbation with 7 days of steroids. Pulmonology consulted. ?? CT chest obtained 11/19: 1. Soft tissue prominence at the right mediastinum/hilum. Further evaluation with a contrast-enhanced study is recommended. 2. Prominence of the main pulmonary artery which may be related to pulmonary artery hypertension. 3. Extensive bilateral predominantly perihilar groundglass/solid airspace opacities. 4. Interlobular septal thickening with bronchiectasis. ? Recommendations: - Elena PRN - CPT acapella, IS - Recommendation per outside hospital discharge summary was to follow with Dr. Olivares once discharged for results of pulmonary testing - Plan for repeat CT in about 8 weeks.? Hyperkalemia given lokelma 10 gm on 11/21 and 11/22, last dialysis done on?? 11/20 ESRD on dialysis TTS History of anemia due to CKD Chronic hypotension in the setting of HD Receives HD T, , Sa ?? Recommendations: - TTS dialysis - Midodrine scheduled??for support of the blood pressure through dialysis --> increased to 10 mgTID - Renal??consulted, appreciate recommendations - Continue epogen, started??to optimize patients anemia before mitral valve repair ? 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 Spoke with urology, given mass has been stable for approximately a year and very small urology recommends??following up with [facility] in 1 month for further work up (closer in location to patient than [facility] urology) Recommendations: - Urology F/U outpatient ?? Weight Loss Family and patient very concerned that patient has had an approximately 70-80 lb??unintentional weight loss over the last year She has had a gastric bypass per daughter but this was years ago in 2017 Suspect this is multifactorial from her??multiple illnesses and hospitalizations. Over last year patient has had endocarditis and now with severe mitral??regurgitation, suspected interstitial lung disease, end stage renal disease on HD. Renal mass??pending further work up with urology,??unclear if she??has undiagnosed malignancy Recommendations: - Cardiac diet with extra protein, double portions - Consider appetite stimulant - Oral supplements - Monitor weight - Urology F/Ul outpatient ? Type 2 diabetes mellitus - Managed with diet - sliding scale insulin and??POC glucose??while inpt ? Restless leg syndrome - Continue??ropinirole 1 mg BID ? Depression Anxiety - Continue venlafaxine??75 mg daily - Continue??amitriptyline 100 mg daily - Continue mirtazapine 22.5 mg at??bedtime - Diazepam 2 mg BID PRN - Continue??hydroxyzine 25 mg BID PRN ? . Physical Exam General: sitting comfortably, alert, in no acute distress Cardiovascular: RRR; systolic murmur loudest at LLSB Respiratory: fine crackles B/L GI: soft, non-tender, non-distended abdomen with normal bowel sounds Neuro: AAO x3, Speech: normal, no facial droop, moving all 4 extremities Psychiatric: Normal mood and affect?? Consultants Cardiology: Perry PETERSON, Oliver Cardiac surgery: Bulmaro PETERSON, Derrell Ladd Renal: Denver Pierce DO Pulm: Shoaib PETERSON, Marty'Dutch Meyers Pending Results Add On Lab Order ordered on 11/16/2022 Add On Lab Order ordered on 11/16/2022 Add On Lab Order ordered on 11/16/2022 Add On Lab Order ordered on 11/18/2022 Add On Lab Order ordered on 11/18/2022 Add On Lab Order ordered on 11/19/2022 Sputum Culture w/ Gram Smear ordered on 11/13/2022 Patient Education Titles Understanding Mitral Valve Regurgitation?? Patient Instructions You were admitted for evaluation of severe mitral valve regurgitation. During this hospitalization,you were evaluated by the cardiac surgery and cardiology teams and due to your complex medical history and the anatomy of your valve, the decision was made to transfer you a bigger center for cardiacsurgery evaluation for mitral valve repair. Post Discharge Care Discharge ?11/22/22 13:54:00 EDT Discharge Prescriptions ?None, ??11/22/22 13:54:00 EDT Code Status: Full Code DVT PPx: Heparin Subcut Diet: Cardiac, extra protein, double portions Home Health Face to Face ^HomeHealthFTF Results Discharge Labs BLOOD COUNT & DIFF WBC 6.9 k/mm3 ()?? 11/22/2022 02:27 RBC 3.65 m/mm3 (Low)?? 11/22/2022 02:27 Hgb 9.8 Gm/dL (Low)?? 11/22/2022 02:27 Hct 31.2 % (Low)?? 11/22/2022 02:27 MCV 85.5 femtoliters ()?? 11/22/2022 02:27 MCH 26.8 pg (Low)?? 11/22/2022 02:27 MCHC 31.4 g/dL (Low)?? 11/22/2022 02:27 Platelet Count 242 k/mm3 ()?? 11/22/2022 02:27 RDW-SD 55.0 femtoliters (High)?? 11/22/2022 02:27 MPV 10.6 femtoliters ()?? 11/22/2022 02:27 Nucleated RBC (Automated) 0.0 #/100 WBC'S ()?? 11/22/2022 02:27 Abs. NRBC 0.0 k/mm3 ()?? 11/22/2022 02:27 Abs. Neut 4.0 k/mm3 ()?? 11/15/2022 15:06 Abs. Lymph 1.4 k/mm3 ()?? 11/15/2022 15:06 Abs. Dickey 0.5 k/mm3 ()?? 11/15/2022 15:06 Abs. Eo 0.0 k/mm3 ()?? 11/15/2022 15:06 Abs. Baso 0.0 k/mm3 ()?? 11/15/2022 15:06 Neut % 66.9 % ()?? 11/15/2022 15:06 Lymph % 23.5 % ()?? 11/15/2022 15:06 Dickey % 8.8 % ()?? 11/15/2022 15:06 Eos % 0.3 % ()?? 11/15/2022 15:06 Baso % 0.2 % ()?? 11/15/2022 15:06 Imm Gran 0.3 % ()?? 11/15/2022 15:06 Abs. Imm Gran 0.0 k/mm3 ()?? 11/15/2022 15:06 ?? BLOOD GAS pH, Venous 7.36 ()?? 11/16/2022 14:33 ? CARDIAC CK, Total 58 units/L ()?? 11/16/2022 14:33 Nt-Probnp 7912 pg/mL (High)?? 11/19/2022 07:23 ?? CHEM GENERAL Sodium 131 mmol/L (Low)?? 11/22/2022 08:44 Potassium 5.4 mmol/L (High)?? 11/22/2022 08:44 Chloride 93 mmol/L (Low)?? 11/22/2022 08:44 Bicarbonate Level 23 mmol/L ()?? 11/22/2022 08:44 Anion Gap 15 ()?? 11/22/2022 08:44 Glucose Level 300 mg/dL (High)?? 11/22/2022 08:44 Glucose, POC 186 mg/dL (High)?? 11/22/2022 11:55 Beta Hydroxybutyrate 0.05 mmol/L ()?? 11/22/2022 08:44 BUN 65 mg/dL (High)?? 11/22/2022 08:44 Creatinine-Blood 4.7 mg/dL (High)?? 11/22/2022 08:44 Estimated GFR Creatinine 10 ML/MIN/1.73 M2 ()?? 11/22/2022 08:44 Calcium 8.7 mg/dL ()?? 11/22/2022 08:44 Phosphorus 3.3 mg/dL ()?? 11/21/2022 06:36 Magnesium 2.2 mg/dL ()?? 11/21/2022 06:36 Protein, Total 7.1 Gm/dL ()?? 11/15/2022 16:00 Albumin 3.5 Gm/dL ()?? 11/15/2022 16:00 AG Ratio 1.0 ()?? 11/15/2022 16:00 Alkaline Phosphatase 104 units/L ()?? 11/15/2022 16:00 AST (SGOT) HEMOLYZED units/L ()?? 11/16/2022 05:02 ALT (SGPT) 42 units/L (High)?? 11/16/2022 05:02 Bilirubin, Total 0.2 mg/dL ()?? 11/15/2022 16:00 Vitamin B12 Level 1083 pg/mL ()?? 11/19/2022 07:23 Folic Acid Level 11.4 ng/mL ()?? 11/19/2022 07:23 Lactate 1.7 mmol/L ()?? 11/22/2022 08:44 Iron Level 50 mcg/dL ()?? 11/19/2022 07:23 Iron Binding Capacity, Unsaturated 129 mcg/dL ()?? 11/19/2022 07:23 Iron Binding Capacity, Estimated Total 179 mcg/dL ()?? 11/19/2022 07:23 % Iron Saturation 28 % ()?? 11/19/2022 07:23 Ferritin Level 515 ng/mL (High)?? 11/19/2022 07:23 ? HEME OTHER Hold Lavender Top SPECIMEN DISCARDED AFTER 24 HOURS. ()?? 11/19/2022 07:23 Hold Blue Top SPECIMEN DISCARDED AFTER 4 HOURS. ()?? 11/13/2022 21:12 ?? IMMUNOLOGY GENERAL IgG 1120 mg/dL ()?? 11/21/2022 06:36 IgA 256 mg/dL ()?? 11/21/2022 06:36 IgM 73 mg/dL ()?? 11/21/2022 06:36 Immunoglobulin IgE 22 IU/mL ()?? 11/21/2022 06:36 Transferrin 129 mg/dL (Low)?? 11/18/2022 07:50 ? MISC. CHEMISTRY 25 OH-Vitamin D Level 28.7 ng/mL ()?? 11/19/2022 07:23 Hold Green Top SPECIMEN DISCARDED AFTER 1 WEEK ()?? 11/13/2022 21:12 Procalcitonin 0.19 ng/mL ()?? 11/20/2022 06:55 ? URINE OTHER Est Creatinine Clearance 8.84 mL/min ()?? 11/22/2022 09:24 ? VIROLOGY COVID-19 PCR Specimen Source NASAL ()?? 11/13/2022 18:53 COVID-19 PCR Result NEGATIVE ()?? 11/13/2022 18:53 ? Microbiology ?? COVID-19 (2019 Novel Coronavirus) PCR?? Completed?? Source: Nasal Body Site: Nose Collected Dt/Tm: 11/13/2022 18:53 Last Updated Dt/Tm: 11/14/2022 09:07 Blood Culture?? Completed?? Source: Blood Body Site: ?? Collected Dt/Tm: 11/13/2022 20:45 Last Updated Dt/Tm: 11/13/2022 20:45 ?SPECIMEN DESCRIPTION : BLOOD R HANDSPECIAL REQUESTS : NONECULTURE : NO GROWTH 5 DAYS.REPORT STATUS : FINAL 11/18/2022 Blood Culture #2?? Completed?? Source: Blood Body Site: ?? Collected Dt/Tm: 11/13/2022 20:45 Last Updated Dt/Tm: 11/13/2022 20:45 ?SPECIMEN DESCRIPTION : BLOOD RACSPECIAL REQUESTS : NONECULTURE : NO GROWTH 5 DAYS.REPORT STATUS: FINAL 11/18/2022 ?? Result type:?CT Chest W/O Contrast Result date:?November 19, 2022 21:53 EDT Result status:?Auth (Verified) Result title:?CT Chest W/O Contrast Performed by:?Claudia Wyatt MD on November 20, 2022 17:17 EDT Verified by:?Claudia Wyatt MD on November 20, 2022 17:17 EDT Encounter info:?[id number], [facility]22 -? * Final Report * ?? Reason For Exam 62 yo F with concern for pulmonary fibrosis/interstitial lung disease.;Other: ?? RESULT: CT Chest W/O Contrast CT Chest W/O Contrast? INDICATION: Reason: Other:; 62 yo F with concern for pulmonary fibrosis interstitial lung disease.;Clinical Question(s): Other:; Pulmonary fibrosis; Order Comment: ?? TECHNIQUE: Helical CT scan of the chest without IV contrast, formatted in 3 planes. Weight-based protocol was performed using automatic exposure control.? CTDIvol Body: 5.53 mGy, ??DLP Body: 365 mGy*cm. ? COMPARISON: None. ?? FINDINGS:? Leasing Associate view findings, lines and tubes: There is a right IJ central line with its tip in the right atrium. ?? Trachea and airways: Patent without evidence of tracheal or endobronchial lesion. ?? Lungs and pleura: There is interlobular septal thickening with predominantly perihilar groundglass and solid lung opacities with bronchiectasis. No effusion or pneumothorax. ?? Mediastinum and jared: Limited noncontrast evaluation demonstrates soft tissue prominence at the right mediastinum/hilum. There is a moderate-sized hiatal hernia. ?? Heart: Heart is normal in size. No pericardial effusion. Moderate coronary artery calcification. ?? Aorta: Mild vascular calcification but no aneurysm. ?? Pulmonary arteries: The central pulmonary artery at is prominent. ?? Chest wall soft tissues: No acute abnormality. ?? Diaphragm: Intact. ?? Upper abdomen: Limited evaluation of the imaged portion of the kidneys demonstrate multiple renal lesions some of which demonstrate fluid attenuation and some of which demonstrate soft tissue attenuation. ?? Bones: No acute abnormality. Multilevel discogenic degenerative changes at the thoracic spine. ?? IMPRESSION: ? 1. Soft tissue prominence at the right mediastinum/hilum. Further evaluation with a contrast-enhanced study is recommended. 2. Prominence of the main pulmonary artery which may be related to pulmonary artery hypertension. 3. Extensive bilateral predominantly perihilar groundglass/solid airspace opacities. 4. Interlobular septal thickening with bronchiectasis. 5. Indeterminate bilateral renal lesions. Further evaluation with renal ultrasound scan DEDICATED pre and postcontrast ultrasound scan of the abdomen is recommended. ? Result type:?Trans-esophageal Echocardiogram Result date:?November 16, 2022 15:48 EDT Result status:?Modified Result title:?ASTON with Doppler and Colorflow Performed by:?Robi Lambert MD on November 16, 2022 15:48 EDT Verified by:?Robi Lambert MD on November 16, 2022 15:48 EDT Encounter info:?[id number], [facility], [place]13/2022 -?? Contributor system:?SOFTMED ?? * Final Report * ?? ASTON with Doppler and Colorflow Transesophageal Echocardiography Report (ASTON) ?Patient Demographics ?Patient Name ?MICHELLE AYALA ?Date of Study ? 11/16/2022 ?Corporate ? Gender ?Female ?Facility ? Race ?Black ?Ethnicity ?Date of ? 1960 ?Height: ? 60 inches ?Age ? 62 year(s) ?Weight: ? 185 pounds ?Accession Number ?[id number] ?BSA: ?1.81 m2 ?Room Number ? M712 ?BMI: ?36.13 kg/m2 ?Referring Physician Shannan Montez ? Interpreting ?Robi Lambert, ? Kashef ?Physician ? MD ?Cardiac Cath Tech ? Qiwen Ye RDCS ?? Indications Endocarditis. ?? Study Data ?? Type of Study ?ASTON procedure:ASTON with Doppler and Colorflow, 3D Rendering without post ??processing. ?? Study 11/16/2022 Start Time: 03:48 PM Study Location: CARE UNIT Study Status: ASTON Suite Patient Status: Routine Technical Quality: Adequate Blood Pressure:92/77 mmHg EKG: Normal sinus rhythm HR: 95 bpm ?? ASTON Performed By: Robi Lambert MD ?Type of Anesthesia: Anesthesia administered by anesthesiologist. ?? Doppler Measurements ?MV Mean Gradient: 5 mmHg ?TR Velocity:287 cm/s ??TR Gradient:32.95 mmHg ?Cardiac Anatomy ?Left Ventricle/Interventricular Septum ??Overall left ventricular systolic function appears normal. LVEF 60-65%. ?Left Atrium/Interatrial Septum ??The left atrium is severely dilated. Left atrial appendage function is ??normal. There is no thrombus in the left atrium or left atrial appendage. ??The interatrial septum appears intact. There is rightward deviation of the ??interatrial septum consistent with elevated left atrial pressure. ?Aortic Valve ??The aortic valve appears mildly thickened. No evidence of mitral stenosis ?Mitral Valve ??The posterior mitral annulus is severely thickened and calcified. The ??posterior leaflet is tethered, restricted, and shortened. There is no ??significant mitral stenosis. There is a torn anterior chord with a partially ??flail A2 segment of the anterior leaflet. There is a 0.7 x 0.5cm echodensity ??on the tip of the anterior leaflet that appears most consistent with ??calcification or healed vegetation. There is very severe, highly eccentric ??(posteriorly directed) mitral regurgitation. ?Aorta ??There is severe plaque in the descending aorta . ?Right Ventricle ??The right ventricular size and function appear grossly normal. ?Right Atrium ??There is no mass or thrombus in the right atrium. ?Pulmonic Valve ??The pulmonic valve morphology is poorly visualized. The pulmonic valve if ??functionally normal. ?Tricuspid Valve ??The tricuspid valve annulus is dilated. There is moderate tricuspid ??regurgitation. ?Pumonary Artery ??The pulmonary artery systolic pressure estimation is severely elevated, 66 ??mmHg plus CVP. ?Venous Structures ??There is systolic flow reversal in 3 of 4 pulmonary veins consistent with ??severe mitral regurgitation. ?Pericardium/Extracardiac ??There is no significant pericardial effusion. ?Summary ??Technically difficult transgastric windows. Good transesophageal windows. ??Normal biventricular systolic function. ??The posterior leaflet is tethered, restricted, and shortened. There is no ??significant mitral stenosis. There is a torn anterior chord with a partially ??flail A2 segment of the anterior leaflet. There is a 0.7 x 0.5cm echodensity ??on the tip of the anterior leaflet that appears most consistent with ??calcification or healed vegetation. ??There is very severe, highly eccentric (posteriorly directed) mitral ??regurgitation. There is systolic flow reversal in 3 of 4 pulmonary veins ??consistent with severe mitral regurgitation. ??There is moderate tricuspid regurgitation. ??The pulmonary artery systolic pressure estimation is severely elevated, 66 ??mmHg plus CVP. ??There is severe plaque in the descending aorta . ?Recommendation ??Consider cardiac surgery consultation. ?Comparison ??Direct visual comparison is made to the (outside) study of May 07, ??2021. Degree of mitral regurgitation appears similar. ? Cardiology consult note 11/14/[address] Oliver Amador ?? 62-year-old female with history significant for??COPD/ILD, chronic respiratory failure on home oxygen, cDCHF, remote tobacco use, Obesity/LALI, type 2 diabetes diet-controlled,??progressive end-stage renal disease on hemodialysis,??progressive??mitral regurgitation secondary TR and PAH, now in the severe range??diagnosed??a few months ago based on imaging at [facility], suspicion for perforated mitral leaflet??is a sequelae of??endocarditis,??presenting with recurrent congestive heart failure [facility], transferred for further??definitive care. ?? On evaluation at [facility] she was??noted to have some pulmonary congestion on chest x-ray. ??CT scan??showed volume overload with interstitial changes??peribronchial and subpleural??thickening consistent with??worsening parenchymal inflammatory changes.?? She was dialyzed??with some improvement in her symptoms.?? Blood pressure is borderline.?? Blood work with??leukopenia??stablehemoglobin??and hyperglycemia with some transaminitis. ??Procalcitonin of 0.52??twelve-lead EKG with??normal sinus rhythm early transition??normal axis??intervals with nonspecific??inferior T wave flattening. ?? Echo from 04/2022 see addended below. Had had workup at [facility] and declined for surgery and seeking second opinion. Likely known endocarditis from [facility] Epi since november 2021, s/p abx and subsequent multiple hospitalizations with CHF work up with cath and TTE ASTON at [facility] in 04/2022. ?? Recommendations: 1.?? Significant mitral regurgitation??with??anterior mitral??leaflet perforation as a sequelae of??endocarditis. ??Prior work-up at [facility] with ASTON and cardiac catheterization. ??Apparently she had normal coronaries??with no evidence of obstructive CAD.?? There was significant mitral??regurgitationnoted with overall preserved LV function with TR and moderaet PAH.?? [facility]and images transferred over for review. 2.?? We will repeat a surface??echocardiogram??and if needed ASTON for further evaluation??of extent of mitral regurgitation. 3.?? Consider noncontrast CT scan of the chest??given interstitial changes, treat for COPD and get pulmonary consultation.?? Need to optimize pulmonary status for periop eval. 4.?? Based on the above findings will??get CT surgery consultation to assess her candidacy for??surgery. 5.?? Assess need for multiple psychotropic medications. 6.?? ESRD on dialysis??which we will continue. Check probnp. Surveillance blood cultures X1. 7. ??History of SVT she is on dual efrain blocking agents??which we will continue and monitor on??telemetry. ?? Thank you for the kind consultation. ??Primary imaging center manager: Dr. Alberto. ? Cardiac surgery consult Note ? Result type:?Consultation Note Result date:?November 17, 2022 17:44 EDT Result status:?Auth (Verified) Result title:?Consultation Performed by:?Derrell Chamberlain MD on November 17, 2022 17:44 EDT Verified by:?Derrell Chamberlain MD on November 21, 2022 22:16 EDT Encounter info:[place][id number], [facility] [place]?? Contributor system:?[facility] ? Consultation??(Verified) CONSULTATION ?? DATE: ??11/17/2022 ?? CHIEF COMPLAINT: ??Shortness of breath. ?? HISTORY OF PRESENT ILLNESS: ??The patient is a 62-year-old Quaker, who has an extensive past medical history. ??It includes mitral regurgitation secondary to endocarditis about 6 months ago, history of pulmonary hypertension, end-stage renal disease on hemodialysis, chronic respiratory failure, on 2 liters oxygen at home, COPD, type 2 diabetes, status post massive weight loss secondaryto gastric sleeve operation. ??The patient presents with worsening shortness of breath and congestive heart failure and worsening mitral regurgitation and is referred for consideration for mitral valve repair or replacement. ??Her past medical history is remarkable for chronic renal failure, has been on dialysis for about 2 years. ??She is diabetic. ??In 2017, she underwent a gastric sleeve resection and has lost a remarkable amount of weight since then. ??She has a history of chronic heart failure. ??She has type 2 diabetes, pulmonary artery hypertension, chronic anemia secondary to CKD, hype rtension, supraventricular tachycardia. ??She has a left renal mass, which is undiagnosed. She has restless leg syndrome and depression, anxiety. ??She presented to [facility] and was transferred to [facility]. ?? Past surgical history is remarkable for access surgeries in the left arm. ??She also has had a gastric sleeve resection. ??She has had a transesophageal echo. ?? She has a history of endocarditis. ??It was thought to have a perforation of the anterior leaflet of the mitral valve. ??However, on ASTON today, it appears as though there might be a perforation, maybe a ruptured cord with prolapse of the anterior leaflet over the posterior leaflet. ?? List of her medications includes albuterol, amitriptyline, aspirin, atorvastatin, ceftriaxone, docusate, heparin, insulin, lansoprazole, metoprolol, mirtazapine, ropinirole, senna, venlafaxine, diazepam, melatonin, midodrine, simethicone. ?? SOCIAL HISTORY: ??Remarkable for being . ??She has 2 children, one of whom has . ??She used to smoke, stopped in 2003 and has a rare alcoholic beverage. ?? PAST SURGICAL HISTORY: ??Also include bilateral carpal tunnel with revisions. ??She had arthroscopic knee surgery as well, and hysterectomy. ?? PHYSICAL EXAMINATION: ?? GENERAL: ??She is an elderly-appearing female. ??She appears much older than her stated age of 62. VITAL SIGNS: ??Remarkable for a height of 152 cm and weight of 62 kg. ??Her heart rate in the 90s. ??Her blood pressure is in the mid 80s/60s. ??Her O2 sat is 93% on 2 liters nasal cannula. HEENT: ??Normocephalic, atraumatic. ??PERRLA, EOMI. ??Membranes are moist. NECK: ??Supple, no masses, no jugular venous distention. LUNGS: ??Remarkable for bilateral crackles in the bases. HEART: ??Sounds are remarkable for a grade 3/6 systolic murmur heard across the precordium. ABDOMEN: ??Not obese, without palpable masses or tenderness, no hepatosplenomegaly, no ascites. EXTREMITIES: ??She has an old fistula in the left arm. ??She has a Perm-A-Cath overlying the right chest. MUSCULOSKELETAL: ??Intact. NEUROLOGIC: ??No gross motor or sensory deficits. ?? Review of the ASTON is remarkable for severe MR. ??It was a posteriorly directed jet, which looks like it comes from the A2 P2 area and there might be a ruptured cord, although there is evidence of healed vegetation there as well; it is hard to tell really. ??EF is 55%. ??There is pulmonary hypertension with PA pressures of 66+ CVP. ?? In summary, Ms. Michelle Ayala is a 62-year-old lady with severe mitral regurgitation, probably secondary to previous endocarditis. ??The mechanism of the EMR that appears on her most recent ASTON is possible ruptured cord on the anterior leaflet with a posterior directed jet. ??This would conceivablybe something relatively easy to fix at the time of mitral valve surgery; however, she represents a significant risk for open mitral valve surgery due to her chronic renal failure and chronic anemia and her Quaker desire not to receive any blood transfusions. ??I think given her body sizeand the obligatory dilution from the heart lung machine, she will be starting off with a hematocrit between 20-21 once we went on bypass. ??This does not give me enough margin of error to safely repair or replace her mitral valve and get through that major surgery without a transfusion and she without reservation said that she would rather than to get a blood transfusion. ??For this reason, Michele not think that I can in good conscious offer her a mitral valve operation since I do not think Icould accomplish it with a margin of safety. For that reason some alternative approach to her mitral regurgitation should be investigated and carefully evaluated. ??If indeed she has a ruptured cord on the anterior leaflet, a MitraClip may serve as an alternative treatment for her mitral regurgitation and could probably be accomplished without the need of blood transfusion. ?? This was discussed with Dr. Lebron Cade, who considers MitraClip is a possible option. ? Cardiology Follow up Note 11/20 ?? Result type: Progress Note Hospital Result date: November 20, 2022 11:25 EDT Result status: Auth (Verified) Result title: Cardiology Follow Up Note Performed by: Shannan Cade MD on November 20, 2022 11:29 EDT Verified by: Shannan Cade MD on November 20, 2022 11:29 EDT Encounter info: [id number], [facility] [place] ?? Assessment/Plan 1.??Acute on chronic respiratory failure 2.??Volume overload 3.??Mitral regurgitation 4.??History of endocarditis 5.??Heart failure with preserved ejection fraction 6.??ESRD on dialysis 7.??Type 2 diabetes mellitus 8.??Pulmonary artery hypertension 9.??History of anemia due to CKD 10.??Chronic hypotension 11.??SVT (supraventricular tachycardia) 12.??Left renal mass 13.??Restless leg syndrome 14.??Depression 15.??Anxiety 62-year-old lady with complex past medical history including??chronic respiratory failure??on oxygen, end-stage renal disease on dialysis, history of mitral valve endocarditis, anterior mitral leaflet perforation and severe mitral regurgitation, tricuspid regurgitation, pulmonary hypertension, discitis and osteomyelitis, heart failure with preserved EF, diabetes, anemia, SVT, hypertension, renal mass, anxiety, depression who has had recurrent admission to outside hospitals with acute on chronicrespiratory failure, now was transferred from [facility] for management of respiratory failure, severe MR ?? History of mitral valve endocarditis, perforation of anterior mitral valve leaflet??and severe MR??based on ASTON??in April??last year??done in outside hospital Recurrent admissions with decompensated congestive heart failure Chronic respiratory failure on home oxygen COPD End-stage renal disease on dialysis Anemia??and Quaker ?? As discussed above??she??will need to be transferred??to [facility] [place]for mitral valve replacement. Continue??Procrit. ? 30 minutes spent on discharge ?? Patient care discussed with attending, ??Quique. ?? Jean Sow MD Internal Medicine PGY-3 Pager # [phone] * Jennie Lei MD: PERFORM Event Display: Discharge/Transfer Note Hospital Authored Date: I have seen and evaluated the patient on the day of service. I have discussed the case and its management with medical dosimetrist and I agree with assessment and plan as documented in resident's note Patient with hyperkalemia in the setting of ESRD on HD (TTSat), received lokelma today and yesterday, needs close monitor of K level and treat as needed * Jake SCHMITT, Yolande Jacobson: PERFORM, MODIFY Event Display: Patient Education/Instruction Authored Date: [id number] Inpatient Adult Discharge Instructions [address] [address] Name: MICHELLE AYALA : 1960 Visit: 11/13/2022 18:41:00 Current Date: 11/22/2022 14:22 Account: [id number] Inpatient Adult Discharge Instructions We would like to thank you for allowing us to assist you with your healthcare needs. The following includes patient education materials and information regarding your injury/illness. Our entire staffstrives to provide an excellent experience for our patients and their families. PLEASE ENSURE YOU FOLLOW-UP PER THE INSTRUCTIONS BELOW! ?? YOUR OPINION IS IMPORTANT TO US! Please complete the survey you may receive by mail or email. Your feedback will be used to make improvements to the healthcare experiences of our patients and their families. Surveys are administered by [employer] ?? If further treatment with your primary care physician or another doctor is recommended, it is important for you to keep the appointment. Call your primary care physician or return to the Emergency Department immediately if your condition worsens, fails to improve, or new symptoms develop. If you need to find a doctor, you can call [facility] for a referral at [phone] or toll free at [phone] or log in to [email or web address] ?? You can view and manage your care through the patient portal or by using a health care bella of your choosing. [employer] is a website that allows you to securely view your medical information including your hospital discharge summary, office visit summaries, medications and follow-up visits. You can also request appointments, renew medications, and request access to your medical information using a health care bella of your choosing, or just ask a question. You can enroll at [email or web address] or register during your next office visit. You have been discharged from [facility], Patient Care Unit: M7. If you have any questions regarding these instructions after you leave, please call us and we will be happy to assist you. [facility] Your Care Team Attending Physician Quique PETERSON, Jennie Consulting Providers Shoaib PETERSON, Wale Meyers; Glen Alberto DO, MD, Sae Zuniga MD, Shannan Valdivia Discharging Providers Magi PETERSON, Jean Reason for Admission CHF SEVERE MITRAL REGURGITATION Your Diagnosis Mitral regurgitation Acute on chronic respiratory failure Volume overload ESRD on dialysis Type 2 diabetes mellitus Heart failure with preserved ejection fraction History of endocarditis Pulmonary artery hypertension History of anemia due to CKD Chronic hypotension SVT (supraventricular tachycardia) Left renal mass Restless leg syndrome Depression Anxiety Tests Performed Below is a partial list of the tests performed during your hospitalization. You may have had other tests and procedures not included in this list. Please discuss all test results with your provider. ALT AST B12 Vitamin Level Basic Metabolic Panel Beta Hydroxybutyrate CBC CBC w/ Differential CK (CREATINE KINASE) Comprehensive Metabolic Panel COVID-19 (2019 Novel Coronavirus) PCR ELECTROLYTES Ferritin Folate Level GLUCOSE POC HOLD BLUE TUBE HOLD GREEN TUBE HOLD LAVENDER TUBE IgA Level IgE Level IgG Level IgM Level IRON Iron + Iron Binding Capacity Lactate Level Lytes Magnesium Level pH Venous Phosphorus Level Potassium Level PROBNP PROCALCITONIN, SERUM TRANSFERRIN Vitamin D [address] W/O Contrast CXR Portable XR Chest Portable Primary Care Provider Yolande Gallagher Advance Directive Health Care Proxy on File Yes - Health Care Proxy Discharge Vitals Temperature: 97 DegF Height: 152 cm Pulse Rate: 89 bpm Weight: 66.6 kg Respiratory Rate: 18 br/min Body Mass Index:??27.35 kg/m2??High Systolic Blood Pressure:??83 mm Hg??Low Body surface area: 1.63 Diastolic Blood Pressure: 55 mm Hg ?? Oxygen Saturation: 96 % ?? Studies Pending All tests and labs ordered during this hospital stay have been completed unless listed below. Please discuss all pending results with your provider listed above in these instructions. ?? Add On Lab Order Sputum Culture w/ Gram Smear (Culture Sputum w/ Gram Smear) What to do next Instructions From Your Doctor You were admitted for evaluation of severe mitral valve regurgitation. During this hospitalization,you were evaluated by the cardiac surgery and cardiology teams and due to your complex medical history and the anatomy of your valve, the decision was made to transfer you a bigger center for cardiacsurgery evaluation for mitral valve repair. Discharge Orders Discharge Medications MICHELLE AYALA :1960 Visit Date:11/13/2022 Medications: Please continue your medications until treatment is completed or stopped by your provider. Medications not listed below should be discontinued. Discuss any questions related to medications with your provider. What How Much When Instructions Next Dose New Epoetin Yessenia 20,000 unit(s) Subcutaneous Injection Every week Last dose given 11/02 @ 1330? Changed Atorvastatin (atorvastatin 10 mg oral tablet) 1 tab(s) Oral Daily Changed Diazepam (diazepam 2 mg oral tablet) 1 tab(s) Oral Twice a day as needed for Other Anxiety ?? Changed Metoprolol (metoprolol 25 mg oral tablet, extended release) 25 Milligram Oral Daily Unchanged amiTRIPTYLINE 100 Milligram Oral Daily at Bedtime Unchanged Aspirin (aspirin 81 mg oral delayed release tablet) 1 tab(s) Oral Daily Unchanged Durable Medical Equipment (BD CARISA 2 GEN PEN NDL [id number]) Unchanged ferric citrate (Auryxia 210 mg oral tablet) 2 tab(s) Oral 3 times a day with meals Unchanged HydrOXYzine (hydrOXYzine hydrochloride 25 mg oral tablet) 1 tab(s) Oral 4 times a day as needed for for anxiety Unchanged Midodrine (midodrine 5 mg oral tablet) 2 tab(s) Oral Daily as needed for other hypotension for dialysis ?? Unchanged Mirtazapine (Remeron Tablet) 22.5 Milligram Oral Daily at Bedtime Unchanged Omeprazole 40 Milligram Oral Twice a day Unchanged PROCHLORperazine (Compazine Tablet) 5 Milligram Oral Daily as needed for Nausea Unchanged Ropinirole (Requip) 1 Milligram Oral 3 times a day Unchanged Venlafaxine (venlafaxine 75 mg oral tablet) 1 tab(s) Oral Daily Duration: 30 Days ?? What How Much When Comments Stop Taking Acyclovir (acyclovir 400 mg oral tablet) 1 tab(s) Oral Twice a day Stop Taking Allopurinol 100 Milligram Twice a day Stop Taking BusPIRone (busPIRone 30 mg oral tablet) 1 tab(s) Oral Twice a day Stop Taking Carvedilol 25 Milligram Oral Twice a day Stop Taking Diltiazem 360 Milligram Daily Stop Taking Diltiazem (Tiadylt ER 180 mg/ 24 hours oral capsule, extended release) TAKE 2 CAPSULES BY MOUTH EVERY DAY ?? Stop Taking Duloxetine (duloxetine 60 mg oral enteric coated capsule) 1 capsule Oral Daily Stop Taking Insulin Glargine (Lantus Solostar Pen 100 units/ mL subcutaneous solution) 17 unit(s) Daily at Bedtime sliding scale ?? Stop Taking Insulin Lispro (Humalog Kwik Pen 100 units/ mL subcutaneous injection) slidhs scale 2/ 10 units ?? Stop Taking Meclizine Oral 3 times a day Test Results Below is a partial list of the most recent Laboratory test results done prior to this discharge. You may have had other tests and procedures not included in this list. Please discuss all test resultswith your provider. Est Creatinine Clearance - 8.84 mL/min (11/22/2022) ALT (11/16/2022) ???ALT (SGPT) - 42 units/L AST (11/16/2022) ???AST (SGOT) - HEMOLYZED B12 Vitamin Level (11/19/2022) ???Vitamin B12 Level - 1083 pg/mL Basic Metabolic Panel (11/22/2022) ???Sodium - 131 mmol/L???Potassium - 5.4 mmol/L???Chloride - 93 mmol/L???Bicarbonate Level - 23 mmol/L???Anion Gap - 15???Glucose Level - 300 mg/dL???BUN - 65 mg/dL???Creatinine-Blood - 4.7 mg/dL???Estimated GFR Creatinine - 10 ML/MIN/1.73 M2???Calcium - 8.7 mg/dL Beta Hydroxybutyrate (11/22/2022) ???Beta Hydroxybutyrate - 0.05 mmol/L CBC (11/22/2022) ???WBC - 6.9 k/mm3???RBC - 3.65 m/mm3???Hgb - 9.8 Gm/dL???Hct - 31.2 %???MCV - 85.5 femtoliters???MCH - 26.8 pg???MCHC - 31.4 g/dL???Platelet Count - 242 k/mm3???RDW-SD - 55.0 femtoliters???MPV - 10.6 femtoliters???Nucleated RBC (Automated) - 0.0 #/100 WBC'S???Abs. NRBC - 0.0 k/mm3 CBC w/ Differential (11/15/2022) ???WBC - 5.9 k/mm3???RBC - 3.96 m/mm3???Hgb - 10.5 Gm/dL???Hct - 33.6 %???MCV - 84.8 femtoliters???MCH - 26.5 pg???MCHC - 31.3 g/dL???Platelet Count - 265 k/mm3???RDW-SD - 49.9 femtoliters???MPV - 10.3 femtoliters???Nucleated RBC (Automated) - 0.0 #/100 WBC'S???Abs. NRBC - 0.0 k/mm3???Abs. Neut - 4.0 k/mm3???Abs. Lymph - 1.4 k/mm3???Abs. Dickey - 0.5 k/mm3???Abs. Eo - 0.0 k/mm3???Abs. Baso - 0.0 k/mm3???Neut % - 66.9 %???Lymph % - 23.5 %???Dickey % - 8.8 %???Eos % - 0.3 %???Baso % - 0.2 %???Imm Gran - 0.3 %???Abs. Imm Gran - 0.0 k/mm3 CK (CREATINE KINASE) (11/16/2022) ???CK, Total - 58 units/L Comprehensive Metabolic Panel (11/15/2022) ???Sodium - 131 mmol/L???Potassium - 4.8 mmol/L???Chloride - 92 mmol/L???Bicarbonate Level - 22 mmol/L???Anion Gap - 17???Glucose Level - 165 mg/dL???BUN - 52 mg/dL???Creatinine-Blood - 5.0 mg/dL???Estimated GFR Creatinine - 9 ML/MIN/1.73 M2???Calcium - 8.8 mg/dL???Protein, Total - 7.1 Gm/dL???Albumin - 3.5 Gm/dL???AG Ratio - 1.0???Alkaline Phosphatase - 104 units/L???AST (SGOT) - 46 units/L???ALT (SGPT) - 42 units/L???Bilirubin, Total - 0.2 mg/dL COVID-19 (2019 Novel Coronavirus) PCR (11/13/2022) ???COVID-19 PCR Specimen Source - NASAL???COVID-19 PCR Result - NEGATIVE ELECTROLYTES (11/18/2022) ???Sodium - 131 mmol/L???Potassium - 4.8 mmol/L???Chloride - 91 mmol/L???Bicarbonate Level - 24 mmol/L???Anion Gap - 16 Ferritin (11/19/2022) ???Ferritin Level - 515 ng/mL Folate Level (11/19/2022) ???Folic Acid Level - 11.4 ng/mL GLUCOSE POC (11/22/2022) ???Glucose, POC - 186 mg/dL HOLD BLUE TUBE (11/13/2022) ???Hold Blue Top - SPECIMEN DISCARDED AFTER 4 HOURS. HOLD GREEN TUBE (11/13/2022) ???Hold Green Top - SPECIMEN DISCARDED AFTER 1 WEEK HOLD LAVENDER TUBE (11/19/2022) ???Hold Lavender Top - SPECIMEN DISCARDED AFTER 24 HOURS. IgA Level (11/21/2022) ???IgA - 256 mg/dL IgE Level (11/21/2022) ???Immunoglobulin IgE - 22 IU/mL IgG Level (11/21/2022) ???IgG - 1120 mg/dL IgM Level (11/21/2022) ???IgM - 73 mg/dL IRON (11/18/2022) ???Iron Level - 43 mcg/dL Iron + Iron Binding Capacity (11/19/2022) ???Iron Level - 50 mcg/dL???Iron Binding Capacity, Unsaturated - 129 mcg/dL???Iron Binding Capacity, Estimated Total - 179 mcg/dL???% Iron Saturation - 28 % Lactate Level (11/22/2022) ???Lactate - 1.7 mmol/L Lytes (11/22/2022) ???Sodium - 132 mmol/L???Potassium - 5.6 mmol/L???Chloride - 93 mmol/L???Bicarbonate Level - 19 mmol/L???Anion Gap - 20 Magnesium Level (11/21/2022) ???Magnesium - 2.2 mg/dL pH Venous (11/16/2022) ???pH, Venous - 7.36 Phosphorus Level (11/21/2022) ???Phosphorus - 3.3 mg/dL Potassium Level (11/21/2022) ???Potassium - 5.3 mmol/L PROBNP (11/19/2022) ???Nt-Probnp - 7912 pg/mL PROCALCITONIN, SERUM (11/20/2022) ???Procalcitonin - 0.19 ng/mL TRANSFERRIN (11/18/2022) ???Transferrin - 129 mg/dL Vitamin D 25 Hydroxy Level (11/19/2022) ???25 OH-Vitamin D Level - 28.7 ng/mL Allergies (NKA means No Known Allergies) Percocet??(itching) TraZODone Hydrochloride Problems No qualifying data available Education Materials Below is the list of Educational Leaflet Providered with your Discharge Instructions. Anemia and Kidney Disease?? Heart Failure Discharge Instructions for Heart Failure?? Understanding Mitral Valve Regurgitation?? Valuables and Belongings I fully understand and agree that [facility] accepts no responsibility for all my personal property including clothing, toilet articles, radios, jewelry, dentures, hearing aids, rings, money, or any other property that is in my possession or is brought to me after admission. I understand certain valuables may be placed in a hospital safe for a short period of time. I understand that the hospital is not liable for loss or damage due to accident, fire, or other natural occurrence while said property is in the safe. I accept full responsibility for any personal property that I keep with me, and will not hold the hospital responsible in case of loss or disappearance. I acknowledge that i have been encouraged to send valuables and belongings home. ? Other Discharge Information ? Case Management Discharge Plan?? Discharge Plan?? Discharge Rx Program: Discharge Prescription Program ?? Pulmonary Rehab Status?? Pulmonary Rehab Discharge Status?? Respiratory Rate: 18 br/min ? Common Emergency Awareness Tips IS IT A STROKE? Act FAST and Check for these signs: FACE Does the face look uneven? ARM Does one arm drift down? SPEECH Does their speech sound strange? TIME Call at any sign of stroke ?? Heart Attack Signs Chest discomfort: Most heart attacks involve discomfort in the center of the chest and lasts more than a few minutes, or goes away and comes back. It can feel like uncomfortable pressure, squeezing, fullness or pain. Discomfort in upper body: Symptoms can include pain or discomfort in one or both arms, back, neck, jaw or stomach. Shortness of breath: With or without discomfort. Other signs: Breaking out in a cold sweat, nausea, or lightheaded. Remember, MINUTES DO MATTER. If you experience any of these heart attack warning signs, call to get immediate medical attention! ?? Smoking can increase your chances of developing chronic health problems and can cause harmful effects to other family members in your house. If you smoke, you are strongly encouraged to quit. Please call [facility] at [phone] or [phone]-AYXEIW ([phone]) or log in to [email or web address] for referrals to smoking cessation programs. ?? 386 Suicide & Crisis Lifeline is available 13/12 if you or someone you know needs to find a reason to keep living. By calling 791 you'll be connected to a skilled, trained counselor at a crisis center in your area. INPATIENT DISCHARGE INSTRUCTIONS SIGNATURE PAGE MICHELLE AYALA Location:[facility] Registration Date and Time:11/13/2022 18:41 EDT Primary Care Physician: Yolande Gallagher, Attending Physician: Jennie Lei MD, I MICHELLE AYALA, have received the above patient education materials/instructions and have verbalized understanding. If ambulance or transport services are being used I further acknowledge being given a choice of service. ?? If you need to contact me, please call me at this number: . Patient/Offbearer Name: Patient/Offbearer Signature: Relationship to Patient: Witness Name/Signature: Date: * Yolande Joseph RN: PERFORM Event Display: Patient Education Leaflets Authored Date: [id number] Anemia and Kidney Disease ?? 00569 Anemia and Kidney Disease Anemia is a health problem that affects your blood. Kidneys normally make a hormone called erythropoietin. This important hormone prompts the bone marrow to make new red blood cells. If you have kidney disease, your kidneys may not be able to make enough of this hormone. You may also not have enough iron in your body. Iron is vital to making red blood cells. You need??to replace iron before usingcertain medicines. Use this handout to help you understand anemia and the medicines that can help control it. What is anemia? Anemia occurs when your blood does not have enough red blood cells Your blood isn't able to carry as much oxygen throughout your body. As a result, all your organs have too little oxygen. Red blood cells make up 35% to 45% of normal blood. If you have anemia, your red cell count (hematocrit) is below 35%. ?? Signs of anemia Anemia can cause you to feel tired quickly. Talk with your healthcare provider if you have any of these signs: ??? Ongoing fatigue ??? Shortness of breath ??? Rapid, irregular heartbeat ??? Trouble concentrating ??? Impotence ??? Feeling dizzyor lightheaded ??? Constant feeling of being cold ??? Pale skin ?? Medicines can help If you???re at risk for anemia, you may be given a medicine called epoetin yessenia (sometimes called EPO). EPO is a manmade version of erythropoietin. EPO controls anemia by telling your body to make red blood cells. Most people who take EPO feel better and become more active. Your healthcare providercan also check your iron level. Iron helps EPO increase the red blood cells. In some cases, you may need other nutrients, like vitamins and minerals, to help with your anemia. ?? How EPO and iron are used EPO may be used to treat any person with kidney disease who has anemia. It is most often used to treat people on dialysis. EPO is given as a shot under the skin. This is how most CAPD (continuous ambulatory peritoneal dialysis) patients get it. Those on hemodialysis can get it through their IV (intravenous) line. But it costs more and may not work as well as the shots. If you lack iron, you may need to take iron pills or get iron through an IV. ?? Last Reviewed Date: 2021 ?? [employer]. All rights reserved. This information is not intended as a substitute for professional medical care. Always follow your healthcare professional's instructions. ?? * Jake SCHMITT, Yolande Jacobson: PERFORM Event Display: Patient Education Leaflets Authored Date: [id number] Heart Failure Discharge Instructions for Heart Failure ?? 153 Discharge Instructions for Heart Failure The heart is a muscle that pumps oxygen-rich blood to all parts of the body. When you have heart failure, the heart is not able to pump as well as it should. Blood and fluid may back up into the lungs (congestive heart failure), and some parts of the body don ???t get enough oxygen-rich blood to work normally. These problems lead to the symptoms of heart failure. Heart failure can occur due to aninjury to the heart or from natural processes. You can control symptoms of heart failure with some lifestyle changes and by following your doctor's advice. Home care Activity Ask your healthcare provider about an exercise program. You can benefit from simple activities suchas walking or gardening. Exercising most days of the week can make you feel better. Don't be discouraged if your progress is slow at first. Rest as needed. Stop activity if you develop symptoms such as chest pain, lightheadedness, or significant shortness of breath. Find activities that you enjoy, such as brisk walking, dancing, swimming, or gardening. These will help you stay active and strengthen your heart. Diet Follow a heart healthy diet. And make sure to limit the salt (sodium) in your diet. Salt causes your body to hold water. This makes your heart work harder as there is more fluid for the heart to pump. Limit your salt by doing the following: ??? Limit canned, dried, packaged, and fast foods. ??? Don't add salt to your food. ??? Season foods with herbs instead of salt. ??? Watch how much liquids you drink. Drinking too much can make heartfailure worse. Talk with your health care provider about how much you should drink each day. ??? Limit the amount of alcohol you drink. It may harm your heart. Women should have no more than 1 drink a day and men should have no more than 2. ??? When you eat out, request that your meals have no added salt. Tobacco If you smoke, it's very important to quit. Smoking increases your chances of having a heart attack by harming the blood vessels that provide oxygen to your heart. This makes heart failure worse. Quitting smoking is the number one thing you can do to improve your health. Enroll in a stop-smoking program to improve your chances of success. Talk with your healthcare provider??about medicines or nicotine replacement therapy to help you quit smoking. Ask your healthcare provider about smoking cessation support groups. Medicine Take your medicines exactly as prescribed. Learn the names and purpose of each of your medicines. Keep an accurate medicine list and current dosages with you at all times. Don't skip doses. If you miss a dose of your medicine, take it as soon as you remember. If you miss a dose and??it's almost time for your next dose, just wait and take your next dose at the normal time. Don't take a double dose. If you are unsure, call your doctor's office. Make sure not to mix up your medicines or forget what you've taken the same day. Weight monitoring Weigh yourself every day. A sudden weight gain can mean your heart failure is getting worse. Weigh yourself at the same time of day and in the same kind of clothes. Ideally, weigh yourself first thing in the morning after you empty your bladder, but before you eat breakfast. Your healthcare provider will show you how to track your weight. He or she will also discuss with you when you should call if you have a sudden, unexpected increase in your weight. In general, your healthcare provider may ask you to report if your weight goes up by more than 2 pounds in 1 day,?? 5 pounds in 1 week, or whatever weight gain you were told by your doctor. This is asign that you are retaining more fluid than you should be. Clues to weight gain include checking your ankles for swelling, or noticing you are short of breath when you lie down. Follow-up care Make a follow-up appointment as directed. Depending on the type and severity of heart failure you have, you may need follow-up as early as 7 days from hospital discharge. Keep appointments for checkups and lab tests that are needed to check your medicines and condition. Recognize that your health and even survival depend on your following medical recommendations. Symptoms Heart failure can cause a variety of symptoms, including: ??? Shortness of breath ??? Trouble breathing at night, especially when you lie down ??? Swelling in the legs and feet or in the belly (abdomen) ??? Becoming easily fatigued ??? Irregular or rapid heartbeat ??? Weakness or lightheadedness ??? Swelling of the neck veins It is important to know what to do if symptoms get worse or if you develop signs of worsening heartfailure. ?? When to see your healthcare provider Call your doctor right away if you have any of these signs of worsening heart failure: ??? Sudden weight gain (more than 2 pounds in 1 day or 5??pounds in 1 week, or whatever weight gainyou were told to report by your doctor) ??? Trouble breathing not related to being active ??? New or increased swelling of your legs or ankles ??? Swelling or pain in your abdomen ??? Breathing trouble at night (waking up short of breath, needing more pillows to breathe) ??? Frequent coughing that doesn't go away ??? Feeling much more tired than usual Call 911 Call 911 right away if you have: ??? Severe shortness of breath, such that you can't catch your breath even while??resting ??? Severe chest pain that does not resolve with rest or nitroglycerin ??? [place], foamy mucus with cough and shortness of breath ??? A continuous rapid or irregular heartbeat ??? Passing out or fainting ??? Stroke symptoms such as sudden numbness or weakness on one side of your face, arm, or leg or sudden confusion, trouble speaking or vision changes ? Please refer to the Heart Failure Handbook for more information. ? * Jean Sow MD: PERFORM Event Display: Patient Education Leaflets Authored Date: [id number] Understanding Mitral Valve Regurgitation ?? 10349 Understanding Mitral Valve Regurgitation Mitral valve regurgitation is when the mitral valve in the heart is leaky. It lets some blood flow backwards when the ventricle squeezes. How mitral valve regurgitation happens The mitral valve is one of the heart???s 4 valves. Normally, these valves close tightly to help theblood flow through the heart???s 4 chambers and out to the body. The mitral valve lies between the left atrium and the left ventricle. Normally, the mitral valve stops blood from flowing back into the left atrium from the left ventricle when the ventricle squeezes. This maximizes forward blood flowthrough the heart and out to the body. With mitral valve regurgitation, the valve doesn't close tightly and some blood leaks back through the valve. This makes the heart have to work harder to get blood out to your body. When this blood is regurgitated backwards in the heart, it increases the pressure within the heart. This can lead to muscle damage as well as high blood pressure in the lungs. Mitral valve regurgitation can increase risk for other heart rhythm problems, such as atrial fibrillation (AFib). This abnormal heart rhythm results in fast and irregular heartbeats. AFib can also lower the heart's pumping ability and increases the risk for stroke. Mitral valve regurgitation can be acute or chronic. If it???s acute, the valve suddenly becomes leaky. In this case, the heart doesn???t have time to adapt to the leak in the valve. Symptoms are often severe. If you have severe mitral valve regurgitation, you may need a catheter procedure or surgery to repair or replace the leaking valve. If it???s chronic, the valve leaks more and more over time. The heart and the body have time to adapt to the leak. ?? What causes mitral valve regurgitation? Mitral valve regurgitation can be caused by various things, such as: ??? Heart attack or coronary artery disease ??? Natural aging that can damage the mitral valve ??? Tearing of the tissue or muscle that supports the mitral valve, sometimes due to an injury ??? A floppy mitral valve, called mitral valve prolapse ??? Rheumatic heart disease caused by untreated Streptococcus (strep) infection. Strep are the bacteria that cause strep throat. ??? Certain autoimmune diseases, such as rheumatoid arthritis ??? Infection of the heart valves (endocarditis) ??? Problems with the mitral valve that are present at ??? Certain medicines, such as weight loss medicinesthat were used to treat obesity (fen-phen) You can reduce some risk factors for mitral valve regurgitation. For example: ??? Use antibiotics as directed to treat a strep infection and prevent rheumatic heart disease. ???Reduce the risk for heart valve infection by not injecting illegal drugs. ??? Manage risk factors that can lead to a heart attack or chronic heart artery disease. There are other risk factors that you can???t change. For example, some conditions that can lead tomitral valve regurgitation are partly genetic. ?? Symptoms of mitral valve regurgitation Chronic mitral valve regurgitation often doesn???t cause symptoms for a long time. Mild or moderatemitral valve regurgitation often doesn???t cause any symptoms. If the condition becomes more severe, you may have symptoms. They may get worse and happen more often over time. Symptoms may include: ??? Shortness of breath with physical activity ??? Shortness of breath when lying flat ??? Feeling tired ??? Less ability to exercise ??? Awareness of your heartbeat, such as feeling a pounding in your chest (palpitations) or racing and irregular heartbeats that accompany AFib ??? Swelling in your legs, abdomen, and the veins in your neck ??? Chest pain (less common) Acute, severe mitral valve regurgitation is a medical emergency that can cause serious symptoms such as: ??? Symptoms of shock (pale skin, loss of consciousness, rapid breathing) ??? Severe shortnessof breath ??? Arrhythmias that make the heart unable to pump blood well ?? Diagnosing mitral valve regurgitation Your healthcare provider will ask about your health history. They will give you a physical exam. Using a stethoscope, your healthcare provider will listen to your heart. This is to check for sounds called heart murmurs and other signs that the heart isn???t pumping normally. You may also have testssuch as: ??? Echocardiogram, to look at the structure of the heart using sound waves ??? Stress echocardiogram, to see how well the heart does during exercise ??? Electrocardiogram (ECG), to check the heart???s rhythm ??? Cardiac MRI, transesophageal echocardiogram, or cardiac catheterization, if more information is needed ?? Last Reviewed Date: 2021 ?? [id number] [employer]. All rights reserved. This information is not intended as a substitute for professional medical care. Always follow your healthcare professional's instructions. ?? * Event Display: Provider Clarification Note Please click on pdf link to open report Patient Care team information Care Team Personnel Name: Enid Mcguire RN Position: [facility] AMB Nurse Member Role: Primary Care Nurse Name: Obdulia Augustin RN Position: S RN Member Role: Primary Care Nurse Name: Sree Matamoros MD Position: [facility] Renal MD Member Role: Lifetime Consulting Physician Address: Address: [address] [place], [place] [address] [place] [address]- Name: Yolande Gallagher Position: Reference Physician Member Role: PCP Address: Address: [address] [place] [id number]- Name: Denver Pierce DO Position: [facility] Renal MD Member Role: Lifetime Consulting Physician Address: Address: [address] [place], [place] [address] [place] [address]- Name: Kamila Blair Position: [facility] Outreach Member Role: Lifetime Consulting Physician Name: Darvin Cardona Position: [facility] Associate Professional Member Role: Lifetime Consulting Provider Address: Address: [address] [place] [id number]- Name: Phoebe Zazueta RN Position: S RN Member Role: Primary Care Nurse Name: Alyssa Alcazar Position: [facility] Outreach Member Role: Lifetime Consulting Physician Name: Butch Maria MD Position: [facility] Renal MD Member Role: Lifetime Consulting Physician Address: Address: [address] [place] [address] [address] [facility] [place] [address]- Name: Xiao Navarro RN Position: [facility] RN Member Role: Primary Care Nurse Care Team Related Persons Name: DENIA STEVENS Address: home [address] [address] Name: VIRGIL ROMO Address: [address] [place] [address] [facility]
--- NOTE | 2023-02-19 03:08 | PC.NURSE ---
This RN assumed care upon patient arrival. Patient was assessed by MD with this RN and another RN. Patient has dialysis (Tuesday, , Tuesday) and had open heart surgery in November. Patient was assessed to have a yeasty rash under her abdominal folds, order for Nystatin powder placed. Patient's daughter was contacted regarding status, and in conversation revealed that the patient has been declining since being discharged from [facility] approximately 1 week ago. Per patient's daughter, Libertad has experienced a change in demeanor and is not safe to live by herself anymore . Patient's family is requesting longterm placement, MD and admission discharge rn made aware, patient deferred to case management to be seen in the morning.
[2023-02-19 03:43] LABS: Basophils Absolute Auto 0.1 X10*3/uL (0.0-0.2); Basophils Percent Auto 1.1 % (0-2); Eosinophils Absolute Auto 0.1 X10*3/uL (0.0-0.4); Eosinophils Percent Auto 2.1 % (0-4); Hematocrit 26.2 % (37.0-47.0); Hemoglobin 8.5 g/dl (12.0-16.0); Imm Gran Abs Auto 0.01 X10*3/uL (0.00-0.03); Imm Gran Pct Auto 0.2 % (0.0-0.4); Lymphocytes Absolute Auto 1.4 X10*3/uL (1.2-4.9); Lymphocytes Percent Auto 31.9 % (20-40); MANUAL DIFF FLAG NO; Mean Corpuscular HGB Conc 32.4 g/dl (31.0-35.0); Mean Corpuscular Hemoglobin 28.5 pg (27.0-33.0); Mean Corpuscular Volume 87.9 fL (80.0-98.0); Mean Platelet Volume 10.8 fL (9.4-12.3); Monocytes Absolute Auto 0.7 X10*3/uL (0.1-1.2); Monocytes Percent Auto 16.1 % (2-11); Neutrophils Absolute Auto 2.1 x10*3/uL (2.0-8.3); Neutrophils Percent Auto 48.6 % (45-73); Platelet Count 214 X10*3/uL (160-400); Red Blood Count 2.98 X10*6/uL (4.20-5.50); Red Cell Distribution Width 18.1 % (11.0-16.0); White Blood Count 4.4 X10*3/uL (4.8-10.8)
[2023-02-19 03:53] LABS: Ammonia 23 umol/L (13-55)
[2023-02-19 04:01] LABS: Alanine Aminotransferase 30 U/L (0-31); Albumin Level 2.5 g/dL (3.5-5.0); Alkaline Phosphatase 143 U/L (39-117); Anion Gap 18 (12-20); Aspartate Amino Transferase 33 U/L (5-31); Bilirubin Total 0.3 mg/dL (0.0-1.0); Blood Urea Nitrogen 24 mg/dL (9-16); Calcium 8.5 mg/dL (8.4-10.2); Carbon Dioxide 23 mmol/L (22-29); Chloride 101 mmol/L (96-108); Creatinine Clr Calc Pharmacy 12.8; Estimated Glomerular Filt Rate 14; Glucose Random 91 mg/dL (60-115); Potassium 3.7 mmol/L (3.3-5.1); Sodium 138 mmol/L (135-145); Total Protein 5.7 g/dL (6.5-8.0)
--- NOTE | 2023-02-19 05:30 | MHC.EDTECH ---
call out to nina at 0513 to book transport for pt back home, estimated eta given is 0534
== END 2023-02-19 05:43 | disposition home or self-care (01) ==
PROVIDERS: Emergency Provider Student in an Organized Health Care Education/Training Program
DX: Z45.2 Encounter for adjustment and management of vascular access device (principal); N18.6 End stage renal disease; Z99.2 Dependence on renal dialysis; B37.2 Candidiasis of skin and nail; F41.9 Anxiety disorder, unspecified
CPT/HCPCS: 36415; 80053; 82140; 85025; 99281; 99283

== ENCOUNTER 2023-05-07 16:21 | Inpatient (IN) | payer MEDICAID, SELFPAY ==
[2023-05-07 16:34] VITALS: BP 113/75; PULSE 71; O2SAT 98
--- NOTE | 2023-05-07 16:38 | ED_ITS ---
HPI - Psych General Chief Complaint: Behavioral Concerns Stated Complaint: SUBSTANCE ABUSE REPORTED FROM FAMILY Time Seen by Provider: 05/07/23 16:24 Source: patient Mode of arrival: EMS Limitations: no limitations History of Present Illness HPI Narrative: patient comes to the emergency room by ambulance from [facility]. patient states that she had an uneventful dialysis today. The reason that the patient came today to the emergency room is because the patient is requesting to be seen by behavioral health. 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 Patient is adamant that she does not drink rubbing alcohol or any kind of drinking alcohol. Patient states that she would like to be helped with this issue. Patient denies suicidal or homicidal ideation. Patient denies using any other drugs Related Data Previous Rx's Medication Instructions Recorded ondansetron 4 mg disintegrating 4 mg PO Q6-8H PRN nausea and 01/08/21 tablet vomiting #20 tabs nystatin 100,000 unit/gram topical 1 appl topical BID #60 grams 02/19/23 powder Allergies Allergy/AdvReac Type Severity Reaction Status Date / Time No Known Allergies Allergy Verified 01/08/21 07:09 Review of Systems 2 Review of Systems: Constitutional : No Weight loss, No Fever, No Chills, No Night Sweats, No Fatigue, No Malaise ENT/Mouth : No Hearing loss, No Ear Pain, No Nasal Congestion, No Sinus Pain, No Hoarseness, No sore throat, No Rhinorrhea, No Swallowing Difficulty Eyes: No Eye Pain, No Swelling, No Redness, No Foreign Body, No Discharge, No Vision Changes Cardiovascular : No Chest Pain, No SOB, No Dyspnea on Exertion, No Orthopnea, No Edema, No Palpitations Respiratory : No Cough, No Sputum, No Wheezing, No Smoke Exposure, No Dyspnea Gastrointestinal : No Nausea, No Vomiting, No Diarrhea, No Constipation, No abdominal Pain, No Hematochezia, No Melena Genitourinary : no irregular bleeding, No Dysuria, No Urinary Frequency, No Hematuria, No Urinary Incontinence, No Urgency, No Flank Pain, No Urinary Flow Changes, No Hesitancy Musculoskeletal : No joint pain, No Myalgias, No Joint Swelling Skin : No Skin Lesions, No rash Neuro : No Weakness, No Numbness, No Paresthesias, No Loss of Consciousness, No Dizziness, No Headache Psych : No Anxiety/Panic, No Depression, No SI/HI/AH/VH, 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 Heme/Lymph: No Bruising, No Bleeding,No Lymphadenopathy Endocrine : No Polyuria, No Polydipsia, No Temperature Intolerance PMF Past Medical History Medical History (Updated 05/07/23 @ 20:46 by Yoanna Baxter MD) ESRD on dialysis Anxiety and depression Social History Social History Advance Directives: No Advance Directives Information Provided: No Physical Exam 2 Vital Signs: Vital Signs: Last Vital Signs Temp 97.4 F 05/07/23 18:08 Pulse 74 05/07/23 18:08 Resp 16 05/07/23 18:08 BP 112/62 05/07/23 18:08 Pulse Ox 95 05/07/23 18:08 O2 Del Method Room Air 05/07/23 18:08 BMI result Body Mass Index 28.3 Const: Other: Appearance: Alert. Oriented X3. No acute distress. Eyes: Pupils equal, round and reactive to light. ENT: Pharynx normal. Neck: Normal inspection. Neck supple. No lymph nodes noted. No crepitus CVS: Normal heart rate and rhythm. Pulses normal. Normal S1 and S2 Respiratory: No respiratory distress. Breath sounds normal. No Wheezing. No rales Abdomen: Soft and nontender. No rigidity. No distention. Skin: Skin warm and dry. Normal skin color. Normal skin turgor. Extremities: No lower extremity edema. No Lacerations. No Rash Neuro: Oriented X 3. No motor deficit. No sensory deficit. Moving all extremities. No slurred speech. CN 2 through 12 grossly intact Psych: calm, cooperative, slightly tearful, states she is very embarrassed Course Course Course Narrative: - we will obtain baseline labs. We cannot obtain drugs of abuse since the patient does not produce any urine - care team consult pending - patient is not suicidal or homicidal, Section 12 not indicated Medical Decision Making Medical Decision Making MDM Narrative: -my interpretation of labs: patient's hematology and chemistry at baseline. ETOH level negative -patient complaining of mild headache, given Tylenol -care team consult pending -physician observation started at 20:30 Differential Diagnosis Differential Diagnoses: The differential diagnosis associated with the presentation includes (Anxiety, depression, EtOH abuse) Admission/Observation Consideration of admission/observation: Escalation of care including admission/observation considered (Patient is on observation, waiting for the care team, not on a Section 12) Lab Data MDM Lab Attestation statement: I reviewed the patient's lab results. 05/07/23 18:03 05/07/23 18:03 Labs: Lab Results 05/07/23 Range/Units 18:03 WBC 3.7 L (4.8-10.8) X10*3/uL RBC 3.07 L (4.20-5.50) X10*6/uL Hgb 9.3 L (12.0-16.0) g/dl Hct 29.5 L (37.0-47.0) % MCV 96.1 (80.0-98.0) fL MCH 30.3 (27.0-33.0) pg MCHC 31.5 (31.0-35.0) g/dl RDW 15.1 (11.0-16.0) % Plt Count 186 (160-400) X10*3/uL MPV 10.6 (9.4-12.3) fL Immature Gran % (Auto) 0.3 (0.0-0.4) % Neut % (Auto) 50.7 (45-73) % Lymph % (Auto) 24.1 (20-40) % Saline % (Auto) 13.1 H (2-11) % Eos % (Auto) 10.7 H (0-4) % Baso % (Auto) 1.1 (0-2) % Lymph # (Auto) 0.9 L (1.2-4.9) X10*3/uL Saline # (Auto) 0.5 (0.1-1.2) X10*3/uL Eos # (Auto) 0.4 (0.0-0.4) X10*3/uL Baso # (Auto) 0.0 (0.0-0.2) X10*3/uL Abs Immat Gran (auto) 0.01 (0.00-0.03) X10*3/uL Absolute Neuts (auto) 1.9 L (2.0-8.3) x10*3/uL Absolute Nucleated RBC 0.000 (0.0-0.012) X10*3/uL Nucleated RBC % (auto) 0.0 (0.0-0.2) /100WBC Sodium 140 (135-145) mmol/L Potassium 3.6 (3.3-5.1) mmol/L Chloride 101 (96-108) mmol/L Carbon Dioxide 27 (22-29) mmol/L Anion Gap 16 (12-20) BUN 22 H (9-16) mg/dL Creatinine 2.72 H (0.5-1.4) mg/dL Estim Creat Clear Calc 18.1 Estimated GFR 18 Random Glucose 104 (60-115) mg/dL Calcium 8.0 L (8.4-10.2) mg/dL Ethyl Alcohol < 10 mg/dL Discharge Plan Discharge Clinical Impression: Anxiety Patient Disposition: Still a Patient Prescriptions: No Action ondansetron 4 mg tablet,disintegrating 4 mg PO Q6-8H PRN (Reason: nausea and vomiting) Qty: 20 0RF nystatin 100,000 unit/gram powder 1 appl topical BID Qty: 60 0RF
[2023-05-07 16:40] VITALS: BP 102/63; PULSE 85; RESP 16; TEMP 37; O2SAT 95; BMI 28.3
--- NOTE | 2023-05-07 16:55 | PC.NURSE ---
pt belongings being checked with security. changed over. no si/hi/distress. vss
[2023-05-07 18:08] VITALS: BP 112/62; PULSE 74; RESP 16; TEMP 36.3; O2SAT 95
[2023-05-07 18:09] LABS: MANUAL DIFF FLAG NO
--- NOTE | 2023-05-07 18:09 | MHC.EDTECH ---
Late entry ,Patient was biba from dialysis center ,Patient was exchange engineer into green gown ,Patient belongings are locked up in laundry room in Pod ,Blood drawn and sent to lab ,Patient drank 2 cups of water Pt comfortable no apparent distress noted ,Pillow given ,pt doing cross word Puzzle ,Waiting for dinner to come .
[2023-05-07 18:16] LABS: Basophils Percent Auto 1.1 % (0-2); Eosinophils Absolute Auto 0.4 X10*3/uL (0.0-0.4); Eosinophils Percent Auto 10.7 % (0-4); Hematocrit 29.5 % (37.0-47.0); Hemoglobin 9.3 g/dl (12.0-16.0); Imm Gran Abs Auto 0.01 X10*3/uL (0.00-0.03); Imm Gran Pct Auto 0.3 % (0.0-0.4); Lymphocytes Absolute Auto 0.9 X10*3/uL (1.2-4.9); Lymphocytes Percent Auto 24.1 % (20-40); Mean Corpuscular HGB Conc 31.5 g/dl (31.0-35.0); Mean Corpuscular Hemoglobin 30.3 pg (27.0-33.0); Mean Corpuscular Volume 96.1 fL (80.0-98.0); Mean Platelet Volume 10.6 fL (9.4-12.3); Monocytes Absolute Auto 0.5 X10*3/uL (0.1-1.2); Monocytes Percent Auto 13.1 % (2-11); Neutrophils Absolute Auto 1.9 x10*3/uL (2.0-8.3); Neutrophils Percent Auto 50.7 % (45-73); Platelet Count 186 X10*3/uL (160-400); Red Blood Count 3.07 X10*6/uL (4.20-5.50); Red Cell Distribution Width 15.1 % (11.0-16.0); White Blood Count 3.7 X10*3/uL (4.8-10.8)
--- OUTSIDE RECORDS SUMMARY | 2023-05-07 18:19 | XMS_ITS | Continuity of Care Document ---
Author Name Unknown Organization [facility] ter Address [address] [place] [id number]- Care Team Providers Care Student Loan Counselor Name Role Phone Yolande Gallagher Primary Care Physician Encounter [facility] Date(s): 04/09/23 - 04/15/[address] [address] Discharge Disposition: A-D/C Home Attending Physician: Rehana Maher MD Admitting Physician: Rehana Maher MD Referring Physician: Not on Staff, Referring MD Allergies, Adverse Reactions, Alerts Substance Reaction Severity Status Percocet itching Active Percocet 5/325 Itch Unknown Active traMADol Unknown body region Active TraZODone Hydrochloride Acti ve Medications amiTRIPTYLINE [...] Ordered BD CARISA 2 GEN PEN NDL [id number] Maintenance, 05/07/21 14:48:00 EST, Supply Start Date: [...] release 25 mg, XL Tablet, By Mouth, 04/15/23 9:00:00 EST Start Date: 04/15/23 Stop Date: 04/15/23 Status: Completed midodrine 5 mg oral tablet [...] opioid drug. Start Date: 05/08/21 Status: Ordered oxyCODONE 5 mg oral tablet 10 mg, Tablet, By Mouth, Every 4 hours, PRN for Pain , Moderate, Routine, 04/10/23 13:37:00 EST Start Date: 04/10/23 Stop Date: 04/15/23 Status: Discontinued oxyCODONE 5 mg oral tablet 10 mg, By Mouth, Every 4 hours, PRN, for 5 days, # 10 tablet, Refills 0, Tot. Refills 0, Acute 04/19/23 8:20:00 EST, Pain , Moderate, 04/14/23 8:20:00 EST, Route to Pharmacy Electronically, [facility]/pharmacy #[id number], Partial fill upon patient request if the... Start Date: 04/14/23 Stop Date: 04/19/23 Status: Ordered Remeron Tablet = 22.5 mg, [...] Status: Ordered Tylenol 325 mg oral tablet 975 mg, By Mouth, Every 6 hours, for 14 days, # 50 tablet, Refills 0, Tot. Refills 0, Acute 04/28/23 8:19:00 EST, 04/14/23 8:19:00 EST, Route to Pharmacy Electronically, [facility]/pharmacy #[id number], Partial fill upon patient request if the prescription is for... Start Date: 04/14/23 Stop Date: 04/28/23 Status: Ordered Tylenol 325 mg oral tablet 975 mg, Tablet, By Mouth, 04/15/23 9:00:00 EST Start Date: 04/15/23 Stop Date: 04/15/23 Status: Completed venlafaxine 75 mg oral tablet 1 tablet = 75 mg, By Mouth, Daily, 0 Refills, Maintenance, 11/14/22 5:10:00 EDT, Tablet, Partial fill upon patient request if the prescription is for a schedule II opioid drug. Start Date: 11/14/22 Stop Date: 12/14/22 Status: Ordered Results Orders for Microbiology Reports Name Date Blood Culture (BLOOD CULTURE) 04/10/23 AFB Culture w/ AFB Smear, Nonrespiratory (ACID FAST CULT,NON-RESP) 04/10/23 Anaerobic Culture (ANAEROBIC CULTURE) Tissue Culture w/ Gram Smear (TISSUE/BIO PSY CULT.) 04/10/23 Anaerobic Culture (ANAEROBIC CULTURE) Fungal Culture, Nonrespiratory (FUNGAL C ULT,NON-RESPIRATORY) 04/10/23 Wound Deep Culture w/ Gram Smear (DEEP W OUND CULTURE) 04/10/23 Blood Culture 04/09/23 Blood Culture #2 04/09/23 Microbiology Reports TEST:Blood Culture STATUS:Auth (Verified) BODY SITE: SOURCE:Blood COLLECTED DATE/TIME:04/10/23 10:19 AM Blood Culture SPECIMEN DESCRIPTION : BLOOD SPECIAL REQUESTS : NONE CULTURE : NO GROWTH 5 DAYS. REPORT STATUS : FINAL 04/15/2023 TEST:Anaerobic Culture STATUS:Auth (Verified) BODY SITE: SOURCE:TISSUE1 COLLECTED DATE/TIME:04/10/23 9:54 AM Anaerobic Culture SPECIMEN DESCRIPTION : TISSUE LEFT ARM GRAFT SPECIAL REQUESTS : NONE CULTURE : NO ANAEROBES ISOLATED REPORT STATUS : FINAL 04/12/2023 TEST:AFB Culture w/AFB Smear, Non-Respiratory STATUS:Unauthenticated BODY SITE: SOURCE:TISSUE1 COLLECTED DATE/TIME:04/10/23 9:54 AM AFB Culture w/AFB Smear, Non-Respiratory SPECIMEN DESCRIPTION : TISSUE LT ARM GRAFT SPECIAL REQUESTS : NONE DIRECT EXAM : NO ACID FAST BACILLI SEEN ON DIRECT SMEAR, TEST PERFORMED AT [facility] No acid fast bacilli seen on concentrated smear. Per [facility] protocol, this specimen was concentrated prior to smear preparation. Testing performed by [facility], [address] [place] [id number]. CULTURE : SPECIMEN SENT TO [facility], [place], [place] REPORT STATUS : PRELIMINARY REPORT TEST:Tissue/Biopsy Culture STATUS:Auth (Verified) BODY SITE: SOURCE:TISSUE1 COLLECTED DATE/TIME:04/10/23 9:54 AM Tissue/Biopsy Culture SPECIMEN DESCRIPTION : TISSUE LEFT ARM GRAFT SPECIAL REQUESTS : NONE GRAM STAIN : 2+ POLYMORPHONUCLEAR LEUKOCYTES NO ORGANISMS SEEN CULTURE : 4+ PSEUDOMONAS AERUGINOSA This isolate was identified using Maldi-TOF system These AST results were performed on the Vitek 2 ID and AST system REPORT STATUS : FINAL 04/12/2023 ORGANISM 4+ PSEUDOMONAS AERUGINOSA This isolate was identified using Maldi-TOF system These AST results were performed on the Vitek 2 ID and AST system METHOD MIN. INHIB. CONC. (MCG/ML) CEFEPIME SUSCEPTIBLE CEFTAZIDIME SUSCEPTIBLE CIPROFLOXACIN SUSCEPTIBLE LEVOFLOXACIN SUSCEPTIBLE MEROPENEM SUSCEPTIBLE PIPERACILLIN/TAZOBAC SUSCEPTIBLE TOBRAMYCIN SUSCEPTIBLE TEST:Anaerobic Culture STATUS:Auth (Verified) BODY SITE: SOURCE:SWAB1 COLLECTED DATE/TIME:04/10/23 8:40 AM Anaerobic Culture SPECIMEN DESCRIPTION : SWAB LFT ARM WOUND SPECIAL REQUESTS : NONE CULTURE : NO ANAEROBES ISOLATED REPORT STATUS : FINAL 04/12/2023 TEST:Fungal Culture, Non-Respiratory STATUS:Unauthenticated BODY SITE: SOURCE:SWAB1 COLLECTED DATE/TIME:04/10/23 8:40 AM Fungal Culture, Non-Respiratory SPECIMEN DESCRIPTION : SWAB LFT ARM WOUND SPECIAL REQUESTS : NONE DIRECT EXAM : NO FUNGAL ELEMENTS OBSERVED CULTURE : NO FUNGI ISOLATED AFTER 5 DAYS REPORT STATUS : PRELIMINARY REPORT TEST:Deep Wound Culture STATUS:Auth (Verified) BODY SITE: SOURCE:SWAB1 COLLECTED DATE/TIME:04/10/23 8:40 AM Deep Wound Culture SPECIMEN DESCRIPTION : SWAB LFT ARM WOUND SPECIAL REQUESTS : NONE GRAM STAIN : 2+ POLYMORPHONUCLEAR LEUKOCYTES NO ORGANISMS SEEN CULTURE : 1+ PSEUDOMONAS AERUGINOSA This isolate was identified using Maldi-TOF system For identification and susceptibility results, refer to wound culture accession. [id number] REPORT STATUS : FINAL 04/12/2023 TEST:Blood Culture STATUS:Auth (Verified) BODY SITE: SOURCE:Blood COLLECTED DATE/TIME:04/09/23 1:02 PM Blood Culture SPECIMEN DESCRIPTION : BLOOD NO SITE SPECIAL REQUESTS : NONE CULTURE : NO GROWTH 5 DAYS. REPORT STATUS : FINAL 04/14/2023 TEST:Blood Culture, Second Order STATUS:Auth (Verified) BODY SITE: SOURCE:Blood COLLECTED DATE/TIME:04/09/23 11:22 AM Blood Culture, Second Order SPECIMEN DESCRIPTION : BLOOD NO SITE SPECIAL REQUESTS : NONE CULTURE : NO GROWTH 5 DAYS. REPORT STATUS : FINAL 04/14/2023 Radiology Reports * Exam Date Time Procedure Performing Provider Status 04/09/23 8:27 AM Forearm 2 Views Left Andrea Berger ad; Auth (Verified) Notes: (Forearm 2 Views Left) Reason For Exam: Infection RESULT: Forearm 2 Views Left Forearm 2 Views Left Hx of Present Illness: HD patient Severiano, Th, Sat. 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 Comes in with increased redness, purulent drainage and pain to dormant fistula. Treated with IV antibiotics during HD,; Reason: Infection; Clinical Question(s): Osteomyelitis; Order Comment: NR [id number] COMPARISON: None. FINDINGS: AP and crosstable lateral views of the left forearm obtained. No acute fracture or dislocation. Lateral view suggests elevation of the posterior fat pad suggesting an elbow effusion. There are numerous clips at the medial anterior aspect of the elbow, likely reflecting site of fistula. There is no destructive bone lesion adjacent to this fistula. IMPRESSION: No evidence of osteomyelitis. Soft tissue swelling at site of numerous clips representing fistula. Possible elevation of posterior fat pad which suggests an elbow effusion, though this could be ascertained clinically. WSN: [id number] Ordering Physician: Robi Kim Dictated By: Odilia Zelaya MD, I Dictated Date/Time: 04/09/23 9:25 am Reviewed By: Odilia Zelaya MD, I Signed By: Odilia Zelaya MD, I Signed Date/Time: 04/09/23 9:25 am Transcribed By: WESTON Transcribed Date/Time: 04/09/23 9:22 am Vital Signs Most recent to oldest [Reference Range]: 1 2 3 Height 152.4 cm (04/15/23 11:23 AM) 152.4 cm (04/15/23 7:55 AM) 152.4 cm (04/15/23 4:03 AM) Weight 64 kg (04/12/23 11:12 AM) 64 kg (04/10/23 2:02 PM) 57.1 kg (04/10/23 12:40 PM) Oxygen Saturation [94-100 %] 95 % (04/15/23 11:23 AM) 96 % (04/15/23 7:55 AM) 94 % (04/15/23 4:03 AM) Pulse Rate [55-90 bpm] 86 bpm (04/15/23 11:23 AM) 81 bpm (04/15/23 9:19 AM) 81 bpm (04/15/23 7:55 AM) Body Mass Index [18.5-24.99 kg/m2] 27.56 kg/m2 *H* (04/12/23 11:12 AM) 27.56 kg/m2 *H* (04/10/23 2:02 PM) Blood Pressure [90-138/55-84 mm Hg] 119/70mm Hg (04/15/23 11:23 AM) 134/91mm Hg (04/15/23 9:19 AM) 96/57mm Hg (04/15/23 7:55 AM) Respiratory Rate [16-30 br/min] 18 br/min (04/15/23 11:23 AM) 18 br/min (04/15/23 10:00 AM) 16 br/min (04/15/23 9:19 AM) Temperature [96.8-100.4 DegF] 98.0 DegF (04/15/23 11:23 AM) 98 DegF (04/15/23 7:55 AM) 97.9 DegF (04/15/23 4:03 AM) Liters per Minute 2 L/min (04/12/23 4:04 PM) 2 L/min (04/12/23 2:15 PM) 2 L/min (04/12/23 2:00 PM) Mode of Delivery (Oxygen) Room air (04/15/23 11:23 AM) Room air (04/15/23 7:55 AM) Room air (04/15/23 4:03 AM) Blood pressure sites Arm, right (04/15/23 11:23 AM) Arm, right (04/15/23 7:55 AM) Arm, right (04/15/23 4:03 AM) Temperature Route Oral (04/15/23 11:23 AM) Oral (04/15/23 7:55 AM) Oral (04/15/23 4:03 AM) Dry Weight 64 kg (04/10/23 2:02 PM) 64 kg (04/10/23 7:29 AM) Weight Obtained Via Bed scale (04/10/23 12:40 PM) Note * Velia Porter RN: PERFORM Event Display: Discharge/Transfer Note Hospital Authored Date: [id number] Nursing Discharge Note Entered On: 04/15/2023 11:38 EST Performed On: 04/15/2023 11:37 EST by Velia Porter RN Nursing Discharge Note 2 Discharge Time : 04/15/2023 12:09 EST Velia Porter RN - 04/15/2023 17:12 EST Discharge Level of Care at Discharge : Homehealth/VNA Discharge VNA/Hospice/Home Care(v001) : [facility] [phone] Patient Left Unit Via : Ambulance Patient Accompanied Off Unit with : Ambulance/Chair Van Personnel Handover Given to Transport Personnel : Yes DC Instructions Provided & Signed by Pt : No Patient Understands D/C Instructions : Yes Patient Instructions Discharge Signed : Yes Did Pt have Specialty Bed or Wound Vac : No Velia Porter RN - 04/15/2023 11:37 EST * Jose Em MD: PERFORM Jose Em MD: PERFORM Event Display: Discharge/Transfer Note Hospital Authored Date: [id number] Patient: ??MICHELLE AYALA ? Age:??62 Years?Sex:??Female?:??1960?? 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 She??had purulent drainage for 2 weeks.??Additionally??she had a dislodged??cuff??of her PermCath. She was taken to the OR for??excision??of the LUE AV graft with debridement of surrounding tissues, repair of the brachial artery and removal of the permcath??(exposed cuff) with Dr. Maher??on 04/10/23. She tolerated this well without complication. She stayed??in-house??for??48 hours of clear blood cultures, then underwent??permcath??placement for dialysis on 04/12/23with Dr. Serrano??and received dialysis on 04/13.??ID consulted for pseudomonas on tissue culture -will need 6 weeks cefepime post dialysis.?Her pain was well- controlled in her left upper extremity and she was cleared for discharge on 04/14/2023.?? She will follow-up in the vascular surgery clinic for vein mapping??and planning for a??repeat fistula. Objective/Physical Exam on Day of Discharge Vitals & Measurements T:??97.7?F?? HR:??82??(Peripheral)?? RR:??18?? BP:??124/70?? SpO2:??99%?? HT:??152.4??cm?? WT:??64??kg?? BMI:??27.56?? General:??Alert, in no acute cardiopulmonary distress. Mental Status:??Oriented to person, place and time. Normal affect. Head:??Normocephalic. Eyes:??Extraocular muscles intact. Ear, Nose and Throat:??Oropharynx clear, mucous membranes moist. Ears and nose without masses, lesions or deformities. Neck:??Supple, Full range of motion. Respiratory:??Nonlabored breathing in room air.?? Right IJ permacath in place is clean and dry. Cardiovascular:??Regular rate and rhythm Gastrointestinal:??Abdomen soft, non-tender, non-distended.?? Neurologic:??No focal neurological deficits. Moves all extremities spontaneously. Sensation intact bilaterally. Skin:??No rashes or lesions. No petechiae or purpura. No edema. Musculoskeletal:??No cyanosis or clubbing. No gross deformities. Normal range of motion.?Left upper extremity incision??is??clean and dry without any surrounding erythema. PCP Follow-Up/Heads-Up Yolande Gallagher Patient Discharge Condition Good Discharge Disposition Home Inpatient Medications Medications (18) Active SCHEDULED: (12) Acetaminophen 325 mg Tablet (Tylenol 325 mg oral tablet) ??975 mg, By Mouth, Every 6 hours Amitriptyline 25 mg Tablet (amitriptyline 10 mg oral tablet) ??100 mg, By Mouth, Daily at bedtime Aspirin 81 mg EC Tablet (aspirin 81 mg oral delayed release tablet) ??81 mg, By Mouth, Daily Atorvastatin 10 mg Tablet (atorvastatin 10 mg oral tablet) ??10 mg, By Mouth, Daily Docusate Sodium 100 mg Capsule (Docusate Sodium Capsule) ??100 mg 1 capsule, By Mouth, 2 times a day Heparin 5000 units/mL Inj (1 mL) (Heparin Inj) ??5,000 units 1 mL, Subcutaneous Injection, 3 times a day Metoprolol 25 mg XL Tablet (metoprolol 25 mg oral tablet, extended release) ??25 mg, By Mouth, Daily Midodrine 5 mg Tablet (midodrine 5 mg oral tablet) ??10 mg, By Mouth, Every 12 hours Mirtazapine 15 mg Tablet (Remeron Tablet) ??22.5 mg, By Mouth, Daily at bedtime Ropinirole 1 mg Tablet (rOPINIRole 1 mg oral tablet) ??1 mg, By Mouth, 3 times a day Vancomycin 500 mg Inj (Vancomycin IVPB) ??500 mg, IVPB, Every Tuesday, and Tuesday Venlafaxine IR 75 mg Tablet (Venlafaxine IR 75 mg tablet) ??75 mg, By Mouth, Daily CONTINUOUS: (0) PRN: (6) Bisacodyl 10 mg Suppository (Bisacodyl Supp) ??10 mg 1 supp, Rectally, Daily Diazepam 2 mg Tablet (diazepam 2 mg oral tablet) ??2 mg, By Mouth, 2 times a day HydrOXYzine Pamoate 25mg Capsule (HydrOXYzine) ??25 mg, By Mouth, 4 times a day Nystatin Cream (Nystatin Topical) ??1 application, Topically, 3 times a day OxyCODONE 5 mg IR Tablet (oxyCODONE 5 mg oral tablet) ??10 mg, By Mouth, Every 4 hours PROCHLORperazine 5 mg Tablet (Compazine Tablet) ??5 mg, By Mouth, Daily Discharge Medications amiTRIPTYLINE?100?Milligram?By Mouth?Daily at bedtime Aspirin (aspirin 81 mg oral delayed release tablet)?81?Milligram?1?tablet?By Mouth?Daily Atorvastatin (atorvastatin 10 mg oral tablet)?1?tab(s)?10?Milligram?By Mouth?Daily Diazepam (diazepam 2 mg oral tablet)?2?Milligram?1?tablet?By Mouth?2 times a day?as needed?Anxiety?Other Epoetin Thomas?0.5?Milliliter?20,000?unit(s)?Subcutaneous Injection?Every week ferric citrate (Auryxia 210 mg [...] (venlafaxine 75 mg oral tablet)?1?tab(s)?75?Milligram?By Mouth?Daily?for 30?Days Labs Last 24 Hours BLOOD COUNT & DIFF ? Event Name?? Event Result?? Date/Time?? WBC 3.7 k/mm3??Low 04/14/23 06:22:00 RBC 2.83 m/mm3??Low 04/14/23 06:22:00 Hgb 8.5 Gm/dL??Low 04/14/23 06:22:00 Hct 27 %??Low 04/14/23 06:22:00 MCV 95.4 femtoliters 04/14/23 06:22:00 MCH 30 pg 04/14/23 06:22:00 MCHC 31.5 g/dL??Low 04/14/23 06:22:00 Platelet Count 221 k/mm3 04/14/23 06:22:00 MPV 10.4 femtoliters 04/14/23 06:22:00 Nucleated RBC (Automated) 0 #/100 WBC'S 04/14/23 06:22:00 ? CHEM GENERAL ? Event Name?? Event Result?? Date/Time?? Sodium 137 mmol/L 04/14/23 06:22:00 Chloride 99 mmol/L 04/14/23 06:22:00 Bicarbonate Level 24 mmol/L 04/14/23 06:22:00 Anion Gap 14 04/14/23 06:22:00 BUN 25 mg/dL??High 04/14/23 06:22:00 Creatinine-Blood 4 mg/dL??High 04/14/23 06:22:00 Calcium, Ionized pH Corrected 1.13 mmol/L 04/14/23 06:22:00 Phosphorus 5.5 mg/dL??High 04/14/23 06:22:00 Magnesium 2.1 mg/dL 04/14/23 06:22:00 ? Follow-Up Appointments Added Follow Up ?Time Frame ?Comments [facility] [phone] * Velia Porter RN: PERFORM Event Display: Patient Education/Instruction Authored Date: [id number] Inpatient Adult Discharge Instructions [address] [address] Name: MICHELLE AYALA : 1960 Visit: 04/09/2023 16:49:00 Current Date: 04/15/2023 11:40 Account: [id number] Inpatient Adult Discharge Instructions We would like [...] and their families. Surveys are administered by [employer] ?? If further treatment with your primary care physician or another doctor is recommended, it is important for you to keep the appointment. Call your primary care physician or return to the Emergency Department immediately if your condition worsens, fails to improve, or new symptoms develop. If you need to find a doctor, you can call [facility] [employer] for a referral at [phone] or toll free at [phone]) or log in to [email or web address].. ?? [facility], in keeping with [facility] guidance, no longer requires face masks for staff, patientsor visitors in most situations. Similiar to time spent indoors at other locations, there is the chance that you were exposed to repiratory viruses during your time with us (such as flu or COVID-19). If you develop symptoms concerning for a viral respiratory infection, please seek testing (and treatment if indicated) from your medical provider or home test kit. ?? You can view and manage your care through the patient portal or by using a health care bella of your choosing. [employer] is a website that allows you to securely view your medical information including your hospital discharge summary, office visit summaries, medications and follow-up visits. You can also request appointments, renew medications, and request access to your medical information using a health care bella of your choosing, or just ask a question. You can enroll at [email or web address] or register during your next office visit. You have been discharged from [facility], Patient Care Unit: S3. If you have any questions regarding these instructions after you leave, please call us and we will be happy to assist you. [facility] Your Care Team Attending Physician Gunnar PETERSON, Rehana Arreaga Consulting Providers Angela PETERSON, Ave Serrano MD, Dolores Freeman MD, Kai Morrison MD, Mason Discharging Providers Celeste GONZALEZ, Soni Reason for Admission left arm pain Your Diagnosis Infected Fistula Tests Performed Below is a partial list of the tests performed during your hospitalization. You may have had other tests and procedures not included in this list. Please discuss all test results with your provider. BUN C-REACTIVE PROTEIN CBC w/ Differential Comprehensive Metabolic Panel Creatinine GLUCOSE POC Ionized Calcium Lactate Level Lytes Magnesium Level Phosphorus Level Potassium Level SEDIMENTATION RATE,AUTOMATED XR Forearm 2 Views Left Primary Care Provider Yolande Gallagher Advance Directive Health Care Proxy on File Yes - Health Care Proxy Patient has a Designated Caregiver: No Discharge Vitals Temperature: 98 DegF Height: 152.4 cm Pulse Rate: 86 bpm Weight: 64 kg Respiratory Rate: 18 br/min Body Mass Index:??27.56 kg/m2??High Systolic Blood Pressure: 119 mm Hg Body surface area: 1.65 Diastolic Blood Pressure: 70 mm Hg ?? Oxygen Saturation: 95 % ?? Studies Pending All tests and labs ordered during this hospital stay have been completed unless listed below. Please discuss all pending results with your provider listed above in these instructions. ?? AFB Culture w/ AFB Smear, Nonrespiratory (ACID FAST CULT,NON-RESP) Add On Lab Order BUN Blood Culture CBC w/ Differential Creatinine Electrolytes (Lytes) Fungal Culture, Nonrespiratory (FUNGAL CULT,NON-RESPIRATORY) Ionized Calcium Magnesium Level Phosphorus Level What to do next Instructions From Your Doctor Discharge Orders You Need to Schedule the Following Appointments Follow Up with??[facility] [phone] Discharge Medications MICHELLE AYALA :1960 Visit Date:04/09/2023 Medications: Please continue your medications until treatment is completed or stopped by your provider. Medications not listed below should be discontinued. Discuss any questions related to medications with your provider. What How Much When Instructions Next Dose New Acetaminophen (Tylenol 325 mg oral tablet) 975 Milligram Oral Every 6 hours Duration: 14 Days Pickup at [facility]/pharmacy #2024 every 6 hours New Oxycodone (oxyCODONE 5 mg oral tablet) 10 Milligram Oral Every 4 hours as needed for Pain , Moderate Duration: 5 Days Pickup at [facility]/pharmacy #2024 as needed Unchanged amiTRIPTYLINE 100 Milligram Oral Daily at Bedtime 04/15 Unchanged Aspirin (aspirin 81 mg oral delayed release tablet) 1 tab(s) Oral Daily 04/16 Unchanged Atorvastatin (atorvastatin 10 mg oral tablet) 1 tab(s) Oral Daily 04/16 Unchanged Diazepam (diazepam 2 mg oral tablet) 1 tab(s) Oral Twice a day as needed for Other Anxiety ?? as needed Unchanged Durable Medical Equipment (BD CARISA 2 GEN PEN NDL [id number]) see instruction Unchanged Epoetin Thomas 20,000 unit(s) Subcutaneous Injection Every week see instruction Unchanged ferric citrate (Auryxia 210 mg oral tablet) 2 tab(s) Oral 3 times a day with meals 04/15 Unchanged HydrOXYzine (hydrOXYzine hydrochloride 25 mg oral tablet) 1 tab(s) Oral 4 times a day as needed for for anxiety as needed Unchanged Metoprolol (metoprolol 25 mg oral tablet, extended release) 25 Milligram Oral Daily 04/16 Unchanged Midodrine (midodrine 5 mg oral tablet) 2 tab(s) Oral Daily as needed for other hypotension for dialysis ?? as needed Unchanged Mirtazapine (Remeron Tablet) 22.5 Milligram Oral Daily at Bedtime 04/15 Unchanged Omeprazole 40 Milligram Oral Twice a day 9pm 04/15 Unchanged PROCHLORperazine (Compazine Tablet) 5 Milligram Oral Daily as needed for Nausea as needed Unchanged Ropinirole (Requip) 1 Milligram Oral 3 times a day 3pm 04/15 Unchanged Venlafaxine (venlafaxine 75 mg oral tablet) 1 tab(s) Oral Daily Duration: 30 Days 9am 04/16 Pharmacy Information [facility]/pharmacy #5: [address], [place] [id number] [phone] Test Results Below is a partial list of the most recent Laboratory test results done prior to this discharge. You may have had other tests and procedures not included in this list. Please discuss all test resultswith your provider. Est Creatinine Clearance - 7.91 mL/min (04/15/2023) BUN (04/15/2023) ???BUN - 37 mg/dL C-REACTIVE PROTEIN (04/09/2023) ???C-Reactive Protein - 0.9 mg/dL CBC w/ Differential (04/15/2023) ???WBC - 4.3 k/mm3???RBC - 3.16 m/mm3???Hgb - 9.5 Gm/dL???Hct - 30.9 %???MCV - 97.8 femtoliters???MCH - 30.1 pg???MCHC - 30.7 g/dL???Platelet Count - 240 k/mm3???RDW-SD - 57.7 femtoliters???MPV - 9.9femtoliters???Nucleated RBC (Automated) - 0.0 #/100 WBC'S???Abs. NRBC - 0.0 k/mm3???Abs. Neut - 1.9 k/mm3???Abs. Lymph - 1.6 k/mm3???Abs. [place] - 0.4 k/mm3???Abs. Eo - 0.3 k/mm3???Abs. Baso - 0.0 k/mm3???Neut % - 44.8 %???Lymph % - 36.6 %???[place] % - 9.8 %???Eos % - 7.9 %???Baso % - 0.7 %???Imm Gran - 0.2 %???Abs. Imm Gran - 0.0 k/mm3 Comprehensive Metabolic Panel (04/09/2023) ???Sodium - 137 mmol/L???Potassium - HEMOLYZED???Chloride - 97 mmol/L???Bicarbonate Level - 26 mmol/L???Anion Gap - 14???Glucose Level - 157 mg/dL???BUN - 33 mg/dL???Creatinine-Blood - 4.4 mg/dL???Estimated GFR Creatinine - 11 ML/MIN/1.73 M2???Calcium - 9.0 mg/dL???Protein, Total - 7.3 Gm/dL???Albumin - 4.1 Gm/dL???AG Ratio - 1.3???Alkaline Phosphatase - 96 units/L???AST (SGOT) - HEMOLYZED???ALT (SGPT) - 10 units/L???Bilirubin, Total - 0.2 mg/dL Creatinine (04/15/2023) ???Creatinine-Blood - 5.3 mg/dL???Estimated GFR Creatinine - 9 ML/MIN/1.73 M2 GLUCOSE POC (04/14/2023) ???Glucose, POC - 96 mg/dL Ionized Calcium (04/15/2023) ???Calcium, Ionized pH Corrected - 1.15 mmol/L Lactate Level (04/09/2023) ???Lactate - 1.4 mmol/L Lytes (04/15/2023) ???Sodium - 137 mmol/L???Potassium - 4.6 mmol/L???Chloride - 98 mmol/L???Bicarbonate Level - 22 mmol/L???Anion Gap - 17 Magnesium Level (04/15/2023) ???Magnesium - 2.3 mg/dL Phosphorus Level (04/15/2023) ???Phosphorus - 6.2 mg/dL Potassium Level (04/09/2023) ???Potassium - 4.4 mmol/L SEDIMENTATION RATE,AUTOMATED (04/09/2023) ???Sed Rate - 42 mm/hr Immunizations This Visit Not Given Vaccine Commentsinfluenza virus vaccine, inactivated Patient Refuses pt already got vaccine Allergies (NKA means No Known Allergies) Percocet 5/325??(Itch) Percocet??(itching) TraZODone Hydrochloride traMADol??(Unknown body region) Problems No qualifying data available Education Materials Below is the list of Educational Leaflet Providered with your Discharge Instructions. Arteriovenous (AV) Fistula for Dialysis?? Hemodialysis?? Valuables and Belongings I fully understand and agree that [facility] accepts no responsibility for all my personal [...] encouraged to send valuables and belongings home. ?? No Valuables/Belongings: No valuables/belongings present Review of Valuable and Belonging List: With patient Disposition of Belongings: Other: To PACU Date for Pt to Sign Valuables/Belongings: 04/15/23 11:23:00 ?? Other Discharge Information ? Case Management Discharge Plan?? Discharge Plan?? Discharge Agency Information?? Discharge Level of Care at Discharge: Homehealth/VNA Name of Agency #1: [facility] Discharge Rx Program: Discharge Prescription Program Service Categories #1: Occupational Therapy, Physical Therapy, Fpc Discharge VNA/Hospice/Home Care: [facility] [phone] Service Comments #1: [facility] will provide nursing, PT and OT services at home. ??Your RN todaywill call to notify them to start services. ??The agency will contact you to set up a visit. ??Please call [phone] if you do not hear from them within 24 hours of discharge. ?? Pulmonary Rehab Status?? Pulmonary Rehab Discharge [...] are strongly encouraged to quit. Please call [facility] [facility] at [phone] or [phone] ([phone]) or log in to [email or web address] for referrals to smoking cessation programs. ?? 714 Suicide & Crisis Lifeline is available 13/12 if you or someone you know needs to find a reason to keep living. By calling 748 you'll be connected to a skilled, trained counselor at a crisis center in your area. INPATIENT DISCHARGE INSTRUCTIONS SIGNATURE PAGE AYALAMICHELLE Location:[facility] Registration Date and Time:04/09/2023 16:49 EST Primary Care Physician: Yolande Gallagher, Attending Physician: Rehana Maher MD, I MICHELLE AYALA, have received the above patient education materials/instructions and have verbalized understanding. If ambulance or transport services are being used I further acknowledge being given a choice of service. ?? If you need to contact me, please call me at this number: . Patient/Sdc Teacher Name: Patient/Sdc Teacher Signature: Relationship to Patient: Witness Name/Signature: Date: * Velia Porter RN: PERFORM Event Display: Patient Education Leaflets Authored Date: [id number] Arteriovenous (AV) Fistula for Dialysis ?? 88553 Arteriovenous (AV) Fistula for Dialysis An AV fistula is a connection between an artery and a vein. For this procedure, an AV fistula is surgically made using an artery and a vein in your arm. (Your healthcare provider will let you know ifanother site is to be used.) When the artery and vein are joined, blood flow increases from the artery into the vein. As a result, the vein gets bigger over time. The enlarged vein provides easier access to the blood for a treatment for kidney failure (dialysis). This sheet explains the procedure and what to expect. An AV fistula increases blood flow from the artery into the vein. Over time, the vein becomes stronger and enlarged. Getting ready for the procedure Prepare as you have been told. Also: ??? Tell your??healthcare provider??about all the medicines you take. This includes all zpab-mfg-abzobgy and prescription medicines. It also includes herbs, vitamins, and other supplements, as well as illegal drugs. You may need to stop taking some or all of them before the procedure. ??? Follow any directions you???re given for not eating or drinking before the procedure. ??? Do not let anyone draw blood from or take blood pressure on the arm that will havethe fistula before the procedure. ?? The day of the procedure The procedure takes about 1 to 2 hours. You???ll likely go home the same day. Before the procedure starts: ??? An IV (intravenous) line is put into a vein in the arm or hand not being used for the procedure. This line gives fluids and medicines. ??? To keep you free of pain during the procedure, you may be given general anesthesia. This medicine lets you to sleep comfortably during the procedure. Another option would be to do a nerve block that numbs the arm. With it, you may also be given medicine that makes you relaxed and drowsy through the procedure. During the procedure: ??? The skin over your arm may be injected with numbing medicine. ??? One or more small cuts (incisions) are then made through the numbed skin. This depends on the size of your arm and the depth of the vein in your arm. ??? The vein is attached to the selected artery. ??? Any cuts made are then closed with stitches (sutures), darvin, surgical glue, or strips of surgical tape. After the procedure: ??? You???ll be asked to keep your arm raised (elevated) as often as possible for at least 1 week after the procedure. ??? You???ll be given medicines for pain as needed. ??? Your arm and hand will be checked to make sure blood is flowing through the fistula properly. The feeling of blood rushing through the fistula is called a thrill. It is somewhat like the purring of a cat. You???ll be taught how to check for this feeling each day to make sure there are no problems with your fistula. You???ll also be taught how to care for your fistula at home. ??? When it???s time foryou to leave the hospital, have an adult family member or friend ready to drive you home. ?? Recovering at home Once at home, follow all the instructions you???ve been given. Be sure to: ??? Take all medicines as directed. ??? Care for your incision as instructed. ??? Check for signs of infection at the incision site (see below). ??? Don't do any heavy lifting and strenuous activities as directed. ??? Monitor and care for your fistula as instructed. ?? When to call your healthcare provider Call your healthcare provider right away if any of these occur: ??? Fever of 100.4??F ( 38??C) or higher, or as advised by your provider ??? Signs of infection at the incision site, such as more redness or swelling, warmth, worsening pain, bleeding, or bad-smelling drainage ??? You can???t feel a thrill (the vibration of blood going through your arm) ??? Pain or numbness in your fingers, hand, orarm ??? Bleeding, redness, or warmth around your fistula ??? Sudden bulging of the fistula that is more than normal (a slight bulge is normal) ?? Follow-up Your healthcare provider will check your fistula within 1 to 2 weeks after the procedure. It will likely take about 6 to 8 weeks for the fistula to get big enough to start dialysis. After that, make sure the fistula is checked each time you have dialysis.??Your healthcare provider??may also suggestcheckups every 6 months. ?? Risks and possible complications ??? The fistula doesn't work right ??? Long wait before the fistula is ready (up to 6 months) ??? Coldness or numbness in the hand (due to blood flowing away from thehand and into the fistula) ??? An unsightly bump under the skin (due to enlargement of the fistula)??? Prolonged bleeding from the fistula after dialysis ??? Narrowing or weakening of the blood vessels used for the fistula ??? Forming of blood clots in the blood vessels used for the fistula ??? Risks of anesthesia or any other medicines used during the procedure ?? Living with an AV fistula A problem, such as a narrowing (stricture) of the vein or an infection, can make the fistula unusable. If this happens, you may need other treatments to fix or make a new fistula. To protect your fistula, follow these and any other guidelines you???re given: ??? Check your fistula as often as your??healthcare provider??says. If you can???t feel your thrill, let your provider know right away. ??? Make sure your fistula is checked before each dialysis treatment. ??? Don???t let anyone draw blood from or take blood pressure on the arm that has the fistula. ??? Wash your hands often and keep the area around your fistula clean. ??? Don???t sleep on the arm that has the fistula. ??? Don???t wear tight clothing, tight jewelry, or a watch on the arm with your fistula. ??? Protect your fistula from cuts, scrapes, or blows. ?? Last Reviewed Date: 2022 ?? [employer]. All rights reserved. This information is not intended as a substitute for professional medical care. Always follow your healthcare professional's instructions. ?? * Velia Porter RN: PERFORM Event Display: Patient Education Leaflets Authored Date: [id number] Hemodialysis ?? 11351 Hemodialysis Hemodialysis is a type of treatment for kidney failure (end-stage kidney disease or ESRD).??It usesa machine that holds a filter called a dialyzer. As blood flows through the dialyzer, waste is removed and fluid and chemicals are balanced. Hemodialysis treatments are usually done at a special dialysis center. In some cases, treatments may be done at home. As the kidney failure is getting worse, your doctor may advise you to have an access placed by a surgeon into one of your arms ahead of time. This access may take several weeks to mature before it can be used for hemodialysis. How hemodialysis is done Two needles are inserted into a blood vessel (called an arteriovenous fistula or AV fistula) or arteriovenous graft (or AV graft), usually in your arm. Each needle is attached to a tube. One tube carries your blood into the dialyzer, where it's cleaned. Clean blood returns to your body through a second tube and needle. If the AV fistula or graft has been placed but it's not ready to use or if options for permanent access aren't appropriate, you may have a dialysis catheter placed in a large blood vessel. The catheter is usually for temporary access. But if there is no other option, it may be used mcfp (permanently). This catheter helps carry blood to and from the dialysis machine. ?? Your experience: Problems to watch for ??? Hemodialysis usually takes about 3 to 5 hours. It's usually done 3 times a week. ??? You???ll have a regular schedule for your hemodialysis. Many centers have evening and weekend hours as well asweekday hours to help you continue working. Some centers also offer overnight treatments. ??? A trained nurse or school laboratory technician connects you to the dialysis machine. He or she watches for problems and makes sure you are comfortable. ??? During treatment, only a small amount of blood (about 1 cup) is out of your body at any one time. ??? During your treatments, you may have a headache, muscle cramps, nausea and vomiting, chest and back pain, itching, and fever and chills. Make sure you tell your nurse or school laboratory technician if you have any of these symptoms. ??? Some people are able to learn to use a dialysis at home. Home dialysis lets you schedule treatments when it's most convenient. You may have morefrequent treatments, but for shorter periods of time. You may also do overnight treatments. Get immediate medical help or call your doctor, nurse or safe technician if you have any of these symptoms after treatment: ??? Chest or back pain ??? Tiredness (fatigue) ??? Bleeding from the needle site, if your dialysis access is through an AV fistula or graft. ??? Drainage from the catheterexit site, if your dialysis access is through a catheter ??? Shortness of breath ??? Fever or chills ??? Headache or lightheadedness ??? Nausea or vomiting ??? Itching ??? Muscle cramps ??? Pain, warmth, or redness at your access site ??? Inability to feel your blood flow (called a thrill) in your AV fistula or graft, if your dialysis access is through an AV fistula or graft. ?? Last Reviewed Date: 2021 ?? [employer]. All rights reserved. This information is not intended as a substitute for professional medical care. Always follow your healthcare professional's instructions. ?? * Maria Antonia PETERSON, Jose Flynn: PERFORM Event Display: Discharge/Transfer Note Hospital Authored Date: [id number] Patient: ??MICHELLE AYALA ? Age:??62 Years?Sex:??Female?:??1960?? Home Health Face to Face *Denotes mandatory morillo ?? *I certify that this patient is under my care and that I or an allowed non- physician working with me had a face to face encounter with the patient on this date:??04/14/2023 08:27 ?? *The encounter with the patient was in whole, or in part, for the following medical condition, which is the primary diagnosis(es) for home health care:? *Select the indications for the discipline/s that are being arranged for this patient. Nursing (select all that apply): [_] None [_] Medication management (reconciliation, teaching)?? [_] Chronic disease management?? [x_] Wound care and treatment?? [_] Home safety evaluation [_] Administer SQ/IM/IV medications?? [_] Cath care?? [_] Drain care?? [_] Trach or GT care?? Other _ Occupation Therapy (select all that apply): [_] None [_] ADL Management [_] Fall prevention training [_] Energy conservation [_] Cognitive training Other _ Physical Therapy (select all that apply): [_] None [_] Functional mobility training [_] Home exercise program to strengthen [_] Increase ROM?? [_] Falls prevention training [_] Home maintenance program for chronic disease Other _ Speech Therapy (select all that apply): [_] None [_] Swallow evaluation and training [_] Speech and language training [_] Cognitive training to process, organize, and/or recall information Other _ ? *Homebound due to (select all that apply): [x_] Inability to leave home without assistance/supervision [x_] Inability to ambulate without assistance [x_] Pain [_] Decreased strength and endurance [_] Unsteady gait [_] Severe SOB and fatigue [x_] Impaired transfers [_] Inability to negotiate stairs [x_] Limited weight bearing [_] Mental status change? *Physician Signature:??Rehana Maher MD ?? *By signing this, I certify that I have personally evaluated the patient and agree with the findings and recommendations as documented above. ? hFTF * Event Display: Hemodynamic Procedure Report Authored Date: Consult note * Ave Miller MD: PERFORM, MODIFY, MODIFY, MODIFY, MODIFY, MODIFY, MODIFY, MODIFY Event Display: Consultation Note Authored Date: Patient: ??MICHELLE AYALA ? Age:??62 Years?Sex:??Female?:??1960?? Chief Complaint left arm pain Reason for Consultation Requesting Attending/Provider: Dr. Maher ?? Reason for Consult: infected vascular graft ?? Source of Information: [facility], patient ?? History of Present Illness Extremely complicated 62 year old diabetic female??with ESRD on HD via R IJ permacath, HFpEF, O2 dependendt COPD, HTN, anemia, anxiety, h/o MV IE and vertebral osteomyelitis with subsequent severe MR& moderate TR who presented to the ED on 04/09 with infection at her LUE AVG site with ongoing purulent drainage, left forearm swelling, pain, chills and worsening infection of her graft site forat least 10 days.?? She denied any fevers, sweats, cough, shortness of breath, nausea, vomiting, diarrhea or abdominal pain prior to admit. Vitals in the ED were as follows: Temp 98.4, heart rate 64,respiratory rate 18, blood pressure 110/80 and sats 98% on room air.?? Labs showed WBC 4.8, hemoglobin 11, platelets 290, BUN 33, creatinine 4.4, glucose 157, alk phos 96, ALT 10, T. bili 0.2, lactate 0.8. Left arm x-rays showed no osteomyelitis but soft tissue swelling at site of numerous clips atfistula site with possible elbow effusion.?? Her history is significant or placement of a LUE AVF which did not mature in 06/2021 and then placement of a left brachiocephalic AVG on 07/23/2021 which wasonly used for a short time frame as kept clotting off and??has been dialyzed via a??L IJ permacath since.?? More recently she has had worsening purulent, maladorour drainage from her LUE AVG site andwas taken to the OR on 04/10 for??LUE AVG revision, debridement and repair of brachial artery. The entire graft was removed per the OR note, and there was noted to be a pseudoaneurysm around the brachial artery with purulence throughout the tract with significant soft tissue infection.?? Given the extent of damage and lack of available vein this was repaired with a bovine patch.?? It was also noted that her tunneled dialysis catheter??was pulled out with exposed cuff and removed today (04/12) with placement of a new right chest wall dialysis catheter. OR cultures (04/10) grew Pseudomonas aeruginosa (chiu-susceptible) with no anaerobes and she has had??negative blood cultures on 04/09 & 04/10. Fungal & AFB culture is also no growth to date to date (early). ID is asked to help with antibiotics. ?? Past Medical and Surgical History: ESRD on HD via??L IJ permacath, type II DM, HFpEF, O2 dependent COPD, ACD, 2ary hyperparathyroidism, HTN, h/o hypotension while being dialyzed, per notes h/o vertebral osteomyelitis and mitral valve endocarditis with resultant severe MR with ? ruptured chord on anterior leaflet with posterior directed jet on echo & moderate TR in 10/2022 when evaluated by Cardiac Surgery??(no details available),h/o gastric sleeve, left renal mass on imaging, restless leg syndrome, anxiety, depression, bilateral carpal tunnel release with revisions, arthroscopic knee surgery, remove , prior hysterectomy, h/o SVT, prior LUE AVF (initial stage of brachiobasilic AVF on 07/14/2021) & creation of LUE AVG with left brachial artery to basilic vein AV graft (PTFE graft) in 07/2021 which then kept clotting so not able to use ?? Recent Antimicrobials: -zosyn (04/09-) -vanco (04/12-) ?? Medications: Reviewed ?? Antimicrobial Allergies: No known antimicrobial allergies. ?? Family History: No relevant history of infectious issues in first degree relatives. ?? Social History and Infectious Diseases Exposure History: Oriental orthodox, , remote ex-smoker, and no known alcohol use. Review of Systems a full review of system was performed which was negative other than positive pertinence mentioned above?? Physical Exam Vitals & Measurements T:??98.9?F?? TMIN:??97.3?F?? TMAX:??98.9?F?? HR:??74??(Peripheral)?? RR:??13?? BP:??119/55?? SpO2:??94%?? WT:??64??kg?? General: Pleasant, in no apparent distress but??(+)anxious?? HEENT: PERRL, EOMI, anicteric sclera, pale conjunctiva,??slightly dry??mucous membrane, no thrush, neck supple, no cervical adenopathy CVS: RRR, S1, S2, loud murmur best heard over RLSB to apex Respiratory: Clear to auscultation Abdomen: Soft, nontender, nondistended, bowel sounds present Extremities: No cyanosis, clubbing or edema; left arm wrapped with swelling of hand and slightly cool - did not unwrap Muscu: no tenderness to palpation of spine Derm: No rash Neuro: Alert and oriented x3, nonfocal exam IV: peripheral, right chest wall HD catheter, site of old L IJ catheter site ok - no purulent drainage ?? LABS: WCC 4.3, Hgb 8, Plts 188, BUN 37, creatinine 5.4,?? Assessment/Plan Extremely complicated 62 year old diabetic with ESRD on HD via R IJ permacath, HFpEF, O2 dependent COPD, HTN, anemia, anxiety, h/o MV IE and vertebral osteomyelitis with subsequent severe MR & moderate TR who presented to the ED on 04/09 with infection at her LUE AVG site. She was taken to the OR on 04/10 and underwent LUE AVG explant, brachial artery repair and on 04/12 permacath removal with placement of a new dialysis catheter.?? Per the OR note the entire graft was removed and repair done with a bovine patch as lack of available vein and extent of infection. OR cultures (04/10) grew Pseudomonas aeruginosa (chiu- susceptible) with no anaerobes and negative blood cultures on 04/09 &04/10. Fungal culture is also no growth to date. ID is asked to help with antibiotics. Today she underwent placement of a new dialysis catheter on the right chest wall. ?? PLAN: 1. can stop vanco - not clear why needed as only Pseudomonas isolated 2. on zosyn but can change to renally dose adjusted cefepime and give cefepime post dialysis to complete 6 weeks of antibiotics from the OR?? (cefepime 2g-2g-2g post??dialysis)??from 04/10 as sounds like all the graft was removed (would confirm with Vascular). While on IV antibiotics should have weekly safety labs: CBC,??CMP and as bovine patch and extensive infection could consider surveillance blood cultures 5-7 days after off antibiotics for completeness (although was not bacteremia) 4. for completeness would follow all her OR cultures till finalized but Pseudomonas is likely the true pathogen 5. can make ID OPD f/u in a few weeks and already has close f/u with Vascular will d/w team thanks for the consult please page with ?s - thanks ? OPAT Script? Indication/s:??infected LUE AVG s/p removal due to Pseudomonas aeruginosa Antimicrobial/s:??renally dose adjusted cefepime post dialysis 2-2-2g Planned duration:??6 weeks Start date:?04/10 End date:??05/22 Vascular access: TBD Monitoring labs (test/frequency): CBC w/ diff, CMP Imaging needed before outpt f/u visit:??no Suggested outpt f/u visit: Yes, requested ID Office ; Problem List/Past Medical History Ongoing No qualifying data Medications Inpatient Acetaminophen 325 mg Oral Tablet (PACU ONLY), 650 mg, By Mouth, Once, PRN amitriptyline 10 mg oral tablet, 100 mg, By Mouth, Daily at bedtime aspirin 81 mg oral delayed release tablet, 81 mg, By Mouth, Daily atorvastatin 10 mg oral tablet, 10 mg, By Mouth, Daily Bisacodyl Supp, 10 mg= 1 supp, Rectally, Daily, PRN Compazine Tablet, 5 mg, By Mouth, Daily, PRN diazepam 2 mg oral tablet, 2 mg, By Mouth, 2 times a day, PRN Docusate Sodium Capsule, 100 mg= 1 capsule, By Mouth, 2 times a day Fentanyl Inj (PACU ONLY), 25 mcg= 0.5 mL, IV Push Slowly, Every 5 minutes, PRN Heparin Inj, 5000 units= 1 mL, Subcutaneous Injection, 3 times a day HydrOXYzine, 25 mg, By Mouth, 4 times a day, PRN Influenza, Quadrivalent Vaccine (Fluzone Quad), 0.5 mL, Intramuscular, Once LR 1,000 mL, 1000 mL, IV Infusion metoprolol 25 mg oral tablet, extended release, 25 mg, By Mouth, Daily midodrine 5 mg oral tablet, 10 mg, By Mouth, Every 12 hours nalOXONE Inj, 0.04 mg= 0.1 mL, IV Push, Every 5 minutes, PRN Nystatin Topical, 1 application, Topically, 3 times a day, PRN Ondansetron Inj (PACU ONLY), 4 mg, IV Push, Once, PRN oxyCODONE 5 mg oral tablet, 10 mg, By Mouth, Every 4 hours, PRN Oxycodone 5mg Oral Tablet (PACU ONLY), 5 mg, By Mouth, Once, PRN Remeron Tablet, 22.5 mg, By Mouth, Daily at bedtime rOPINIRole 1 mg oral tablet, 1 mg, By Mouth, 3 times a day Tylenol 325 mg oral tablet, 975 mg, By Mouth, Every 6 hours Vancomycin IVPB, 500 mg, IVPB, Every Tuesday, and Tuesday Venlafaxine IR 75 mg tablet, 75 mg, By Mouth, Daily Zosyn Extended IVPB, 3.375 Gm, IVPB, Every 12 hours Home amiTRIPTYLINE, 100 mg, By Mouth, Daily at bedtime aspirin 81 mg oral delayed release tablet, 81 mg= 1 tablet, By Mouth, Daily atorvastatin 10 mg oral tablet, 10 mg= 1 tablet, By Mouth, Daily Auryxia 210 mg oral tablet, 420 mg= 2 tablet, By Mouth, 3 times a day with meals BD CARISA 2 GEN PEN NDL [id number] Compazine Tablet, 5 mg, By Mouth, Daily, PRN diazepam 2 mg oral tablet, 2 mg= 1 tablet, By Mouth, 2 times a day, PRN Epoetin Thomas, 28832 units= 0.5 mL, Subcutaneous Injection, Every week hydrOXYzine hydrochloride 25 mg oral tablet, 25 mg= 1 tablet, By Mouth, 4 times a day, PRN metoprolol 25 mg oral tablet, extended release, 25 mg, By Mouth, Daily midodrine 5 mg oral tablet, 10 mg= 2 tablet, By Mouth, Daily, PRN Omeprazole, 40 mg, By Mouth, 2 times a day Remeron Tablet, 22.5 mg, By Mouth, Daily at bedtime Requip, 1 mg, By Mouth, 3 times a day venlafaxine 75 mg oral tablet, 75 mg= 1 tablet, By Mouth, Daily Allergies Percocet 5/325??(Itch) Percocet??(itching) TraZODone Hydrochloride traMADol??(Unknown body region) * Arabella Alvarado MD: MODIFY, PERFORM Event Display: Consult Authored Date: Patient: ??MICHELLE AYALA ? Age:??62 Years?Sex:??Female?:??1960?? Chief Complaint/Reason for Consult Left upper extremity AV graft infection History of Present Illness Sherie is a 62-year-old female with past medical history significant for COPD on 2 L nasal cannula??CHF with preserved ejection fraction, ESRD on HD, and poorly controlled diabetes.?? She has past medical history significant for a??left upper extremity AV fistula??on 07/14/2021??which however did not mature appropriately.?? Subsequently a left brachiobasilic AV graft??was placed on 07/23/2021. ??This was used for a brief period of time before??it??began to have difficulty functioning during dialysis. ??She had a left??IJ??PermCath placed by an outside??hospital??which has since been used for her hemodialysis. ??She has tolerated this well.?? In the last 2 weeks she has noticed??purulent drainage from the superior and inferior aspect??of her??old AV graft incision.?? She describes this as copious, purulent, and malodorous.?? She has had increasing tenderness??and itching??of the??left arm??over the fistula site.?? No bleeding.?? Due to the concern for AV graft infection,??a consult was placed to vascular surgery. ?? On examination in hemodialysis,??the patient??slightly confused intermittently??and??does appearhard of hearing.?? The??AV graft site??is bulbous,??warm to the touch,??with a??more medial??area of??possible fluctuance??and a lateral??firm aspect. ??At the superior and inferior??aspect of the old incision??there are??punctate??chronic appearing tracks??with??a small volume of purulent drainage.?There is no significant overlying erythema. ??No extension??of the overlying warmth??to other parts of the arm. ??She has very mild??numbness in her fingertips secondary to??carpal tunnel syndrome. ??The hand is warm and perfused??with a palpable??radial and ulnar pulse. ??She continues to tolerate dialysis??via the PermCath without issue.?It was noted however,??that the??PermCath cuff??has migrated out of the soft tissue. ??She has not had any prior infections of the surgical sites. Review of Systems Negative except as stated above Physical Exam Vitals & Measurements T:??97.7?F?? HR:??88??(Peripheral)?? RR:??19?? BP:??95/60?? SpO2:??95%?? General appearance: No apparent distress, appears stated age, well developed. Head: Normocephalic, atraumatic. Cardiac: RRR, no murmurs or gallops. Respiratory: Clear to auscultation bilaterally. Abdomen: Soft, nontender, nondistended. Extremities: Able to move all extremities without difficulty. Warm and well perfused. 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 Punctate lesions??at the superior and inferior aspect of the wound with purulent drainage, no bleeding.?? Full range of motion??at the fingers wrist and elbow.?? Mild tingling??at the fingertips Neurologic status: Alert and oriented x 3.??No focal deficits. Psych: Mood and affect normal. Vascular:?? Right arm: Palpable radial, ulnar pulse Left: Palpable radial, ulnar pulse.?? 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 She has had purulent drainage for 2 weeks??although her white count is normal.?? Additionally??she has a dislodged??cuff??of her PermCath??which is her??primary dialysis access at this time. ??She did have breakfast this morning.?? We will??admit to the vascular service,??n.p.o. at midnight,??IV antibiotics,??proceed to the operating room??04/10??for??AV graft excision??and revision of PermCath. ?? Plan: Admit to vascular surgery N.p.o. at midnight Initiate Vanco and Zosyn Follow-up blood cultures Plan for??OR??04/10 for graft explant??and PermCath revision ?Please page Vascular surgery with any questions or concerns #[id number] ?Case and plan discussed with??Dr. Maher Problem List/Past Medical History Ongoing No qualifying data Procedure/Surgical History No qualifying data available. Home Medications amiTRIPTYLINE: 100 mg, By Mouth, Daily at bedtime Aspirin: 81 mg = 1 tablet, By Mouth, Daily Atorvastatin: 10 mg = 1 tablet, By Mouth, Daily Diazepam: 2 mg = 1 tablet, By Mouth, 2 times a day, PRN (Other), Anxiety Durable Medical Equipment Epoetin Thomas: 20,000 units = 0.5 mL, Subcutaneous Injection, Every week ferric citrate: 420 mg = 2 tablet, By Mouth, 3 times a day with meals HydrOXYzine: 25 mg = 1 tablet, By Mouth, 4 times a day, PRN (for anxiety) Metoprolol: 25 mg, By Mouth, Daily Midodrine: 10 mg = 2 tablet, By Mouth, Daily, PRN (other), hypotension for dialysis Mirtazapine: 22.5 mg, By Mouth, Daily at bedtime Omeprazole: 40 mg, By Mouth, 2 times a day PROCHLORperazine: 5 mg, By Mouth, Daily, PRN (Nausea) Ropinirole: 1 mg, By Mouth, 3 times a day Venlafaxine: 75 mg = 1 tablet, By Mouth, Daily Allergies Percocet??(itching) TraZODone Hydrochloride traMADol??(Unknown body region) Family History No family history recorded. Lab Results Labs Last 24 Hours BLOOD COUNT & DIFF ? Event Name?? Event Result?? Date/Time?? WBC 4.8 k/mm3 04/09/23 11:22:00 RBC 3.61 m/mm3??Low 04/09/23 11:22:00 Hgb 11 Gm/dL??Low 04/09/23 11:22:00 Hct 34.5 %??Low 04/09/23 11:22:00 MCV 95.6 femtoliters 04/09/23 11:22:00 MCH 30.5 pg 04/09/23 11:22:00 MCHC 31.9 g/dL??Low 04/09/23 11:22:00 Platelet Count 290 k/mm3 04/09/23 11:22:00 MPV 10.3 femtoliters 04/09/23 11:22:00 Nucleated RBC (Automated) 0 #/100 WBC'S 04/09/23 11:22:00 ? CHEM GENERAL ? Event Name?? Event Result?? Date/Time?? Sodium 137 mmol/L 04/09/23 11:22:00 Chloride 97 mmol/L??Low 04/09/23 11:22:00 Bicarbonate Level 26 mmol/L 04/09/23 11:22:00 Anion Gap 14 04/09/23 11:22:00 Glucose Level 157 mg/dL??High 04/09/23 11:22:00 BUN 33 mg/dL??High 04/09/23 11:22:00 Creatinine-Blood 4.4 mg/dL??High 04/09/23 11:22:00 Alkaline Phosphatase 96 units/L 04/09/23 11:22:00 AST (SGOT) HEMOLYZED 04/09/23 11:22:00 ALT (SGPT) 10 units/L 04/09/23 11:22:00 Bilirubin, Total 0.2 mg/dL 04/09/23 11:22:00 ? Images ?? RESULT: Forearm 2 Views Left Forearm 2 Views Left ?? Hx of Present Illness: HD patient Tue, Th, Sat. 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 ??currently using chest wall permacath. ??Comes in with increased redness, purulent drainage and pain to dormant fistula. ??Treated with IV antibiotics during HD,; Reason: Infection; Clinical Question(s): Osteomyelitis; Order Comment: NR [id number] ?? COMPARISON: None. ?? FINDINGS: ?? AP and crosstable lateral views of the left forearm obtained. ?? No acute fracture or dislocation. Lateral view suggests elevation of the posterior fat pad suggesting an elbow effusion. There are numerous clips at the medial anterior aspect of the elbow, likely reflecting site of fistula. There is no destructive bone lesion adjacent to this fistula. ?? IMPRESSION: ?? No evidence of osteomyelitis. Soft tissue swelling at site of numerous clips representing fistula. Possible elevation of posterior fat pad which suggests an elbow effusion, though this could be ascertained clinically. * Gunnar PETERSON, Rehana Arreaga: PERFORM Event Display: Consult Authored Date: [id number] I personally saw and evaluated the patient. ??I reviewed the resident's note and findings and discussed it with them. ??I agree with the documented plan of care. Plan fistula explantation and vessel repair. * Sree Matamoros MD: PERFORM Event Display: Consultation Note Authored Date: Patient: ??MICHELLE AYALA ? Age:??62 Years?Sex:??Female?:??1960?? Primary Breakfast Server:??_ Attending:??Not on Staff, Attending MD Admission Date: 04/09/2023 ?? Chief Complaint and Reason for Consultation ESRD on hemodialysis, possible infected??AV graft,??permacath cuff dislodged History of Present Illness Sherie is a 62-year-old female with past medical history significant for ESRD on hemodialysis secondary to diabetic nephropathy dialyzing at [facility] dialysis unit in [place] on a T/T/S schedule via right IJ permacath, type 2 diabetes, COPD, hypertension who presented in the setting of concern for an infected AV graft and who we have been asked to see in the setting of arranging dialysis. ?? As mentioned, there is concerns that Michelle has an infected AV graft.?? Reportedly she noted pus leaking constantly from her left forearm.?? The graft has been in for a while but is nonfunctional and there was plans to possibly take this out.?? It looks like she was initially seen regarding this in August with plans to explant the graft however she did not have it scheduled and subsequently saw transplant surgery within the last couple of weeks who recommended a course of vancomycin and referral to [facility] vascular surgery as they had previously placed the graft.?? As mentioned, in the ED she was noted to have evidence of what appears to be an infected AV graft and vascular surgery was consulted.?? She is due for dialysis today on her normal schedule, her labs and volume status appears certainly reasonable at this time. ?? Past Medical History ??Significant for end-stage renal disease due to diabetic nephropathy. ??She has had a failed AV graft in the past and now has been living with a tunneled dialysis catheter, right IJ, which she received all of her dialysis treatments. 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 ??She also has a history of; 1. ??Type 2 diabetes mellitus. 2. ??History of previous morbid obesity. 3. ??COPD with baseline 2 liters nasal cannula oxygen requirement. 4. ??Anemia of chronic kidney disease. 5. ??Secondary hyperparathyroidism from renal disease. 6. ??Hypertension. 7. ??Depression. 8. ??History of intradialytic hypotension. ? Medications: Home Medications (15) Active amiTRIPTYLINE??100 mg, By Mouth, Daily at bedtime aspirin 81 mg oral delayed release tablet??81 mg = 1 tablet, By Mouth, Daily atorvastatin 10 mg oral tablet??10 mg = 1 tablet, By Mouth, Daily Auryxia 210 mg oral tablet??420 mg = 2 tablet, By Mouth, 3 times a day with meals BD CARISA 2 GEN PEN NDL [id number]?? Compazine Tablet??5 mg, PRN, By Mouth, Daily diazepam 2 mg oral tablet??2 mg = 1 tablet, PRN, By Mouth, 2 times a day Epoetin Thomas??20,000 units = 0.5 mL, Subcutaneous Injection, Every week hydrOXYzine hydrochloride 25 mg oral tablet??25 mg = 1 tablet, PRN, By Mouth, 4 times a day metoprolol 25 mg oral tablet, extended release??25 mg, By Mouth, Daily midodrine 5 mg oral tablet??10 mg = 2 tablet, PRN, By Mouth, Daily Omeprazole??40 mg, By Mouth, 2 times a day Remeron Tablet??22.5 mg, By Mouth, Daily at bedtime Requip??1 mg, By Mouth, 3 times a day venlafaxine 75 mg oral tablet??75 mg = 1 tablet, By Mouth, Daily ?? FH: reviewed and non-contributory ?? Social: reviewed ? Review of Systems Const: no fever, no chills HEENT: no dizziness, no headaches, no vision changes Resp: no SOB, no wheezing, no cough CV: no chest pain, no palpitations, no edema, no orthopnea, no syncope GI: no abdominal pain, no n/v, no diarrhea, no constipation, no melena, no hematochezia : no dysuria, no hematuria MSK: no myalgias, no DROM, no back pain Neuro: no paresthesias, no focal weakness?? Skin: no rashes Heme: No easy bruising, no bleeding or clotting tendency ?? 03/01 systems were reviewed and were negative for any positive or negative complain, except as mentioned above. ?? Objective Vital Signs (last 24 hrs) ?Last Charted Heart Rate Peripheral?64 bpm ??(APR 09 08:04) Resp Rate?20 br/min ??(APR 09 15:16) SBP?135 mm Hg ??(APR 09 12:00) DBP?H??96mm Hg ??(APR 09 12:00) SpO2?98 % ??(APR 09 08:04) No qualifying data available. ?? Intake/Output? No Data Available ?? Physical Exam General: ??NAD, AAOx4 HEENT: NCAT, MMM Neck: no JVD Cardio: normal S1 snd S2, no MRG, RRR Resp: CTAB Abdo: NT, ND, Extremities: No peripheral edema, Skin: No rashes or other abnormalities Neuro: Grossly intact ?? BLOOD COUNT & DIFF WBC 4.8 k/mm3 ()?? 04/09/2023 11:22 RBC 3.61 m/mm3 (Low)?? 04/09/2023 11:22 Hgb 11.0 Gm/dL (Low)?? 04/09/2023 11:22 Hct 34.5 % (Low)?? 04/09/2023 11:22 MCV 95.6 femtoliters ()?? 04/09/2023 11:22 MCH 30.5 pg ()?? 04/09/2023 11:22 MCHC 31.9 g/dL (Low)?? 04/09/2023 11:22 Platelet Count 290 k/mm3 ()?? 04/09/2023 11:22 RDW-SD 59.1 femtoliters (High)?? 04/09/2023 11:22 MPV 10.3 femtoliters ()?? 04/09/2023 11:22 Nucleated RBC (Automated) 0.0 #/100 WBC'S ()?? 04/09/2023 11:22 Abs. NRBC 0.0 k/mm3 ()?? 04/09/2023 11:22 Abs. Neut 2.4 k/mm3 ()?? 04/09/2023 11:22 Abs. Lymph 1.4 k/mm3 ()?? 04/09/2023 11:22 Abs. [place] 0.6 k/mm3 ()?? 04/09/2023 11:22 Abs. Eo 0.3 k/mm3 ()?? 04/09/2023 11:22 Abs. Baso 0.1 k/mm3 ()?? 04/09/2023 11:22 Neut % 50.0 % ()?? 04/09/2023 11:22 Lymph % 29.8 % ()?? 04/09/2023 11:22 [place] % 12.8 % (High)?? 04/09/2023 11:22 Eos % 6.2 % (High)?? 04/09/2023 11:22 Baso % 1.0 % ()?? 04/09/2023 11:22 Imm Gran 0.2 % ()?? 04/09/2023 11:22 Abs. Imm Gran 0.0 k/mm3 ()?? 04/09/2023 11:22 ?? CHEM GENERAL Sodium 137 mmol/L ()?? 04/09/2023 11:22 Potassium 4.4 mmol/L ()?? 04/09/2023 13:02 Chloride 97 mmol/L (Low)?? 04/09/2023 11:22 Bicarbonate Level 26 mmol/L ()?? 04/09/2023 11:22 Anion Gap 14 ()?? 04/09/2023 11:22 Glucose Level 157 mg/dL (High)?? 04/09/2023 11:22 BUN 33 mg/dL (High)?? 04/09/2023 11:22 Creatinine-Blood 4.4 mg/dL (High)?? 04/09/2023 11:22 Estimated GFR Creatinine 11 ML/MIN/1.73 M2 ()?? 04/09/2023 11:22 Calcium 9.0 mg/dL ()?? 04/09/2023 11:22 Protein, Total 7.3 Gm/dL ()?? 04/09/2023 11:22 Albumin 4.1 Gm/dL ()?? 04/09/2023 11:22 AG Ratio 1.3 ()?? 04/09/2023 11:22 Alkaline Phosphatase 96 units/L ()?? 04/09/2023 11:22 AST (SGOT) HEMOLYZED units/L ()?? 04/09/2023 11:22 ALT (SGPT) 10 units/L ()?? 04/09/2023 11:22 Bilirubin, Total 0.2 mg/dL ()?? 04/09/2023 11:22 Lactate 1.4 mmol/L ()?? 04/09/2023 13:02 C-Reactive Protein 0.9 mg/dL (High)?? 04/09/2023 11:22 ?? HEME OTHER Sed Rate 42 mm/hr (High)?? 04/09/2023 11:22 ?? No qualifying data available ? Assessment/Plan Sherie is a 62-year-old female with past medical history significant for ESRD on hemodialysis secondary to diabetic nephropathy dialyzing at [facility] dialysis unit in [place] on a T/T/S schedule via right IJ permacath, type 2 diabetes, COPD, hypertension who presented in the setting of concern for an infected AV graft and who we have been asked to see in the setting of arranging dialysis. ?? Impression: 1.?? ESRD on hemodialysis??T/T/S at [facility] dialysis unit via right IJ PermCath 2.?? ESRD secondary to diabetic nephropathy 3.?? Possible infected AV graft 4.?? Dislodged dialysis catheter cuff ?? As mentioned, Michelle is presenting for evaluation of a possible infected??upper extremity AV graft.??She has a graft in her left arm which was never functional or/only very briefly functional. ??She recently??saw??transplant surgery just this past week??who felt she may have had a superficial wound infection but they did not believe that the underlying graft was infected.?? They noted some minimalareas of serous drainage??but otherwise no evidence of erythema??or cellulitis.?? They recommended??a course of vancomycin.?? Reportedly the graft has been getting??harder and harder over the last couple of days??and feels very??tender??on palpation??with what appears to be some significant swelling around it.?? Vascular surgery were consulted and they are making her n.p.o. in case there is need to take her to the operating room.?? She also does appear to have an exposed cuff of her??PermCath, this will need to be changed. ??I did discuss these findings with the vascular surgery??resident whowill??relay the information to her attending as well.?? There is clearly no norman to sorting that out however??it will need to be dealt with before she leaves the hospital.?? In the face of all that she will need blood cultures done??will need ongoing antibiotics.?? We did dialyze her today??as it is her normal day for dialysis??we will continue with T/T/S schedule for now??while she is inpatient.? ? We will follow along closely. ?? Sree Matamoros MD?? Cage Cashier Breakfast Server [facility] ?? EKG study * Event Display: ECG 12-Lead Authored Date: Please click on pdf link to open report * Event Display: ECG 12-Lead Authored Date: Ventricular Rate: 81 BPM Atrial Rate: 81 BPM P-R Interval: 138 ms QRS Duration: 86 ms Q-T Interval: 454 ms QTC Calculation(Bazett): 527 ms P Britton: 49 degrees R Britton: 49 degrees T Britton: 100 degrees Normal sinus rhythm Nonspecific ST and T wave abnormality Abnormal ECG When compared with ECG of 14-NOV-2022 07:50, ST no longer elevated in Lateral leads Nonspecific T wave abnormality, worse in Anterolateral leads QT has lengthened Confirmed by CONNER PETERSON [facility] ([id number]) on 04/09/2023 4:29:34 PM Centre: CONNER PETERSON,[facility] Progress note * Mason Morrison MD: PERFORM, SIGN, VERIFY Event Display: [facility] Authored Date: Patient: MICHELLE AYALA Age: 62 years Sex: Female : 1960 Associated Diagnoses: None Author: Mason Morrison MD The patient was seen and examined; overnight events and active issues reviewed. Labs and medications along with recent available test results were reviewed. Cage Cashier notes and recommendations alongwith primary team interventions and plans noted when available. Findings synthesized/interpreted aspart of the assessment in preparation for recommendations as outlined below. The patient is sleepy but arousable. No particular complaints. Physical Examination Vitals Vitals : VITAL SIGNS SECTION 04/14/2023 4:22 EST Temperature 97.7 DegF Pulse Rate 82 bpm Systolic Blood Pressure 124 mm Hg Diastolic Blood Pressure 70 mm Hg Oxygen Saturation 99 % Mode of Delivery (Oxygen) Room air . General Appearance No apparent distress. Respiratory Lungs: CTA. Abdomen/GI Soft. Non-tender. Extremities Dressing on left arm. Upper extremity edema: left. Neurologic Sleepy but arousable. Skin OTHER Right IJ permacath. Results Review General results Most recent results Discrete results only : ALL SERVICE SECTIONS 04/14/2023 6:22 EST WBC 3.7 k/mm3 L RBC 2.83 m/mm3 L Hgb 8.5 Gm/dL L Hct 27.0 % L MCV 95.4 femtoliters MCH 30.0 pg MCHC 31.5 g/dL L Platelet Count 221 k/mm3 RDW-SD 55.0 femtoliters H MPV 10.4 femtoliters Nucleated RBC (Automated) 0.0 #/100 WBC'S Abs. NRBC 0.0 k/mm3 Abs. Neut 1.5 k/mm3 Abs. Lymph 1.4 k/mm3 Abs. [place] 0.5 k/mm3 Abs. Eo 0.3 k/mm3 Abs. Baso 0.0 k/mm3 Neut % 39.8 % L Lymph % 37.0 % [place] % 12.8 % H Eos % 9.0 % H Baso % 1.1 % Imm Gran 0.3 % Abs. Imm Gran 0.0 k/mm3 Impression and Plan This is a 62-year-old woman with end-stage kidney disease on hemodialysis. She presented with in the left upper extremity dialysis access infection. She was found to have Pseudomonas on cultures fromsurgery with clear access infection. She now has a permacath in place and is on cefepime which she will continue for 6 weeks. She can receive cefepime at dialysis. From our standpoint she is clinically stable for discharge. She does not need dialysis today. Her next treatment would be tomorrow. * Tony Cabral RN: PERFORM, SIGN, VERIFY Event Display: Progress Note Hospital Authored Date: Patient: MICHELLE AYALA Age: 62 years Sex: Female : 1960 Associated Diagnoses: None Author: Tony Cabral RN Findings Evaluation Completed 3hr dialysis treatment. Self primed. Tolerated 2800ml=2.8Kg of volume removal. post HD VsRR=16 HR=88 IH=232/68. New sterile dressing with quick clot patch applied to right SC PermCath. Site noted with some scant blood drainage. No s&s of infection. Pt medicated x one during HD with PRN Oxycodone. Good effect reported.. * Marissa Ayala RN: PERFORM, SIGN, VERIFY, MODIFY, SIGN Event Display: Progress Note Hospital Authored Date: Patient: MICHELLE AYALA Age: 62 years Sex: Female : 1960 Associated Diagnoses: None Author: Marissa Ayala RN Findings Problem Related to Alteration in Tissue Perfusion : Alteration in Tissue Perfusion 04/13/2023 10:00 EST Alteration Tissue Perfusion related to Infection Goals & Outcomes: Tissue perfusion Pt will maintain optimal perfusion to vital organs, Pt will resume/maintain adequate peripheral circulation, Pt will experience improved tissue perfusion, Pt will achieve progressive healing of injured area, Pt will be hemodynamically stable, Pt will achieve no rmal/improved/optimal neuro status, Pt will return to baseline respiratory function, Pt will maintain adequate GI function appropriate for pt, Pt will maintain adequate function appropriate for pt, Pt will be discharged without infection, Pt/ S.O. will state understanding of plan of care Interventions: Tissue Perfusion Assess/Monitor CMS to affected extremity, Assess/Monitor mental status, Assess/Monitor peripheral pulses & capillary refill, Assess/Monitor presence & degree of edema, Assess/Monitor secretions & drainage for s/s of infection BH Goals/Interventions, Tissue Perfusion Yes Tissue Perfusion, Problem Start 04/13/2023 6:18 Reviewed Plan with, Tissue Perfusion Patient Patient Progression, Tissue Perfusion Pt progressing according to plan . Nursing Data Vital Signs : VITAL SIGNS SECTION 04/13/2023 7:50 EST Early Warning Score 4.00 04/13/2023 7:50 EST Temperature 98.1 DegF Temperature Route Oral Pulse Rate 77 bpm Respiratory Rate 18 br/min Systolic Blood Pressure 112 mm Hg Diastolic Blood Pressure 74 mm Hg Blood pressure sites Arm, right Mean Arterial Pressure 87 mm Hg Pulse Pressure 38 mm Hg Oxygen Saturation 96 % Mode of Delivery (Oxygen) Room air 04/13/2023 5:52 EST Pulse Rate 76 bpm Systolic Blood Pressure 96 mm Hg Diastolic Blood Pressure 42 mm Hg L 04/13/2023 3:39 EST Temperature 97.8 DegF Temperature Route Oral Pulse Rate 76 bpm Respiratory Rate 18 br/min Systolic Blood Pressure 96 mm Hg Diastolic Blood Pressure 42 mm Hg L Blood pressure sites Leg, right Mean Arterial Pressure 60 mm Hg Pulse Pressure 54 mm Hg Oxygen Saturation 96 % Mode of Delivery (Oxygen) Room air . Evaluation pt a&ox4 POD 1 R permacath placement. pt reports pain to light palpation around R chest port site. Bloody drainage noted as well. Vascular paged and came to bedside. no new orders at this time. BLL fine crackles on auscultation. edema noted to L arm which is el wrapped. sensation intact. K of 5.4 vascular paged and made aware 0730. plan for dialysis. pt hypotensive overnight, prn dialudid d/c overnight. PO oxycodone for pain, administered with good effect. pt endorsed anxiety and recieved her PRN anti anxiety medication with good effect. Pt to get OOB and ambulate, dialysis planned for 1200. pt was x1 with walker, steady. pt reports she feels her baseline and feels safe to go home. fall risk measures in place, call hopper within reach. please see cis for full biophysical assessment.. Radiology * Event Display: HV IR Dialysis Fistulogram Authored Date: Peripheral Diagnostic Report Demographics Patient Name LUCY MARTINEZ Gender Female Corporate Race Black Facility Room Number M612 Height 60 inches Date of 1960 Weight 141.1 pounds Age 62 year(s) BSA 1.61 m2 Accession Number [id number] BMI 27.56 kg/m2 Referring Physician Dolores Serrano MD Date of Study 04/12/2023 Performing Physician Dolores Serrano MD Fellow Interventional Physician Dolores Serrano MD Procedure Procedure Type Peripheral Cath Diagnostic Procedure:Dialysis, Dialysis Peritoneal Catheter, Insertion Miscellaneous:ULTRASOUND GUIDANCE Indications Additional Indications: ESRD Clinical History Procedure Data Procedure Date Date: 04/12/2023Start: 12:42End: 13:16 The procedure was explained in detail to the patient. Risks, complications and alternative treatments were reviewed. Written consent was obtained. Sedation: A separate physician or qualified healthcare provider administered the sedation services. Refer to separate documentation in patient''s record. Contrast Material - Omnipaque 4 ml Fluoroscopy Time: Diagnostic: 0:42 minutes. Total: 0:42 minutes. Fluoroscopy Dose: Diagnostic: 45 mGy. Total: 45 mGy. Dose Area Product:Diagnostic: 92666 mGy/cm2. Total: 23126 mGy/cm2. Procedure Narrative Indication: 62-year-old female with end stage renal disease who recently had her left arm fistula removed for infection. She is coming to the operating room today for permacath placement. Procedure: The patient was appropriately consented. She was brought to the operating room placed on the table in supine position. She was made comfortable by anesthesia and then prepped and draped in standard sterile fashion using chlorhexidine prep and full barrier precautions. A timeout was completed. The internal jugular vein was accessed with a micropuncture needle under ultrasound guidance. I had a difficult time passing the wire, and there were numerous collaterals at the IJ. I attempted to inject contrast to make certain that the IJ was patent. The contrast was injected subcutaneously. I looked again with the ultrasound, and the subclavian vein appeared patent in the supraclavicular area. I inserted the micropuncture needle. The [place] wire was placed. A small incision was made at the puncture site. Transitional sheath was placed. I chose a 19 cm permacath. A small incision was made in the upper right chest. The permacath was tunneled out of the incision I made at the subclavian vein access site. I dilated the tract over the wire. The peel-away sheath was inserted and the permacath was passed into the sheath which was then removed. The permacath was flushed with heparinized saline. I secured the permacath to the skin with 4-0 Prolene suture. Chest x-ray was completed. The right neck incision was dressed with a Tegaderm. The tunneled catheter portion was dressed with a Biopatch and standardize dressing. Heparin was instilled into both of the ports. It aspirated and flushed well. The patient was awakened and brought to recovery in satisfactory condition. Hemodynamics Condition: Rest O2 Consumption: Estimated: 79.65 Shunts Oxygen Values O2 Consumption 79.65 Conclusions Signatures * Event Display: HV IR Dialysis Fistulogram Authored Date: Patient Care team information Care Team Personnel Name: Marissa Ayala RN Position: S RN Member Role: Primary Care Nurse Name: Enid Mcguire RN Position: S RN Member Role: Primary Care Nurse Name: Dolores Rojas RN Position: [facility] RN Member Role: Primary Care Nurse Name: Jyotsna Cross NP Position: [facility] Associate Professional Member Role: Lifetime Consulting Provider Address: Address: [address] [place] [address] [facility] [place] [address]- Name: Sree Matamoros MD Position: [facility] Renal Member Role: Lifetime Consulting Physician Address: Address: [address] [place] [address] [facility] [place] [address]- Name: Yolande Gallagher Position: Reference Physician Member Role: PCP Address: Address: [address] [place] [id number] Name: Denver Pierce DO Position: [facility] Renal MD Member Role: Lifetime Consulting Physician Address: Address: [address] [facility] [address] [facility] [place] [address]- [place] Name: Kamila Blair Position: [facility] Outreach Member Role: Lifetime Consulting Physician Name: Roberth Hargrove RN Position: [facility] RN Member Role: Primary Care Nurse Name: rBy Cook III, RN Position: S RN Member Role: Primary Care Nurse Name: Darvin Cardona Position: [facility] Associate Professional Member Role: Lifetime Consulting Provider Address: Address: [address] [place] [id number]- Name: Phoebe Zazueta RN Position: [facility] RN Member Role: Primary Care Nurse Name: Alyssa Alcazar Position: [facility] Outreach Member Role: Lifetime Consulting Physician Name: Butch Maria MD Position: [facility] Renal MD Member Role: Lifetime Consulting Physician Address: Address: [address] [place] [address] [address] [facility] [place] [address]- Name: Xiao Navarro RN Position: [facility] RN Member Role: Primary Care Nurse Name: Velia Porter RN Position: [facility] RN Member Role: Primary Care Nurse Name: Deven DELGADO Attending Position: [facility] ED Medicine MD Name: Nat Constantino Position: [facility] ED OA Charge Member Role: ED Associate Name: Fela Church LPN Position: [facility] ED RN W/OE and Tasks Member Role: Patient Care Provider Care Team Related Persons Name: DENIA STEVENS Address: home [address] [address] Name: VIRGIL ROMO Address: [address] [place] [address]
--- OUTSIDE RECORDS SUMMARY | 2023-05-07 18:19 | XMS_ITS | Continuity of Care Document ---
Author Name Unknown Organization [facility] ter Address [address] [place] [id number] Care Team Providers Care Road Cutter Name Role Phone Yolande Gallagher Primary Care Physician Encounter [facility] Date(s): 04/16/23 - 04/17/[address] [id number] Discharge Disposition: A-Transfer VNA/Home Health Attending Physician: Ronni Adams MD Admitting Physician: Tomeka PETERSON, Cindy Referring Physician: Not on Staff, Referring MD Allergies, Adverse Reactions, Alerts Substance Reaction Severity Status Percocet itching Active Percocet 5/325 Itch Unknown Active traMADol Unknown body region Active TraZODone Hydrochloride Acti ve Immunizations Given and Recorded Vaccine Date Status Refusal Reason [id number] 12y+ bivalent booster vax 01/28/23 Recorded influenza virus vaccine, inactivated 02/25/22 Yves rded influenza virus vaccine, inactivated 03/04/21 Yves rded tetanus/diphtheria/pertussis, acel(Tdap) 10/16/21 Recorded tetanus/diphtheria/pertussis, acel(Tdap) 04/23/21 Recorded SARS-CoV-2 (COVID-19) mRNA-1273 vaccine 05/05/21 R ecorded SARS-CoV-2 (COVID-19) Ad26 vaccine 10/30/20 Record ed Medications Acetaminophen Tablet 650 mg, Tablet, By Mouth, Every 4 hours, PRN for Pain , Mild, Temperature Greater than 100.5, Routine, 04/16/23 8:55:00 EST Start Date: 04/16/23 Stop Date: 04/18/23 Status: Discontinued amitriptyline 100 mg oral tablet = 100 mg, By Mouth, Daily at bedtime, # 30 tablet, 0 Refills, Maintenance, 04/17/23 13:09:00 EST, Tablet, [facility], Partial fill upon patient request if the prescription is for a schedule II opioid drug., 152.4, cm, 04/17/23 11:51:00 E... Start Date: 04/17/23 Status: Ordered aspirin 81 mg oral delayed [...] Ordered BD CARISA 2 GEN PEN NDL [id number] Maintenance, 05/07/21 14:48:00 EST, Supply Start Date: 05/07/21 Status: Ordered cefepime 2 g intravenous injection = 2,000 mg, IVPB, Every Tuesday, and Tuesday, 0 Refills, Maintenance, 04/17/23 13:13:00 EST, Injection, Partial fill upon patient request if the prescription is for a schedule II opioid drug. Start Date: 04/17/23 Stop Date: 05/22/23 Status: Ordered diazepam 2 mg oral tablet 2 mg, 1, tablet, By Mouth, 2 times a day, PRN, Anxiety, # 60 tablet, Refills 0, Tot. Refills 0, Maintenance, Other, 04/17/23 13:10:00 EST, Route to Pharmacy Electronically, [facility], Partial fill upon patient request if the prescriptio... Start Date: 04/17/23 Status: Ordered Epoetin Thomas 0.5 mL = [...] opioid drug. Start Date: 11/14/22 Status: Ordered loperamide 2 mg oral capsule 2 mg, By Mouth, Every 3 hours, PRN, # 60 capsule, Refills 0, Tot. Refills 0, Maintenance, Loose Stool, 04/17/23 13:14:00 EST, Route to Pharmacy Electronically, [facility], Partial fill upon patient request if the prescription is for a sc... Start Date: 04/17/23 Status: Ordered metoprolol 25 mg oral tablet, [...] 04/14/23 8:20:00 EST, Route to Pharmacy Electronically, [facility]/pharmacy #[id number], Partial fill upon patient request if the... Start Date: 04/14/23 Stop Date: 04/19/23 Status: Ordered prochlorperazine 5 mg oral tablet = 5 mg, By Mouth, 3 times a day, PRN Nausea, # 30 tablet, 0 Refills, Maintenance, 04/17/23 13:10:00EST, Tablet, [facility], Partial fill upon patient request if the prescription is fora schedule II opioid drug., 152.4, cm, 04/17/23 11:... Start Date: 04/17/23 Status: Ordered Remeron Tablet = 22.5 mg, [...] 04/14/23 8:19:00 EST, Route to Pharmacy Electronically, [facility]/pharmacy #[id number], Partial fill upon patient request if the prescription is for... Start Date: 04/14/23 Stop Date: 04/28/23 Status: Ordered venlafaxine 75 mg oral tablet 1 tablet = 75 mg, By Mouth, Daily, 0 Refills, Maintenance, 11/14/22 5:10:00 EDT, Tablet, Partial fill upon patient request if the prescription is for a schedule II opioid drug. Start Date: 11/14/22 Stop Date: 12/14/22 Status: Ordered Problem List Condition Confirmation Course Effective Dates Status Health St atus Informant COPD without exacerbation Confirmed Active ESRD on dialysis Confirmed Active Mood disorder Confirmed Active LALI (obstructive sleep apnea) Confirmed Active Type 2 diabetes mellitus Confirmed Active Vital Signs Most recent to oldest [Reference Range]: 1 2 3 Height 152.4 cm (04/17/23 3:51 PM) 152.4 cm (04/17/23 3:50 PM) 152.4 cm (04/17/23 11:51 AM) Weight 62.6 kg (04/17/23 12:30 AM) 56 kg (04/16/23 9:30 PM) 56 kg (04/16/23 5:46 AM) Oxygen Saturation [94-100 %] 97 % (04/17/23 3:51 PM) 97 % (04/17/23 11:51 AM) 94 % (04/17/23 7:35 AM) Pulse Rate [55-90 bpm] 92 bpm *H* (04/17/23 3:51 PM) 86 bpm (04/17/23 11:51 AM) 73 bpm (04/17/23 7:35 AM) Body Mass Index [18.5-24.99 kg/m2] 26.95 kg/m2 *H* (04/17/23 12:30 AM) Blood Pressure [90-138/55-84 mm Hg] 100/63mm Hg (04/17/23 3:51 PM) 106/63mm Hg (04/17/23 11:51 AM) 99/65mm Hg (04/17/23 7:00 AM) Respiratory Rate [16-30 br/min] 18 br/min (04/17/23 3:59 PM) 18 br/min (04/17/23 3:51 PM) 18 br/min (04/17/23 11:51 AM) Temperature [96.8-100.4 DegF] 97.8 DegF (04/17/23 3:51 PM) 98 DegF (04/17/23 11:51 AM) 97.7 DegF (04/17/23 7:00 AM) Mode of Delivery (Oxygen) Room air (04/17/23 3:51 PM) Room air (04/17/23 11:51 AM) Room air (04/17/23 7:35 AM) Blood pressure sites Arm, right (04/17/23 3:51 PM) Arm, right (04/17/23 11:51 AM) Arm, right (04/17/23 7:35 AM) Temperature Route Oral (04/17/23 3:51 PM) Oral (04/17/23 11:51 AM) Oral (04/17/23 7:35 AM) Dry Weight 62.6 kg (04/17/23 12:30 AM) 56 kg (04/16/23 9:30 PM) 56 kg (04/16/23 5:46 AM) Admission evaluation note * Tomeka PETERSON, [facility]: PERFORM, MODIFY, MODIFY, MODIFY Event Display: Admission Note Authored Date: Patient: ??MICHELLE AYALA ? Age:??62 Years?Sex:??Female?:??1960?? Chief Complaint/Reason for Consultation pt was admitted for a fistulae reversal and had a port put in (inpt) discharged earlier today. states she is unable to keep anything in because of the amnt of diarrhea she is having. pt appears dry. states she is light headed History of Present Illness 63-year-old female k/c of COPD/ILD on home??O2, Obesity/LALI, type 2 diabetes,??ESRD on HD, history of infected AV graft was removed on 04/10 and had permacath placed, was discharged on 04/14 with plan to continue cefepime for 6 weeks.?? Patient presenting with 2 days of diarrhe. Patient was discharged on 04/14 to home.?? She started to have diarrhea??day before admission, 4-5 times per day, watery, nonbloody. ??No nausea or vomiting, no abdominal pain. Blood workup with WBC 5.1, troponin 81, proBNP elevated, C. difficile negative, stool PCR negative. ??Patient seen by renal team ?? Review of Systems All review of systems negative except above Objective Vital Signs?? Temperature: 97.8 DegF (04/16/23 11:38:00) Temperature Route: Oral (04/16/23 11:38:00) Pulse Rate: 81 bpm (04/16/23 12:33:00) Respiratory Rate: 17 br/min (04/16/23 12:33:00) Systolic Blood Pressure: 109 mm Hg (04/16/23 12:33:00) Diastolic Blood Pressure: 69 mm Hg (04/16/23 12:33:00) Blood pressure sites: Arm, right (04/16/23 12:33:00) Mean Arterial Pressure: 78 mm Hg (04/16/23 05:46:00) Pulse Pressure: 41 mm Hg (04/16/23 05:46:00) Oxygen Saturation: 97 % (04/16/23 12:33:00) Mode of Delivery (Oxygen): Room air (04/16/23 12:33:00) Early Warning Score: 2 (04/16/23 12:34:11) ? Intake/Output? No Data Available ? Physical Exam General?NAD, AAO HEENT?PERRLA, oropharynx clear, moist mucus membranes Pulm?CTA bilaterally, no wheezes/rhonchi/rales CV?RRR, +S1/S2, no murmurs/rubs GI?Soft, nontender, nondistended, no organomegaly, bowel sounds are present Neuro?Moves all extremities MS?no obvious deformity Psych?Mood appropriate to situation ?? Permacath in place ?? Surgery site and left upper extremity??without infection signs Assessment/Plan ?? 63-year-old female k/c of COPD/ILD, Obesity/LALI, type 2 diabetes,??ESRD on HD, history of infected AV graft was removed on 04/10 and had permacath placed, was discharged on 04/14 with plan to continue cefepime for 6 weeks.?? Patient presenting with 2 days of diarrhea ?? Diarrhea Negative C. difficile and stool PCR -Starting Imodium ?? Infected AV graft S/p excision and debridement, repair of brachial artery on 04/10.?? At this time ID was involved for Pseudomonas infection in tissue -Last ID note recommendation: -cefepime post dialysis to complete 6 weeks of antibiotics from the OR?? (cefepime 2g-2g-2g post dialysis) from 04/10 as sounds like all the graft was removed (would confirm with Vascular). While on IV antibiotics should have weekly safety labs: CBC, CMP and as bovine patch and extensive infection could consider surveillance blood cultures 5-7 days after off antibiotics for completeness (althoughwas not bacteremia) -ID follow-up as outpatient -Continue cefepime after HD. ?? Elevated troponin Most likely related to ESRD. ??Patient denying chest pain Getting EKG ?? ESRD on HD -Renal on board -Permacath in place ?? Vaginal candidiasis: Patient??complaining of itching??and discharge??vaginally,??starting fluconazole empirically ?? [id number] MR-h/o endocarditis: Continue aspirin, statin, metoprolol COPD-ILD: Stable continue home inhalers-patient on oxygen at home as needed DM2: Sliding scale, POC, low-carb diet Rest leg syndrome: Continue ropinirole ?? Heparin SQ Full code Renal diet Histories Allergies Allergies ?(Active and Proposed Allergies Only) Percocet 5/325? (Severity: Unknown, Onset: Unknown) ?Reactions: Itch traMADol? (Severity: Unknown severity, Onset: Unknown) ?Reactions: Unknown body region TraZODone Hydrochloride? (Severity: Unknown severity, Onset: Unknown) Percocet? (Severity: Unknown severity, Onset: Unknown) ?Reactions: itching ? Past Medical History/Problem List ? Past Surgical History No surgery history documented. ? Social History No social history documented. ? Family History No family history recorded. ? Medications Home Medications Acetaminophen (Tylenol 325 mg oral tablet)?975?Milligram?By Mouth?Every 6 hours?for 14?Days amiTRIPTYLINE?100?Milligram?By Mouth?Daily at bedtime Aspirin (aspirin 81 [...] at bedtime Omeprazole?40?Milligram?By Mouth?2 times a day Oxycodone (oxyCODONE 5 mg oral tablet)?10?Milligram?By Mouth?Every 4 hours?as needed?for 5?Days?Pain , Moderate PROCHLORperazine (Compazine Tablet)?5?Milligram?By Mouth?Daily?as needed?Nausea Ropinirole (Requip)?1?Milligram?By Mouth?3 times a day Venlafaxine (venlafaxine 75 mg oral tablet)?1?tab(s)?75?Milligram?By Mouth?Daily?for 30?Days ? Results Abnormal Labs ?? BLOOD COUNT & DIFF ??Abs. Eo ??0.5 k/mm3 (High) ??04/16/2023 01:53 ??Abs. Imm Gran ??0.0 k/mm3 () ??04/16/2023 01:53 ??Abs. NRBC ??0.0 k/mm3 () ??04/16/2023 01:53 ??Eos % ??8.8 % (High) ??04/16/2023 01:53 ??Hct ??26.7 % (Low) ??04/16/2023 01:53 ??Hgb ??8.5 Gm/dL (Low) ??04/16/2023 01:53 ??Imm Gran ??0.4 % () ??04/16/2023 01:53 ??MCHC ??31.8 g/dL (Low) ??04/16/2023 01:53 ??Nucleated RBC (Automated) ??0.0 #/100 WBC'S () ??04/16/2023 01:53 ??RBC ??2.80 m/mm3 (Low) ??04/16/2023 01:53 ??RDW-SD ??54.9 femtoliters (High) ??04/16/2023 01:53 ? CARDIAC ??High Sensitivity Troponin (HSTnT) ??81 ng/L (Critical) ??04/16/2023 01:52 ??Nt-Probnp ??75560 pg/mL (High) ??04/16/2023 01:52 ? CHEM GENERAL ??AG Ratio ??1.1 () ??04/16/2023 01:52 ??Albumin ??3.3 Gm/dL (Low) ??04/16/2023 01:52 ??BUN ??43 mg/dL (High) ??04/16/2023 01:52 ??Creatinine-Blood ??6.1 mg/dL (High) ??04/16/2023 01:52 ??Estimated GFR Creatinine ??7 ML/MIN/1.73 M2 () ??04/16/2023 01:52 ? HEME OTHER ??Hold Blue Top ??SPECIMEN DISCARDED AFTER 4 HOURS. () ??04/16/2023 01:52 ? MISC. CHEMISTRY ??Hold Morfin Top ??SPECIMEN DISCARDED AFTER 1 WEEK () ??04/16/2023 01:52 ? SEROLOGY INF DISEASE ??C.difficile Toxin ??Negative. C.Difficile bacterial antigen and toxin not detected. A (N) ??04/16/2023 05:40 ? STOOL STUDIES ??GI PCR, Campylobacter ??NEGATIVE () ??04/16/2023 05:40 ??GI PCR, Plesiomonas shigelloides ??NEGATIVE () ??04/16/2023 05:40 ??GI PCR, Salmonella ??NEGATIVE () ??04/16/2023 05:40 ??GI PCR, Vibrio ??NEGATIVE () ??04/16/2023 05:40 ??GI PCR, Vibrio cholerae ??NEGATIVE () ??04/16/2023 05:40 ??GI PCR, Yersinia enterocolitica ??NEGATIVE () ??04/16/2023 05:40 ??GI PCR, Enteroaggregative E coli ??NEGATIVE () ??04/16/2023 05:40 ??GI PCR, Enteropathogenic E coli ??NEGATIVE () ??04/16/2023 05:40 ??GI PCR, Enterotoxigenic E coli ??NEGATIVE () ??04/16/2023 05:40 ??GI PCR, [id number] E coli ??NEGATIVE () ??04/16/2023 05:40 ??GI PCR, Shigella/Enteroinvasive E coli ??NEGATIVE () ??04/16/2023 05:40 ??GI PCR, Cryptosporidium ??NEGATIVE () ??04/16/2023 05:40 ??GI PCR, Cyclospora cayetanensis ??NEGATIVE () ??04/16/2023 05:40 ??GI PCR, Entamoeba histolytica ??NEGATIVE () ??04/16/2023 05:40 ??GI PCR, Giardia lamblia ??NEGATIVE () ??04/16/2023 05:40 ??GI PCR, Adenovirus F 40/41 ??NEGATIVE () ??04/16/2023 05:40 ??GI PCR, Astrovirus ??NEGATIVE () ??04/16/2023 05:40 ??GI PCR, Norovirus GI/GII ??NEGATIVE () ??04/16/2023 05:40 ??GI PCR, Rotavirus A ??NEGATIVE () ??04/16/2023 05:40 ??GI PCR, Sapovirus ??NEGATIVE () ??04/16/2023 05:40 ? Note: Critical results are displayed in red. ? Cardiology Labs Nt-Probnp:??26592 pg/mL??High (04/16/23 01:52:00) High Sensitivity Troponin (HSTnT):??81 ng/L??Critical (04/16/23 01:52:00) ? Hospital Progress note * Pranay Herrera MD, I: PERFORM, SIGN, VERIFY Event Display: Progress Note Hospital Authored Date: [id number] Patient: MICHELLE AYALA Age: 62 years Sex: Female : 1960 Associated Diagnoses: None Author: Pranay Herrera MD, I Overnight Events & Current Issues appears comfortable, diarrhea subsided, HD yesterday Review of Systems Review of Systems Constitutional negative. Respiratory negative. Cardiovascular negative. Gastrointestinal negative. Review / Management Kern Catheter No. Physical Examination Vitals Vitals : VITAL SIGNS SECTION 04/17/2023 4:00 EST Temperature 98 DegF Temperature Route Oral Pulse Rate 86 bpm Respiratory Rate 16 br/min Systolic Blood Pressure 112 mm Hg Diastolic Blood Pressure 66 mm Hg Blood pressure sites Arm, right Pulse Pressure 46 mm Hg Oxygen Saturation 98 % Mode of Delivery (Oxygen) Room air . General Appearance No apparent distress. Respiratory Lungs: CTA. Cardiac No murmur/gallop/rub. Rhythms: RRR. Abdomen/GI Soft. Non-tender. Non-distended. Extremities No edema. Neurologic Alert. Results Review General resultsToday's results : Results 04/17/2023 1:51 EST WBC 5.0 k/mm3 RBC 3.23 m/mm3 L Hgb 9.7 Gm/dL L Hct 31.2 % L MCV 96.6 femtoliters MCH 30.0 pg MCHC 31.1 g/dL L Platelet Count 205 k/mm3 RDW-SD 55.8 femtoliters H MPV 10.2 femtoliters Nucleated RBC (Automated) 0.0 #/100 WBC'S Abs. NRBC 0.0 k/mm3 Abs. Neut 3.0 k/mm3 Abs. Lymph 1.2 k/mm3 Abs. [facility] 0.4 k/mm3 Abs. Eo 0.4 k/mm3 Abs. Baso 0.0 k/mm3 Neut % 58.7 % Lymph % 24.3 % [facility] % 7.6 % Eos % 8.2 % H Baso % 0.8 % Imm Gran 0.4 % Abs. Imm Gran 0.0 k/mm3 Sodium 132 mmol/L L Potassium 4.5 mmol/L Chloride 95 mmol/L L Bicarbonate Level 22 mmol/L Anion Gap 15 . Impression and Plan Michelle Ayala is a 62-year-old female with history of end-stage renal disease, infected left upper extremity dialysis access, status post successful surgery last week, the patient comes to the hospital with profuse diarrhea. Tested negative for C. diff. We will arrange dialysis 3 times every week, Tuesday, , Tuesday starting today. The patient will need to complete antibiotic course. Appreciate ID input. Continue cefepime 2 gm TTS after HD. HD on Tuesday inpatioent or outpatient. * [place] SCHMITT, Patricia: PERFORM, SIGN, VERIFY Event Display: Progress Note Hospital Authored Date: Patient: MICHELLE AYALA Age: 62 years Sex: Female : 1960 Associated Diagnoses: None Author: [place] SCHMITT, Patricia Findings Problem Related to Alteration in Gastrointestinal : Alteration in Gastrointestinal Func/new 04/17/2023 4:00 EST Alteration in GI status Related to Diarrhea Goals & Outcomes, Gastrointestinal Establish a regular pattern of elimination for pt, Nutritional intake is adequate for metabolic needs, Pt will achieve normal/improved fluid balance, Pt will have a bowel movement prior to discharge Interventions, Gastrointestinal Assess/monitor abdomen for distention, tenderness, Assess/monitor abdominal girth & bowel function, Assess/monitor bowel pattern, bowel sounds, flatus, Assess/monitor number of bowel movements, Assess/monitor intake & output Goals/Interventions, Gastrointestinal Yes Gastrointestinal, Problem Start 04/17/2023 4:59 Reviewed plan with, Gastrointestinal Patient Patient Progression, Gastrointestinal Pt progressing according to plan . Narrative/Incidental Ms. Ayala arrived to W4 at approx midnight and was oriented to room and call hopper. Pt walked to the bed w unsteady gait and 1 assist.Pt is alert and oriented x4, anxious and wifty at times. BP soft upon arrival, midodrine given, POC 57. Pt given juice, pudding and crackers with improvement, willcontinue to monitor. Pt incontinent of stool x2, pericare provided. Pt c/o feeling raw , but skin on buttocks is intact, blanchable with some discolorations and pinkness noted, barrier cream applied. Pt requesting that telemetry be removed bc she keeps getting tangled in it , but agreeable to keeping it on per MD request. No complaints of CP, but has stomach pain, abdomen soft. Left arm swollen,steristrips and bruising at site of old fistula, no BP in that arm. . * Haydee SCHMITT, Rodolfo: PERFORM, SIGN, VERIFY Event Display: Progress Note Hospital Authored Date: Patient: MICHELLE AYALA Age: 62 years Sex: Female : 1960 Associated Diagnoses: None Author: Rodolfo Hubbard RN Findings Evaluation [facility] Dialysis Note Treatment: Patient received 4 hour HD. Treatment given (Per MD written/verbal orders). 3.2 L fluid removed. Crit-line Hematocrit Reference of 25.5 %, had - 8.6 % Blood Volume change. 2K 2.5Ca bath , for prev. 4.4 K blood level. No - Hemostasis achieved within expected time frame. BPs soft Access: Cath / Right / Chest Site assessment: WNL No - Antibiotics given (see MAR for documentation). No - Blood products given (see task for documentation). No - Temporary access removed - (describe site assessment and dressing applied). No - Meds given (see MAR for documentation). No - Adverse effects. Pt. remains alert and oriented x3. In no obvious distress. On room air. Appears to rest comfortablypost HD. No complaints voiced. Vital signs See CIS See scanned HD Tx. form for further info. Yes - Unit notified patient is returning post transfer Yes - Report called to unit. Unit ED Pod D15A / RN Joseline Notes: . Discharge Information Case Management Discharge Plan : Case Management Discharge Plan Data 04/15/2023 11:37 EST Discharge Level of Care at Discharge Homehealth/VNA Discharge VNA/Hospice/Home Care [facility] [phone] 04/13/2023 16:09 EST Discharge Level of Care at Discharge Homehealth/VNA Discharge VNA/Hospice/Home Care [facility] [phone] Name of Agency #1 [facility] Categories #1 Occupational Therapy, Physical Therapy, Longterm Service Comments #1 [facility] will provide nursing, PT and OT services at home. Your RN today will call to notify them to start services. The agency will contact you to set up a visit. Please [phone] if you do not hear from them within 24 hours of discharge. Rehabilitation Discharge : Rehab Discharge Index 04/13/2023 11:10 EST Comments on treatment indicated 62F p/w LUE AVG infection, now s/p R permacath. Rec home c PT/OT services Walker: distance 20-50 Full chart review completed Yes Hospital course see comment Other findings see comment Plan of care PT Gait training, Transfer training, Therapeutic exercise, Balance training Note * Event Display: Provider Clarification Note Please click on pdf link to open report * Marissa Sommers RN: PERFORM Event Display: Discharge/Transfer Note Hospital Authored Date: [id number] Nursing Discharge Note Entered On: 04/17/2023 19:31 EST Performed On: 04/17/2023 19:31 EST by Marissa Sommers RN Nursing Discharge Note 2 Discharge Time : 04/17/2023 19:30 EST Discharge Level of Care at Discharge : Home/Fpc/Foster Care Patient Left Unit Via : Wheelchair Patient Accompanied Off Unit with : Ambulance/Chair Van Personnel Handover Given to Transport Personnel : Yes DC Instructions Provided & Signed by Pt : Yes Patient Understands D/C Instructions : Yes Patient Instructions Discharge Signed : Yes Did Pt have Specialty Bed or Wound Vac : No Marissa Sommers RN - 04/17/2023 19:31 EST * Ronni Adams MD: MODIFY Ronni Adams MD: MODIFY, MODIFY Ronni Adams MD: MODIFY Event Display: Discharge/Transfer Note Hospital Authored Date: [id number] Patient: ??MICHELLE AYALA ? Age:??62 Years?Sex:??Female?:??1960?? Patient Information Discharge Location: Primary Care Physician: Yolande Gallagher Admit Date/Time: 04/16/23 08:25 Discharge Date/Time: 04/17/23 Discharge Disposition Discharge Disposition: Home with Home Health Discharge Diagnosis Antibiotic-associated diarrhea (K52.1) Pseudomonas infection (A49.8) ESRD on dialysis (N18.6) COPD without exacerbation (J44.9) LALI (obstructive sleep apnea) (G47.33) Type 2 diabetes mellitus (E11.9) Mood disorder (F39) ?? _ Discharge Medications Acetaminophen (Tylenol 325 mg oral tablet)?975?Milligram?By Mouth?Every 6 hours?for 14?Days amiTRIPTYLINE (amitriptyline 100 mg oral tablet)?100?Milligram?By Mouth?Daily at bedtime Aspirin (aspirin 81 mg oral delayed release tablet)?81?Milligram?1?tablet?By Mouth?Daily Atorvastatin (atorvastatin 10 mg oral tablet)?1?tab(s)?10?Milligram?By Mouth?Daily Cefepime (cefepime 2 g intravenous injection)?2,000?Milligram?IVPB?Every Tuesday, and Tuesday Diazepam (diazepam 2 mg oral tablet)?2?Milligram?1?tablet?By Mouth?2 times a day?as needed?Anxiety?Other Epoetin Thomas?0.5?Milliliter?20,000?unit(s)?Subcutaneous Injection?Every week ferric citrate (Auryxia 210 mg oral tablet)?2?tab(s)?420?Milligram?By Mouth?3 times a day with meals HydrOXYzine (hydrOXYzine hydrochloride 25 mg oral tablet)?1?tab(s)?25?Milligram?By Mouth?4 times a day?as needed?for anxiety Loperamide (loperamide 2 mg oral capsule)?2?Milligram?By Mouth?Every 3 hours?as needed?Loose Stool Metoprolol (metoprolol 25 mg oral tablet, extended release)?25?Milligram?By Mouth?Daily Midodrine (midodrine 5 mg oral tablet)?10?Milligram?2?tablet?By Mouth?Daily?asneeded?hypotension for dialysis?other Mirtazapine (Remeron Tablet)?22.5?Milligram?By Mouth?Daily at bedtime Omeprazole?40?Milligram?By Mouth?2 times a day Oxycodone (oxyCODONE 5 mg oral tablet)?10?Milligram?By Mouth?Every 4 hours?as needed?for 5?Days?Pain , Moderate PROCHLORperazine (prochlorperazine 5 mg oral tablet)?5?Milligram?By Mouth?3 times a day?as needed?Nausea Ropinirole (Requip)?1?Milligram?By Mouth?3 times a day Venlafaxine (venlafaxine 75 mg oral tablet)?1?tab(s)?75?Milligram?By Mouth?Daily?for 30?Days ? Medications Started Amitriptyline Diazepam --- both refilled at pt request ?? Prochlorperiazine Loperamide Medications Discontinued none Doses Changed none PCP Follow-Up/Heads-Up Patient admitted to the hospital for diarrhea which was most likely a side effect of her antibioticmedication.?She should follow-up with infectious disease outpatient and continue cefepime??for 6weeks. Please review??her current psychiatric regimen, patient requests being connected to [facility] in the outpatient setting and asked for refills of a few of her psychiatric medications as above. Hospital Course 63-year-old female k/c of COPD/ILD, Obesity/LALI, type 2 diabetes, ESRD on HD, history of infected AV graft was removed on 04/10 and had permacath placed, was discharged on 04/14 with plan to continuecefepime for 6 weeks, presented to[facility] with 2 days of diarrhea.?? Her stool was tested and was negative for C. difficile,??stool??viral panel??also negative. ??Her symptoms resolved??and also improved with as needed Imodium. By??04/17/23 the patient was medically stable with significant improvement in initial presenting symptoms.??Patient is appropriate for discharge home with the following instructions outlined by problem below: ?? Diarrhea ??Negative C. difficile and stool PCR Recommendations: ?May use Imodium as needed at home, maintain adequate hydration and high- fiber diet - prochlorperezine??PRN nausea ?? Infected AV graft ??S/p excision and debridement, repair of brachial artery on 04/10. At this time ID was involved for Pseudomonas infection in tissue Last seen by ID on 04/16 Recommendations: ??? Continue 6-week course of IV cefepime 2 g postdialysis Tuesday??between 04/10- 05/21 ?Monitor labs weekly??and consider??surveillance blood cultures 5 to 7 days after antibiotic completion ??? Follow-up with ID outpatient ?? ESRD on HD: Continue HD via permacath??Tuesday and follow-up with renal outpatient ?? [id number] MR-h/o endocarditis: Continue aspirin, statin, metoprolol ??COPD-ILD: Stable continue home inhalers-patient on oxygen at home as needed ??DM2: Follow-up with PCP ??Rest leg syndrome: Continue ropinirole Mood disorder: Continue amitriptyline, venlafaxine, hydroxyzine and diazepam as needed for anxiety follow-up with [facility] and PCP ?? Resolved medical problems: Elevated troponin: No chest pain, likely in the setting of ESRD Vaginal candidiasis: Treated with fluconazole Objective Measurements?? Height: 152.4 cm (04/17/23) Weight: 62.6 kg (04/17/23) Dry Weight: 62.6 kg (04/17/23) Body Mass Index:??26.95 kg/m2??High (04/17/23) ? Vital Signs?? Temperature: 98 DegF (04/17/23 11:51:00) Temperature Route: Oral (04/17/23 11:51:00) Pulse Rate: 86 bpm (04/17/23 11:51:00) Respiratory Rate: 18 br/min (04/17/23 11:51:00) Systolic Blood Pressure: 106 mm Hg (04/17/23 11:51:00) Diastolic Blood Pressure: 63 mm Hg (04/17/23 11:51:00) Blood pressure sites: Arm, right (04/17/23 11:51:00) Mean Arterial Pressure: 77 mm Hg (04/17/23 11:51:00) Pulse Pressure: 43 mm Hg (04/17/23 11:51:00) Oxygen Saturation: 97 % (04/17/23 11:51:00) Mode of Delivery (Oxygen): Room air (04/17/23 11:51:00) Early Warning Score: 1 (04/17/23 12:16:27) ? . Physical Exam General Appearance: The patient is??in NAD. Head: atraumatic EENT: MMM, no scleral icterus, EOMI Cardiovascular: RRR S1 and S2 heard with no M/R/G. No JVD. Respiratory: ??Breath sounds clear to auscultation bilaterally. No wheezing. room air.?? GI: Soft. Nontender and nondistended. Normal bowel sounds present throughout abdomen.?? MS: ??No edema or erythema in the lower extremities. left UE fistula. Skin: warm, dry Neuro: ??No slurred speech. ??Patient seen moving their upper and lower extremities independently. Psych: Alert and oriented x3.?? Lines: ??Right permcath. Consultants Renal Javier PETERSON, Pranay Ruvalcaba MD, Raven Pending Results Ova and Parasite Exam ordered on 04/16/2023 Patient Education Titles Diet for Vomiting or Diarrhea (Adult)?? Cefepime Injection?? Follow-Up Appointments Added Follow Up ?Time Frame ?Comments Antony SIMON, Yolande Arreaga?1 week: call to discuss follow up visit Patient Instructions You are admitted to the hospital for diarrhea which was negative for C. difficile or other infectious causes.?? This is most likely a side effect of the antibiotic you are on for your pseudomonal infection.?? You should continue taking the antibiotic??as prescribed. ??You can take cwtm-ppr-kqaepzk probiotics or Imodium??as needed for diarrhea.?? You should maintain adequate hydration by drinking plenty of fluids, eating a high-fiber diet??to help??bulk up your stool. ??If you develop fever, chills, miss your IV antibiotics, or unable to??hold down food or fluids??without vomiting??please return to the emergency department.?? Please call your PCP if you??have ongoing diarrhea so that they can reassess for any changes. Post Discharge Care Activity: ??OOB as Sagrario With Assistance ?? Code Status: ??Full Resuscitation ?? Discharge ?04/17/23 14:08:00 EST Discharge Prescriptions ?ePresKarlee clark 3, 04/17/23 14:08:00 EST ?? *Denotes mandatory morillo ?? *I certify that this patient is under my care and that I or an allowed non- physician working with me had a face to face encounter with the patient on this date:??04/17/2023 16:14 ?? *The encounter with the patient was in whole, or in part, for the following medical condition, which is the primary diagnosis(es) for home health care:??Antibiotic-associated diarrhea (K52.1) Pseudomonas infection (A49.8) ESRD on dialysis (N18.6) COPD without exacerbation (J44.9) LALI (obstructive sleep apnea) (G47.33) Type 2 diabetes mellitus (E11.9) Mood disorder (F39) ? *Select the indications for the discipline/s that are being arranged for this patient. Nursing (select all that apply): [_] None [_X] Medication management (reconciliation, teaching)?? [_] Chronic disease management?? [_] Wound care and treatment?? [_] Home safety evaluation [_X] Administer SQ/IM/IV medications?? [_] Cath care?? [_] [...] *Homebound due to (select all that apply): [X_] Inability to leave home without assistance/supervision [_] Inability to ambulate without assistance [_] Pain [_] Decreased strength and endurance [_] Unsteady gait [_] Severe SOB and fatigue [_] Impaired transfers [_] Inability to negotiate stairs [_] Limited weight bearing [_] Mental status change? *Physician Signature:??Ronni Adams MD ?? *By signing this, I certify that I have personally evaluated the patient and agree with the findings and recommendations as documented above. ? Results Discharge Labs BLOOD COUNT & DIFF WBC 5.0 k/mm3 ()?? 04/17/2023 01:51 RBC 3.23 m/mm3 (Low)?? 04/17/2023 01:51 Hgb 9.7 Gm/dL (Low)?? 04/17/2023 01:51 Hct 31.2 % (Low)?? 04/17/2023 01:51 MCV 96.6 femtoliters ()?? 04/17/2023 01:51 MCH 30.0 pg ()?? 04/17/2023 01:51 MCHC 31.1 g/dL (Low)?? 04/17/2023 01:51 Platelet Count 205 k/mm3 ()?? 04/17/2023 01:51 RDW-SD 55.8 femtoliters (High)?? 04/17/2023 01:51 MPV 10.2 femtoliters ()?? 04/17/2023 01:51 Nucleated RBC (Automated) 0.0 #/100 WBC'S ()?? 04/17/2023 01:51 Abs. NRBC 0.0 k/mm3 ()?? 04/17/2023 01:51 Abs. Neut 3.0 k/mm3 ()?? 04/17/2023 01:51 Abs. Lymph 1.2 k/mm3 ()?? 04/17/2023 01:[address] [facility] 0.4 k/mm3 ()?? 04/17/2023 01:51 Abs. Eo 0.4 k/mm3 ()?? 04/17/2023 01:51 Abs. Baso 0.0 k/mm3 ()?? 04/17/2023 01:51 Neut % 58.7 % ()?? 04/17/2023 01:51 Lymph % 24.3 % ()?? 04/17/2023 01:51 [facility] % 7.6 % ()?? 04/17/2023 01:51 Eos % 8.2 % (High)?? 04/17/2023 01:51 Baso % 0.8 % ()?? 04/17/2023 01:51 Imm Gran 0.4 % ()?? 04/17/2023 01:51 Abs. Imm Gran 0.0 k/mm3 ()?? 04/17/2023 01:51 ?? CARDIAC Nt-Probnp 43019 pg/mL (High)?? 04/16/2023 01:52 High Sensitivity Troponin (HSTnT) 81 ng/L (Critical)?? 04/16/2023 01:52 ?? CHEM GENERAL Sodium 132 mmol/L (Low)?? 04/17/2023 01:51 Potassium 4.5 mmol/L ()?? 04/17/2023 01:51 Chloride 95 mmol/L (Low)?? 04/17/2023 01:51 Bicarbonate Level 22 mmol/L ()?? 04/17/2023 01:51 Anion Gap 15 ()?? 04/17/2023 01:51 Glucose Level 92 mg/dL ()?? 04/16/2023 01:52 Glucose, POC 82 mg/dL ()?? 04/17/2023 11:42 BUN 43 mg/dL (High)?? 04/16/2023 01:52 Creatinine-Blood 6.1 mg/dL (High)?? 04/16/2023 01:52 Estimated GFR Creatinine 7 ML/MIN/1.73 M2 ()?? 04/16/2023 01:52 Calcium 8.8 mg/dL ()?? 04/16/2023 01:52 Protein, Total 6.2 Gm/dL ()?? 04/16/2023 01:52 Albumin 3.3 Gm/dL (Low)?? 04/16/2023 01:52 AG Ratio 1.1 ()?? 04/16/2023 01:52 Alkaline Phosphatase 89 units/L ()?? 04/16/2023 01:52 Lipase 15 units/L ()?? 04/16/2023 01:52 AST (SGOT) 11 units/L ()?? 04/16/2023 01:52 ALT (SGPT) <5 units/L ()?? 04/16/2023 01:52 Bilirubin, Total 0.2 mg/dL ()?? 04/16/2023 01:52 ? HEME OTHER Hold Blue Top SPECIMEN DISCARDED AFTER 4 HOURS. ()?? 04/16/2023 01:52 ? MISC. CHEMISTRY Hold Morfin Top SPECIMEN DISCARDED AFTER 1 WEEK ()?? 04/16/2023 01:52 ? SEROLOGY INF DISEASE C.difficile Toxin Negative. C.Difficile bacterial antigen and toxin not detected. A (N)?? 04/16/2023 05:40 ? STOOL STUDIES GI PCR, Campylobacter NEGATIVE ()?? 04/16/2023 05:40 GI PCR, Plesiomonas shigelloides NEGATIVE ()?? 04/16/2023 05:40 GI PCR, Salmonella NEGATIVE ()?? 04/16/2023 05:40 GI PCR, Vibrio NEGATIVE ()?? 04/16/2023 05:40 GI PCR, Vibrio cholerae NEGATIVE ()?? 04/16/2023 05:40 GI PCR, Yersinia enterocolitica NEGATIVE ()?? 04/16/2023 05:40 GI PCR, Enteroaggregative E coli NEGATIVE ()?? 04/16/2023 05:40 GI PCR, Enteropathogenic E coli NEGATIVE ()?? 04/16/2023 05:40 GI PCR, Enterotoxigenic E coli NEGATIVE ()?? 04/16/2023 05:40 GI PCR, Vbekf-orznv-lwyoajsor E coli NEGATIVE ()?? 04/16/2023 05:40 GI PCR, Shigella/Enteroinvasive E coli NEGATIVE ()?? 04/16/2023 05:40 GI PCR, Cryptosporidium NEGATIVE ()?? 04/16/2023 05:40 GI PCR, Cyclospora cayetanensis NEGATIVE ()?? 04/16/2023 05:40 GI PCR, Entamoeba histolytica NEGATIVE ()?? 04/16/2023 05:40 GI PCR, Giardia lamblia NEGATIVE ()?? 04/16/2023 05:40 GI PCR, Adenovirus F 40/41 NEGATIVE ()?? 04/16/2023 05:40 GI PCR, Astrovirus NEGATIVE ()?? 04/16/2023 05:40 GI PCR, Norovirus GI/GII NEGATIVE ()?? 04/16/2023 05:40 GI PCR, Rotavirus A NEGATIVE ()?? 04/16/2023 05:40 GI PCR, Sapovirus NEGATIVE ()?? 04/16/2023 05:40 ?? URINE OTHER Est Creatinine Clearance 6.87 mL/min ()?? 04/17/2023 02:46 ? Microbiology ?? C. difficile Rapid Toxin Assay?? Completed?? Source: Stool Body Site: ?? Collected Dt/Tm: 04/16/2023 01:42 Last Updated Dt/Tm: 04/16/2023 11:02 ? 30??minutes spent on discharge ?? Michell Fields MD Internal Medicine PGY 2 Pager [phone] ?? Patient seen and discussed with??Angie PETERSON, Ronni Valdivia * Angie PETERSON, Ronni Valdivia: PERFORM Event Display: Discharge/Transfer Note Hospital Authored Date: [id number] Attending Attestation: I have??seen and evaluated??MICHELLE AYALA, on 04/17/23. ??I have??reviewed the patient???s medical history, findings on examination, diagnosis, and treatment. I have discussed the case and its management with the resident and agree with the findings and plan as documented in the resident???s note.? Additional Clarifying information:??Diarrhea related to antibiotics.?? Patient given education on this and on symptomatic management.?? Patient request multiple medications for discharge including for anxiety, sleep, and to help with diarrhea.?? Discussed diarrhea symptom management and return precautions.?? Sent prescriptions for medications as indicated on DC summary, but patient also requestedme to call [facility] to set up therapy for her.?? Assured her me calling was not going to help her and encouraged her to call to set up on her own. ? * Marissa Sommers RN: PERFORM Event Display: Patient Education/Instruction Authored Date: Inpatient Adult Discharge Instructions [address] [address] Name: MICHELLE AYALA : 1960 Visit: 04/16/2023 08:25:00 Current Date: 04/17/2023 14:19 Account: [id number] Inpatient Adult Discharge Instructions We would like [...] and their families. Surveys are administered by [employer] ?? If further treatment with your primary care physician or another doctor is recommended, it is important for you to keep the appointment. Call your primary care physician or return to the Emergency Department immediately if your condition worsens, fails to improve, or new symptoms develop. If you need to find a doctor, you can call [facility] Link for a referral at [phone] or toll free at [phone]) or log in to [email or web address].. ?? [facility], in keeping with [facility] guidance, no longer requires face masks for [...] a health care bella of your choosing. [employer] is a website that allows you to securely view your medical information including your hospital discharge summary, office visit summaries, medications and follow-up visits. You can also request appointments, renew medications, and request access to your medical information using a health care bella of your choosing, or just ask a question. You can enroll at [email or web address] or register during your next office visit. You have been discharged from [facility], Patient Care Unit: W4. If you have any questions regarding these instructions after you leave, please call us and we will be happy to assist you. [facility] Your Care Team Attending Physician Angie PETERSON, Ronni Valdivia Consulting Providers Peg PETERSON, Raven Discharging Providers Diamond PETERSON, Michell Reason for Admission pt was admitted for a fistulae reversal and had a port put in (inpt) discharged earlier today. states she is unable to keep anything in because of the amnt of diarrhea she is having. pt appears dry. states she is light headed Your Diagnosis COPD without exacerbation ESRD on dialysis Pseudomonas infection LALI (obstructive sleep apnea) Type 2 diabetes mellitus Mood disorder Tests Performed Below is a partial list of the tests performed during your hospitalization. You may have had other tests and procedures not included in this list. Please discuss all test results with your provider. C. difficile Rapid Toxin Assay CBC w/ Differential Comprehensive Metabolic Panel Electrolytes GI Profile, Stool, PCR GLUCOSE POC High??Sensitivity??Troponin T HOLD BLUE TUBE HOLD MORFIN TUBE Lipase ProBNP Primary Care Provider Yolande Gallagher Advance Directive Health Care Proxy on File Yes - Health Care Proxy Discharge Vitals Temperature: 98 DegF Height: 152.4 cm Pulse Rate: 86 bpm Weight: 62.6 kg Respiratory Rate: 18 br/min Body Mass Index:??26.95 kg/m2??High Systolic Blood Pressure: 106 mm Hg Body surface area: 1.63 Diastolic Blood Pressure: 63 mm Hg ?? Oxygen Saturation: 97 % ?? Studies Pending All tests and labs ordered during this hospital stay have been completed unless listed below. Please discuss all pending results with your provider listed above in these instructions. ?? Ova and Parasite Exam What to do next Instructions From Your Doctor You are admitted to the hospital for diarrhea which was negative for C. difficile or other infectious causes.?? This is most likely a side effect of the antibiotic you are on for your pseudomonal infection.?? You should continue taking the antibiotic??as prescribed. ??You can take uxpa-qfv-nlhuyzn probiotics or Imodium??as needed for diarrhea.?? You should maintain adequate hydration by drinking plenty of fluids, eating a high-fiber diet??to help??bulk up your stool. ??If you develop fever, chills, miss your IV antibiotics, or unable to??hold down food or fluids??without vomiting??please return to the emergency department.?? Please call your PCP if you??have ongoing diarrhea so that they can reassess for any changes. Discharge Orders Activity:??OOB as Sagrario With Assistance Code Status:?? Full Resuscitation You Need to Schedule the Following Appointments Follow Up with??Antony SIMON, Yolande Arreaga When:??Within 1 week: call to discuss follow up visit Where: [address] [place] [id number]- Discharge Medications MICHELLE AYALA :1960 Visit Date:04/16/2023 Medications: Please continue your medications until treatment is completed or stopped by your provider. Medications not listed below should be discontinued. Discuss any questions related to medications with your provider. What How Much When Instructions Next Dose New Cefepime (cefepime 2 g intravenous injection) 2,000 Milligram IV Piggyback Every Tuesday, and Tuesday New Loperamide (loperamide 2 mg oral capsule) 2 Milligram Oral Every 3 hours as needed for Loose Stool Pickup at [facility] 3 as needed Changed PROCHLORperazine (prochlorperazine 5 mg oral tablet) 5 Milligram Oral 3 times a day as needed for Nausea Pickup at [facility] 3 as needed Changed amiTRIPTYLINE (amitriptyline 100 mg oral tablet) 100 Milligram Oral Daily at Bedtime Pickup at [facility] 3 Tonight 9pm Unchanged Acetaminophen (Tylenol 325 mg oral tablet) 975 Milligram Oral Every 6 hours Duration: 14 Days as needed Unchanged Aspirin (aspirin 81 mg oral delayed release tablet) 1 tab(s) Oral Daily Mon 9am Unchanged Atorvastatin (atorvastatin 10 mg oral tablet) 1 tab(s) Oral Daily Mon 9am Unchanged Diazepam (diazepam 2 mg oral tablet) 1 tab(s) Oral Twice a day as needed for Other Anxiety ?? Pickup at [facility] 3 as needed Unchanged Epoetin Thomas 20,000 unit(s) Subcutaneous Injection Every week as ordered Unchanged ferric citrate (Auryxia 210 mg oral tablet) 2 tab(s) Oral 3 times a day with meals Tonight 5pm Unchanged HydrOXYzine (hydrOXYzine hydrochloride 25 mg oral tablet) 1 tab(s) Oral 4 times a day as needed for for anxiety as needed Unchanged Metoprolol (metoprolol 25 mg oral tablet, extended release) 25 Milligram Oral Daily Mon 9am Unchanged Midodrine (midodrine 5 mg oral tablet) 2 tab(s) Oral Daily as needed for other hypotension for dialysis ?? as needed Unchanged Mirtazapine (Remeron Tablet) 22.5 Milligram Oral Daily at Bedtime Tonight 9pm Unchanged Omeprazole 40 Milligram Oral Twice a day Tonight 9pm Unchanged Oxycodone (oxyCODONE 5 mg oral tablet) 10 Milligram Oral Every 4 hours as needed for Pain , Moderate Duration: 5 Days as needed Unchanged Ropinirole (Requip) 1 Milligram Oral 3 times a day Tonight 9pm Unchanged Venlafaxine (venlafaxine 75 mg oral tablet) 1 tab(s) Oral Daily Duration: 30 Days Mon 9am Pharmacy Information [facility] 3: [address], [place] [id number] [phone] Test Results Below is a partial list of the most recent Laboratory test results done prior to this discharge. You may have had other tests and procedures not included in this list. Please discuss all test resultswith your provider. Est Creatinine Clearance - 6.87 mL/min (04/17/2023) C. difficile Rapid Toxin Assay (04/16/2023) ???C.difficile Toxin - Negative. C.Difficile bacterial antigen and toxin not detected. A CBC w/ Differential (04/17/2023) ???WBC - 5.0 k/mm3???RBC - 3.23 m/mm3???Hgb - 9.7 Gm/dL???Hct - 31.2 %???MCV - 96.6 femtoliters???MCH - 30.0 pg???MCHC - 31.1 g/dL???Platelet Count - 205 k/mm3???RDW-SD - 55.8 femtoliters???MPV - 10.2 femtoliters???Nucleated RBC (Automated) - 0.0 #/100 WBC'S???Abs. NRBC - 0.0 k/mm3???Abs. Neut - 3.0 k/mm3???Abs. Lymph - 1.2 k/mm3???Abs. [facility] - 0.4 k/mm3???Abs. Eo - 0.4 k/mm3???Abs. Baso - 0.0 k/mm3???Neut % - 58.7 %???Lymph % - 24.3 %???[facility] Mary % - 7.6 %???Eos % - 8.2 %???Baso % - 0.8 %???Imm Gran- 0.4 %???Abs. Imm Gran - 0.0 k/mm3 Comprehensive Metabolic Panel (04/16/2023) ???Sodium - 136 mmol/L???Potassium - 4.4 mmol/L???Chloride - 98 mmol/L???Bicarbonate Level - 23 mmol/L???Anion Gap - 15???Glucose Level - 92 mg/dL???BUN - 43 mg/dL???Creatinine-Blood - 6.1 mg/dL???Estimated GFR Creatinine - 7 ML/MIN/1.73 M2???Calcium - 8.8 mg/dL???Protein, Total - 6.2 Gm/dL???Albumin - 3.3 Gm/dL???AG Ratio - 1.1???Alkaline Phosphatase - 89 units/L???AST (SGOT) - 11 units/L???ALT (SGPT) - <5 units/L? ?Bilirubin, Total - 0.2 mg/dL Electrolytes (04/17/2023) ???Sodium - 132 mmol/L???Potassium - 4.5 mmol/L???Chloride - 95 mmol/L???Bicarbonate Level - 22 mmol/L???Anion Gap - 15 GI Profile, Stool, PCR (04/16/2023) ???GI PCR, Campylobacter - NEGATIVE???GI PCR, Plesiomonas shigelloides - NEGATIVE???GI PCR, Salmonella - NEGATIVE???GI PCR, Vibrio - NEGATIVE???GI PCR, Vibrio cholerae - NEGATIVE???GI PCR, Yersinia enterocolitica - NEGATIVE???GI PCR, Enteroaggregative E coli - NEGATIVE???GI PCR, Enteropathogenic E coli - NEGATIVE???GI PCR, Enterotoxigenic E coli - NEGATIVE???GI PCR, Zywur-mykiy-dmyokigqc E coli -NEGATIVE???GI PCR, Shigella/Enteroinvasive E coli - NEGATIVE???GI PCR, Cryptosporidium - NEGATIVE???GI PCR, Cyclospora cayetanensis - NEGATIVE???GI PCR, Entamoeba histolytica - NEGATIVE???GI PCR, Giardia lamblia - NEGATIVE???GI PCR, Adenovirus F 40/41 - NEGATIVE???GI PCR, Astrovirus - NEGATIVE???GIPCR, Norovirus GI/GII - NEGATIVE???GI PCR, Rotavirus A - NEGATIVE???GI PCR, Sapovirus - NEGATIVE GLUCOSE POC (04/17/2023) ???Glucose, POC - 82 mg/dL High??Sensitivity??Troponin T (04/16/2023) ???High Sensitivity Troponin (HSTnT) - 81 ng/L HOLD BLUE TUBE (04/16/2023) ???Hold Blue Top - SPECIMEN DISCARDED AFTER 4 HOURS. HOLD MORFIN TUBE (04/16/2023) ???Hold Morfin Top - SPECIMEN DISCARDED AFTER 1 WEEK Lipase (04/16/2023) ???Lipase - 15 units/L ProBNP (04/16/2023) ???Nt-Probnp - 89244 pg/mL Allergies (NKA means No Known Allergies) Percocet 5/325??(Itch) Percocet??(itching) TraZODone Hydrochloride traMADol??(Unknown body region) Problems Active Problems??(5) COPD without exacerbation?? ESRD on dialysis?? Mood disorder?? LALI (obstructive sleep apnea)?? Type 2 diabetes mellitus?? Education Materials Below is the list of Educational Leaflet Providered with your Discharge Instructions. Diet for Vomiting or Diarrhea (Adult)?? Cefepime Injection?? Valuables and Belongings I fully understand and agree that [facility] accepts no responsibility for all my [...] to send valuables and belongings home. ?? Review of Valuable and Belonging List: With patient Date for Pt to Sign Valuables/Belongings: 04/16/23 08:18:00 ?? Other Discharge Information ? Pulmonary Rehab Status?? Pulmonary Rehab Discharge Status?? [...] are strongly encouraged to quit. Please call [facility] at [phone] or [phone] Genie ([phone]) or log in to [email or web address] for referrals to smoking cessation programs. ?? 225 Suicide & Crisis Lifeline is available 13/12 if you or someone you know needs to find a reason to keep living. By calling 000 you'll be connected to a skilled, trained counselor at a crisis center in your area. INPATIENT DISCHARGE INSTRUCTIONS SIGNATURE PAGE MICHELLE AYALA Location:[facility] Registration Date and Time:04/16/2023 08:25 EST Primary Care Physician: Yolande Gallagher, Attending Physician: Ronni Adams MD, I MICHELLE AYALA, have received the above patient education materials/instructions and have verbalized understanding. If ambulance or transport services are being used I further acknowledge being given a choice of service. ?? If you need to contact me, please call me at this number: . Patient/Plastic Jig And Fixture Builder Name: Patient/Plastic Jig And Fixture Builder Signature: Relationship to Patient: Witness Name/Signature: Date: * Michell Fields MD: PERFORM Event Display: Patient Education Leaflets Authored Date: [id number] Diet for Vomiting or Diarrhea (Adult) ?? [id number] Diet for Vomiting or Diarrhea (Adult) Your symptoms may return or get worse after eating certain foods listed below. If this happens, stop eating these foods until your symptoms ease and you feel better. Once the vomiting stops, follow the steps below.?? During the first 12 to 24 hours During the first 12 to 24 hours, follow this diet: ??? Drinks.??Have plain water, sports drinks (like electrolyte solutions), drinks without caffeine, mineral water (plain or flavored), and clear fruit juices. Don't have drinks with caffeine or citrus juices. This is because they are high in acid and can irritate your stomach. ??? Soups. Have clear broth. ??? Desserts. Have plain gelatin, frozen ice pops, and fruit juice bars without pieces of fruit. As you feel better, you may add 6??to 8 ounces of yogurt per day. If you have diarrhea, don't have??foods or drinks with sugar, high-fructose corn syrup, or sugar alcohols. ?? During the next 24 hours During the next 24 hours, you may add these to the above: ??? Hot cereal, plain toast, bread, rolls, and crackers ??? Plain noodles, rice, mashed potatoes, and chicken noodle or rice soup ??? Unsweetened canned fruit (not pineapple) and bananas Don't eat more than??15 grams of fat a day. Do this by staying away from margarine, butter, oils, mayonnaise, sauces, gravies, fried foods, peanut butter, meat, poultry, and fish. Don't eat much fiber. Stay away from??raw or cooked vegetables, fresh fruits (except bananas), and bran cereals. Limit how much??caffeine and chocolate you have. Don't use any??spices or seasonings except salt. ?? During the next 24 hours Slowly go back to your normal diet, as you feel better and your symptoms ease. ?? Last Reviewed Date: 2021 ?? 5454-1654 [employer]. All rights reserved. This information is not intended as a substitute for professional medical care. Always follow your healthcare professional's instructions. ?? * Michell Fields MD: PERFORM Event Display: Patient Education Leaflets Authored Date: [id number] Cefepime Injection ?? [id number] Cefepime Injection Uses For treating bacterial infection. ?? Instructions Carefully follow the instructions for preparing this medicine before injection. The medicine needs to be mixed before being injected. Check the medicine before each use. If the liquid medicine has any particles in it, appears discolored, or if the vial appears damaged, do not use it. Protect medicine from light. Speak with your nurse or pharmacist about how long the medicine can be stored safely at room temperature or in the refrigerator before it needs to be discarded. Never use any medicine that has . Space doses evenly to keep a steady amount of medicine in the body. If you miss a dose, contact your doctor for instructions. Tell your doctor and pharmacist about all your medicines. Include prescription and oqvd-oeb-ktcnxondggaabdjg, vitamins, and herbal medicines. Tell your doctor if symptoms do not get better or if they get worse. Keep using this medicine for the full number of days that it is prescribed. Do not stop the medicine even if you start to feel better. Keep all appointments for medical exams and tests while on this medicine. ?? Cautions Tell your doctor and pharmacist if you ever had an allergic reaction to a medicine. Some patients taking this medicine have experienced serious side effects. Please speak with your doctor to understand the risks and benefits associated with this medicine. This medicine is associated with a rare, but serious problem of the liver. Speak to your doctor about the early signs of liver problems and the benefits and risks of using this medicine. There is an increased risk of bleeding while on this medicine, please tell your doctor or nurse if you notice any excessive bleeding or bruising. Do not use the medication any more than instructed. Watch for excessive bruising or bleeding. Contact your doctor if you notice any. Speak with your health care provider before receiving any vaccinations. Please tell your doctor if you have moderate to severe diarrhea while on this medicine. Do not treat the diarrhea with pmpl-rsp-flexgad diarrhea medicine. Tell the doctor or pharmacist if you are , planning to be , or . Please tell all your doctors and dentists that you are on this medicine before they provide care. Do not start or stop any other medicines without first speaking to your doctor or pharmacist. Ask your pharmacist how to properly throw away used needles or syringes. Do not share this medicine with anyone who has not been prescribed this medicine. ?? Side Effects The following is a list of some common side effects from this medicine. Please speak with your doctor about what you should do if you experience these or other side effects. ??? pain, redness, swelling near injection ??? stomach upset or abdominal pain ??? yeast infection of mouth ??? vaginal itching or yeast infection Call your doctor or get medical help right away if you notice any of these more serious side effects: ??? bleeding or bruising ??? confusion ??? severe, watery or bloody diarrhea ??? hallucinations (unusual thoughts, seeing or hearing things that are not real) ??? signs of liver damage (such as yellowing of eye or skin, dark urine, or unusual tiredness) ??? muscle aches, spasms or abnormal movements ??? seizures ??? shortness of breath ??? urinating less often ??? dark urine A few people may have an allergic reaction to this medicine. Symptoms can include difficulty breathing, skin rash, itching, swelling, or severe dizziness. If you notice any of these symptoms, seek medical help quickly. ?? Extra Please speak with your doctor, nurse, or pharmacist if you have any questions about this medicine. ?? [email or web address] IMPORTANT NOTE: This document tells you briefly how to take your medicine, but it does not tell youall there is to know about it. Your doctor or pharmacist may give you other documents about your medicine. Please talk to them if you have any questions. Always follow their advice. There is a more complete description of this medicine available in [place]alan. Scan this code on your smartphone or tablet or use the web address below. You can also ask your pharmacist for a printout. If you have any questions, please ask your pharmacist. The display and use of this drug information is subject to Terms of Use. Copyright(c) 2022 [employer]. ?? [employer]. All rights reserved. This information is not intended as a substitute for professional medical care. Always follow your healthcare professional's instructions. ?? Consult note * Dilan Rosado MD: PERFORM, MODIFY Event Display: Consultation Note Authored Date: [id number] Patient: ??MICHELLE AYALA ? Age:??62 Years?Sex:??Female?:??1960?? Chief Complaint pt was admitted for a fistulae reversal and had a port put in (inpt) discharged earlier today. states she is unable to keep anything in because of the amnt of diarrhea she is having. pt appears dry. states she is light headed Reason for Consultation Diarrhea on cefepime C. difficile negative Referring physician Dr. Chen DO Consulting physician??Dr.Urmee Peg PETERSON History of Present Illness Ms. Ayala is a??62-year-old female with past medical history of end-stage renal disease on maintenance hemodialysis patient had a recent history of infected AV graft with removal of the graft lastweek and culture was growing Pseudomonas and she has been on cefepime for total duration of 6 weeksordered she was discharged 2 days ago and presents back with profuse diarrhea voices no complaints of any abdominal pain has complaints of nausea and vomiting no complaints of any fever but does say she had some chills no complaints of any cough or cold shortness of breath. Patient was noted to be afebrile blood pressure stable, examination is??mild abdominal tenderness.,Labs are??unremarkable with stated being negative and stool pathogen panel is negative Patient had blood cultures done on 04/09, 04/10 have been negative Patient currently is on cefepime??2, 2, 2?postdialysis Review of Systems Constitutional:??No weight loss, fever, chills, weakness or fatigue. Allergy/Immune: Denies any??Eczema or hives Eyes:??No visual loss, blurred vision, double vision or yellow sclera ENT:??No hearing loss, sneezing, congestion, runny nose or sore throat. Respiratory:??No shortness of breath, cough or sputum production. Cardiovascular:??No chest pain, chest pressure or chest discomfort. No palpitations or pedal edema. Neurologic:??No headache, dizziness, syncope, unilateral weakness, ataxia, numbness or tingling in the extremities. No change in bowel or bladder control. Musculoskeletal:??No muscle pain, back pain, joint pain or stiffness. Hematologic/Lymphatics:??No bleeding or bruising. No painful lymph nodes. Skin:??Swelling noted on the left??arm area??,??has dialysis catheter in the right chest Endocrine:??No reports of sweating. No cold or heat intolerance. No polyuria or polydipsia. Psychiatric:??No depression or anxiety. Physical Exam Vitals & Measurements T:??97.8?F?? TMIN:??97.5?F?? TMAX:??98.2?F?? HR:??81??(Peripheral)?? RR:??17?? BP:??109/69?? SpO2:??97%?? WT:??56??kg?? Constitutional: Alert, in no distress. Mental Status: Oriented to person, place and time. Head: Normocephalic. Eyes: Pupils are equal, round and reactive to light. Ear, Nose and Throat: Oropharynx clear, mucous membranes moist. Trachea midline. Neck: Supple, Full range of motion. Respiratory: Clear to auscultation. No wheezing, rales or rhonchi. Cardiovascular: S1 S2 regular. No murmurs, rubs or gallops. Gastrointestinal: Abdomen soft, minimal tenderness??in the right upper quadrant noted??no rebound, non-distended. Normal bowel sounds. No hepatosplenomegaly. Genitourinary: No costovertebral angle tenderness. Neurologic: Moves all extremities spontaneously. Skin:??Left arm area??she does have some swelling??no erythema but minimal tenderness noted,??permacath in the right chest area Musculoskeletal: No cyanosis or clubbing. No gross deformities. Normal range of motion. Assessment/Plan Ms. Ayala is a??62-year-old female with past medical history of end-stage renal disease on maintenance hemodialysis patient had a recent history of infected AV graft with removal of the graft lastweek and culture was growing Pseudomonas and she has been on cefepime for total duration of 6 weeksordered she was discharged 2 days ago and presents back with profuse diarrhea voices no complaints of any abdominal pain has complaints of nausea and vomiting no complaints of any fever but does say she had some chills no complaints of any cough or cold shortness of breath. Patient was noted to be afebrile blood pressure stable, examination is??mild right upper quadrant??abdominal tenderness.,Labs are??unremarkable with stated being negative and stool pathogen panel is negative Patient has diarrhea but C. difficile is negative??,white count is normal??,stool??pathogen panel has been negative.?? At this point does not sound like any infectious??etiology for her??diarrhea. ?? Recommendations: Monitor??bowel movements daily??that is amount of??stool output Since her GI??panel is negative, C. difficile negative??we can??recommend Imodium,??caution if there is any belly distention Continue her current IV antibiotics??postdialysis??cefepime ?? Thank you for this consultation.? Dilan Rosado MD PGY4 Infectious diseases Fellow ? This patient was seen and discussed with attending physician, ??Peg Total time spent 60 minutes Problem List/Past Medical History Ongoing No qualifying data Medications Inpatient Acetaminophen Tablet, 650 mg, By Mouth, Every 4 hours, PRN amitriptyline 25 mg oral tablet, 100 mg, By Mouth, Daily at bedtime aspirin 81 mg oral delayed release tablet, 81 mg, By Mouth, Daily atorvastatin 10 mg oral tablet, 10 mg, By Mouth, Daily at bedtime Compazine Tablet, 5 mg, By Mouth, 4 times a day, PRN diazepam 2 mg oral tablet, 2 mg, By Mouth, 2 times a day, PRN Docusate Sodium Capsule, 100 mg= 1 capsule, By Mouth, 2 times a day, PRN Duoneb Inhalation Solution, 1 vials, BAND Nebulizer, 4 times a day, PRN ferrous sulfate 325 mg oral enteric coated tablet, 325 mg, By Mouth, 3 times a day hydrOXYzine pamoate 25 mg oral capsule, 25 mg, By Mouth, Every 6 hours, PRN Maalox Plus Liquid, 30 mL, By Mouth, Every 8 hours, PRN Melatonin Tablet, 9 mg, By Mouth, Daily at bedtime, PRN metoprolol 25 mg oral tablet, 25 mg, By Mouth, 2 times a day midodrine 5 mg oral tablet, 10 mg, By Mouth, Every 8 hours, PRN MiraLax Powder, 17 Gm= 1 pack/packet, By Mouth, Daily, PRN mirtazapine 15 mg oral tablet, 22.5 mg, By Mouth, Daily at bedtime NaCL 0.9% Flush, 3 mL, IV Push, Every 8 hours NaCL 0.9% Flush, 3 mL, IV Push, Every 8 hours, PRN pantoprazole 40 mg oral delayed release tablet, 40 mg, By Mouth, 2 times a day Robitussin DM Liquid, 10 mL, By Mouth, Every 4 hours, PRN rOPINIRole 1 mg oral tablet, 1 mg, By Mouth, 3 times a day Senna Tablet, 8.6 mg= 1 tablet, By Mouth, 2 times a day, PRN Simethicone Tablet, 80 mg, Chew, 3 times a day, PRN venlafaxine 37.5 mg oral capsule, extended release, 75 mg, By Mouth, Daily Home amiTRIPTYLINE, 100 mg, By Mouth, Daily at bedtime aspirin 81 mg oral delayed release tablet, 81 mg= 1 tablet, By Mouth, Daily atorvastatin 10 mg oral tablet, 10 mg= 1 tablet, By Mouth, Daily Auryxia 210 mg oral tablet, 420 mg= 2 tablet, By Mouth, 3 times a day with meals BD CARISA 2 GEN PEN NDL [id number] Compazine Tablet, 5 mg, By Mouth, Daily, PRN diazepam 2 mg oral tablet, 2 mg= 1 tablet, By Mouth, 2 times a day, PRN Epoetin Thomas, 18883 units= 0.5 mL, Subcutaneous Injection, Every week hydrOXYzine hydrochloride 25 mg oral tablet, 25 mg= 1 tablet, By Mouth, 4 times a day, PRN metoprolol 25 mg oral tablet, extended release, 25 mg, By Mouth, Daily midodrine 5 mg oral tablet, 10 mg= 2 tablet, By Mouth, Daily, PRN Omeprazole, 40 mg, By Mouth, 2 times a day oxyCODONE 5 mg oral tablet, 10 mg, By Mouth, Every 4 hours, PRN Remeron Tablet, 22.5 mg, By Mouth, Daily at bedtime Requip, 1 mg, By Mouth, 3 times a day Tylenol 325 mg oral tablet, 975 mg, By Mouth, Every 6 hours venlafaxine 75 mg oral tablet, 75 mg= 1 tablet, By Mouth, Daily Allergies Percocet 5/325??(Itch) Percocet??(itching) TraZODone Hydrochloride traMADol??(Unknown body region) Immunizations Vaccine Date Status influenza virus vaccine, inactivated - Not Given Comments : Patient Refuses pt already got vaccine Lab Results Test Name Test Result Date/Time WBC 5.1 k/mm3 04/16/2023 01:53 EST Hgb 8.5 Gm/dL 04/16/2023 01:53 EST Platelet Count 233 k/mm3 04/16/2023 01:53 EST BUN 43 mg/dL 04/16/2023 01:52 EST Creatinine-Blood 6.1 mg/dL 04/16/2023 01:52 EST GI PCR, Campylobacter NEGATIVE 04/16/2023 05:40 EST GI PCR, Plesiomonas shigelloides NEGATIVE 04/16/2023 05:40 EST GI PCR, Salmonella NEGATIVE 04/16/2023 05:40 EST GI PCR, Vibrio NEGATIVE 04/16/2023 05:40 EST GI PCR, Vibrio cholerae NEGATIVE 04/16/2023 05:40 EST GI PCR, Yersinia enterocolitica NEGATIVE 04/16/2023 05:40 EST GI PCR, Enteroaggregative E coli NEGATIVE 04/16/2023 05:40 EST GI PCR, Enteropathogenic E coli NEGATIVE 04/16/2023 05:40 EST GI PCR, Enterotoxigenic E coli NEGATIVE 04/16/2023 05:40 EST GI PCR, Nkize-nooac-qsfwhehjd E coli NEGATIVE 04/16/2023 05:40 EST GI PCR, Shigella/Enteroinvasive E coli NEGATIVE 04/16/2023 05:40 EST GI PCR, Cryptosporidium NEGATIVE 04/16/2023 05:40 EST GI PCR, Cyclospora cayetanensis NEGATIVE 04/16/2023 05:40 EST GI PCR, Entamoeba histolytica NEGATIVE 04/16/2023 05:40 EST GI PCR, Giardia lamblia NEGATIVE 04/16/2023 05:40 EST GI PCR, Adenovirus F 40/41 NEGATIVE 04/16/2023 05:40 EST GI PCR, Astrovirus NEGATIVE 04/16/2023 05:40 EST GI PCR, Norovirus GI/GII NEGATIVE 04/16/2023 05:40 EST GI PCR, Rotavirus A NEGATIVE 04/16/2023 05:40 EST GI PCR, Sapovirus NEGATIVE 04/16/2023 05:40 EST Culture/Event_id: ?Blood Culture/[id number]?? Collect date: ?04/10/23 10:19 ? Result Status: ?Auth (Verified) Result Date: ?04/15/23 23:01 ? SPECIMEN DESCRIPTION : BLOOD ?? SPECIAL REQUESTS : NONE ?? CULTURE : NO GROWTH 5 DAYS. ?? REPORT STATUS : FINAL 04/15/2023? Culture/Event_id: ?Fungal Culture, Non-Respiratory/[id number]?? Collect date: ?04/10/23 08:40 ? Result Status: ?Preliminary Result Date: ?04/15/23 13:33 ? SPECIMEN DESCRIPTION : SWAB LFT ARM WOUND ?? SPECIAL REQUESTS : NONE ?? DIRECT EXAM : NO FUNGAL ELEMENTS OBSERVED ?? CULTURE : NO FUNGI ISOLATED AFTER 5 DAYS?REPORT STATUS : ?? PRELIMINARY REPORT ? Culture/Event_id: ?Blood Culture, Second Order/[id number]?? Collect date: ?04/09/23 11:22 ? Result Status: ?Auth (Verified) Result Date: ?04/14/23 23:01 ? SPECIMEN DESCRIPTION : BLOOD ??NO SITE ?? SPECIAL REQUESTS : NONE ?? CULTURE : NO GROWTH 5 DAYS. REPORT STATUS : FINAL 04/14/2023?? * Raven Ruvalcaba MD: PERFORM Event Display: Consultation Note Authored Date: [id number] Attending Attestation:??I have seen and evaluated this patient.?I have discussed the case and its management with the Fellow and agree with the findings and plan as documented in the [place] note. Diarrhea is possibly abx related, so far infectious workup has??been negative. Monitor BM and consider Imodium ?? Continue pts??renally dosed Cefepime for??LUE AVG infection from??Pseudomonas aeruginosa s/p removal due to to complete a total 6 weeks course 04/10-05/22 ?? ID will sing off care Thank you * Javier PETERSON, Pranay I: MODIFY Event Display: Consultation Note Authored Date: [id number] CONSULTATION DATE: 04/16/2023 PRIMARY CARE PHYSICIAN: Susie Desai REQUESTING PHYSICIAN: Mata Horta D.O. REASON FOR CONSULTATION: Management of patient with end-stage renal disease. HISTORY OF PRESENT ILLNESS: Michelle Ayala is a 62-year-old female with history of end-stage renal disease secondary to diabetic nephropathy, who is dialyzed 3 times every week, Tuesday, , Tuesday at [facility] via right IJ Perm-A-Cath. The patient has history of infected AV graft. She underwent successful removal of the graft just last week. Wound culture grew Pseudomonas and she is supposed to be on cefepime for the next 6 weeks. She was discharged 2 days ago, comes back to the hospital with profuse diarrhea. The patient was tested negative for C. diff infection. Atthe time of my exam, the patient looks comfortable. Despite diarrhea, she still feels like she is volume overloaded and requesting to pull more fluids. Denies fever, denies abdominal pain, denies chills. Denies any blood in the bowel movements. REVIEW OF SYSTEMS: Negative except as mentioned above. ALLERGIES: PERCOCET, TRAMADOL, TRAZODONE. PAST MEDICAL HISTORY: End-stage renal disease as mentioned above, type 2 diabetes, hypertension, depression, hyperparathyroidism, anemia, COPD. SOCIAL HISTORY: Denies smoking, denies alcohol abuse or drug use. FAMILY HISTORY: Denies family history of ESRD. MEDICATIONS: Aspirin, amitriptyline, DuoNeb, atorvastatin, diazepam, ferrous sulfate, hydroxyzine, melatonin, metoprolol, prochlorperazine, pantoprazole, mirtazapine, midodrine, Effexor. PHYSICAL EXAMINATION: VITAL SIGNS: Blood pressure 110/65, heart rate 81, temperature 97.7, O2 sat 96% on room air. GENERAL: Appears stated age, in no acute distress. HEENT: Moist oral mucosa. NECK: No JVD. HEART: Rate is regular, S1, S2 present, no rub, no gallop. CHEST: Clear to auscultation on both sides. No rales, rhonchi, or wheezing. ABDOMEN: Soft, nontender, nondistended. Bowel sounds present. EXTREMITIES: No lower extremity edema. Left upper extremity, post-surgical site looks stable. No erythema, no drainage, no induration. Right IJ Perm-A-Cath site looks clean. NEUROLOGIC: Grossly nonfocal. PSYCHIATRIC: Normal mood and affect. LABORATORY DATA: White cell count 5.1, hemoglobin 8.5, hematocrit 26.7, platelets 253. Sodium 136, potassium 4.4, chloride 98, bicarbonate 23, BUN 33, creatinine 6.1. ASSESSMENT AND PLAN: Michelle Ayala is a 62-year-old female with history of end- stage renal disease,infected left upper extremity dialysis access, status post successful surgery last week, the patient comes to the hospital with profuse diarrhea. Tested negative for C. diff. We will arrange dialysis3 times every week, Tuesday, , Tuesday starting today. The patient will need to have completion of antibiotic course. As mentioned above, cefepime was prescribed for 6 weeks. The patient tested negative for C. diff infection. However, would check with infectious disease if we need to change antibiotic as that may be a potential reaction to cefepime. Defer to primary team and infectious disease service. Thank you very much for consult. We will continue to follow with you. Dictated by: Pranay Herrera M.D. Signing Clinician: Pranay Herrera M.D. Dictated: 04/16/2023 11:37:59 Transcribed: 06:21:43 AM Transcribed by: MARILEE DocID: [id number] PRELIMINARY REPORT UNLESS MANUALLY/ELECTRONICALLY SIGNED cc: Mata Horta D.O. [address], [address] Patient Care team information Care Team Personnel Name: Marissa Ayala RN Position: S RN Member Role: Primary Care Nurse Name: Enid Mcguire RN Position: S RN Member Role: Primary Care Nurse Name: Dolores Rojas RN Position: S RN Member Role: Primary Care Nurse Name: Jyotsna Cross NP Position: [facility] Associate Professional Member Role: Lifetime Consulting Provider Address: Address: [address] [place] [address] [facility] [place] [address]- Name: Sree Matamoros MD Position: [facility] Renal MD Member Role: Lifetime Consulting Physician Address: Address: [address] [place] [address] [facility] [address] Name: Yolande Gallagher Position: Reference Physician Member Role: PCP Address: Address: [address] [place] [id number]- Name: Denver Pierce DO Position: [facility] Renal MD Member Role: Lifetime Consulting Physician Address: Address: [address] [place] [address] [facility] [place] [address]- Name: Kamila Blair Position: [facility] Outreach Member Role: Lifetime Consulting Physician Name: Roberth Hargrove RN Position: [facility] RN Member Role: Primary Care Nurse Name: Bry Cook III, RN Position: [facility] RN Member Role: Primary Care Nurse Name: Darvin Cardona Position: [facility] Associate Professional Member Role: Lifetime Consulting Provider Address: Address: [address] [place] [id number]- Name: Phoebe Zazueta RN Position: [facility] RN Member Role: Primary Care Nurse Name: Alyssa Alcazar Position: [facility] Outreach Member Role: Lifetime Consulting Physician Name: Butch Maria MD Position: [facility] Renal MD Member Role: Lifetime Consulting Physician Address: Address: [address] [place] [address] [address] [facility] [place] [address]- Name: Xiao Navarro RN Position: [facility] RN Member Role: Primary Care Nurse Name: Velia Porter RN Position: [facility] RN Member Role: Primary Care Nurse Name: Deven DELGADO Attending Position: [facility] ED Medicine MD Name: Nitin Pryor RN Position: [facility] ED RN W/OE and Tasks Member Role: Patient Care Provider Name: Jesenia Leggett Position: [facility] ED TA [facility] Member Role: Patient Care Provider Care Team Related Persons Name: DENIA STEVENS Address: home [address] [address] Name: VIRGIL ROMO Address: [address] [place] [address] UM
[2023-05-07 18:25] LABS: Anion Gap 16 (12-20); Blood Urea Nitrogen 22 mg/dL (9-16); Carbon Dioxide 27 mmol/L (22-29); Chloride 101 mmol/L (96-108); Creatinine Clr Calc Pharmacy 18.1; Estimated Glomerular Filt Rate 18; Ethanol < 10 mg/dL; Glucose Random 104 mg/dL (60-115); Potassium 3.6 mmol/L (3.3-5.1); Sodium 140 mmol/L (135-145)
[2023-05-07 20:57] VITALS: BP 113/70; PULSE 81; RESP 16; TEMP 36.8; O2SAT 96
--- NOTE | 2023-05-07 20:58 | MHC.EDTECH ---
Patient was given dinner ,ate 100 % of meal drank 360 ml fluids ,vitals taken .
[2023-05-07] MEDS: Acetaminophen 325 MG TABLET 975 MG PO (21:00)
--- NOTE | 2023-05-07 21:21 | MHC.EDTECH ---
Patient snacking and talking on Phone ,vitals taken .
[2023-05-08 00:06] VITALS: BP 108/62; PULSE 83; RESP 15; TEMP 36.8; O2SAT 93
--- NOTE | 2023-05-08 00:09 | MHC.EDTECH ---
Pt said to this Pct that she thinks her oxygen is low this Pct took Pt vitals and 02 sat was 93 % on Room ,KESHIA Cho was made aware .
[2023-05-08 06:19] VITALS: BP 134/71; PULSE 76; RESP 16; TEMP 36.8; O2SAT 99
--- NOTE | 2023-05-08 07:08 | PC.NURSE ---
Patient eating breakfast, stating that she has done damage to her brain by sniffing rubbing alcohol and needs help.Reminded that she will be seen by care team today
[2023-05-08 07:54] VITALS: BP 108/70; PULSE 77; RESP 16; TEMP 37.2; O2SAT 92
[2023-05-08] MEDS: Acetaminophen 325 MG TABLET 650 MG PO (08:27)
--- NOTE | 2023-05-08 10:06 | MHC.RECOVRN ---
Met with pt in ED6H after consult placed to CARE Team for alcohol use, INH. Per triage note, pt had been BIBA from dialysis, pt states she wants to sniff alcohol, has not done so today. pt denies etoh/drug use. pt denies SI/HI/hallucinations. Pt laying on stretcher, awake, alert, easily engages in conversation. Pt reports many months, not quite a year ago she had been in the hospital for an extended period of time. Due to boredom, pt reports beginning to sniff alcohol prep pads and eventually rubbing alcohol, hand clinical services director, disinfecting wipes. Pt reports enjoying the euphoria and the situation has since escalated. Pt denies hx other addictive behaviors/substance use. Reports family hx OUD including brother and sister who due to overdose. Pt reports since beginning use, she has noticed memory impairments and black outs. Pt is concerned for her health and desires abstinence from this behavior. Pt reports one psychiatric hospitalization over 20 years ago. Pt lives alone, has PT-1 to dialysis 3x weekly. Pt interested in rehab, educated pt on inpatient level of care and informed pt she does not meet criteria at this time. Discussed outpatient supports, including [facility]. Pt is interested, written information was provided. Plan for pt to call [facility] Tuesday morning for intake, pts referral also sent to ELO Longoria [facility]. Pt denies questions or concerns for t/w. Pt provided with t/w contact information if needed.
[2023-05-08 10:18] VITALS: BP 137/71; PULSE 75; RESP 18; O2SAT 100
--- NOTE | 2023-05-08 11:55 | MHC.RECOVRN ---
Pts siblings requested to meet/speak with t/w. Siblings here from [place], staying with pt but planning to leave today. Very concerned about pts wellbeing overall. Siblings report pt is unable to take care of herself and is unsteady on her feet at home, will not take pt home without further evaluation for possible PT/STR. Provider and RN aware.
--- NOTE | 2023-05-08 14:05 | MHC.RECOVRN ---
Pts brother Adria requesting a call once pt has been evaluated by PT/medically cleared.
--- NOTE | 2023-05-08 17:50 | PC.NURSE ---
pt is not sure which medications she takes at home. family is going to supply list. med rec pending family telling us which she takes at home
[2023-05-08 18:03] VITALS: BP 112/78; PULSE 80; RESP 18; O2SAT 95
--- NOTE | 2023-05-08 18:48 | PC.NURSE ---
report given to overflow. transport pending
[2023-05-08] MEDS: LORazepam 1 MG TABLET 2 MG PO (19:39)
--- NOTE | 2023-05-08 19:59 | PC.NURSE ---
PT saturating at 88%, moved to bed 10, and place PT on 2l NC, pt saturation improved to 97%. PT has orders for prn oxygen.
--- NOTE | 2023-05-08 20:19 | PC.NURSE ---
family took home all belongings (including wheelchair) except 2 earrings, 4 rings, clip board, glasses.
--- NOTE | 2023-05-08 20:47 | PC.NURSE ---
pt arrived from main ED via stretcher with brother and sister. Vitals- 117/73 (104), o2- 92% on 2L NC, hr 80. PT reports she has a history of huffing products with Isopropyl Alcohol such as hand sanizter, and alcohol swabs. PT states she used just prior to coming to ED. PT came to ED to seek treatment for her addiction. PT endorsing WALTER, anxiety, agitation, tremors, and visual disturbances. Contacted providers for orders. Administered as per MAR. PT family at bedside with many questions, concerns and requests. Family provided medication list from recent ED visit at [facility]. Although the family reported that it was accurate, PT listed medications that she takes daily that were not on the list, mikhail reported that certain medication were discontinued that were on the list as active medications. When attempting to verify information from external medication list, the information did not coincide with her list from [facility] and medication she reported she takes were not recently filled with. PT receives case management supports from [facility] and [facility], This RN requested the family to obtain a list from product manager medical device as family states that they recently went over PT medications and have the information. Iker Odell is to call tomorrow with contact number for case planner and to request medication reconciliation with case planner. Plan of care ongoing
--- NOTE | 2023-05-08 21:18 | PC.NURSE ---
This rn verified only the medications that pt report, external medication list and paper medication list provided by family all match. Brother to call back in the morning with case management directoremployee relations manager
[2023-05-08 22:00] VITALS: BP 113/68; PULSE 90; RESP 16; TEMP 36.7; O2SAT 98
--- NOTE | 2023-05-09 05:36 | PC.NURSE ---
PT denies SI/HI/AV/HV- only came to ED for detox. Met with cataloging assistant. Care team consult ordered but it does not appear to have been done at this time
[2023-05-09 05:51] VITALS: BP 128/78; PULSE 83; RESP 20; TEMP 36.2; O2SAT 98
--- NOTE | 2023-05-09 07:34 | PC.NURSE ---
patient alert and oriented, respirations even and unlabored. requesting pain medication and ativan for anxiety. otherwise offering no other complaints, resting quietly in bed on phone no obvious signs of distress noted.
[2023-05-09] MEDS: LORazepam 1 MG TABLET PO (09:38)
[2023-05-09] MEDS: Acetaminophen 325 MG TABLET 975 MG PO (09:38)
--- NOTE | 2023-05-09 11:15 | PC.NURSE ---
physical therapy met with patient
--- NOTE | 2023-05-09 13:56 | MHC.CM.ED ---
Addendum entered by Alice Riddle 05/09/23 14:21: Copy of HCP obtained from [facility]. Original Note: Patient remains in ER overflow. Physical therapy eval completed. Short term rehab is recommended. Met with patient, sister Jenna and brother Sheng. Patient has been living with her daughter, Sindi. Patient goes to [facility] in [place] on , and Sat. Patient received 1 J&J, 1 Pfizer and 1 Moderna vaccine. Patient has been to [facility] in the past and is requesting referral there. Referral made via [facility]. Jenna and Sheng live in [place]. They will be returning home tomorrow morning. Sheng can be reached via telephone at [phone]. Continue to monitor for d/c needs.
--- NOTE | 2023-05-09 14:09 | PC.NURSE ---
call placed to Beatrice [phone] who is a trimming caser for patient, faxed over updated medication list which was then faxed to pharmacy. family remains at bedside.
[2023-05-09] MEDS: hydrOXYzine HCL 50 MG TABLET PO ×2 (16:00→22:22)
[2023-05-09] MEDS: Acetaminophen 325 MG TABLET 650 MG PO (16:01)
[2023-05-09 16:11] VITALS: BP 117/63; PULSE 91; RESP 16; TEMP 36.4; O2SAT 99
--- NOTE | 2023-05-09 16:19 | PM.IMHP ---
History of Present Illness Date of Service: 05/09/23 Chief Complaint: Need of dialysis A 62 years old lady with PMH of ESRD on HD, anxiety who presents to the hospital on 05/07 for SI. She presented from Dialysis center on Tuesday with concerns of SI. she was seen and evaluated by care team who did not think she is and cleared her for discharge. PT saw her and recommended SNF placement. family prefers that option. She is not suicidal or homocidal at this point. She requires dialysis as she is on TTS schedule. Review of Systems Review of Systems: No fever, chills or weakness No chest pain, palpitation No shortness of breath or coughing No abdominal pain, nausea or vomiting No urinary symptoms No any rash or wounds [facility] Medical History (Updated 05/09/23 @ 16:33 by Shine Burton MD) ESRD on dialysis Anxiety and depression Social History Advance Directives: Yes Advance Directives on File: Yes Advance Directives Date on File: 05/09/23 Meds Allergies Allergy/AdvReac Type Severity Reaction Status Date / Time oxycodone AdvReac Itching Verified 05/09/23 14:03 trazodone AdvReac Itching Verified 05/09/23 14:03 Active Medications: Current Medications Amitriptyline HCl (Amitriptyline Hcl 50 Mg Tablet) 100 mg PO BEDTIME ANGELA Mirtazapine (Mirtazapine 15 Mg Tablet) 45 mg PO BEDTIME ANGELA Prochlorperazine Maleate (Prochlorperazine Maleate 5 Mg Tablet) 5 mg PO TID PRN PRN Reason: nausea Home Medications Medication Instructions Recorded Confirmed Last Taken Type mirtazapine 45 mg tablet 22.5 mg PO BEDTIME 05/08/23 05/09/23 Unknown History albuterol sulfate 2.5 mg/3 mL 2.5 mg inhalation Q4H PRN wheezing 05/09/23 05/09/23 Unknown History (0.083 %) solution for nebulization albuterol sulfate 90 mcg/actuation 2 puff inhalation Q4H PRN wheezing 05/09/23 05/09/23 Unknown History aerosol inhaler (Ventolin HFA) aspirin 81 mg tablet,delayed 81 mg PO DAILY 05/09/23 05/09/23 Unknown History release docusate sodium 100 mg capsule 100 mg PO BID 05/09/23 05/09/23 Unknown History loperamide 2 mg capsule 2 mg PO Q3H PRN Diarrhea 05/09/23 05/09/23 Unknown History midodrine 10 mg tablet 10 - 20 mg PO TID PRN hemodialysis 05/09/23 05/09/23 Unknown History polyethylene glycol 3350 17 17 g PO DAILY PRN Constipation 05/09/23 05/09/23 Unknown History gram/dose oral powder (Miralax) sennosides 8.6 mg tablet (senna) 17.2 mg PO BID 05/09/23 05/09/23 Unknown History Physical Exam Vital Signs and Narrative: Vital Signs: Last Vital Signs Temp 97.6 F 05/09/23 16:11 Pulse 91 05/09/23 16:11 Resp 16 05/09/23 16:11 BP 117/63 05/09/23 16:11 Pulse Ox 99 05/09/23 16:11 O2 Del Method Nasal Cannula 05/09/23 05:51 O2 Flow Rate 2 05/09/23 05:51 BMI result Body Mass Index 28.3 Const: Other: Constitutional : Awake, interactive, not in distress Neck : Normal inspection, Supple Cardiovascular : RRR, no JVP, no lower extremity edema Respiratory : good bilateral air entry, no crackles, wheezes or rhonchi Gastrointestinal: soft, lax, Normal bowel sounds, Non tender Skin : Warm, Dry Neurological : Alert & oriented x3, No focal deficit Results Labs 05/07/23 18:03 05/07/23 18:03 Assessment and Plan (1) Anxiety: Status: Acute (2) ESRD on dialysis: Status: Acute Plan A 62 years old lady with PMH of ESRD on HD, anxiety who presents to the hospital on 05/07 for SI. needs dialysis ESRD on HD, needs dialysis on TTS schedule Nephro consult Midodrine on HD days Anxiety Continue home medications PHysical deconditioning PT rec STR DVT PPx Heparin The patient will need 2 overnight hospital stay for dialysis purposes and safe discharge plan to SNF. Quality Stroke Does the patient have a stroke diagnosis?: No VTE Prior VTE?: No VTE Risk Level:: Medical - moderate - high VTE Device Contraindication: Treatment Not Indicated VTE Drug Contraindication: N/A - Med Ordered
--- NOTE | 2023-05-09 16:29 | PHA.MEDREC ---
Addendum entered by Cassandra Mendez, [facility] 05/10/23 09:04: Spoke to patient again, patient was able to confirm most of medications on list, but claims hx shows she has not picked up since . Patient wanted lamictal and seroquel added to be getting here. Looked and claims and confirmed meds that were recently filled. Addendum entered by Amber Putnam, [facility] 05/09/23 17:26: Spoke with Dr. Burton. Per provider, included medications on list that was provided which have not been filled recently on on home list but left unconfirmed. Original Note: Pharmacy Consult ? Medication Reconciliation Pharmacy has completed the medication reconciliation. Unable to confirm most of the maintenance meds as [facility] reports that nothing has been recently filled since december. Medications in question are Amiodarone, amitriptyline, metoprolol, compazine, lactulose, flonase, ferric citrate, lamotrigine, hydroxyzine, calcitriol, atorvastatin, venlafaxine, and ropinerole. Mirtazepine and midodrine were confirmed by [facility] in [place] however they reported all other medications got transferred or discontinued. Patient knows that she can no longer take diazepam and said she was switched to lorazepam however there is no claims to show. I added OTC medications that she uses either daily or PRN. Patient mentioned that she did not want her daughter involved when asked for her number to call and verify. The lists provided were outdated and/or inaccurate.
--- NOTE | 2023-05-09 17:11 | PC.NURSE ---
patient able to stand and pivot into wheelchair, attempting to have bowel movement again in bathroom.
--- NOTE | 2023-05-09 17:43 | MHC.CM.ED ---
Addendum entered by Elsa Gardiner 05/09/23 19:04: Pt insurance plan is [employer]. IMM not necessary. Pt lives in an apartment independently. Has services with [facility] for PROCESS OPERATOR, 31 hours/week. Has assistance through her insurance with [employer], which provides medical and behavioral health care. Nerissa GONZALEZ at program [phone]. Information received from patient's brother, Adria Cordero ([phone]). [email or web address]. Adria lives at [address] [place] [address]. Pt sister, Jenna Shaffer was also present and is from [place] ([phone]). Pt tells CM that she would like meals on wheels. She uses PT1 services for dialysis T//Sat at [facility] in [place]. Pt receives SSI. Pt states her HCP is her daughter, Sindi Kramer, who lives in [place] with her and family. Pt states she is estranged from her daughter, and that her daughter does not respond to text or phone calls from her. She would like to make a new HCP. Pt brother is willing, but pt sister strongly feels pt should have her daughter. CM explained that it was the patient's decision and she could name anyone she wants as her HCP, as long as they are willing. Much family discussion occurred. CM spoke with patient and left the HCP discussion open at this time. CM will speak with patient when she is alone regarding HCP. She was getting pressured to keep her daughter as her HCP. Pt brother is agreeable if patient wants him. Has some concerns that he will be out of the country on business, but is always available by text. CM will need to follow up on HCP. PT recommends STR. Referral placed to [facility]. D/C plan: STR. Will need transport. CM will follow for d/c plans. Original Note: Pt to be admitted for dialysis. PT recommends STR. Waiting on bed offer from [facility]. Pt has [employer] insurance. Facility notified via careport of patient admission and request to follow. IMM completed with patient. CM will continue to follow for safe discharge plan.
--- NOTE | 2023-05-09 18:17 | MHC.EDTECH ---
This pct assumed care of pt at 1500 ,vitals taken ,pt had a lg soft bowel movement .
--- NOTE | 2023-05-09 18:28 | PC.NURSE ---
call placed to pharmacy for prn compazine, case management and family at bedside
[2023-05-09] MEDS: Heparin Sodium,Porcine 5,000 UNIT/ML VIAL 5000 UNIT SUBCUT (21:32)
[2023-05-09] MEDS: Docusate Sodium 100 MG CAPSULE PO (21:32)
[2023-05-09] MEDS: Sennosides 8.6 MG TABLET 17.2 MG PO (21:33)
[2023-05-09] MEDS: Mirtazapine 15 MG TABLET 22.5 MG PO (21:35)
[2023-05-09 22:01] VITALS: BP 105/68; PULSE 74; RESP 16; TEMP 36.9; O2SAT 94
[2023-05-09] MEDS: Amitriptyline HCl 50 MG TABLET 100 MG PO (22:25)
--- NOTE | 2023-05-09 22:43 | PC.NURSE ---
Assumed care of pt at 1915. PT alert and oriented. Family at bedside IV line placed in right hand. PT anxious about ordered medications. States they are messing with my meds . Informed PT of issues with med list as reported by pharmacy. Requested PRN. Administered medications as per JUL.
--- NOTE | 2023-05-09 23:01 | MHC.EDTECH ---
Patient refused to change out of green gown ,said she likes that one ,RN aware .
[2023-05-10] MEDS: rOPINIRole HCL 1 MG TABLET PO ×2 (01:09→23:48)
[2023-05-10] MEDS: 0.9 % Sodium Chloride Flush 3 ML SYRINGE IVFLUSH (01:10)
[2023-05-10] MEDS: Melatonin 3 MG TABLET 6 MG PO (02:04)
[2023-05-10] MEDS: Acetaminophen 325 MG TABLET 650 MG PO ×3 (02:05→23:32)
--- NOTE | 2023-05-10 03:02 | PC.NURSE ---
acquired care at 2330. Pt is awake in bed. pleasant. 1am pt complaints of not being able to sleep. MD notified. Pt given melatonin.03am pt remains awake and restless in bed. Reporting that she is having anxiety. MD notified and asking for some meds.
[2023-05-10] MEDS: OLANZapine 5 MG TABLET PO (03:57)
[2023-05-10] MEDS: Aspirin Enteric Coated 81 MG TABLET.DR PO (09:04)
[2023-05-10] MEDS: Sennosides 8.6 MG TABLET 17.2 MG PO ×2 (09:04→20:32)
[2023-05-10] MEDS: Heparin Sodium,Porcine 5,000 UNIT/ML VIAL 5000 UNIT SUBCUT ×2 (09:04→20:33)
[2023-05-10] MEDS: Docusate Sodium 100 MG CAPSULE PO ×2 (09:08→20:33)
--- NOTE | 2023-05-10 09:11 | HO.PM.IMPN ---
Subjective Subjective Date of Service: 05/10/23 Interval History: Seen and evaluated this morning confirming home medications Denies any fever or chills to go for Dialysis today Review of Systems Review of Systems: Yes all other systems are reviewed and are negative Physical Exam Vital Signs: Vital Signs: Last Vital Signs Temp 98.4 F 05/09/23 22:01 Pulse 74 05/09/23 22:01 Resp 16 05/09/23 22:01 BP 105/68 05/09/23 22:01 Pulse Ox 94 05/09/23 22:01 O2 Del Method Room Air 05/09/23 22:01 O2 Flow Rate 2 05/09/23 05:51 BMI result Body Mass Index 28.3 Const: Other: Constitutional : Awake, interactive, not in distress Neck : Normal inspection, Supple Cardiovascular : RRR, no JVP, no lower extremity edema Respiratory : good bilateral air entry, no crackles, wheezes or rhonchi Gastrointestinal: soft, lax, Normal bowel sounds, Non tender Skin : Warm, Dry, Permacath in place, Fistula not functioning Neurological : Alert & oriented x3, No focal deficit Objective Data Active Medications Acetaminophen (Acetaminophen 325 Mg Tablet) 650 mg PO Q6H PRN PRN Reason: Pain, Mild (Pain Scale 1-3) Last Admin: 05/10/23 02:05 Dose: 650 mg Documented By: SUSIE Albuterol Sulfate (Albuterol Sulfate (0.083%) 2.5 Mg/3 Ml Vial.Neb) 2.5 mg INHALE Q4H PRN PRN Reason: wheezing Albuterol Sulfate (Albuterol Sulfate 90 Mcg 8 Gm Inhaler) 2 puff INHALE Q4H PRN PRN Reason: wheezing Amitriptyline HCl (Amitriptyline Hcl 50 Mg Tablet) 100 mg PO BEDTIME [facility] Last Admin: 05/09/23 22:25 Dose: 100 mg Documented By: KEYONA Amitriptyline HCl (Amitriptyline Hcl 50 Mg Tablet) 100 mg PO BEDTIME [facility] Aspirin (Aspirin Enteric Coated 81 Mg Tablet.) 81 mg PO DAILY [facility] Last Admin: 05/10/23 09:04 Dose: 81 mg Documented By: TRIP Docusate Sodium (Docusate Sodium 100 Mg Capsule) 100 mg PO BID [facility] Last Admin: 05/10/23 09:08 Dose: 100 mg Documented By: TRIP Fluticasone Propionate (Fluticasone Propionate Nasal 16 Gm [place]) 1 spray NOSTRIL-B DAILY PRN PRN Reason: Allergy Symptoms Heparin Sodium (Porcine) (Heparin Sodium,Porcine 5,000 Unit/Ml Vial) 5,000 unit SUBCUT Q12H [facility] Last Admin: 05/10/23 09:04 Dose: 5,000 unit Documented By: TRIP Hydroxyzine HCl (Hydroxyzine Hcl 50 Mg Tablet) 50 mg PO TID PRN PRN Reason: Anxiety Loperamide HCl (Loperamide Hcl 2 Mg Capsule) 2 mg PO Q3H PRN PRN Reason: Diarrhea Melatonin (Melatonin 3 Mg Tablet) 6 mg PO BEDTIME PRN PRN Reason: Insomnia Last Admin: 05/10/23 02:04 Dose: 6 mg Documented By: SUSIE Midodrine (Midodrine Hcl 10 Mg Tablet) 10 mg PO TuThSa@0600,1200,1800 PRN PRN Reason: low blood pressure Mirtazapine (Mirtazapine 15 Mg Tablet) 22.5 mg PO BEDTIME [facility] Last Admin: 05/09/23 21:35 Dose: 22.5 mg Documented By: KEYONA Ondansetron HCl (Ondansetron Hcl 4 Mg/2 Ml Vial) 4 mg IVPUSH Q8H PRN PRN Reason: Nausea and Vomiting Polyethylene Glycol (Polyethylene Glycol 3350 17 Gm Powd.Pack) 17 gm PO DAILY PRN PRN Reason: Constipation Prochlorperazine Maleate (Prochlorperazine Maleate 5 Mg Tablet) 5 mg PO TID PRN PRN Reason: nausea Senna (Sennosides 8.6 Mg Tablet) 17.2 mg PO BID [facility] Last Admin: 05/10/23 09:04 Dose: 17.2 mg Documented By: TRIP Sodium Chloride (0.9 % Sodium Chloride Flush 3 Ml Syringe) 3 ml IVFLUSH QSHIFT [facility] Last Admin: 05/10/23 09:04 Dose: Not Given Documented By: TRIP Non-Admin Reason: IV pulled, painful Labs 05/07/23 18:03 05/07/23 18:03 Assessment and Plan (1) ESRD on dialysis: Status: Acute (2) Anxiety: Status: Acute Plan A 62 years old lady with PMH of ESRD on HD, anxiety who presents to the hospital on 05/07 for SI. needs dialysis ESRD on HD, needs dialysis on TTS schedule Nephro consult Midodrine on HD days Anxiety Continue home medications PHysical deconditioning PT rec STR DVT PPx Heparin The patient will need overnight hospital stay for dialysis purposes and safe discharge plan to SNF. Quality Stroke Does the patient have a stroke diagnosis?: No VTE Prior VTE?: No VTE Risk Level:: Medical - moderate - high VTE Device Contraindication: Treatment Not Indicated VTE Drug Contraindication: N/A - Med Ordered
--- NOTE | 2023-05-10 12:56 | P.CONNP_ITS ---
History of Present Illness Reason for Consult Consult date: 05/10/23 Chief Complaint Chief complaint: need of dialysis, fall History of Present Illness Narrative: 62 years old lady with ESRD on HD ( TTS), anxiety who presents to the hospital on 05/07 for SI. She presented from Dialysis center on Tuesday with concerns of SI. she was seen and evaluated by care team who did not think she is cleared her for discharge. PT saw her and recommended SNF placement. family prefers that option. She is not suicidal or homocidal at this point. Nephrology has been consulted to assist in her clinical care during her current hospital stay Review of Systems Review of Systems Yes all other systems are reviewed and are negative PMFSH Past Medical History Medical History (Updated 05/09/23 @ 16:36 by Daiana Galvin NP) ESRD on dialysis Anxiety and depression Social History Social History Patient Tobacco Use Status: Tobacco use Unknown Advance Directives: Yes Advance Directives on File: Yes Advance Directives Date on File: 05/09/23 service: No Meds Allergies Allergy/AdvReac Type Severity Reaction Status Date / Time oxycodone AdvReac Itching Verified 05/09/23 14:03 trazodone AdvReac Itching Verified 05/09/23 14:03 Active Medications: Current Medications Acetaminophen (Acetaminophen 325 Mg Tablet) 650 mg PO Q6H PRN PRN Reason: Pain, Mild (Pain Scale 1-3) Last Admin: 05/10/23 02:05 Dose: 650 mg Albuterol Sulfate (Albuterol Sulfate (0.083%) 2.5 Mg/3 Ml Vial.Neb) 2.5 mg INHALE Q4H PRN PRN Reason: wheezing Albuterol Sulfate (Albuterol Sulfate 90 Mcg 8 Gm Inhaler) 2 puff INHALE Q4H PRN PRN Reason: wheezing Amitriptyline HCl (Amitriptyline Hcl 50 Mg Tablet) 100 mg PO BEDTIME [facility] Last Admin: 05/09/23 22:25 Dose: 100 mg Amitriptyline HCl (Amitriptyline Hcl 50 Mg Tablet) 100 mg PO BEDTIME [facility] Aspirin (Aspirin Enteric Coated 81 Mg Tablet.) 81 mg PO DAILY [facility] Last Admin: 05/10/23 09:04 Dose: 81 mg Docusate Sodium (Docusate Sodium 100 Mg Capsule) 100 mg PO BID [facility] Last Admin: 05/10/23 09:08 Dose: 100 mg Fluticasone Propionate (Fluticasone Propionate Nasal 16 Gm [place]) 1 spray NOSTRIL-B DAILY PRN PRN Reason: Allergy Symptoms Heparin Sodium (Porcine) (Heparin Sodium,Porcine 5,000 Unit/Ml Vial) 5,000 unit SUBCUT Q12H [facility] Last Admin: 05/10/23 09:04 Dose: 5,000 unit Heparin Sodium (Porcine) (Heparin Sodium,Porcine 5,000 Unit/Ml Vial) 5,000 unit INTRACATH TUTHSA@1645 [facility] Hydroxyzine HCl (Hydroxyzine Hcl 50 Mg Tablet) 50 mg PO TID PRN PRN Reason: Anxiety Loperamide HCl (Loperamide Hcl 2 Mg Capsule) 2 mg PO Q3H PRN PRN Reason: Diarrhea Melatonin (Melatonin 3 Mg Tablet) 6 mg PO BEDTIME PRN PRN Reason: Insomnia Last Admin: 05/10/23 02:04 Dose: 6 mg Midodrine (Midodrine Hcl 10 Mg Tablet) 10 mg PO TuThSa@0600,1200,1800 PRN PRN Reason: low blood pressure Mirtazapine (Mirtazapine 15 Mg Tablet) 22.5 mg PO BEDTIME [facility] Last Admin: 05/09/23 21:35 Dose: 22.5 mg Ondansetron HCl (Ondansetron Hcl 4 Mg/2 Ml Vial) 4 mg IVPUSH Q8H PRN PRN Reason: Nausea and Vomiting Polyethylene Glycol (Polyethylene Glycol 3350 17 Gm Powd.Pack) 17 gm PO DAILY PRN PRN Reason: Constipation Prochlorperazine Maleate (Prochlorperazine Maleate 5 Mg Tablet) 5 mg PO TID PRN PRN Reason: nausea Senna (Sennosides 8.6 Mg Tablet) 17.2 mg PO BID [facility] Last Admin: 05/10/23 09:04 Dose: 17.2 mg Sodium Chloride (0.9 % Sodium Chloride Flush 3 Ml Syringe) 3 ml IVFLUSH QSHIFT [facility] Last Admin: 05/10/23 09:04 Dose: Not Given Home Medications Medication Instructions Recorded Confirmed Last Taken Type mirtazapine 45 mg tablet 22.5 mg PO BEDTIME 05/08/23 05/09/23 Unknown History albuterol sulfate 2.5 mg/3 mL 2.5 mg inhalation Q4H PRN wheezing 05/09/23 05/09/23 Unknown History (0.083 %) solution for nebulization albuterol sulfate 90 mcg/actuation 2 puff inhalation Q4H PRN wheezing 05/09/23 05/09/23 Unknown History aerosol inhaler (Ventolin HFA) amiodarone 200 mg tablet 200 mg PO DAILY 05/09/23 05/10/23 Unknown History amitriptyline 100 mg tablet 100 mg PO BEDTIME 05/09/23 05/09/23 Unknown History aspirin 81 mg tablet,delayed 81 mg PO DAILY 05/09/23 05/09/23 Unknown History release atorvastatin 10 mg tablet 10 mg PO DAILY 05/09/23 05/10/23 Unknown History calcitriol 0.5 mcg capsule 0.5 mcg PO DAILY 05/09/23 05/10/23 Unknown History docusate sodium 100 mg capsule 100 mg PO BID 05/09/23 05/09/23 Unknown History fluticasone propionate 50 1 spray intranasal DAILY PRN 05/09/23 05/09/23 Unknown History mcg/actuation nasal Allergy Symptoms spray,suspension hydroxyzine HCl 50 mg tablet 50 mg PO TID PRN Anxiety 05/09/23 05/09/23 Unknown History lamotrigine 100 mg tablet 100 mg PO BID 05/09/23 05/10/23 Unknown History loperamide 2 mg capsule 2 mg PO Q3H PRN Diarrhea 05/09/23 05/09/23 Unknown History metoprolol succinate 25 mg 12.5 mg PO Q12H 05/09/23 05/10/23 Unknown History tablet,extended release 24 hr midodrine 10 mg tablet 10 - 20 mg PO TID PRN hemodialysis 05/09/23 05/09/23 Unknown History polyethylene glycol 3350 17 17 g PO DAILY PRN Constipation 05/09/23 05/09/23 Unknown History gram/dose oral powder (Miralax) ropinirole 1 mg tablet 1 mg PO TID 05/09/23 05/10/23 Unknown History sennosides 8.6 mg tablet (senna) 17.2 mg PO BID 05/09/23 05/09/23 Unknown History venlafaxine 75 mg capsule,extended 75 mg PO DAILY 05/09/23 05/10/23 Unknown History release 24 hr diazepam 2 mg tablet 2 mg PO BID PRN anxiety 05/10/23 05/10/23 Unknown History melatonin 5 mg tablet 10 mg PO BEDTIME PRN Insomnia 05/10/23 05/10/23 Unknown History omeprazole 20 mg capsule,delayed 20 mg PO QAM 05/10/23 05/10/23 Unknown History release Physical Exam Vital Signs: Last Vital Signs Temp 98.4 F 05/09/23 22:01 Pulse 74 05/09/23 22:01 Resp 16 05/09/23 22:01 BP 105/68 05/09/23 22:01 Pulse Ox 94 05/09/23 22:01 O2 Del Method Room Air 05/09/23 22:01 O2 Flow Rate 2 05/09/23 05:51 BMI result Body Mass Index 28.3 Const General: comfortable and no acute distress Orientation/consciousness: patient oriented x3 HEENT Head: Yes normocephalic Mouth: Normal oral and palatal mucosa present Eyes EOM: EOMs intact bilaterally Neck Neck: Yes supple Resp Auscultation: clear to auscultation bilaterally Cardio Jugular venous distension: no JVD Rate: regular rate GI Palpation (GI): Soft to palpation Auscultation: normal bowel sounds General: Yes no CVA tenderness Back/Spine/Pelvis Back: no CVA tenderness Skin General skin exam: no rashes or lesions noted Neuro General: patient oriented x3 and moves all extremities Extrem Other: LUE AVF scar Results Lab Results 05/07/23 18:03 05/07/23 18:03 Lab results: Chemistry 05/07/23 18:03 Sodium 140 Potassium 3.6 Carbon Dioxide 27 BUN 22 H Creatinine 2.72 H Calcium 8.0 L Hematology 05/07/23 18:03 WBC 3.7 L Hgb 9.3 L Plt Count 186 Assessment and Plan (1) ESRD on dialysis: Status: Acute Plan Usually gets HD on TTS ( [place] [facility] unit) Renal Diet; Phos binders with meals Has a functioning permcath Ordered HD for today( HD RN aware) Continued volume optimization on HD C/W rest of current medications Shall continue to follow up Procedures Date of Service Date of Service: 05/10/23
[2023-05-10 14:27] VITALS: BP 144/73; PULSE 90; RESP 15; TEMP 36.2; O2SAT 99
--- NOTE | 2023-05-10 17:54 | MHC.EDTECH ---
16:00 rounding patient is at dialysis.
--- NOTE | 2023-05-10 18:12 | MHC.EDTECH ---
18:00 rounding patient at dialysis.
--- NOTE | 2023-05-10 19:58 | MHC.CM.ED ---
CM met with patient. Pt wishes her daughter to be her HCP. Does not want a secondary HCP. No HCP on file. HCP reviewed, completed and signed. Copies given and uploaded into Care Port
--- NOTE | 2023-05-10 20:14 | MHC.EDTECH ---
Brought patient a pitcher of ice water.
[2023-05-10] MEDS: Amitriptyline HCl 50 MG TABLET 100 MG PO (20:31)
[2023-05-10] MEDS: Mirtazapine 15 MG TABLET 22.5 MG PO (20:31)
[2023-05-10] MEDS: hydrOXYzine HCL 50 MG TABLET PO (20:31)
--- NOTE | 2023-05-10 23:30 | PC.NURSE ---
Patient states that at home she takes requip for restless legs, noted in her med rec that she takes requip 3 times a day but medication was not ordered at this time. Patient is also requesting medication to help her sleep, offered ordered melatonin but patient refused due to patient thinking that prescribed dose wouldn't do anything for her. Dr Jordan informed and ordered medications and patient medicated per JUL.
[2023-05-10] MEDS: Zolpidem Tartrate 5 MG TABLET PO (23:48)
--- NOTE | 2023-05-11 00:57 | PC.NURSE ---
Patient still awake, at this time requesting to get up to chair due to not wanting to be laying in bed anymore. Patient alert and oriented, cooperative with care, no s/s of distress noted.
[2023-05-11] MEDS: Melatonin 3 MG TABLET 6 MG PO (01:55)
--- NOTE | 2023-05-11 03:54 | PC.NURSE ---
pt resting in stretcher appears tired however reports difficulty sleeping. wanted lights on. able to reposition self in bed.
--- NOTE | 2023-05-11 04:06 | PC.NURSE ---
Addendum entered by Aayush Herman 05/11/23 04:28: pt medicated per jul. Addendum entered by Aayush Herman 05/11/23 04:07: held off on atarax at this time per Dr. Jordan. to order valium. Original Note: pt reports inability to fall asleep/restlessness. verbal reassurance and warm blanket given. requested prn atarax. will reassess effectiveness.
[2023-05-11] MEDS: diazePAM 2 MG TABLET PO (04:27)
--- NOTE | 2023-05-11 05:47 | PC.NURSE ---
pt sleeping resp even and unlabored. call hopper within reach.
[2023-05-11 06:25] VITALS: BP 145/101; PULSE 88; TEMP 36.2; O2SAT 96
[2023-05-11] MEDS: Sennosides 8.6 MG TABLET 17.2 MG PO (07:57)
[2023-05-11] MEDS: Aspirin Enteric Coated 81 MG TABLET.DR PO (07:57)
[2023-05-11] MEDS: Docusate Sodium 100 MG CAPSULE PO (07:58)
[2023-05-11] MEDS: Acetaminophen 325 MG TABLET 650 MG PO ×2 (07:58→13:59)
[2023-05-11] MEDS: Heparin Sodium,Porcine 5,000 UNIT/ML VIAL 5000 UNIT SUBCUT ×2 (07:58→19:42)
[2023-05-11 08:39] VITALS: PULSE 88; O2SAT 96
[2023-05-11] MEDS: Atorvastatin Calcium 10 MG TABLET PO (09:02)
[2023-05-11] MEDS: Omeprazole 20 MG CAPSULE.DR PO (09:02)
[2023-05-11] MEDS: Prochlorperazine Maleate 5 MG TABLET PO (09:02)
[2023-05-11] MEDS: Venlafaxine HCl ER 75 MG CAP.ER.24H PO (09:02)
[2023-05-11] MEDS: lamoTRIgine 100 MG TABLET PO ×2 (09:02→19:41)
[2023-05-11] MEDS: rOPINIRole HCL 1 MG TABLET PO ×3 (09:02→19:41)
--- NOTE | 2023-05-11 09:45 | P.PNNP_ITS ---
Subjective Subjective Date of Service: 05/12/23 Interval history: Seen and evaluated this morning confirming home medications Denies any fever or chills to go for Dialysis today Physical Exam 2 Vital Signs: Vital Signs: Last Vital Signs Temp 97.2 F 05/11/23 06:25 Pulse 88 05/11/23 08:39 Resp 15 05/10/23 14:27 BP 145/101 H 05/11/23 06:25 Pulse Ox 96 05/11/23 08:39 O2 Del Method Room Air 05/11/23 06:25 O2 Flow Rate 2 05/10/23 14:27 BMI result Body Mass Index 28.3 Const: General: comfortable and no acute distress O rientation/consciousness: patient oriented x3 HEENT: Head: Yes normocephalic Mouth: Normal oral and palatal mucosa present Eyes: EOM: EOMs intact bilaterally Neck: Neck: Yes supple Resp: Auscultation: clear to auscultation bilaterally Cardio: Jugular venous distension: no JVD Rate: regular rate GI: Palpation (GI): Soft to palpation Auscultation: normal bowel sounds : General: Yes no CVA tenderness Back/Spine/Pelvis: Back: no CVA tenderness Skin: General skin exam: no rashes or lesions noted Neuro: General: patient oriented x3 and moves all extremities Extrem: Other: LUE AVF scar Objective Data Labs 05/12/23 06:37 05/12/23 06:37 Procedures Date of Service Date of Service: 05/12/23 Assessment & Plan Assessment and plan (1) ESRD on dialysis: Status: Acute Plan No signs or symptoms of uremia. Usually gets HD on TTS ( [place] HD unit)/Dr. Ruiz Renal Diet; Phos binders with meals Has a functioning permcath Keep on HD scheduled Tuesday. Continued volume optimization on HD C/W rest of current medications Waiting for placement Shall continue to follow up Time Spent With Patient Time: Total time managing care of this patient today ____ minutes. Progress Note: Quality Stroke Does the patient have a stroke diagnosis?: No
[2023-05-11] MEDS: Metoprolol Succinate ER 12.5 MG HALFTAB.ER.24H PO ×2 (10:10→19:40)
[2023-05-11 10:14] VITALS: BP 133/75; PULSE 101; RESP 16; O2SAT 97
--- NOTE | 2023-05-11 10:40 | PC.NURSE ---
pt home/pcp RN/CM called to leave information with t/w and to pass along to manager case. Nerissa Alexander work cell: [phone] Tiara Riddle CM notified and aware.
--- NOTE | 2023-05-11 11:14 | HO.PM.IMPN ---
Subjective Subjective Date of Service: 05/11/23 Physical Exam Vital Signs: Vital Signs: Last Vital Signs Temp 97.2 F 05/11/23 06:25 Pulse 101 H 05/11/23 10:14 Resp 16 05/11/23 10:14 BP 133/75 05/11/23 10:14 Pulse Ox 97 05/11/23 10:14 O2 Del Method Nasal Cannula 05/11/23 10:14 O2 Flow Rate 2 05/11/23 10:14 BMI result Body Mass Index 28.3 General: AO X 3, no acute distress Resp: CTA bilateral, no accessory muscles used CVS: S1,S2,RRR GI: soft, non tender, non distended Neuro: motor grossly intact, alert Psych: appropriate affect, appropriate insight Objective Data Active Medications Acetaminophen (Acetaminophen 325 Mg Tablet) 650 mg PO Q6H PRN PRN Reason: Pain, Mild (Pain Scale 1-3) Last Admin: 05/11/23 07:58 Dose: 650 mg Documented By: PEDRO Albuterol Sulfate (Albuterol Sulfate (0.083%) 2.5 Mg/3 Ml Vial.[place]) 2.5 mg INHALE Q4H PRN PRN Reason: wheezing Albuterol Sulfate (Albuterol Sulfate 90 Mcg 8 Gm Inhaler) 2 puff INHALE Q4H PRN PRN Reason: wheezing Amitriptyline HCl (Amitriptyline Hcl 50 Mg Tablet) 100 mg PO BEDTIME [facility] Last Admin: 05/10/23 20:31 Dose: 100 mg Documented By: TIBURCIO Aspirin (Aspirin Enteric Coated 81 Mg Tablet.) 81 mg PO DAILY [facility] Last Admin: 05/11/23 07:57 Dose: 81 mg Documented By: PEDRO Atorvastatin Calcium (Atorvastatin Calcium 10 Mg Tablet) 10 mg PO DAILY [facility] Last Admin: 05/11/23 09:02 Dose: 10 mg Documented By: PEDRO Docusate Sodium (Docusate Sodium 100 Mg Capsule) 100 mg PO BID [facility] Last Admin: 05/11/23 07:58 Dose: 100 mg Documented By: PEDRO Fluticasone Propionate (Fluticasone Propionate Nasal 16 Gm [place]) 1 spray NOSTRIL-B DAILY PRN PRN Reason: Allergy Symptoms Heparin Sodium (Porcine) (Heparin Sodium,Porcine 5,000 Unit/Ml Vial) 5,000 unit SUBCUT Q12H [facility] Last Admin: 05/11/23 07:58 Dose: 5,000 unit Documented By: PEDRO Heparin Sodium (Porcine) (Heparin Sodium,Porcine 5,000 Unit/Ml Vial) 5,000 unit INTRACATH TUTHSA@1645 [facility] Last Admin: 05/10/23 17:00 Dose: Not Given Documented By: TIBURCIO Non-Admin Reason: Off unit: Dialysis Hydroxyzine HCl (Hydroxyzine Hcl 50 Mg Tablet) 50 mg PO TID PRN PRN Reason: Anxiety Last Admin: 05/10/23 20:31 Dose: 50 mg Documented By: TIBURCIO Lamotrigine (Lamotrigine 100 Mg Tablet) 100 mg PO BID [facility] Last Admin: 05/11/23 09:02 Dose: 100 mg Documented By: PEDRO Loperamide HCl (Loperamide Hcl 2 Mg Capsule) 2 mg PO Q3H PRN PRN Reason: Diarrhea Melatonin (Melatonin 3 Mg Tablet) 6 mg PO BEDTIME PRN PRN Reason: Insomnia Last Admin: 05/11/23 01:55 Dose: 6 mg Documented By: TIBURCIO Metoprolol Succinate (Metoprolol Succinate Er 12.5 Mg Halftab.Er.24h) 12.5 mg PO BID [facility]; Protocol Last Admin: 05/11/23 10:10 Dose: 12.5 mg Documented By: PEDRO Midodrine (Midodrine Hcl 10 Mg Tablet) 10 mg PO TuThSa@0600,1200,1800 PRN PRN Reason: low blood pressure Mirtazapine (Mirtazapine 15 Mg Tablet) 22.5 mg PO BEDTIME [facility] Last Admin: 05/10/23 20:31 Dose: 22.5 mg Documented By: TIBURCIO Omeprazole (Omeprazole 20 Mg Capsule.Dr) 20 mg PO DAILY@0630 [facility] Last Admin: 05/11/23 09:02 Dose: 20 mg Documented By: PEDRO Ondansetron HCl (Ondansetron Hcl 4 Mg/2 Ml Vial) 4 mg IVPUSH Q8H PRN PRN Reason: Nausea and Vomiting Polyethylene Glycol (Polyethylene Glycol 3350 17 Gm Powd.Pack) 17 gm PO DAILY PRN PRN Reason: Constipation Prochlorperazine Maleate (Prochlorperazine Maleate 5 Mg Tablet) 5 mg PO TID PRN PRN Reason: nausea Last Admin: 05/11/23 09:02 Dose: 5 mg Documented By: PEDRO Ropinirole HCl (Ropinirole Hcl 1 Mg Tablet) 1 mg PO TID [facility] Last Admin: 05/11/23 09:02 Dose: 1 mg Documented By: PEDRO Senna (Sennosides 8.6 Mg Tablet) 17.2 mg PO BID [facility] Last Admin: 05/11/23 07:57 Dose: 17.2 mg Documented By: PEDRO Sodium Chloride (0.9 % Sodium Chloride Flush 3 Ml Syringe) 3 ml IVFLUSH QSHIFT [facility] Last Admin: 05/11/23 08:05 Dose: Not Given Documented By: PEDRO Non-Admin Reason: Med Not Available Venlafaxine HCl (Venlafaxine Hcl Er 75 Mg Cap.Er.24h) 75 mg PO DAILY [facility] Last Admin: 05/11/23 09:02 Dose: 75 mg Documented By: PEDRO Zolpidem Tartrate (Zolpidem Tartrate 5 Mg Tablet) 5 mg PO BEDTIME PRN PRN Reason: Insomnia Last Admin: 05/10/23 23:48 Dose: 5 mg Documented By: CHANDAEC Labs 05/07/23 18:03 05/07/23 18:03 Assessment and Plan (1) Chronic hypoxic respiratory failure: Status: Acute Plan 62F PMH ESRD, morbid obesity s/p sleeve gastrectomy 2017 now with resolution of obesity and diabetes and htn, chronic hypoxic respiratory failure on prn 2L home o2 for COPD/ILD, mood disorder, presented with weakness, SI, now cleared by care team, awaiting STR bed ESRD HD mood disorder continue mood stabilizers weakness recommending str dvt prophyalxis - hep sq full code reason for continued hospitalization:safe dispo Quality Stroke Does the patient have a stroke diagnosis?: No VTE Prior VTE?: No VTE Risk Level:: Medical - moderate - high VTE Device Contraindication: Treatment Not Indicated VTE Drug Contraindication: N/A - Med Ordered
--- NOTE | 2023-05-11 11:37 | PC.NURSE ---
late entry: assumed care of pt at 0700. pt a&o x4, calm, and cooperative. pt has had a few complaints this am. pt reporting headache and nausea. pt medicated per mar with prns. pt oob to recliner after eating breakfast. met with PT. pt now stating she doesn't feel well/feels as of she's coming down with something. pt has no observable symptoms yasmin. pt with some hygiene belongings at bedside as well as cell phone. all other belongings home with family. pt also met with providers this AM. pt medicated per mar with daily meds, tolerated well. awaiting transport to inpatient bed.
[2023-05-11 12:08] VITALS: BMI 27.3
[2023-05-11 12:34] VITALS: BP 138/85; PULSE 88; RESP 16; TEMP 36.4; O2SAT 96
--- NOTE | 2023-05-11 15:09 | MHC.CLN ---
NUTRITION PER NEPHROLOGY NOTE, RENAL DIET. DIET CHANGED TO 2 GRAM SODIUM, LOW POTASSIUM, LOW PHOSPHORUS.
[2023-05-11 15:35] VITALS: BP 154/80; PULSE 96; RESP 22; TEMP 36.2; O2SAT 94
[2023-05-11 19:23] VITALS: BP 139/87; PULSE 97; RESP 16; TEMP 36.3; O2SAT 94
[2023-05-11] MEDS: Mirtazapine 15 MG TABLET 22.5 MG PO (19:41)
[2023-05-12] MEDS: Zolpidem Tartrate 5 MG TABLET PO ×2 (00:37→23:29)
[2023-05-12] MEDS: hydrOXYzine HCL 50 MG TABLET PO ×2 (00:37→23:29)
[2023-05-12] MEDS: Amitriptyline HCl 50 MG TABLET 100 MG PO ×2 (00:37→23:29)
[2023-05-12 03:21] VITALS: BP 139/74; PULSE 75; RESP 19; TEMP 36.2; O2SAT 96
[2023-05-12] MEDS: Omeprazole 20 MG CAPSULE.DR PO (05:41)
[2023-05-12 07:21] VITALS: BP 147/79; PULSE 84; RESP 16; TEMP 36.3; O2SAT 100
[2023-05-12 07:23] LABS: Hematocrit 31.7 % (37.0-47.0); Hemoglobin 10.2 g/dl (12.0-16.0); Mean Corpuscular HGB Conc 32.2 g/dl (31.0-35.0); Mean Corpuscular Hemoglobin 30.6 pg (27.0-33.0); Mean Corpuscular Volume 95.2 fL (80.0-98.0); Platelet Count 185 X10*3/uL (160-400); Red Blood Count 3.33 X10*6/uL (4.20-5.50); Red Cell Distribution Width 15.2 % (11.0-16.0); White Blood Count 4.3 X10*3/uL (4.8-10.8)
[2023-05-12 07:31] LABS: Anion Gap 18 (12-20); Blood Urea Nitrogen 40 mg/dL (9-16); Calcium 8.9 mg/dL (8.4-10.2); Carbon Dioxide 19 mmol/L (22-29); Chloride 101 mmol/L (96-108); Glucose Fasting 89 mg/dL (60-99); Sodium 133 mmol/L (135-145)
[2023-05-12 07:40] LABS: Creatinine Clr Calc Pharmacy 9.1; Estimated Glomerular Filt Rate 8
--- NOTE | 2023-05-12 08:25 | HO.PM.IMPN ---
Subjective Subjective Date of Service: 05/12/23 Interval History: no complaints Physical Exam Vital Signs: Vital Signs: Last Vital Signs Temp 97.4 F 05/12/23 07:21 Pulse 84 05/12/23 07:21 Resp 16 05/12/23 07:21 BP 147/79 H 05/12/23 07:21 Pulse Ox 100 05/12/23 07:21 O2 Del Method Nasal Cannula 05/12/23 07:21 O2 Flow Rate 2 05/12/23 07:21 BMI result Body Mass Index 27.3 General: AO X 3, no acute distress Resp: CTA bilateral, no accessory muscles used CVS: S1,S2,RRR GI: soft, non tender, non distended Neuro: motor grossly intact, alert Psych: appropriate affect, appropriate insight Objective Data Active Medications Acetaminophen (Acetaminophen 325 Mg Tablet) 650 mg PO Q6H PRN PRN Reason: Pain, Mild (Pain Scale 1-3) Last Admin: 05/11/23 13:59 Dose: 650 mg Documented By: SHANNON Albuterol Sulfate (Albuterol Sulfate (0.083%) 2.5 Mg/3 Ml Vial.Neb) 2.5 mg INHALE Q4H PRN PRN Reason: wheezing Albuterol Sulfate (Albuterol Sulfate 90 Mcg 8 Gm Inhaler) 2 puff INHALE Q4H PRN PRN Reason: wheezing Amitriptyline HCl (Amitriptyline Hcl 50 Mg Tablet) 100 mg PO BEDTIME [facility] Last Admin: 05/12/23 00:37 Dose: 100 mg Documented By: CLARIBEL Comments: pt requested this med to be given at this time Aspirin (Aspirin Enteric Coated 81 Mg Tablet.) 81 mg PO DAILY [facility] Last Admin: 05/11/23 07:57 Dose: 81 mg Documented By: PEDRO Atorvastatin Calcium (Atorvastatin Calcium 10 Mg Tablet) 10 mg PO DAILY [facility] Last Admin: 05/11/23 09:02 Dose: 10 mg Documented By: PEDRO Docusate Sodium (Docusate Sodium 100 Mg Capsule) 100 mg PO BID [facility] Last Admin: 05/11/23 19:42 Dose: Not Given Documented By: CLARIBEL Non-Admin Reason: Patient Refused Fluticasone Propionate (Fluticasone Propionate Nasal 16 Gm [place]) 1 spray NOSTRIL-B DAILY PRN PRN Reason: Allergy Symptoms Heparin Sodium (Porcine) (Heparin Sodium,Porcine 5,000 Unit/Ml Vial) 5,000 unit SUBCUT Q12H [facility] Last Admin: 05/11/23 19:42 Dose: 5,000 unit Documented By: CLARIBEL Heparin Sodium (Porcine) (Heparin Sodium,Porcine 5,000 Unit/Ml Vial) 5,000 unit INTRACATH TUTHSA@1645 [facility] Last Admin: 05/10/23 17:00 Dose: Not Given Documented By: TIBURCIO Non-Admin Reason: Off unit: Dialysis Hydroxyzine HCl (Hydroxyzine Hcl 50 Mg Tablet) 50 mg PO TID PRN PRN Reason: Anxiety Last Admin: 05/12/23 00:37 Dose: 50 mg Documented By: CLARIBEL Lamotrigine (Lamotrigine 100 Mg Tablet) 100 mg PO BID [facility] Last Admin: 05/11/23 19:41 Dose: 100 mg Documented By: CLARIBEL Loperamide HCl (Loperamide Hcl 2 Mg Capsule) 2 mg PO Q3H PRN PRN Reason: Diarrhea Melatonin (Melatonin 3 Mg Tablet) 6 mg PO BEDTIME PRN PRN Reason: Insomnia Last Admin: 05/11/23 01:55 Dose: 6 mg Documented By: TIBURCIO Metoprolol Succinate (Metoprolol Succinate Er 12.5 Mg Halftab.Er.24h) 12.5 mg PO BID [facility]; Protocol Last Admin: 05/11/23 19:40 Dose: 12.5 mg Documented By: CLARIBEL Comments: BP 139/87 H 97 Midodrine (Midodrine Hcl 10 Mg Tablet) 10 mg PO TuThSa@0600,1200,1800 PRN PRN Reason: low blood pressure Mirtazapine (Mirtazapine 15 Mg Tablet) 22.5 mg PO BEDTIME [facility] Last Admin: 05/11/23 19:41 Dose: 22.5 mg Documented By: CLARIBEL Omeprazole (Omeprazole 20 Mg Capsule.) 20 mg PO DAILY@0630 [facility] Last Admin: 05/12/23 05:41 Dose: 20 mg Documented By: CLARIBEL Ondansetron HCl (Ondansetron Hcl 4 Mg/2 Ml Vial) 4 mg IVPUSH Q8H PRN PRN Reason: Nausea and Vomiting Polyethylene Glycol (Polyethylene Glycol 3350 17 Gm Powd.Pack) 17 gm PO DAILY PRN PRN Reason: Constipation Prochlorperazine Maleate (Prochlorperazine Maleate 5 Mg Tablet) 5 mg PO TID PRN PRN Reason: nausea Last Admin: 05/11/23 09:02 Dose: 5 mg Documented By: PEDRO Ropinirole HCl (Ropinirole Hcl 1 Mg Tablet) 1 mg PO TID [facility] Last Admin: 05/11/23 19:41 Dose: 1 mg Documented By: CLARIBEL Senna (Sennosides 8.6 Mg Tablet) 17.2 mg PO BID [facility] Last Admin: 05/11/23 19:43 Dose: Not Given Documented By: CLARIBEL Non-Admin Reason: Patient Refused Sodium Chloride (0.9 % Sodium Chloride Flush 3 Ml Syringe) 3 ml IVFLUSH QSHIFT [facility] Last Admin: 05/12/23 00:14 Dose: Not Given Documented By: CLARIBEL Non-Admin Reason: No Access Venlafaxine HCl (Venlafaxine Hcl Er 75 Mg Cap.Er.24h) 75 mg PO DAILY [facility] Last Admin: 05/11/23 09:02 Dose: 75 mg Documented By: PEDRO Zolpidem Tartrate (Zolpidem Tartrate 5 Mg Tablet) 5 mg PO BEDTIME PRN PRN Reason: Insomnia Last Admin: 05/12/23 00:37 Dose: 5 mg Documented By: CLARIBEL Labs 05/12/23 06:37 05/12/23 06:37 Labs: Laboratory Results - last 24 hr 05/12/23 06:37 MCV 95.2 MCH 30.6 MCHC 32.2 RDW 15.2 Plt Count 185 MPV 11.0 Absolute Nucleated RBC 0.000 Nucleated RBC % (auto) 0.0 Anion Gap 18 Estim Creat Clear Calc 9.1 Estimated GFR 8 Fasting Glucose 89 Calcium 8.9 D Assessment and Plan (1) Chronic hypoxic respiratory failure: Status: Acute Plan 62F PMH ESRD, morbid obesity s/p sleeve gastrectomy 2017 now with resolution of obesity and diabetes and htn, chronic hypoxic respiratory failure on prn 2L home o2 for COPD/ILD, mood disorder, presented with weakness, SI, now cleared by care team, awaiting STR bed ESRD HD mood disorder continue mood stabilizers weakness recommending str dvt prophyalxis - hep sq full code reason for continued hospitalization:safe dispo Quality Stroke Does the patient have a stroke diagnosis?: No VTE Prior VTE?: No VTE Risk Level:: Medical - moderate - high VTE Device Contraindication: Treatment Not Indicated VTE Drug Contraindication: N/A - Med Ordered
[2023-05-12] MEDS: Aspirin Enteric Coated 81 MG TABLET.DR PO (08:53)
[2023-05-12] MEDS: lamoTRIgine 100 MG TABLET PO ×2 (08:54→23:31)
[2023-05-12] MEDS: Atorvastatin Calcium 10 MG TABLET PO (08:54)
[2023-05-12] MEDS: Venlafaxine HCl ER 75 MG CAP.ER.24H PO (08:54)
[2023-05-12] MEDS: rOPINIRole HCL 1 MG TABLET PO ×3 (08:54→23:30)
[2023-05-12] MEDS: Heparin Sodium,Porcine 5,000 UNIT/ML VIAL 5000 UNIT SUBCUT ×2 (08:54→21:36)
--- NOTE | 2023-05-12 09:43 | W.PM.DNNEP ---
Subjective Subjective This patient was seen during dialysis. Interval history: no complaints Physical Exam Vital Signs: Vital Signs: Last Vital Signs Temp 97.4 F 05/12/23 07:21 Pulse 84 05/12/23 07:21 Resp 16 05/12/23 07:21 BP 147/79 H 05/12/23 07:21 Pulse Ox 100 05/12/23 07:21 O2 Del Method Nasal Cannula 05/12/23 07:21 O2 Flow Rate 2 05/12/23 07:21 BMI result Body Mass Index 27.3 Const: General: comfortable and no acute distress Orientation/consciousness: patient oriented x3 HEENT: Head: Yes normocephalic Mouth: Normal oral and palatal mucosa present Eyes: EOM: EOMs intact bilaterally Neck: Neck: Yes supple Resp: Auscultation: clear to auscultation bilaterally Cardio: Jugular venous distension: no JVD Rate: regular rate GI: Palpation (GI): Soft to palpation Auscultation: normal bowel sounds : General: Yes no CVA tenderness Back/Spine/Pelvis: Back: no CVA tenderness Skin: General skin exam: no rashes or lesions noted Neuro: General: patient oriented x3 and moves all extremities Extrem: Other: LUE AVF scar Assessment & Plan Assessment and plan (1) ESRD on dialysis: Status: Acute Plan No signs or symptoms of uremia. Usually gets HD on TTS ( [place] [facility] unit)/Dr. Ruiz Regular Diet - per patient request; Phos binders with meals Has a functioning permcath Keep on HD scheduled Tuesday. Continued volume optimization on HD Midodrine for hypotension C/W rest of current medications Waiting for placement Shall continue to follow up Time Spent With Patient Time: Total time managing care of this patient today ____ minutes. Procedures Date of Service Date of Service: 05/12/23
[2023-05-12 13:45] VITALS: BP 135/78; PULSE 93; RESP 20; TEMP 36.3; O2SAT 95
--- NOTE | 2023-05-12 14:14 | MHC.CM.PN ---
EMR reviewed. Patient pending placement for STR/HD. No bed offers at this time. [facility] denied. Kirill is still reviewing. Search broadened. CM will continue to follow.
[2023-05-12 15:19] VITALS: BP 133/86; PULSE 99; RESP 16; TEMP 36.3; O2SAT 94
[2023-05-12 19:32] VITALS: BP 143/60; PULSE 101; RESP 16; TEMP 35.9; O2SAT 99
[2023-05-12] MEDS: Mirtazapine 15 MG TABLET 22.5 MG PO (23:29)
[2023-05-12] MEDS: Metoprolol Succinate ER 12.5 MG HALFTAB.ER.24H PO (23:30)
[2023-05-13] MEDS: Melatonin 3 MG TABLET 6 MG PO (02:21)
--- NOTE | 2023-05-13 02:54 | PC.NURSE ---
Pt is very demanding, she refused meds when its due and wanted all to be given later than scheduled, pt was instructed to call RN when ready to take her meds, pt didn't call for her meds and got upset when revisited as her meds are now late, prn Ataraxa and Ambien given together with her meds, after that she requested for snacks and her food to be reheated so she can eat. Later c/o unable to fall asleep and demanded MD to be called to increased her ordered Melatonin 6 mg po as she claimed this dose doesn't work for her, Dr. Jordan was notified, no change in order, pt was instructed and got upset, eventually took Melatonin 6mg po. will follow up result of care.
[2023-05-13 04:00] VITALS: BP 165/75; PULSE 86; RESP 18; TEMP 36.1; O2SAT 95
[2023-05-13] MEDS: Omeprazole 20 MG CAPSULE.DR PO (05:44)
[2023-05-13 07:27] VITALS: BP 165/75; PULSE 86; O2SAT 95
[2023-05-13 07:35] VITALS: BP 140/90; PULSE 91; RESP 16; TEMP 36; O2SAT 93
--- NOTE | 2023-05-13 08:55 | P.PNIM_ITS ---
Subjective Subjective Date of Service: 05/13/23 Interval History: no complaints Physical Exam 2 Vital Signs: Vital Signs: Last Vital Signs Temp 96.8 F 05/13/23 07:35 Pulse 91 05/13/23 07:35 Resp 16 05/13/23 07:35 BP 140/90 H 05/13/23 07:35 Pulse Ox 93 05/13/23 07:35 O2 Del Method Room Air 05/13/23 07:35 O2 Flow Rate 2 05/12/23 15:19 BMI result Body Mass Index 27.3 Const: General: comfortable and no acute distress O rientation/consciousness: patient oriented x3 HEENT: Head: Yes normocephalic Mouth: Normal oral and palatal mucosa present Eyes: EOM: EOMs intact bilaterally Neck: Neck: Yes supple Resp: Auscultation: clear to auscultation bilaterally Cardio: Jugular venous distension: no JVD Rate: regular rate GI: Palpation (GI): Soft to palpation Auscultation: normal bowel sounds : General: Yes no CVA tenderness Back/Spine/Pelvis: Back: no CVA tenderness Skin: General skin exam: no rashes or lesions noted Neuro: General: patient oriented x3 and moves all extremities Extrem: Other: LUE AVF scar Objective Data Active Medications Acetaminophen (Acetaminophen 325 Mg Tablet) 650 mg PO Q6H PRN PRN Reason: Pain, Mild (Pain Scale 1-3) Last Admin: 05/11/23 13:59 Dose: 650 mg Documented By: SHANNON Albuterol Sulfate (Albuterol Sulfate (0.083%) 2.5 Mg/3 Ml Vial.Neb) 2.5 mg INHALE Q4H PRN PRN Reason: wheezing Albuterol Sulfate (Albuterol Sulfate 90 Mcg 8 Gm Inhaler) 2 puff INHALE Q4H PRN PRN Reason: wheezing Amitriptyline HCl (Amitriptyline Hcl 50 Mg Tablet) 100 mg PO BEDTIME [facility] Last Admin: 05/12/23 23:29 Dose: 100 mg Documented By: CLARIBEL Comments: pt refused it earlier Aspirin (Aspirin Enteric Coated 81 Mg Tablet.) 81 mg PO DAILY [facility] Last Admin: 05/12/23 08:53 Dose: 81 mg Documented By: ANNABELLA Atorvastatin Calcium (Atorvastatin Calcium 10 Mg Tablet) 10 mg PO DAILY [facility] Last Admin: 05/12/23 08:54 Dose: 10 mg Documented By: ANNABELLA Docusate Sodium (Docusate Sodium 100 Mg Capsule) 100 mg PO BID [facility] Last Admin: 05/12/23 23:13 Dose: Not Given Documented By: CLARIBEL Non-Admin Reason: Patient Refused Fluticasone Propionate (Fluticasone Propionate Nasal 16 Gm [place]) 1 spray NOSTRIL-B DAILY PRN PRN Reason: Allergy Symptoms Heparin Sodium (Porcine) (Heparin Sodium,Porcine 5,000 Unit/Ml Vial) 5,000 unit SUBCUT Q12H [facility] Last Admin: 05/12/23 21:36 Dose: 5,000 unit Documented By: CLARIBEL Heparin Sodium (Porcine) (Heparin Sodium,Porcine 5,000 Unit/Ml Vial) 5,000 unit INTRACATH TUTHSA@1645 [facility] Last Admin: 05/12/23 17:27 Dose: Not Given Documented By: ANNABELLA Non-Admin Reason: Dialysis order Hydroxyzine HCl (Hydroxyzine Hcl 50 Mg Tablet) 50 mg PO TID PRN PRN Reason: Anxiety Last Admin: 05/12/23 23:29 Dose: 50 mg Documented By: CLARIBEL Lamotrigine (Lamotrigine 100 Mg Tablet) 100 mg PO BID [facility] Last Admin: 05/12/23 23:31 Dose: 100 mg Documented By: CLARIBEL Comments: pt refused it earlier Loperamide HCl (Loperamide Hcl 2 Mg Capsule) 2 mg PO Q3H PRN PRN Reason: Diarrhea Melatonin (Melatonin 3 Mg Tablet) 15 mg PO BEDTIME PRN PRN Reason: Insomnia Metoprolol Succinate (Metoprolol Succinate Er 12.5 Mg Halftab.Er.24h) 12.5 mg PO BID [facility]; Protocol Last Admin: 05/12/23 23:30 Dose: 12.5 mg Documented By: CLARIBEL Comments: pt refused it earlier Midodrine (Midodrine Hcl 10 Mg Tablet) 10 mg PO TuThSa@0600,1200,1800 PRN PRN Reason: low blood pressure Mirtazapine (Mirtazapine 15 Mg Tablet) 22.5 mg PO BEDTIME [facility] Last Admin: 05/12/23 23:29 Dose: 22.5 mg Documented By: CLARIBEL Comments: pt refused it earlier Omeprazole (Omeprazole 20 Mg Capsule.) 20 mg PO DAILY@0630 [facility] Last Admin: 05/13/23 05:44 Dose: 20 mg Documented By: CLARIBEL Ondansetron HCl (Ondansetron Hcl 4 Mg/2 Ml Vial) 4 mg IVPUSH Q8H PRN PRN Reason: Nausea and Vomiting Polyethylene Glycol (Polyethylene Glycol 3350 17 Gm Powd.Pack) 17 gm PO DAILY PRN PRN Reason: Constipation Prochlorperazine Maleate (Prochlorperazine Maleate 5 Mg Tablet) 5 mg PO TID PRN PRN Reason: nausea Last Admin: 05/11/23 09:02 Dose: 5 mg Documented By: PEDRO Ropinirole HCl (Ropinirole Hcl 1 Mg Tablet) 1 mg PO TID [facility] Last Admin: 05/12/23 23:30 Dose: 1 mg Documented By: CLARIBEL Comments: pt refused it earlier Senna (Sennosides 8.6 Mg Tablet) 17.2 mg PO BID [facility] Last Admin: 05/12/23 23:14 Dose: Not Given Documented By: CLARIBEL Non-Admin Reason: Patient Refused Sodium Chloride (0.9 % Sodium Chloride Flush 3 Ml Syringe) 3 ml IVFLUSH QSHIFT [facility] Last Admin: 05/13/23 00:23 Dose: Not Given Documented By: CLARIBEL Non-Admin Reason: No Access Venlafaxine HCl (Venlafaxine Hcl Er 75 Mg Cap.Er.24h) 75 mg PO DAILY [facility] Last Admin: 05/12/23 08:54 Dose: 75 mg Documented By: ANNABELLA Zolpidem Tartrate (Zolpidem Tartrate 5 Mg Tablet) 5 mg PO BEDTIME PRN PRN Reason: Insomnia Last Admin: 05/12/23 23:29 Dose: 5 mg Documented By: CLARIBEL Labs 05/12/23 06:37 05/12/23 06:37 Assessment and Plan (1) Chronic hypoxic respiratory failure: Status: Acute Plan 62F PMH ESRD, morbid obesity s/p sleeve gastrectomy 2017 now with resolution of obesity and diabetes and htn, chronic hypoxic respiratory failure on prn 2L home o2 for COPD/ILD, mood disorder, presented with weakness, SI, now cleared by care team, awaiting STR bed ESRD HD mood disorder continue mood stabilizers weakness recommending str dvt prophyalxis - hep sq full code reason for continued hospitalization:safe dispo Quality Stroke Does the patient have a stroke diagnosis?: No VTE Prior VTE?: No VTE Risk Level:: Medical - moderate - high VTE Device Contraindication: Treatment Not Indicated VTE Drug Contraindication: N/A - Med Ordered
[2023-05-13] MEDS: Heparin Sodium,Porcine 5,000 UNIT/ML VIAL 5000 UNIT SUBCUT ×2 (09:17→20:03)
[2023-05-13] MEDS: Metoprolol Succinate ER 12.5 MG HALFTAB.ER.24H PO ×2 (09:17→21:21)
[2023-05-13] MEDS: Atorvastatin Calcium 10 MG TABLET PO (09:18)
[2023-05-13] MEDS: Sennosides 8.6 MG TABLET 17.2 MG PO ×2 (09:18→21:21)
[2023-05-13] MEDS: lamoTRIgine 100 MG TABLET PO ×2 (09:18→21:21)
[2023-05-13] MEDS: Venlafaxine HCl ER 75 MG CAP.ER.24H PO (09:18)
[2023-05-13] MEDS: Aspirin Enteric Coated 81 MG TABLET.DR PO (09:18)
[2023-05-13] MEDS: rOPINIRole HCL 1 MG TABLET PO ×3 (09:18→21:21)
--- NOTE | 2023-05-13 10:21 | MHC.CM.PN ---
Addendum entered by Daiana Dove RN 05/13/23 15:41: Received call from Nerissa - nurse behavioral health case manager w/ [facility], which manages [facility] patients. Patient is very familiar to Nerissa who states that patient was recently admitted to [facility] and case folder were unable to secure STR placement for weeks , patient eventually ended up signing out AMA and returning home. Per Nerissa, if no bed offers from in network facilities [facility] may agree to approve an out of network facility if facility were to agree to a bed offer, would need to wait for denials from all referrals (several awaiting response). CM will continue to follow. Nerissa [phone] Original Note: EMR reviewed. Per MD rounds patient cleared for DC pending placement. Additional referrals placed to SNF's w/ dialysis in [facility]. CM called [facility] this morning and admission coordinator states they are awaiting response from dialysis coin machine collector supervisor - expect a response today. Patient updated on plan and bed seach. CM will continue to follow.
--- NOTE | 2023-05-13 10:32 | MHC.CLN ---
F/U DIET CHANGED TO REGULAR BY MD PER PATIENT REQUEST.
[2023-05-13 15:10] VITALS: BP 154/92; PULSE 88; RESP 20; TEMP 36.6; O2SAT 94
[2023-05-13] MEDS: hydrOXYzine HCL 50 MG TABLET PO (15:58)
[2023-05-13 19:16] VITALS: BP 121/77; PULSE 95; RESP 20; TEMP 36.6; O2SAT 92
[2023-05-13] MEDS: Mirtazapine 15 MG TABLET 22.5 MG PO (21:21)
[2023-05-13] MEDS: Amitriptyline HCl 50 MG TABLET 100 MG PO (21:22)
[2023-05-13] MEDS: Docusate Sodium 100 MG CAPSULE PO (21:22)
[2023-05-13] MEDS: Melatonin 3 MG TABLET 15 MG PO (21:29)
[2023-05-14] MEDS: Zolpidem Tartrate 5 MG TABLET PO (00:22)
[2023-05-14 04:00] VITALS: BP 114/68; PULSE 87; RESP 18; TEMP 36.3; O2SAT 93
[2023-05-14] MEDS: Omeprazole 20 MG CAPSULE.DR PO (05:53)
[2023-05-14 07:58] VITALS: BP 175/89; PULSE 90; RESP 18; TEMP 36.8; O2SAT 98
--- NOTE | 2023-05-14 09:25 | HO.PM.IMPN ---
Subjective Subjective Date of Service: 05/14/23 Interval History: reports insomnia Physical Exam Vital Signs: Vital Signs: Last Vital Signs Temp 98.3 F 05/14/23 07:58 Pulse 90 05/14/23 07:58 Resp 18 05/14/23 07:58 BP 175/89 H 05/14/23 07:58 Pulse Ox 98 05/14/23 07:58 O2 Del Method Room Air 05/14/23 07:58 O2 Flow Rate 2 05/12/23 15:19 BMI result Body Mass Index 27.3 Const: General: comfortable and no acute distress Orientation/consciousness: patient oriented x3 HEENT: Head: Yes normocephalic Mouth: Normal oral and palatal mucosa present Eyes: EOM: EOMs intact bilaterally Neck: Neck: Yes supple Resp: Auscultation: clear to auscultation bilaterally Cardio: Jugular venous distension: no JVD Rate: regular rate GI: Palpation (GI): Soft to palpation Auscultation: normal bowel sounds : General: Yes no CVA tenderness Back/Spine/Pelvis: Back: no CVA tenderness Skin: General skin exam: no rashes or lesions noted Neuro: General: patient oriented x3 and moves all extremities Extrem: Other: LUE AVF scar Objective Data Active Medications Acetaminophen (Acetaminophen 325 Mg Tablet) 650 mg PO Q6H PRN PRN Reason: Pain, Mild (Pain Scale 1-3) Last Admin: 05/11/23 13:59 Dose: 650 mg Documented By: SHANNON Albuterol Sulfate (Albuterol Sulfate (0.083%) 2.5 Mg/3 Ml Vial.Neb) 2.5 mg INHALE Q4H PRN PRN Reason: wheezing Albuterol Sulfate (Albuterol Sulfate 90 Mcg 8 Gm Inhaler) 2 puff INHALE Q4H PRN PRN Reason: wheezing Amitriptyline HCl (Amitriptyline Hcl 50 Mg Tablet) 100 mg PO BEDTIME [facility] Last Admin: 05/13/23 21:22 Dose: 100 mg Documented By: PHILIPP Aspirin (Aspirin Enteric Coated 81 Mg Tablet.) 81 mg PO DAILY [facility] Last Admin: 05/13/23 09:18 Dose: 81 mg Documented By: ANNABELLA Atorvastatin Calcium (Atorvastatin Calcium 10 Mg Tablet) 10 mg PO DAILY [facility] Last Admin: 05/13/23 09:18 Dose: 10 mg Documented By: ANNABELLA Docusate Sodium (Docusate Sodium 100 Mg Capsule) 100 mg PO BID [facility] Last Admin: 05/13/23 21:22 Dose: 100 mg Documented By: PHILIPP Fluticasone Propionate (Fluticasone Propionate Nasal 16 Gm [place]) 1 spray NOSTRIL-B DAILY PRN PRN Reason: Allergy Symptoms Heparin Sodium (Porcine) (Heparin Sodium,Porcine 5,000 Unit/Ml Vial) 5,000 unit SUBCUT Q12H [facility] Last Admin: 05/13/23 20:03 Dose: 5,000 unit Documented By: PHILIPP Heparin Sodium (Porcine) (Heparin Sodium,Porcine 5,000 Unit/Ml Vial) 5,000 unit INTRACATH TUTHSA@1645 [facility] Last Admin: 05/12/23 17:27 Dose: Not Given Documented By: ANNABELLA Non-Admin Reason: Dialysis order Hydroxyzine HCl (Hydroxyzine Hcl 50 Mg Tablet) 50 mg PO TID PRN PRN Reason: Anxiety Last Admin: 05/13/23 15:58 Dose: 50 mg Documented By: ANNABELLA Lamotrigine (Lamotrigine 100 Mg Tablet) 100 mg PO BID [facility] Last Admin: 05/13/23 21:21 Dose: 100 mg Documented By: PHILIPP Loperamide HCl (Loperamide Hcl 2 Mg Capsule) 2 mg PO Q3H PRN PRN Reason: Diarrhea Melatonin (Melatonin 3 Mg Tablet) 15 mg PO BEDTIME PRN PRN Reason: Insomnia Last Admin: 05/13/23 21:29 Dose: 15 mg Documented By: PHILIPP Metoprolol Succinate (Metoprolol Succinate Er 12.5 Mg Halftab.Er.24h) 12.5 mg PO BID [facility]; Protocol Last Admin: 05/13/23 21:21 Dose: 12.5 mg Documented By: PHILIPP Midodrine (Midodrine Hcl 10 Mg Tablet) 10 mg PO TuThSa@0600,1200,1800 PRN PRN Reason: low blood pressure Mirtazapine (Mirtazapine 15 Mg Tablet) 22.5 mg PO BEDTIME [facility] Last Admin: 05/13/23 21:21 Dose: 22.5 mg Documented By: PHILIPP Omeprazole (Omeprazole 20 Mg Capsule.) 20 mg PO DAILY@0630 [facility] Last Admin: 05/14/23 05:53 Dose: 20 mg Documented By: PHILIPP Ondansetron HCl (Ondansetron Hcl 4 Mg/2 Ml Vial) 4 mg IVPUSH Q8H PRN PRN Reason: Nausea and Vomiting Polyethylene Glycol (Polyethylene Glycol 3350 17 Gm Powd.Pack) 17 gm PO DAILY PRN PRN Reason: Constipation Prochlorperazine Maleate (Prochlorperazine Maleate 5 Mg Tablet) 5 mg PO TID PRN PRN Reason: nausea Last Admin: 05/11/23 09:02 Dose: 5 mg Documented By: PEDRO Ropinirole HCl (Ropinirole Hcl 1 Mg Tablet) 1 mg PO TID [facility] Last Admin: 05/13/23 21:21 Dose: 1 mg Documented By: PHILIPP Senna (Sennosides 8.6 Mg Tablet) 17.2 mg PO BID [facility] Last Admin: 05/13/23 21:21 Dose: 17.2 mg Documented By: PHILIPP Sodium Chloride (0.9 % Sodium Chloride Flush 3 Ml Syringe) 3 ml IVFLUSH QSHIFT [facility] Last Admin: 05/14/23 09:06 Dose: Not Given Documented By: VALENTE Non-Admin Reason: No Access Venlafaxine HCl (Venlafaxine Hcl Er 75 Mg Cap.Er.24h) 75 mg PO DAILY [facility] Last Admin: 05/13/23 09:18 Dose: 75 mg Documented By: ANNABELLA Zolpidem Tartrate (Zolpidem Tartrate 5 Mg Tablet) 5 mg PO BEDTIME PRN PRN Reason: Insomnia Last Admin: 05/14/23 00:22 Dose: 5 mg Documented By: PHILIPP Labs 05/12/23 06:37 05/12/23 06:37 Assessment and Plan (1) Chronic hypoxic respiratory failure: Status: Acute Plan 62F PMH ESRD, morbid obesity s/p sleeve gastrectomy 2017 now with resolution of obesity and diabetes and htn, chronic hypoxic respiratory failure on prn 2L home o2 for COPD/ILD, mood disorder, presented with weakness, SI, now cleared by care team, awaiting STR bed ESRD HD insomnia on ambien, melatonin per RN notes was sleeping overnight mood disorder continue mood stabilizers weakness recommending str dvt prophyalxis - hep sq full code reason for continued hospitalization:safe dispo Quality Stroke Does the patient have a stroke diagnosis?: No VTE Prior VTE?: No VTE Risk Level:: Medical - moderate - high VTE Device Contraindication: Treatment Not Indicated VTE Drug Contraindication: N/A - Med Ordered
[2023-05-14 15:02] VITALS: BP 127/74; PULSE 100; RESP 18; TEMP 36.9; O2SAT 93
[2023-05-14] MEDS: rOPINIRole HCL 1 MG TABLET PO ×2 (16:23→22:05)
[2023-05-14] MEDS: 0.9 % Sodium Chloride Flush 3 ML SYRINGE IVFLUSH (16:24)
[2023-05-14 19:16] VITALS: BP 106/72; PULSE 98; RESP 16; TEMP 36.2; O2SAT 94
[2023-05-14] MEDS: Heparin Sodium,Porcine 5,000 UNIT/ML VIAL 5000 UNIT SUBCUT (19:29)
[2023-05-14] MEDS: Amitriptyline HCl 50 MG TABLET 100 MG PO (22:04)
[2023-05-14] MEDS: Docusate Sodium 100 MG CAPSULE PO (22:05)
[2023-05-14] MEDS: hydrOXYzine HCL 50 MG TABLET PO (22:05)
[2023-05-14] MEDS: Metoprolol Succinate ER 12.5 MG HALFTAB.ER.24H PO (22:05)
[2023-05-14] MEDS: lamoTRIgine 100 MG TABLET PO (22:05)
[2023-05-14] MEDS: Sennosides 8.6 MG TABLET 17.2 MG PO (22:05)
[2023-05-14] MEDS: Mirtazapine 15 MG TABLET 22.5 MG PO (22:05)
[2023-05-14] MEDS: Melatonin 3 MG TABLET 15 MG PO (22:46)
[2023-05-14] MEDS: Acetaminophen 325 MG TABLET 650 MG PO (22:52)
[2023-05-15 04:00] VITALS: BP 151/83; PULSE 92; RESP 16; TEMP 36.8; O2SAT 100
[2023-05-15] MEDS: Omeprazole 20 MG CAPSULE.DR PO (05:41)
--- NOTE | 2023-05-15 06:25 | PC.NURSE ---
pt demanding her meds at 19:30 for the 21:00 schedule meds. this nurse pulled meds at 20:00 visited pt, pt told me too early, 21:00 visited again, pt said still early, told me to come back at 22:00, between the meds time, she called many times, individually order different things. pt took melatonin 15mg nearly 23:00, pt slept 6 hours. will continue to monitor.
[2023-05-15 07:45] VITALS: BP 124/82; PULSE 85; RESP 18; TEMP 36.6; O2SAT 98
[2023-05-15] MEDS: Docusate Sodium 100 MG CAPSULE PO ×2 (08:53→22:01)
[2023-05-15] MEDS: Sennosides 8.6 MG TABLET 17.2 MG PO ×2 (08:53→22:01)
[2023-05-15] MEDS: lamoTRIgine 100 MG TABLET PO ×2 (08:53→22:02)
[2023-05-15] MEDS: Venlafaxine HCl ER 75 MG CAP.ER.24H PO (08:53)
[2023-05-15] MEDS: Aspirin Enteric Coated 81 MG TABLET.DR PO (08:53)
[2023-05-15] MEDS: Heparin Sodium,Porcine 5,000 UNIT/ML VIAL 5000 UNIT SUBCUT ×2 (08:53→22:00)
[2023-05-15] MEDS: Atorvastatin Calcium 10 MG TABLET PO (08:53)
[2023-05-15] MEDS: rOPINIRole HCL 1 MG TABLET PO ×3 (08:53→22:01)
[2023-05-15] MEDS: Metoprolol Succinate ER 12.5 MG HALFTAB.ER.24H PO ×2 (08:53→22:02)
--- NOTE | 2023-05-15 09:45 | HO.PM.IMPN ---
Subjective Subjective Date of Service: 05/15/23 Interval History: reports insomnia Physical Exam Vital Signs: Vital Signs: Last Vital Signs Temp 97.9 F 05/15/23 07:45 Pulse 85 05/15/23 07:45 Resp 18 05/15/23 07:45 BP 124/82 05/15/23 07:45 Pulse Ox 98 05/15/23 07:45 O2 Del Method Room Air 05/15/23 07:45 O2 Flow Rate 2 05/12/23 15:19 BMI result Body Mass Index 27.3 Const: General: comfortable and no acute distress Orientation/consciousness: patient oriented x3 HEENT: Head: Yes normocephalic Mouth: Normal oral and palatal mucosa present Eyes: EOM: EOMs intact bilaterally Neck: Neck: Yes supple Resp: Auscultation: clear to auscultation bilaterally Cardio: Jugular venous distension: no JVD Rate: regular rate GI: Palpation (GI): Soft to palpation Auscultation: normal bowel sounds : General: Yes no CVA tenderness Back/Spine/Pelvis: Back: no CVA tenderness Skin: General skin exam: no rashes or lesions noted Neuro: General: patient oriented x3 and moves all extremities Extrem: Other: LUE AVF scar Objective Data Active Medications Acetaminophen (Acetaminophen 325 Mg Tablet) 650 mg PO Q6H PRN PRN Reason: Pain, Mild (Pain Scale 1-3) Last Admin: 05/14/23 22:52 Dose: 650 mg Documented By: PHILIPP Albuterol Sulfate (Albuterol Sulfate (0.083%) 2.5 Mg/3 Ml Vial.[place]) 2.5 mg INHALE Q4H PRN PRN Reason: wheezing Albuterol Sulfate (Albuterol Sulfate 90 Mcg 8 Gm Inhaler) 2 puff INHALE Q4H PRN PRN Reason: wheezing Amitriptyline HCl (Amitriptyline Hcl 50 Mg Tablet) 100 mg PO BEDTIME [facility] Last Admin: 05/14/23 22:04 Dose: 100 mg Documented By: PHILIPP Aspirin (Aspirin Enteric Coated 81 Mg Tablet.) 81 mg PO DAILY [facility] Last Admin: 05/15/23 08:53 Dose: 81 mg Documented By: XANDER Atorvastatin Calcium (Atorvastatin Calcium 10 Mg Tablet) 10 mg PO DAILY [facility] Last Admin: 05/15/23 08:53 Dose: 10 mg Documented By: XANDER Docusate Sodium (Docusate Sodium 100 Mg Capsule) 100 mg PO BID [facility] Last Admin: 05/15/23 08:53 Dose: 100 mg Documented By: XANDER Fluticasone Propionate (Fluticasone Propionate Nasal 16 Gm [place]) 1 spray NOSTRIL-B DAILY PRN PRN Reason: Allergy Symptoms Heparin Sodium (Porcine) (Heparin Sodium,Porcine 5,000 Unit/Ml Vial) 5,000 unit SUBCUT Q12H [facility] Last Admin: 05/15/23 08:53 Dose: 5,000 unit Documented By: XANDER Heparin Sodium (Porcine) (Heparin Sodium,Porcine 5,000 Unit/Ml Vial) 5,000 unit INTRACATH TUTHSA@1645 [facility] Last Admin: 05/14/23 16:39 Dose: Not Given Documented By: VALENTE Non-Admin Reason: Given in Dialysis Hydroxyzine HCl (Hydroxyzine Hcl 50 Mg Tablet) 50 mg PO TID PRN PRN Reason: Anxiety Last Admin: 05/14/23 22:05 Dose: 50 mg Documented By: PHILIPP Lamotrigine (Lamotrigine 100 Mg Tablet) 100 mg PO BID [facility] Last Admin: 05/15/23 08:53 Dose: 100 mg Documented By: XANDER Loperamide HCl (Loperamide Hcl 2 Mg Capsule) 2 mg PO Q3H PRN PRN Reason: Diarrhea Melatonin (Melatonin 3 Mg Tablet) 15 mg PO BEDTIME PRN PRN Reason: Insomnia Last Admin: 05/14/23 22:46 Dose: 15 mg Documented By: PHILIPP Metoprolol Succinate (Metoprolol Succinate Er 12.5 Mg Halftab.Er.24h) 12.5 mg PO BID [facility]; Protocol Last Admin: 05/15/23 08:53 Dose: 12.5 mg Documented By: XANDER Midodrine (Midodrine Hcl 10 Mg Tablet) 10 mg PO TuThSa@0600,1200,1800 PRN PRN Reason: low blood pressure Mirtazapine (Mirtazapine 15 Mg Tablet) 22.5 mg PO BEDTIME [facility] Last Admin: 05/14/23 22:05 Dose: 22.5 mg Documented By: PHILIPP Omeprazole (Omeprazole 20 Mg Capsule.) 20 mg PO DAILY@0630 [facility] Last Admin: 05/15/23 05:41 Dose: 20 mg Documented By: PHILIPP Ondansetron HCl (Ondansetron Hcl 4 Mg/2 Ml Vial) 4 mg IVPUSH Q8H PRN PRN Reason: Nausea and Vomiting Polyethylene Glycol (Polyethylene Glycol 3350 17 Gm Powd.Pack) 17 gm PO DAILY PRN PRN Reason: Constipation Prochlorperazine Maleate (Prochlorperazine Maleate 5 Mg Tablet) 5 mg PO TID PRN PRN Reason: nausea Last Admin: 05/11/23 09:02 Dose: 5 mg Documented By: PEDRO Ropinirole HCl (Ropinirole Hcl 1 Mg Tablet) 1 mg PO TID [facility] Last Admin: 05/15/23 08:53 Dose: 1 mg Documented By: XANDER Senna (Sennosides 8.6 Mg Tablet) 17.2 mg PO BID [facility] Last Admin: 05/15/23 08:53 Dose: 17.2 mg Documented By: XANDER Sodium Chloride (0.9 % Sodium Chloride Flush 3 Ml Syringe) 3 ml IVFLUSH QSHIFT [facility] Last Admin: 05/15/23 07:13 Dose: Not Given Documented By: XANDER Non-Admin Reason: No Access Venlafaxine HCl (Venlafaxine Hcl Er 75 Mg Cap.Er.24h) 75 mg PO DAILY [facility] Last Admin: 05/15/23 08:53 Dose: 75 mg Documented By: XANDER Zolpidem Tartrate (Zolpidem Tartrate 5 Mg Tablet) 5 mg PO BEDTIME PRN PRN Reason: Insomnia Last Admin: 05/14/23 00:22 Dose: 5 mg Documented By: PHILIPP Labs 05/12/23 06:37 05/12/23 06:37 Assessment and Plan (1) Chronic hypoxic respiratory failure: Status: Acute Plan 62F PMH ESRD, morbid obesity s/p sleeve gastrectomy 2017 now with resolution of obesity and diabetes and htn, chronic hypoxic respiratory failure on prn 2L home o2 for COPD/ILD, mood disorder, presented with weakness, SI, now cleared by care team, awaiting STR bed ESRD HD insomnia on ambien, melatonin per RN notes was sleeping overnight mood disorder continue mood stabilizers weakness recommending str dvt prophyalxis - hep sq full code reason for continued hospitalization:safe dispo Quality Stroke Does the patient have a stroke diagnosis?: No VTE Prior VTE?: No VTE Risk Level:: Medical - moderate - high VTE Device Contraindication: Treatment Not Indicated VTE Drug Contraindication: N/A - Med Ordered
[2023-05-15 15:24] VITALS: BP 115/72; PULSE 89; RESP 18; TEMP 37; O2SAT 98
[2023-05-15 19:30] VITALS: BP 114/69; PULSE 90; RESP 18; TEMP 36.3; O2SAT 96
[2023-05-15] MEDS: hydrOXYzine HCL 50 MG TABLET PO (22:01)
[2023-05-15] MEDS: Amitriptyline HCl 50 MG TABLET 100 MG PO (22:01)
[2023-05-15] MEDS: Mirtazapine 15 MG TABLET 22.5 MG PO (22:01)
[2023-05-15] MEDS: Melatonin 3 MG TABLET 15 MG PO (22:02)
[2023-05-15] MEDS: Acetaminophen 325 MG TABLET 650 MG PO (23:39)
[2023-05-16 04:00] VITALS: BP 120/72; PULSE 85; RESP 18; TEMP 36.2; O2SAT 93
[2023-05-16] MEDS: Omeprazole 20 MG CAPSULE.DR PO (06:08)
[2023-05-16 07:11] VITALS: BP 117/76; PULSE 87; RESP 20; TEMP 36.3; O2SAT 93
--- NOTE | 2023-05-16 08:05 | HO.PM.IMPN ---
Subjective Subjective Date of Service: 05/16/23 Interval History: reports insomnia Physical Exam Vital Signs: Vital Signs: Last Vital Signs Temp 97.4 F 05/16/23 07:11 Pulse 87 05/16/23 07:11 Resp 20 05/16/23 07:11 BP 117/76 05/16/23 07:11 Pulse Ox 93 05/16/23 07:11 O2 Del Method Room Air 05/16/23 07:11 O2 Flow Rate 2 05/12/23 15:19 BMI result Body Mass Index 27.3 Const: General: comfortable and no acute distress Orientation/consciousness: patient oriented x3 HEENT: Head: Yes normocephalic Mouth: Normal oral and palatal mucosa present Eyes: EOM: EOMs intact bilaterally Neck: Neck: Yes supple Resp: Auscultation: clear to auscultation bilaterally Cardio: Jugular venous distension: no JVD Rate: regular rate GI: Palpation (GI): Soft to palpation Auscultation: normal bowel sounds : General: Yes no CVA tenderness Back/Spine/Pelvis: Back: no CVA tenderness Skin: General skin exam: no rashes or lesions noted Neuro: General: patient oriented x3 and moves all extremities Extrem: Other: LUE AVF scar Objective Data Active Medications Acetaminophen (Acetaminophen 325 Mg Tablet) 650 mg PO Q6H PRN PRN Reason: Pain, Mild (Pain Scale 1-3) Last Admin: 05/15/23 23:39 Dose: 650 mg Documented By: PHILIPP Albuterol Sulfate (Albuterol Sulfate (0.083%) 2.5 Mg/3 Ml Vial.Neb) 2.5 mg INHALE Q4H PRN PRN Reason: wheezing Albuterol Sulfate (Albuterol Sulfate 90 Mcg 8 Gm Inhaler) 2 puff INHALE Q4H PRN PRN Reason: wheezing Amitriptyline HCl (Amitriptyline Hcl 50 Mg Tablet) 100 mg PO BEDTIME [facility] Last Admin: 05/15/23 22:01 Dose: 100 mg Documented By: PHILIPP Aspirin (Aspirin Enteric Coated 81 Mg Tablet.) 81 mg PO DAILY [facility] Last Admin: 05/15/23 08:53 Dose: 81 mg Documented By: XANDER Atorvastatin Calcium (Atorvastatin Calcium 10 Mg Tablet) 10 mg PO DAILY [facility] Last Admin: 05/15/23 08:53 Dose: 10 mg Documented By: XANDER Docusate Sodium (Docusate Sodium 100 Mg Capsule) 100 mg PO BID [facility] Last Admin: 05/15/23 22:01 Dose: 100 mg Documented By: PHILIPP Fluticasone Propionate (Fluticasone Propionate Nasal 16 Gm [place]) 1 spray NOSTRIL-B DAILY PRN PRN Reason: Allergy Symptoms Heparin Sodium (Porcine) (Heparin Sodium,Porcine 5,000 Unit/Ml Vial) 5,000 unit SUBCUT Q12H [facility] Last Admin: 05/15/23 22:00 Dose: 5,000 unit Documented By: PHILIPP Heparin Sodium (Porcine) (Heparin Sodium,Porcine 5,000 Unit/Ml Vial) 5,000 unit INTRACATH TUTHSA@1645 [facility] Last Admin: 05/14/23 16:39 Dose: Not Given Documented By: VALENTE Non-Admin Reason: Given in Dialysis Hydroxyzine HCl (Hydroxyzine Hcl 50 Mg Tablet) 50 mg PO TID PRN PRN Reason: Anxiety Last Admin: 05/15/23 22:01 Dose: 50 mg Documented By: PHILIPP Lamotrigine (Lamotrigine 100 Mg Tablet) 100 mg PO BID [facility] Last Admin: 05/15/23 22:02 Dose: 100 mg Documented By: PHILIPP Loperamide HCl (Loperamide Hcl 2 Mg Capsule) 2 mg PO Q3H PRN PRN Reason: Diarrhea Melatonin (Melatonin 3 Mg Tablet) 15 mg PO BEDTIME PRN PRN Reason: Insomnia Last Admin: 05/15/23 22:02 Dose: 15 mg Documented By: PHILIPP Metoprolol Succinate (Metoprolol Succinate Er 12.5 Mg Halftab.Er.24h) 12.5 mg PO BID [facility]; Protocol Last Admin: 05/15/23 22:02 Dose: 12.5 mg Documented By: PHILIPP Midodrine (Midodrine Hcl 10 Mg Tablet) 10 mg PO TuThSa@0600,1200,1800 PRN PRN Reason: low blood pressure Mirtazapine (Mirtazapine 15 Mg Tablet) 22.5 mg PO BEDTIME [facility] Last Admin: 05/15/23 22:01 Dose: 22.5 mg Documented By: PHILIPP Omeprazole (Omeprazole 20 Mg Capsule.) 20 mg PO DAILY@0630 [facility] Last Admin: 05/16/23 06:08 Dose: 20 mg Documented By: PHILIPP Ondansetron HCl (Ondansetron Hcl 4 Mg/2 Ml Vial) 4 mg IVPUSH Q8H PRN PRN Reason: Nausea and Vomiting Polyethylene Glycol (Polyethylene Glycol 3350 17 Gm Powd.Pack) 17 gm PO DAILY PRN PRN Reason: Constipation Prochlorperazine Maleate (Prochlorperazine Maleate 5 Mg Tablet) 5 mg PO TID PRN PRN Reason: nausea Last Admin: 05/11/23 09:02 Dose: 5 mg Documented By: PEDRO Ropinirole HCl (Ropinirole Hcl 1 Mg Tablet) 1 mg PO TID [facility] Last Admin: 05/15/23 22:01 Dose: 1 mg Documented By: PHILIPP Senna (Sennosides 8.6 Mg Tablet) 17.2 mg PO BID [facility] Last Admin: 05/15/23 22:01 Dose: 17.2 mg Documented By: PHILIPP Sodium Chloride (0.9 % Sodium Chloride Flush 3 Ml Syringe) 3 ml IVFLUSH QSHIFT [facility] Last Admin: 05/15/23 23:31 Dose: Not Given Documented By: PHILIPP Non-Admin Reason: No Access Venlafaxine HCl (Venlafaxine Hcl Er 75 Mg Cap.Er.24h) 75 mg PO DAILY [facility] Last Admin: 05/15/23 08:53 Dose: 75 mg Documented By: SAMANTAOS Labs 05/12/23 06:37 05/12/23 06:37 Assessment and Plan (1) Chronic hypoxic respiratory failure: Status: Acute Plan 62F PMH ESRD, morbid obesity s/p sleeve gastrectomy 2017 now with resolution of obesity and diabetes and htn, chronic hypoxic respiratory failure on prn 2L home o2 for COPD/ILD, mood disorder, presented with weakness, SI, now cleared by care team, awaiting STR bed ESRD HD insomnia on ambien, melatonin per RN notes was sleeping overnight mood disorder continue mood stabilizers weakness recommending str dvt prophyalxis - hep sq full code reason for continued hospitalization:safe dispo Quality Stroke Does the patient have a stroke diagnosis?: No VTE Prior VTE?: No VTE Risk Level:: Medical - moderate - high VTE Device Contraindication: Treatment Not Indicated VTE Drug Contraindication: N/A - Med Ordered
[2023-05-16] MEDS: rOPINIRole HCL 1 MG TABLET PO ×3 (08:48→23:28)
[2023-05-16] MEDS: Atorvastatin Calcium 10 MG TABLET PO (08:48)
[2023-05-16] MEDS: Venlafaxine HCl ER 75 MG CAP.ER.24H PO (08:48)
[2023-05-16] MEDS: Sennosides 8.6 MG TABLET 17.2 MG PO ×2 (08:48→20:03)
[2023-05-16] MEDS: Heparin Sodium,Porcine 5,000 UNIT/ML VIAL 5000 UNIT SUBCUT ×2 (08:48→20:02)
[2023-05-16] MEDS: Metoprolol Succinate ER 12.5 MG HALFTAB.ER.24H PO ×2 (08:48→23:28)
[2023-05-16] MEDS: Docusate Sodium 100 MG CAPSULE PO ×2 (08:48→20:03)
[2023-05-16] MEDS: lamoTRIgine 100 MG TABLET PO ×2 (08:48→20:03)
[2023-05-16] MEDS: Aspirin Enteric Coated 81 MG TABLET.DR PO (08:48)
[2023-05-16] MEDS: Prochlorperazine Maleate 5 MG TABLET PO (08:55)
[2023-05-16 15:11] VITALS: BP 120/64; PULSE 82; RESP 16; TEMP 36.6; O2SAT 95
[2023-05-16] MEDS: Acetaminophen 325 MG TABLET 650 MG PO (18:09)
[2023-05-16 19:29] VITALS: BP 120/82; PULSE 86; RESP 18; TEMP 36.3; O2SAT 98
--- NOTE | 2023-05-16 19:53 | PC.NURSE ---
pt c/o nightmare seeing a men, I don't feel good, I'm afraid and I'm very anxious, very scare pt mentions afew times of anxious and trouble. pt keep talking about something it doesn't make sense. will continue to monitor.
[2023-05-16] MEDS: hydrOXYzine HCL 50 MG TABLET PO (20:03)
[2023-05-16] MEDS: Amitriptyline HCl 50 MG TABLET 100 MG PO (20:03)
--- NOTE | 2023-05-16 20:41 | PM.EVENT ---
Event Note Date of Service: 05/17/23 Event Note: Called for patient complaining of delusions. She has ESRD and is on HD TTS and presented to the emergency room yesterday with SI though currently not suicidal. RN reports that she is more delusional than she was these past 3 nights and reported being anxious and scared plus with hallucianations. Ass/Plan Anxiety - will give a dose of ativan and see if it helps at least with the feeling of anxiety Time Spent With Patient Time: Total time managing care of this patient today _15___ minutes.
[2023-05-16] MEDS: LORazepam 1 MG TABLET PO (21:03)
--- NOTE | 2023-05-16 21:24 | HE.PHANOTE ---
RN called explaining patient is refusing her night time medications if offered to her prior to 10 pm and has been giving RN's a hard time since admission. I retimed evening medications to be given at 10 pm for easy of RN and increased patient adherence
[2023-05-16] MEDS: Mirtazapine 15 MG TABLET 22.5 MG PO (23:28)
[2023-05-16] MEDS: Melatonin 3 MG TABLET 15 MG PO (23:29)
[2023-05-17 03:31] VITALS: BP 120/91; PULSE 105; RESP 18; TEMP 36.1; O2SAT 95
[2023-05-17] MEDS: Acetaminophen 325 MG TABLET 650 MG PO ×2 (04:14→14:26)
--- NOTE | 2023-05-17 08:32 | P.PNIM_ITS ---
Subjective Subjective Date of Service: 05/17/23 Interval History: no new complaints Physical Exam 2 Vital Signs: Vital Signs: Last Vital Signs Temp 96.9 F 05/17/23 03:31 Pulse 105 H 05/17/23 03:31 Resp 18 05/17/23 03:31 BP 120/91 H 05/17/23 03:31 Pulse Ox 95 05/17/23 03:31 O2 Del Method Room Air 05/17/23 03:31 O2 Flow Rate 2 05/12/23 15:19 BMI result Body Mass Index 27.3 Const: General: comfortable and no acute distress O rientation/consciousness: patient oriented x3 HEENT: Head: Yes normocephalic Mouth: Normal oral and palatal mucosa present Eyes: EOM: EOMs intact bilaterally Neck: Neck: Yes supple Resp: Auscultation: clear to auscultation bilaterally Cardio: Jugular venous distension: no JVD Rate: regular rate GI: Palpation (GI): Soft to palpation Auscultation: normal bowel sounds : General: Yes no CVA tenderness Back/Spine/Pelvis: Back: no CVA tenderness Skin: General skin exam: no rashes or lesions noted Neuro: General: patient oriented x3 and moves all extremities Extrem: Other: LUE AVF scar Objective Data Active Medications Acetaminophen (Acetaminophen 325 Mg Tablet) 650 mg PO Q6H PRN PRN Reason: Pain, Mild (Pain Scale 1-3) Last Admin: 05/17/23 04:14 Dose: 650 mg Documented By: NING Albuterol Sulfate (Albuterol Sulfate 90 Mcg 8 Gm Inhaler) 2 puff INHALE Q4H PRN PRN Reason: wheezing Amitriptyline HCl (Amitriptyline Hcl 50 Mg Tablet) 100 mg PO BEDTIME@2200 [facility] Last Admin: 05/16/23 23:24 Dose: Not Given Documented By: PHILIPP Non-Admin Reason: given early Aspirin (Aspirin Enteric Coated 81 Mg Tablet.) 81 mg PO DAILY [facility] Last Admin: 05/16/23 08:48 Dose: 81 mg Documented By: XANDER Atorvastatin Calcium (Atorvastatin Calcium 10 Mg Tablet) 10 mg PO DAILY [facility] Last Admin: 05/16/23 08:48 Dose: 10 mg Documented By: XANDER Docusate Sodium (Docusate Sodium 100 Mg Capsule) 100 mg PO BID@0900,2200 [facility] Last Admin: 05/16/23 23:24 Dose: Not Given Documented By: PHILIPP Non-Admin Reason: given early Fluticasone Propionate (Fluticasone Propionate Nasal 16 Gm [place]) 1 spray NOSTRIL-B DAILY PRN PRN Reason: Allergy Symptoms Heparin Sodium (Porcine) (Heparin Sodium,Porcine 5,000 Unit/Ml Vial) 5,000 unit SUBCUT Q12H [facility] Last Admin: 05/16/23 20:02 Dose: 5,000 unit Documented By: PHILIPP Heparin Sodium (Porcine) (Heparin Sodium,Porcine 5,000 Unit/Ml Vial) 5,000 unit INTRACATH TUTHSA@1645 [facility] Last Admin: 05/14/23 16:39 Dose: Not Given Documented By: VALENTE Non-Admin Reason: Given in Dialysis Hydroxyzine HCl (Hydroxyzine Hcl 50 Mg Tablet) 50 mg PO TID PRN PRN Reason: Anxiety Last Admin: 05/16/23 20:03 Dose: 50 mg Documented By: PHILIPP Lamotrigine (Lamotrigine 100 Mg Tablet) 100 mg PO BID@0900,2200 [facility] Last Admin: 05/16/23 21:35 Dose: Not Given Documented By: PHILIPP Non-Admin Reason: given early at 21:00 changed time for tomorro Loperamide HCl (Loperamide Hcl 2 Mg Capsule) 2 mg PO Q3H PRN PRN Reason: Diarrhea Melatonin (Melatonin 3 Mg Tablet) 15 mg PO BEDTIME@2200 PRN PRN Reason: Insomnia Last Admin: 05/16/23 23:29 Dose: 15 mg Documented By: PHILIPP Metoprolol Succinate (Metoprolol Succinate Er 12.5 Mg Halftab.Er.24h) 12.5 mg PO BID@0900,2200 [facility]; Protocol Last Admin: 05/16/23 23:28 Dose: 12.5 mg Documented By: PHILIPP Midodrine (Midodrine Hcl 10 Mg Tablet) 10 mg PO TuThSa@0600,1200,1800 PRN PRN Reason: low blood pressure Mirtazapine (Mirtazapine 15 Mg Tablet) 22.5 mg PO DAILY@2200 [facility] Last Admin: 05/16/23 23:28 Dose: 22.5 mg Documented By: PHILIPP Omeprazole (Omeprazole 20 Mg Capsule.) 20 mg PO DAILY@0630 [facility] Last Admin: 05/17/23 07:22 Dose: Not Given Documented By: MIKE Non-Admin Reason: Off unit: Dialysis Ondansetron HCl (Ondansetron Hcl 4 Mg/2 Ml Vial) 4 mg IVPUSH Q8H PRN PRN Reason: Nausea and Vomiting Polyethylene Glycol (Polyethylene Glycol 3350 17 Gm Powd.Pack) 17 gm PO DAILY PRN PRN Reason: Constipation Prochlorperazine Maleate (Prochlorperazine Maleate 5 Mg Tablet) 5 mg PO TID PRN PRN Reason: nausea Last Admin: 05/16/23 08:55 Dose: 5 mg Documented By: CELINE Ropinirole HCl (Ropinirole Hcl 1 Mg Tablet) 1 mg PO TID [facility] Last Admin: 05/16/23 23:28 Dose: 1 mg Documented By: PHILIPP Senna (Sennosides 8.6 Mg Tablet) 17.2 mg PO BID@0900,2200 [facility] Last Admin: 05/16/23 23:24 Dose: Not Given Documented By: PHILIPP Non-Admin Reason: given early Sodium Chloride (0.9 % Sodium Chloride Flush 3 Ml Syringe) 3 ml IVFLUSH QSHIFT [facility] Last Admin: 05/16/23 23:25 Dose: Not Given Documented By: PHILIPP Non-Admin Reason: No Access Venlafaxine HCl (Venlafaxine Hcl Er 75 Mg Cap.Er.24h) 75 mg PO DAILY [facility] Last Admin: 05/16/23 08:48 Dose: 75 mg Documented By: SAMANTAOS Labs 05/12/23 06:37 05/12/23 06:37 Assessment and Plan (1) Chronic hypoxic respiratory failure: Status: Acute Plan 62F PMH ESRD, morbid obesity s/p sleeve gastrectomy 2017 now with resolution of obesity and diabetes and htn, chronic hypoxic respiratory failure on prn 2L home o2 for COPD/ILD, mood disorder, presented with weakness, SI, now cleared by care team, awaiting STR bed ESRD HD insomnia on ambien, melatonin mood disorder continue mood stabilizers weakness recommending str dvt prophyalxis - hep sq full code reason for continued hospitalization:safe dispo Quality Stroke Does the patient have a stroke diagnosis?: No VTE Prior VTE?: No VTE Risk Level:: Medical - moderate - high VTE Device Contraindication: Treatment Not Indicated VTE Drug Contraindication: N/A - Med Ordered
[2023-05-17 09:21] VITALS: BP 132/85; PULSE 81; RESP 16; TEMP 36; O2SAT 94
[2023-05-17] MEDS: 0.9 % Sodium Chloride Flush 3 ML SYRINGE IVFLUSH (09:30)
[2023-05-17] MEDS: Heparin Sodium,Porcine 5,000 UNIT/ML VIAL 5000 UNIT SUBCUT ×2 (09:30→20:57)
[2023-05-17] MEDS: Aspirin Enteric Coated 81 MG TABLET.DR PO (09:31)
[2023-05-17] MEDS: Venlafaxine HCl ER 75 MG CAP.ER.24H PO (09:31)
[2023-05-17] MEDS: Metoprolol Succinate ER 12.5 MG HALFTAB.ER.24H PO ×2 (09:31→20:59)
[2023-05-17] MEDS: rOPINIRole HCL 1 MG TABLET PO ×3 (09:31→21:09)
[2023-05-17] MEDS: Sennosides 8.6 MG TABLET 17.2 MG PO ×2 (09:31→20:59)
[2023-05-17] MEDS: lamoTRIgine 100 MG TABLET PO ×2 (09:31→20:59)
[2023-05-17] MEDS: Docusate Sodium 100 MG CAPSULE PO ×2 (09:31→21:00)
[2023-05-17] MEDS: Atorvastatin Calcium 10 MG TABLET PO (09:31)
[2023-05-17 10:31] VITALS: BP 132/85; PULSE 81; O2SAT 94
[2023-05-17 15:16] VITALS: BP 100/65; PULSE 91; RESP 18; TEMP 36.5; O2SAT 94
--- NOTE | 2023-05-17 15:23 | MHC.CM.PN ---
EMR reviewed. PT continuing to recommend STR on dc. No bed offers at this time. [facility] and left VM requesting updates. No response. Patient updated on bed search. Verbalized understanding. CM will continue to follow.
[2023-05-17 19:22] VITALS: BP 114/58; PULSE 89; RESP 18; TEMP 36.5; O2SAT 94
[2023-05-17] MEDS: Amitriptyline HCl 50 MG TABLET 100 MG PO (20:57)
[2023-05-17] MEDS: Mirtazapine 15 MG TABLET 22.5 MG PO (20:58)
[2023-05-17] MEDS: Morphine Sulfate 2 MG/ML CARTRIDGE IM (22:29)
[2023-05-17] MEDS: Melatonin 3 MG TABLET 15 MG PO (22:54)
[2023-05-18] MEDS: hydrOXYzine HCL 50 MG TABLET PO ×2 (01:52→14:31)
[2023-05-18 03:56] VITALS: BP 97/61; PULSE 84; RESP 16; TEMP 36.4; O2SAT 94
[2023-05-18] MEDS: Omeprazole 20 MG CAPSULE.DR PO (06:17)
[2023-05-18 07:09] VITALS: BP 107/57; PULSE 88; RESP 16; TEMP 36.1; O2SAT 96
[2023-05-18 07:09] LABS: Hematocrit 33.6 % (37.0-47.0); Hemoglobin 10.8 g/dl (12.0-16.0); Mean Corpuscular HGB Conc 32.1 g/dl (31.0-35.0); Mean Corpuscular Hemoglobin 30.3 pg (27.0-33.0); Mean Corpuscular Volume 94.4 fL (80.0-98.0); Platelet Count 209 X10*3/uL (160-400); Red Blood Count 3.56 X10*6/uL (4.20-5.50); Red Cell Distribution Width 14.6 % (11.0-16.0); White Blood Count 4.4 X10*3/uL (4.8-10.8)
[2023-05-18 07:26] LABS: Anion Gap 18 (12-20); Blood Urea Nitrogen 50 mg/dL (9-16); Calcium 9.2 mg/dL (8.4-10.2); Carbon Dioxide 24 mmol/L (22-29); Chloride 98 mmol/L (96-108); Creatinine Clr Calc Pharmacy 9.5; Estimated Glomerular Filt Rate 9; Glucose Fasting 111 mg/dL (60-99); Potassium 5.1 mmol/L (3.3-5.1); Sodium 135 mmol/L (135-145)
[2023-05-18] MEDS: lamoTRIgine 100 MG TABLET PO ×2 (07:57→19:52)
[2023-05-18] MEDS: 0.9 % Sodium Chloride Flush 3 ML SYRINGE IVFLUSH (07:57)
[2023-05-18] MEDS: Venlafaxine HCl ER 75 MG CAP.ER.24H PO (07:57)
[2023-05-18] MEDS: Sennosides 8.6 MG TABLET 17.2 MG PO ×2 (07:57→20:24)
[2023-05-18] MEDS: Heparin Sodium,Porcine 5,000 UNIT/ML VIAL 5000 UNIT SUBCUT ×2 (07:57→19:52)
[2023-05-18] MEDS: rOPINIRole HCL 1 MG TABLET PO ×3 (07:57→21:59)
[2023-05-18] MEDS: Aspirin Enteric Coated 81 MG TABLET.DR PO (07:57)
[2023-05-18] MEDS: Atorvastatin Calcium 10 MG TABLET PO (07:57)
[2023-05-18] MEDS: Docusate Sodium 100 MG CAPSULE PO ×2 (07:57→20:24)
[2023-05-18] MEDS: Metoprolol Succinate ER 12.5 MG HALFTAB.ER.24H PO ×2 (07:57→22:01)
[2023-05-18 09:44] VITALS: BP 107/57; PULSE 88; O2SAT 96
--- NOTE | 2023-05-18 09:52 | HO.PM.IMPN ---
Subjective Subjective Date of Service: 05/18/23 Interval History: Seen and evaluated this morning Denies any fever or chills no complaints Review of Systems Review of Systems: Yes all other systems are reviewed and are negative Physical Exam Vital Signs: Vital Signs: Last Vital Signs Temp 97 F 05/18/23 07:09 Pulse 88 05/18/23 09:44 Resp 16 05/18/23 07:09 BP 107/57 L 05/18/23 09:44 Pulse Ox 96 05/18/23 09:44 O2 Del Method Room Air 05/18/23 07:09 O2 Flow Rate 2 05/12/23 15:19 BMI result Body Mass Index 27.3 Const: Other: Constitutional : Awake, interactive, not in distress Neck : Normal inspection, Supple Cardiovascular : RRR, no JVP, no lower extremity edema Respiratory : good bilateral air entry, no crackles, wheezes or rhonchi Gastrointestinal: soft, lax, Normal bowel sounds, Non tender Skin : Warm, Dry, Permacath in place, Fistula not functioning Neurological : Alert & oriented x3, No focal deficit Objective Data Active Medications Acetaminophen (Acetaminophen 325 Mg Tablet) 650 mg PO Q6H PRN PRN Reason: Pain, Mild (Pain Scale 1-3) Last Admin: 05/17/23 14:26 Dose: 650 mg Documented By: MIKE Albuterol Sulfate (Albuterol Sulfate 90 Mcg 8 Gm Inhaler) 2 puff INHALE Q4H PRN PRN Reason: wheezing Amitriptyline HCl (Amitriptyline Hcl 50 Mg Tablet) 100 mg PO BEDTIME@2200 [facility] Last Admin: 05/17/23 20:57 Dose: 100 mg Documented By: KRISTAN Aspirin (Aspirin Enteric Coated 81 Mg Tablet.) 81 mg PO DAILY [facility] Last Admin: 05/18/23 07:57 Dose: 81 mg Documented By: ILDA Atorvastatin Calcium (Atorvastatin Calcium 10 Mg Tablet) 10 mg PO DAILY [facility] Last Admin: 05/18/23 07:57 Dose: 10 mg Documented By: ILDA Docusate Sodium (Docusate Sodium 100 Mg Capsule) 100 mg PO BID@0900,2200 [facility] Last Admin: 05/18/23 07:57 Dose: 100 mg Documented By: ILDA Fluticasone Propionate (Fluticasone Propionate Nasal 16 Gm [place]) 1 spray NOSTRIL-B DAILY PRN PRN Reason: Allergy Symptoms Heparin Sodium (Porcine) (Heparin Sodium,Porcine 5,000 Unit/Ml Vial) 5,000 unit SUBCUT Q12H [facility] Last Admin: 05/18/23 07:57 Dose: 5,000 unit Documented By: ILDA Heparin Sodium (Porcine) (Heparin Sodium,Porcine 5,000 Unit/Ml Vial) 5,000 unit INTRACATH TUTHSA@1645 [facility] Last Admin: 05/17/23 17:37 Dose: Not Given Documented By: MIKE Non-Admin Reason: Given in Dialysis Hydroxyzine HCl (Hydroxyzine Hcl 50 Mg Tablet) 50 mg PO TID PRN PRN Reason: Anxiety Last Admin: 05/18/23 01:52 Dose: 50 mg Documented By: KRISTAN Lamotrigine (Lamotrigine 100 Mg Tablet) 100 mg PO BID@0900,2200 [facility] Last Admin: 05/18/23 07:57 Dose: 100 mg Documented By: ILDA Loperamide HCl (Loperamide Hcl 2 Mg Capsule) 2 mg PO Q3H PRN PRN Reason: Diarrhea Melatonin (Melatonin 3 Mg Tablet) 15 mg PO BEDTIME@2200 PRN PRN Reason: Insomnia Last Admin: 05/17/23 22:54 Dose: 15 mg Documented By: KRISTAN Metoprolol Succinate (Metoprolol Succinate Er 12.5 Mg Halftab.Er.24h) 12.5 mg PO BID@0900,2200 [facility]; Protocol Last Admin: 05/18/23 07:57 Dose: 12.5 mg Documented By: ILDA Midodrine (Midodrine Hcl 10 Mg Tablet) 10 mg PO TuThSa@0600,1200,1800 PRN PRN Reason: low blood pressure Mirtazapine (Mirtazapine 15 Mg Tablet) 22.5 mg PO DAILY@2200 [facility] Last Admin: 05/17/23 20:58 Dose: 22.5 mg Documented By: KRISTAN Omeprazole (Omeprazole 20 Mg Capsule.) 20 mg PO DAILY@0630 [facility] Last Admin: 05/18/23 06:17 Dose: 20 mg Documented By: KRISTAN Ondansetron HCl (Ondansetron Hcl 4 Mg/2 Ml Vial) 4 mg IVPUSH Q8H PRN PRN Reason: Nausea and Vomiting Polyethylene Glycol (Polyethylene Glycol 3350 17 Gm Powd.Pack) 17 gm PO DAILY PRN PRN Reason: Constipation Prochlorperazine Maleate (Prochlorperazine Maleate 5 Mg Tablet) 5 mg PO TID PRN PRN Reason: nausea Last Admin: 05/16/23 08:55 Dose: 5 mg Documented By: CELINE Ropinirole HCl (Ropinirole Hcl 1 Mg Tablet) 1 mg PO TID [facility] Last Admin: 05/18/23 07:57 Dose: 1 mg Documented By: ILDA Senna (Sennosides 8.6 Mg Tablet) 17.2 mg PO BID@0900,2200 [facility] Last Admin: 05/18/23 07:57 Dose: 17.2 mg Documented By: ILDA Sodium Chloride (0.9 % Sodium Chloride Flush 3 Ml Syringe) 3 ml IVFLUSH QSHIFT [facility] Last Admin: 05/18/23 07:57 Dose: 3 ml Documented By: ILDA Venlafaxine HCl (Venlafaxine Hcl Er 75 Mg Cap.Er.24h) 75 mg PO DAILY [facility] Last Admin: 05/18/23 07:57 Dose: 75 mg Documented By: ILDA Labs 05/18/23 06:41 05/18/23 06:41 Labs: Laboratory Results - last 24 hr 05/18/23 06:41 MCV 94.4 MCH 30.3 MCHC 32.1 RDW 14.6 Plt Count 209 MPV 10.0 Absolute Nucleated RBC 0.000 Nucleated RBC % (auto) 0.0 Anion Gap 18 Estim Creat Clear Calc 9.5 Estimated GFR 9 Fasting Glucose 111 H Calcium 9.2 Assessment and Plan (1) ESRD on dialysis: Status: Acute Plan 62F PMH ESRD, morbid obesity s/p sleeve gastrectomy 2017 now with resolution of obesity and diabetes and htn, chronic hypoxic respiratory failure on prn 2L home o2 for COPD/ILD, mood disorder, presented with weakness, SI, now cleared by care team, awaiting STR bed ESRD HD insomnia on ambien, melatonin mood disorder continue mood stabilizers weakness recommending str dvt prophyalxis - hep sq full code reason for continued hospitalization:safe dispo Quality Stroke Does the patient have a stroke diagnosis?: No VTE Prior VTE?: No VTE Risk Level:: Medical - moderate - high VTE Device Contraindication: Treatment Not Indicated VTE Drug Contraindication: N/A - Med Ordered
--- NOTE | 2023-05-18 10:25 | MHC.CM.PN ---
Addendum entered by Daiana Dove RN 05/18/23 10:27: CM spoke with CARE team, who will eval today. Original Note: EMR reviewed. Per MD rounds DC pending placement. No bed offers, continued communication with [facility]. Facility is requesting psych clearance. MD aware. CM will continue to follow.
--- NOTE | 2023-05-18 12:49 | MHC.CARE ---
Patient evaluated by the CARE Team and determined to not need inpatient psychiatric treatment at this time. Written assessment to follow. Providers updated.
[2023-05-18] MEDS: Acetaminophen 325 MG TABLET 650 MG PO (15:30)
[2023-05-18 15:55] VITALS: BP 139/56; PULSE 84; RESP 18; TEMP 36.5; O2SAT 98
[2023-05-18 19:11] VITALS: BP 122/68; PULSE 82; RESP 16; TEMP 36.2; O2SAT 94
[2023-05-18] MEDS: Mirtazapine 15 MG TABLET 22.5 MG PO (19:52)
[2023-05-18] MEDS: Amitriptyline HCl 50 MG TABLET 100 MG PO (22:00)
[2023-05-19] MEDS: Melatonin 3 MG TABLET 15 MG PO (00:25)
[2023-05-19] MEDS: hydrOXYzine HCL 50 MG TABLET PO ×2 (00:52→20:49)
[2023-05-19 04:00] VITALS: BP 125/74; PULSE 77; RESP 18; TEMP 36.4; O2SAT 96
[2023-05-19] MEDS: Omeprazole 20 MG CAPSULE.DR PO (05:24)
--- NOTE | 2023-05-19 05:27 | PC.NURSE ---
0515, CALL RECEIVED FOR PATIENT TO BE BROUGHT TO DIALYSIS, TRANSPORTED AT 0525 VIA BED TO FOURTH FLOOR FOR HER SCHEDULED DIALYSIS TIME BY [facility] [employer]. PATIENT AWAKENED AND AGREEABLE.
[2023-05-19] MEDS: Acetaminophen 325 MG TABLET 650 MG PO ×2 (07:44→20:50)
--- NOTE | 2023-05-19 09:37 | P.PNIM_ITS ---
Subjective Subjective Date of Service: 05/19/23 Interval History: Seen and evaluated this morning in dialysis session Denies any fever or chills no complaints Review of Systems Review of Systems: Yes all other systems are reviewed and are negative Physical Exam 2 Vital Signs: Vital Signs: Last Vital Signs Temp 97.5 F 05/19/23 04:00 Pulse 77 05/19/23 04:00 Resp 18 05/19/23 04:00 BP 125/74 05/19/23 04:00 Pulse Ox 96 05/19/23 04:00 O2 Del Method Room Air 05/19/23 04:00 O2 Flow Rate 2 05/12/23 15:19 BMI result Body Mass Index 27.3 Const: Other: Constitutional : Awake, interactive, not in distress Neck : Normal inspection, Supple Cardiovascular : RRR, no JVP, no lower extremity edema Respiratory : good bilateral air entry, no crackles, wheezes or rhonchi Gastrointestinal: soft, lax, Normal bowel sounds, Non tender Skin : Warm, Dry, Permacath in place, Fistula not functioning Neurological : Alert & oriented x3, No focal deficit Objective Data Active Medications Acetaminophen (Acetaminophen 325 Mg Tablet) 650 mg PO Q6H PRN PRN Reason: Pain, Mild (Pain Scale 1-3) Last Admin: 05/19/23 07:44 Dose: 650 mg Documented By: HIREN Albuterol Sulfate (Albuterol Sulfate 90 Mcg 8 Gm Inhaler) 2 puff INHALE Q4H PRN PRN Reason: wheezing Amitriptyline HCl (Amitriptyline Hcl 50 Mg Tablet) 100 mg PO BEDTIME@2200 [facility] Last Admin: 05/18/23 22:00 Dose: 100 mg Documented By: CHANNING Aspirin (Aspirin Enteric Coated 81 Mg Tablet.) 81 mg PO DAILY [facility] Last Admin: 05/18/23 07:57 Dose: 81 mg Documented By: ILDA Atorvastatin Calcium (Atorvastatin Calcium 10 Mg Tablet) 10 mg PO DAILY [facility] Last Admin: 05/18/23 07:57 Dose: 10 mg Documented By: ILDA Docusate Sodium (Docusate Sodium 100 Mg Capsule) 100 mg PO BID@0900,2200 [facility] Last Admin: 05/18/23 20:24 Dose: 100 mg Documented By: CHANNING Fluticasone Propionate (Fluticasone Propionate Nasal 16 Gm [place]) 1 spray NOSTRIL-B DAILY PRN PRN Reason: Allergy Symptoms Heparin Sodium (Porcine) (Heparin Sodium,Porcine 5,000 Unit/Ml Vial) 5,000 unit SUBCUT Q12H [facility] Last Admin: 05/18/23 19:52 Dose: 5,000 unit Documented By: CHANNING Heparin Sodium (Porcine) (Heparin Sodium,Porcine 5,000 Unit/Ml Vial) 5,000 unit INTRACATH TUTHSA@1645 [facility] Last Admin: 05/17/23 17:37 Dose: Not Given Documented By: MIKE Non-Admin Reason: Given in Dialysis Hydroxyzine HCl (Hydroxyzine Hcl 50 Mg Tablet) 50 mg PO TID PRN PRN Reason: Anxiety Last Admin: 05/19/23 00:52 Dose: 50 mg Documented By: HARPAL Lamotrigine (Lamotrigine 100 Mg Tablet) 100 mg PO BID@0900,2200 [facility] Last Admin: 05/18/23 19:52 Dose: 100 mg Documented By: CHANNING Loperamide HCl (Loperamide Hcl 2 Mg Capsule) 2 mg PO Q3H PRN PRN Reason: Diarrhea Melatonin (Melatonin 3 Mg Tablet) 15 mg PO BEDTIME@2200 PRN PRN Reason: Insomnia Last Admin: 05/19/23 00:25 Dose: 15 mg Documented By: HARPAL Metoprolol Succinate (Metoprolol Succinate Er 12.5 Mg Halftab.Er.24h) 12.5 mg PO BID@0900,2200 [facility]; Protocol Last Admin: 05/18/23 22:01 Dose: 12.5 mg Documented By: CHANNING Midodrine (Midodrine Hcl 10 Mg Tablet) 10 mg PO TuThSa@0600,1200,1800 PRN PRN Reason: low blood pressure Mirtazapine (Mirtazapine 15 Mg Tablet) 22.5 mg PO DAILY@2200 [facility] Last Admin: 05/18/23 19:52 Dose: 22.5 mg Documented By: CHANNING Omeprazole (Omeprazole 20 Mg Capsule.) 20 mg PO DAILY@0630 [facility] Last Admin: 05/19/23 05:24 Dose: 20 mg Documented By: HARPAL Ondansetron HCl (Ondansetron Hcl 4 Mg/2 Ml Vial) 4 mg IVPUSH Q8H PRN PRN Reason: Nausea and Vomiting Polyethylene Glycol (Polyethylene Glycol 3350 17 Gm Powd.Pack) 17 gm PO DAILY PRN PRN Reason: Constipation Prochlorperazine Maleate (Prochlorperazine Maleate 5 Mg Tablet) 5 mg PO TID PRN PRN Reason: nausea Last Admin: 05/16/23 08:55 Dose: 5 mg Documented By: CELINE Ropinirole HCl (Ropinirole Hcl 1 Mg Tablet) 1 mg PO TID [facility] Last Admin: 05/18/23 21:59 Dose: 1 mg Documented By: CHANNING Senna (Sennosides 8.6 Mg Tablet) 17.2 mg PO BID@0900,2200 [facility] Last Admin: 05/18/23 20:24 Dose: 17.2 mg Documented By: CHANNING Sodium Chloride (0.9 % Sodium Chloride Flush 3 Ml Syringe) 3 ml IVFLUSH QSHIFT [facility] Last Admin: 05/19/23 07:56 Dose: Not Given Documented By: HIREN Non-Admin Reason: No Access Venlafaxine HCl (Venlafaxine Hcl Er 75 Mg Cap.Er.24h) 75 mg PO DAILY [facility] Last Admin: 05/18/23 07:57 Dose: 75 mg Documented By: ILDA Labs 05/18/23 06:41 05/18/23 06:41 Assessment and Plan (1) ESRD on dialysis: Status: Acute Plan 62F PMH ESRD, morbid obesity s/p sleeve gastrectomy 2017 now with resolution of obesity and diabetes and htn, chronic hypoxic respiratory failure on prn 2L home o2 for COPD/ILD, mood disorder, presented with weakness, SI, now cleared by care team, awaiting STR bed ESRD HD TTS Nephrology following insomnia on ambien, melatonin mood disorder continue mood stabilizers physical deconditioning recommending str dvt prophyalxis - hep sq full code reason for continued hospitalization:safe dispo Quality Stroke Does the patient have a stroke diagnosis?: No VTE Prior VTE?: No VTE Risk Level:: Medical - moderate - high VTE Device Contraindication: Treatment Not Indicated VTE Drug Contraindication: N/A - Med Ordered
[2023-05-19] MEDS: Atorvastatin Calcium 10 MG TABLET PO (10:16)
[2023-05-19] MEDS: lamoTRIgine 100 MG TABLET PO ×2 (10:16→20:51)
[2023-05-19] MEDS: Venlafaxine HCl ER 75 MG CAP.ER.24H PO (10:16)
[2023-05-19] MEDS: Docusate Sodium 100 MG CAPSULE PO ×2 (10:16→20:49)
[2023-05-19] MEDS: Sennosides 8.6 MG TABLET 17.2 MG PO ×2 (10:16→20:50)
[2023-05-19] MEDS: polyethylene glycoL 3350 17 GM POWD.PACK PO (10:16)
[2023-05-19] MEDS: rOPINIRole HCL 1 MG TABLET PO ×3 (10:16→20:50)
[2023-05-19] MEDS: Aspirin Enteric Coated 81 MG TABLET.DR PO (10:16)
[2023-05-19] MEDS: Metoprolol Succinate ER 12.5 MG HALFTAB.ER.24H PO ×2 (10:16→20:49)
[2023-05-19] MEDS: Heparin Sodium,Porcine 5,000 UNIT/ML VIAL 5000 UNIT SUBCUT ×2 (10:17→20:48)
--- NOTE | 2023-05-19 14:20 | MHC.CM.PN ---
CM met with patient and family (brother & sister) at bedside. Verbal consent from patient to discuss care with brother & sister. Extensive conversation regarding future plan of care. Patient's brother verbalized he would like patient to consider LTC. However, patient is not agreeable. Feels she manages at home with [employer]. Is agreeable to STR, as recommended by PT. At this time patient has [facility] Medicaid, no LTC payor. Patient is agreeable to meeting with financial counselor to discuss applying for [facility] [employer], should she eventually be open to LTC. Referral placed to financial and plan for financial counselor to meet with patient/family at bedside at 4pm today. CM will continue STR bed search.
[2023-05-19 14:26] VITALS: BP 125/74; PULSE 77; O2SAT 96
[2023-05-19 16:00] VITALS: BP 107/67; PULSE 91; RESP 18; TEMP 36.6; O2SAT 94
[2023-05-19 20:00] VITALS: PULSE 84; RESP 18; TEMP 36.4; O2SAT 96
[2023-05-19] MEDS: Amitriptyline HCl 50 MG TABLET 100 MG PO (20:49)
[2023-05-19] MEDS: Mirtazapine 15 MG TABLET 22.5 MG PO (20:51)
[2023-05-19 21:03] VITALS: BP 96/53; PULSE 86
--- NOTE | 2023-05-19 22:49 | PC.NURSE ---
patient sleeping comfortably at present
[2023-05-20] MEDS: Melatonin 3 MG TABLET 15 MG PO (01:10)
[2023-05-20 03:36] VITALS: BP 119/73; PULSE 83; RESP 18; TEMP 36.6; O2SAT 96
[2023-05-20] MEDS: Omeprazole 20 MG CAPSULE.DR PO (06:32)
[2023-05-20 08:00] VITALS: BP 123/92; PULSE 90; RESP 18; TEMP 37; O2SAT 93
[2023-05-20] MEDS: Metoprolol Succinate ER 12.5 MG HALFTAB.ER.24H PO ×2 (09:19→22:30)
[2023-05-20] MEDS: Docusate Sodium 100 MG CAPSULE PO ×2 (09:19→22:29)
[2023-05-20] MEDS: Sennosides 8.6 MG TABLET 17.2 MG PO ×2 (09:20→22:29)
[2023-05-20] MEDS: Venlafaxine HCl ER 75 MG CAP.ER.24H PO (09:20)
[2023-05-20] MEDS: Atorvastatin Calcium 10 MG TABLET PO (09:20)
[2023-05-20] MEDS: rOPINIRole HCL 1 MG TABLET PO ×3 (09:20→22:27)
[2023-05-20] MEDS: lamoTRIgine 100 MG TABLET PO ×2 (09:20→22:29)
[2023-05-20] MEDS: Aspirin Enteric Coated 81 MG TABLET.DR PO (09:21)
[2023-05-20] MEDS: Heparin Sodium,Porcine 5,000 UNIT/ML VIAL 5000 UNIT SUBCUT ×2 (09:21→22:24)
[2023-05-20] MEDS: polyethylene glycoL 3350 17 GM POWD.PACK PO (09:26)
--- NOTE | 2023-05-20 11:40 | HO.PM.IMPN ---
Subjective Subjective Date of Service: 05/20/23 Interval History: Seen and evaluated this morning Denies any fever or chills no complaints Review of Systems Review of Systems: Yes all other systems are reviewed and are negative Physical Exam Vital Signs: Vital Signs: Last Vital Signs Temp 98.6 F 05/20/23 08:00 Pulse 90 05/20/23 08:00 Resp 18 05/20/23 08:00 BP 123/92 H 05/20/23 08:00 Pulse Ox 93 05/20/23 08:00 O2 Del Method Room Air 05/20/23 08:00 O2 Flow Rate 2 05/20/23 03:36 BMI result Body Mass Index 27.3 Const: Other: Constitutional : Awake, interactive, not in distress Neck : Normal inspection, Supple Cardiovascular : RRR, no JVP, no lower extremity edema Respiratory : good bilateral air entry, no crackles, wheezes or rhonchi Gastrointestinal: soft, lax, Normal bowel sounds, Non tender Skin : Warm, Dry, Permacath in place, Fistula not functioning Neurological : Alert & oriented x3, No focal deficit Objective Data Active Medications Acetaminophen (Acetaminophen 325 Mg Tablet) 650 mg PO Q6H PRN PRN Reason: Pain, Mild (Pain Scale 1-3) Last Admin: 05/19/23 20:50 Dose: 650 mg Documented By: CHANNING Albuterol Sulfate (Albuterol Sulfate 90 Mcg 8 Gm Inhaler) 2 puff INHALE Q4H PRN PRN Reason: wheezing Amitriptyline HCl (Amitriptyline Hcl 50 Mg Tablet) 100 mg PO BEDTIME@2200 [facility] Last Admin: 05/19/23 20:49 Dose: 100 mg Documented By: CHANNING Aspirin (Aspirin Enteric Coated 81 Mg Tablet.Dr) 81 mg PO DAILY [facility] Last Admin: 05/20/23 09:21 Dose: 81 mg Documented By: CHI Atorvastatin Calcium (Atorvastatin Calcium 10 Mg Tablet) 10 mg PO DAILY [facility] Last Admin: 05/20/23 09:20 Dose: 10 mg Documented By: CHI Docusate Sodium (Docusate Sodium 100 Mg Capsule) 100 mg PO BID@0900,2200 [facility] Last Admin: 05/20/23 09:19 Dose: 100 mg Documented By: CHI Fluticasone Propionate (Fluticasone Propionate Nasal 16 Gm [place]) 1 spray NOSTRIL-B DAILY PRN PRN Reason: Allergy Symptoms Heparin Sodium (Porcine) (Heparin Sodium,Porcine 5,000 Unit/Ml Vial) 5,000 unit SUBCUT Q12H [facility] Last Admin: 05/20/23 09:21 Dose: 5,000 unit Documented By: CHI Heparin Sodium (Porcine) (Heparin Sodium,Porcine 5,000 Unit/Ml Vial) 5,000 unit INTRACATH TUTHSA@1645 [facility] Last Admin: 05/19/23 17:12 Dose: Not Given Documented By: HIREN Non-Admin Reason: given in dialysis this AM Hydroxyzine HCl (Hydroxyzine Hcl 50 Mg Tablet) 50 mg PO TID PRN PRN Reason: Anxiety Last Admin: 05/19/23 20:49 Dose: 50 mg Documented By: CHANNING Lamotrigine (Lamotrigine 100 Mg Tablet) 100 mg PO BID@0900,2200 [facility] Last Admin: 05/20/23 09:20 Dose: 100 mg Documented By: CHI Loperamide HCl (Loperamide Hcl 2 Mg Capsule) 2 mg PO Q3H PRN PRN Reason: Diarrhea Melatonin (Melatonin 3 Mg Tablet) 15 mg PO BEDTIME@2200 PRN PRN Reason: Insomnia Last Admin: 05/20/23 01:10 Dose: 15 mg Documented By: HARPAL Metoprolol Succinate (Metoprolol Succinate Er 12.5 Mg Halftab.Er.24h) 12.5 mg PO BID@0900,2200 [facility]; Protocol Last Admin: 05/20/23 09:19 Dose: 12.5 mg Documented By: CHI Midodrine (Midodrine Hcl 10 Mg Tablet) 10 mg PO TuThSa@0600,1200,1800 PRN PRN Reason: low blood pressure Mirtazapine (Mirtazapine 15 Mg Tablet) 22.5 mg PO DAILY@2200 [facility] Last Admin: 05/19/23 20:51 Dose: 22.5 mg Documented By: CHANNING Omeprazole (Omeprazole 20 Mg Capsule.) 20 mg PO DAILY@0630 [facility] Last Admin: 05/20/23 06:32 Dose: 20 mg Documented By: HARPAL Ondansetron HCl (Ondansetron Hcl 4 Mg/2 Ml Vial) 4 mg IVPUSH Q8H PRN PRN Reason: Nausea and Vomiting Polyethylene Glycol (Polyethylene Glycol 3350 17 Gm Powd.Pack) 17 gm PO DAILY PRN PRN Reason: Constipation Polyethylene Glycol (Polyethylene Glycol 3350 17 Gm Powd.Pack) 17 gm PO DAILY [facility] Last Admin: 05/20/23 09:26 Dose: 17 gm Documented By: CHI Prochlorperazine Maleate (Prochlorperazine Maleate 5 Mg Tablet) 5 mg PO TID PRN PRN Reason: nausea Last Admin: 05/16/23 08:55 Dose: 5 mg Documented By: CELINE Ropinirole HCl (Ropinirole Hcl 1 Mg Tablet) 1 mg PO TID [facility] Last Admin: 05/20/23 09:20 Dose: 1 mg Documented By: CHI Senna (Sennosides 8.6 Mg Tablet) 17.2 mg PO BID@0900,2200 [facility] Last Admin: 05/20/23 09:20 Dose: 17.2 mg Documented By: CHI Sodium Chloride (0.9 % Sodium Chloride Flush 3 Ml Syringe) 3 ml IVFLUSH QSHIFT [facility] Last Admin: 05/20/23 09:31 Dose: Not Given Documented By: CHI Non-Admin Reason: No Access Venlafaxine HCl (Venlafaxine Hcl Er 75 Mg Cap.Er.24h) 75 mg PO DAILY [facility] Last Admin: 05/20/23 09:20 Dose: 75 mg Documented By: CHI Zolpidem Tartrate (Zolpidem Tartrate 5 Mg Tablet) 5 mg PO BEDTIME PRN PRN Reason: Insomnia Labs 05/18/23 06:41 05/18/23 06:41 Assessment and Plan (1) ESRD on dialysis: Status: Acute Plan 62F PMH ESRD, morbid obesity s/p sleeve gastrectomy 2017 now with resolution of obesity and diabetes and htn, chronic hypoxic respiratory failure on prn 2L home o2 for COPD/ILD, mood disorder, presented with weakness, SI, now cleared by care team, awaiting STR bed ESRD HD TTS Nephrology following insomnia on ambien, melatonin mood disorder continue mood stabilizers physical deconditioning recommending str dvt prophyalxis - hep sq full code reason for continued hospitalization:safe dispo Quality Stroke Does the patient have a stroke diagnosis?: No VTE Prior VTE?: No VTE Risk Level:: Medical - moderate - high VTE Device Contraindication: Treatment Not Indicated VTE Drug Contraindication: N/A - Med Ordered
--- NOTE | 2023-05-20 14:48 | MHC.CM.PN ---
[facility] has offered a bed. Per liaison Leila, she spoke with patient's insurance and was informed that they are out of network but may be approved as patient has no other bed offers. Leila states she submitted for auth. This CM notified patient's community health representative, Nerissa, who works with the insurance company and will advocate for approval. However, Nerissa says the insurance company has not yet received request for auth. Message to [facility] for update. Awaiting response. Patient currently on Tu//Sa HD schedule and will need to transition to M/W/F schedule, as [facility] does not have Tu//Sa slots. MD aware. CM will continue to follow.
[2023-05-20 15:23] VITALS: BP 110/60; PULSE 89; RESP 18; TEMP 36.6; O2SAT 91
[2023-05-20 17:59] VITALS: O2SAT 96
[2023-05-20 19:18] VITALS: BP 95/61; PULSE 78; RESP 18; TEMP 36.4; O2SAT 94
[2023-05-20] MEDS: Throat Lozenge, Medicated LOZENGE 1 LOZENGE MUCOUS MEM (21:27)
--- NOTE | 2023-05-20 21:29 | MHC.PIE ---
p; pt c/o sore throat asking for lozenge i; dr metcalf notified; new order cepacol q2 prn e; will cont to monitor
[2023-05-20] MEDS: Mirtazapine 15 MG TABLET 22.5 MG PO (22:28)
[2023-05-20] MEDS: Amitriptyline HCl 50 MG TABLET 100 MG PO (22:29)
[2023-05-20] MEDS: diphenhydrAMINE HCL 25 MG CAPSULE PO (22:30)
--- NOTE | 2023-05-20 22:37 | MHC.PIE ---
p; pt c/o itchiness i; dr metcalf notified. new order Benadryl q4 prn e; will cont to monitor
[2023-05-21] MEDS: Melatonin 3 MG TABLET 15 MG PO (02:12)
[2023-05-21 03:09] VITALS: BP 135/85; PULSE 82; RESP 16; TEMP 36.6; O2SAT 96
[2023-05-21] MEDS: Heparin Sodium,Porcine 5,000 UNIT/ML VIAL 5000 UNIT SUBCUT ×2 (09:27→22:24)
[2023-05-21 09:28] VITALS: BP 116/76; PULSE 97; RESP 16; TEMP 36.6; O2SAT 93
[2023-05-21] MEDS: Atorvastatin Calcium 10 MG TABLET PO (09:28)
[2023-05-21] MEDS: Docusate Sodium 100 MG CAPSULE PO ×2 (09:28→22:24)
[2023-05-21] MEDS: Aspirin Enteric Coated 81 MG TABLET.DR PO (09:28)
[2023-05-21] MEDS: lamoTRIgine 100 MG TABLET PO ×2 (09:28→22:23)
[2023-05-21] MEDS: polyethylene glycoL 3350 17 GM POWD.PACK PO (09:28)
[2023-05-21] MEDS: Venlafaxine HCl ER 75 MG CAP.ER.24H PO (09:28)
[2023-05-21] MEDS: Sennosides 8.6 MG TABLET 17.2 MG PO ×2 (09:28→22:23)
[2023-05-21] MEDS: Metoprolol Succinate ER 12.5 MG HALFTAB.ER.24H PO ×2 (09:29→22:23)
--- NOTE | 2023-05-21 10:57 | P.PNIM_ITS ---
Subjective Subjective Date of Service: 05/21/23 Interval History: Seen and evaluated this morning Having dialysis session Denies any fever or chills no complaints Review of Systems Review of Systems: Yes all other systems are reviewed and are negative Physical Exam 2 Vital Signs: Vital Signs: Last Vital Signs Temp 97.8 F 05/21/23 09:28 Pulse 97 05/21/23 09:28 Resp 16 05/21/23 09:28 BP 116/76 05/21/23 09:28 Pulse Ox 93 05/21/23 09:28 O2 Del Method Room Air 05/21/23 09:28 O2 Flow Rate 2 05/20/23 03:36 BMI result Body Mass Index 27.3 Const: Other: Constitutional : Awake, interactive, not in distress Neck : Normal inspection, Supple Cardiovascular : RRR, no JVP, no lower extremity edema Respiratory : good bilateral air entry, no crackles, wheezes or rhonchi Gastrointestinal: soft, lax, Normal bowel sounds, Non tender Skin : Warm, Dry, Permacath in place, Fistula not functioning Neurological : Alert & oriented x3, No focal deficit Objective Data Active Medications Acetaminophen (Acetaminophen 325 Mg Tablet) 650 mg PO Q6H PRN PRN Reason: Pain, Mild (Pain Scale 1-3) Last Admin: 05/19/23 20:50 Dose: 650 mg Documented By: CHANNING Albuterol Sulfate (Albuterol Sulfate 90 Mcg 8 Gm Inhaler) 2 puff INHALE Q4H PRN PRN Reason: wheezing Amitriptyline HCl (Amitriptyline Hcl 50 Mg Tablet) 100 mg PO BEDTIME@2200 [facility] Last Admin: 05/20/23 22:29 Dose: 100 mg Documented By: ROBERTO Aspirin (Aspirin Enteric Coated 81 Mg Tablet.) 81 mg PO DAILY [facility] Last Admin: 05/21/23 09:28 Dose: 81 mg Documented By: CELINE Atorvastatin Calcium (Atorvastatin Calcium 10 Mg Tablet) 10 mg PO DAILY [facility] Last Admin: 05/21/23 09:28 Dose: 10 mg Documented By: CELINE Benzocaine (Throat Lozenge, Medicated Lozenge) 1 lozenge MUCOUS MEM Q2H PRN PRN Reason: Sore Throat Last Admin: 05/20/23 21:27 Dose: 1 lozenge Documented By: ROBERTO Diphenhydramine HCl (Diphenhydramine Hcl 25 Mg Capsule) 25 mg PO Q4H PRN PRN Reason: Itching Last Admin: 05/20/23 22:30 Dose: 25 mg Documented By: ROBERTO Docusate Sodium (Docusate Sodium 100 Mg Capsule) 100 mg PO BID@0900,2200 [facility] Last Admin: 05/21/23 09:28 Dose: 100 mg Documented By: CELINE Fluticasone Propionate (Fluticasone Propionate Nasal 16 Gm [place]) 1 spray NOSTRIL-B DAILY PRN PRN Reason: Allergy Symptoms Heparin Sodium (Porcine) (Heparin Sodium,Porcine 5,000 Unit/Ml Vial) 5,000 unit SUBCUT Q12H [facility] Last Admin: 05/21/23 09:27 Dose: 5,000 unit Documented By: CELINE Heparin Sodium (Porcine) (Heparin Sodium,Porcine 5,000 Unit/Ml Vial) 5,000 unit INTRACATH TUTHSA@1645 [facility] Last Admin: 05/19/23 17:12 Dose: Not Given Documented By: HIREN Non-Admin Reason: given in dialysis this AM Hydroxyzine HCl (Hydroxyzine Hcl 50 Mg Tablet) 50 mg PO TID PRN PRN Reason: Anxiety Last Admin: 05/19/23 20:49 Dose: 50 mg Documented By: CHANNING Lamotrigine (Lamotrigine 100 Mg Tablet) 100 mg PO BID@0900,2200 [facility] Last Admin: 05/21/23 09:28 Dose: 100 mg Documented By: CELINE Loperamide HCl (Loperamide Hcl 2 Mg Capsule) 2 mg PO Q3H PRN PRN Reason: Diarrhea Melatonin (Melatonin 3 Mg Tablet) 15 mg PO BEDTIME@2200 PRN PRN Reason: Insomnia Last Admin: 05/21/23 02:12 Dose: 15 mg Documented By: ROBERTO Metoprolol Succinate (Metoprolol Succinate Er 12.5 Mg Halftab.Er.24h) 12.5 mg PO BID@0900,2200 [facility]; Protocol Last Admin: 05/21/23 09:29 Dose: 12.5 mg Documented By: CELINE Midodrine (Midodrine Hcl 10 Mg Tablet) 10 mg PO TuThSa@0600,1200,1800 PRN PRN Reason: low blood pressure Mirtazapine (Mirtazapine 15 Mg Tablet) 22.5 mg PO DAILY@2200 [facility] Last Admin: 05/20/23 22:28 Dose: 22.5 mg Documented By: ROBERTO Omeprazole (Omeprazole 20 Mg Capsule.Dr) 20 mg PO DAILY@0630 [facility] Last Admin: 05/21/23 05:27 Dose: Not Given Documented By: ROBERTO Non-Admin Reason: Off unit: Dialysis Ondansetron HCl (Ondansetron Hcl 4 Mg/2 Ml Vial) 4 mg IVPUSH Q8H PRN PRN Reason: Nausea and Vomiting Polyethylene Glycol (Polyethylene Glycol 3350 17 Gm Powd.Pack) 17 gm PO DAILY PRN PRN Reason: Constipation Polyethylene Glycol (Polyethylene Glycol 3350 17 Gm Powd.Pack) 17 gm PO DAILY [facility] Last Admin: 05/21/23 09:28 Dose: 17 gm Documented By: CELINE Prochlorperazine Maleate (Prochlorperazine Maleate 5 Mg Tablet) 5 mg PO TID PRN PRN Reason: nausea Last Admin: 05/16/23 08:55 Dose: 5 mg Documented By: CELINE Ropinirole HCl (Ropinirole Hcl 2 Mg Tablet) 2 mg PO TID [facility] Senna (Sennosides 8.6 Mg Tablet) 17.2 mg PO BID@0900,2200 [facility] Last Admin: 05/21/23 09:28 Dose: 17.2 mg Documented By: CELINE Sodium Chloride (0.9 % Sodium Chloride Flush 3 Ml Syringe) 3 ml IVFLUSH QSHIFT [facility] Last Admin: 05/21/23 09:28 Dose: 3 ml Documented By: CELINE Venlafaxine HCl (Venlafaxine Hcl Er 75 Mg Cap.Er.24h) 75 mg PO DAILY [facility] Last Admin: 05/21/23 09:28 Dose: 75 mg Documented By: CELINE Zolpidem Tartrate (Zolpidem Tartrate 5 Mg Tablet) 5 mg PO BEDTIME PRN PRN Reason: Insomnia Labs 05/18/23 06:41 05/18/23 06:41 Assessment and Plan (1) ESRD on dialysis: Status: Acute Plan 62F PMH ESRD, morbid obesity s/p sleeve gastrectomy 2017 now with resolution of obesity and diabetes and htn, chronic hypoxic respiratory failure on prn 2L home o2 for COPD/ILD, mood disorder, presented with weakness, SI, now cleared by care team, awaiting STR bed ESRD HD TTS Nephrology following insomnia on ambien, melatonin mood disorder continue mood stabilizers physical deconditioning recommending str dvt prophyalxis - hep sq full code reason for continued hospitalization:safe dispo Quality Stroke Does the patient have a stroke diagnosis?: No VTE Prior VTE?: No VTE Risk Level:: Medical - moderate - high VTE Device Contraindication: Treatment Not Indicated VTE Drug Contraindication: N/A - Med Ordered
[2023-05-21] MEDS: hydrOXYzine HCL 50 MG TABLET PO ×2 (12:35→19:59)
[2023-05-21] MEDS: rOPINIRole HCL 2 MG TABLET PO ×2 (14:59→22:24)
[2023-05-21 15:19] VITALS: BP 102/60; PULSE 82; RESP 18; TEMP 36; O2SAT 93
[2023-05-21 19:09] VITALS: BP 87/53; PULSE 93; RESP 20; TEMP 36.8; O2SAT 93
[2023-05-21] MEDS: Acetaminophen 325 MG TABLET 650 MG PO (19:55)
[2023-05-21] MEDS: Amitriptyline HCl 50 MG TABLET 100 MG PO (22:22)
[2023-05-21] MEDS: diphenhydrAMINE HCL 25 MG CAPSULE PO (22:22)
[2023-05-21] MEDS: Mirtazapine 15 MG TABLET 22.5 MG PO (22:23)
[2023-05-22] MEDS: Melatonin 3 MG TABLET 15 MG PO (00:22)
[2023-05-22 02:48] VITALS: BP 114/75; PULSE 81; RESP 18; TEMP 37.1; O2SAT 97
--- NOTE | 2023-05-22 03:11 | MHC.PIE ---
p; pt c/o restless leg asking for ropinirole. note; med not due till 0900 i; dr metcalf notified, new oder ropinirole now e; will cont to monitor
[2023-05-22] MEDS: rOPINIRole HCL 2 MG TABLET PO ×4 (03:23→23:29)
[2023-05-22 07:15] VITALS: BP 120/68; PULSE 75; RESP 16; TEMP 36.6; O2SAT 97
[2023-05-22] MEDS: Metoprolol Succinate ER 12.5 MG HALFTAB.ER.24H PO ×2 (07:41→23:30)
[2023-05-22] MEDS: Aspirin Enteric Coated 81 MG TABLET.DR PO (07:42)
[2023-05-22] MEDS: Atorvastatin Calcium 10 MG TABLET PO (07:42)
[2023-05-22] MEDS: lamoTRIgine 100 MG TABLET PO ×2 (07:42→23:29)
[2023-05-22] MEDS: Omeprazole 20 MG CAPSULE.DR PO (07:42)
[2023-05-22] MEDS: Heparin Sodium,Porcine 5,000 UNIT/ML VIAL 5000 UNIT SUBCUT ×2 (07:42→23:30)
[2023-05-22] MEDS: Sennosides 8.6 MG TABLET 17.2 MG PO ×2 (07:42→23:29)
[2023-05-22] MEDS: Venlafaxine HCl ER 75 MG CAP.ER.24H PO (07:42)
[2023-05-22] MEDS: Docusate Sodium 100 MG CAPSULE PO ×2 (07:42→23:29)
[2023-05-22] MEDS: polyethylene glycoL 3350 17 GM POWD.PACK PO (07:43)
--- NOTE | 2023-05-22 10:58 | P.PNIM_ITS ---
Subjective Subjective Date of Service: 05/22/23 Interval History: Seen and evaluated this morning Denies any fever or chills no complaints Review of Systems Review of Systems: Yes all other systems are reviewed and are negative Physical Exam 2 Vital Signs: Vital Signs: Last Vital Signs Temp 98 F 05/22/23 07:15 Pulse 75 05/22/23 07:15 Resp 16 05/22/23 07:15 BP 120/68 05/22/23 07:15 Pulse Ox 97 05/22/23 07:15 O2 Del Method Room Air 05/22/23 07:15 O2 Flow Rate 2 05/20/23 03:36 BMI result Body Mass Index 27.3 Const: Other: Constitutional : Awake, interactive, not in distress Neck : Normal inspection, Supple Cardiovascular : RRR, no JVP, no lower extremity edema Respiratory : good bilateral air entry, no crackles, wheezes or rhonchi Gastrointestinal: soft, lax, Normal bowel sounds, Non tender Skin : Warm, Dry, Permacath in place, Fistula not functioning Neurological : Alert & oriented x3, No focal deficit Objective Data Active Medications Acetaminophen (Acetaminophen 325 Mg Tablet) 650 mg PO Q6H PRN PRN Reason: Pain, Mild (Pain Scale 1-3) Last Admin: 05/21/23 19:55 Dose: 650 mg Documented By: ROBERTO Albuterol Sulfate (Albuterol Sulfate 90 Mcg 8 Gm Inhaler) 2 puff INHALE Q4H PRN PRN Reason: wheezing Amitriptyline HCl (Amitriptyline Hcl 50 Mg Tablet) 100 mg PO BEDTIME@2200 [facility] Last Admin: 05/21/23 22:22 Dose: 100 mg Documented By: ROBERTO Aspirin (Aspirin Enteric Coated 81 Mg Tablet.Dr) 81 mg PO DAILY [facility] Last Admin: 05/22/23 07:42 Dose: 81 mg Documented By: GORDON Atorvastatin Calcium (Atorvastatin Calcium 10 Mg Tablet) 10 mg PO DAILY [facility] Last Admin: 05/22/23 07:42 Dose: 10 mg Documented By: GORDON Benzocaine (Throat Lozenge, Medicated Lozenge) 1 lozenge MUCOUS MEM Q2H PRN PRN Reason: Sore Throat Last Admin: 05/20/23 21:27 Dose: 1 lozenge Documented By: ROBERTO Diphenhydramine HCl (Diphenhydramine Hcl 25 Mg Capsule) 25 mg PO Q4H PRN PRN Reason: Itching Last Admin: 05/21/23 22:22 Dose: 25 mg Documented By: ROBERTO Docusate Sodium (Docusate Sodium 100 Mg Capsule) 100 mg PO BID@0900,2200 [facility] Last Admin: 05/22/23 07:42 Dose: 100 mg Documented By: GORDON Fluticasone Propionate (Fluticasone Propionate Nasal 16 Gm [place]) 1 spray NOSTRIL-B DAILY PRN PRN Reason: Allergy Symptoms Heparin Sodium (Porcine) (Heparin Sodium,Porcine 5,000 Unit/Ml Vial) 5,000 unit SUBCUT Q12H [facility] Last Admin: 05/22/23 07:42 Dose: 5,000 unit Documented By: GORDON Heparin Sodium (Porcine) (Heparin Sodium,Porcine 5,000 Unit/Ml Vial) 5,000 unit INTRACATH TUTHSA@1645 [facility] Last Admin: 05/21/23 15:34 Dose: Not Given Documented By: GORDON Non-Admin Reason: Given in Dialysis Hydroxyzine HCl (Hydroxyzine Hcl 50 Mg Tablet) 50 mg PO TID PRN PRN Reason: Anxiety Last Admin: 05/21/23 19:59 Dose: 50 mg Documented By: ROBERTO Lamotrigine (Lamotrigine 100 Mg Tablet) 100 mg PO BID@0900,2200 [facility] Last Admin: 05/22/23 07:42 Dose: 100 mg Documented By: GORDON Loperamide HCl (Loperamide Hcl 2 Mg Capsule) 2 mg PO Q3H PRN PRN Reason: Diarrhea Melatonin (Melatonin 3 Mg Tablet) 15 mg PO BEDTIME@2200 PRN PRN Reason: Insomnia Last Admin: 05/22/23 00:22 Dose: 15 mg Documented By: ROBERTO Metoprolol Succinate (Metoprolol Succinate Er 12.5 Mg Halftab.Er.24h) 12.5 mg PO BID@0900,2200 [facility]; Protocol Last Admin: 05/22/23 07:41 Dose: 12.5 mg Documented By: GORDON Midodrine (Midodrine Hcl 10 Mg Tablet) 10 mg PO TuThSa@0600,1200,1800 PRN PRN Reason: low blood pressure Mirtazapine (Mirtazapine 15 Mg Tablet) 22.5 mg PO DAILY@2200 [facility] Last Admin: 05/21/23 22:23 Dose: 22.5 mg Documented By: ROBERTO Omeprazole (Omeprazole 20 Mg Capsule.) 20 mg PO DAILY@0630 [facility] Last Admin: 05/22/23 07:42 Dose: 20 mg Documented By: GORDON Ondansetron HCl (Ondansetron Hcl 4 Mg/2 Ml Vial) 4 mg IVPUSH Q8H PRN PRN Reason: Nausea and Vomiting Polyethylene Glycol (Polyethylene Glycol 3350 17 Gm Powd.Pack) 17 gm PO DAILY PRN PRN Reason: Constipation Polyethylene Glycol (Polyethylene Glycol 3350 17 Gm Powd.Pack) 17 gm PO DAILY [facility] Last Admin: 05/22/23 07:43 Dose: 17 gm Documented By: GORDON Prochlorperazine Maleate (Prochlorperazine Maleate 5 Mg Tablet) 5 mg PO TID PRN PRN Reason: nausea Last Admin: 05/16/23 08:55 Dose: 5 mg Documented By: CELINE Ropinirole HCl (Ropinirole Hcl 2 Mg Tablet) 2 mg PO TID [facility] Last Admin: 05/22/23 07:42 Dose: 2 mg Documented By: GORDON Senna (Sennosides 8.6 Mg Tablet) 17.2 mg PO BID@0900,2200 [facility] Last Admin: 05/22/23 07:42 Dose: 17.2 mg Documented By: GORDON Sodium Chloride (0.9 % Sodium Chloride Flush 3 Ml Syringe) 3 ml IVFLUSH QSHIFT [facility] Last Admin: 05/22/23 07:52 Dose: Not Given Documented By: GORDON Non-Admin Reason: no access Venlafaxine HCl (Venlafaxine Hcl Er 75 Mg Cap.Er.24h) 75 mg PO DAILY [facility] Last Admin: 05/22/23 07:42 Dose: 75 mg Documented By: GORDON Zolpidem Tartrate (Zolpidem Tartrate 5 Mg Tablet) 5 mg PO BEDTIME PRN PRN Reason: Insomnia Labs 05/18/23 06:41 05/18/23 06:41 Assessment and Plan (1) ESRD on dialysis: Status: Acute Plan 62F PMH ESRD, morbid obesity s/p sleeve gastrectomy 2017 now with resolution of obesity and diabetes and htn, chronic hypoxic respiratory failure on prn 2L home o2 for COPD/ILD, mood disorder, presented with weakness, SI, now cleared by care team, awaiting STR bed ESRD HD TTS Nephrology following insomnia on ambien, melatonin mood disorder continue mood stabilizers physical deconditioning recommending str dvt prophyalxis - hep sq full code reason for continued hospitalization:safe dispo Quality Stroke Does the patient have a stroke diagnosis?: No VTE Prior VTE?: No VTE Risk Level:: Medical - moderate - high VTE Device Contraindication: Treatment Not Indicated VTE Drug Contraindication: N/A - Med Ordered
[2023-05-22] MEDS: hydrOXYzine HCL 50 MG TABLET PO (11:14)
[2023-05-22 15:16] VITALS: BP 102/61; PULSE 69; RESP 16; TEMP 36.3; O2SAT 96
[2023-05-22] MEDS: Acetaminophen 325 MG TABLET 650 MG PO (17:01)
[2023-05-22] MEDS: Lidocaine 4 % Patch ADH..PATCH 1 PATCH TRANSDERMA (18:32)
[2023-05-22 19:29] VITALS: BP 96/64; PULSE 80; RESP 16; TEMP 36.1; O2SAT 96
[2023-05-22] MEDS: diphenhydrAMINE HCL 25 MG CAPSULE PO (21:42)
[2023-05-22] MEDS: Amitriptyline HCl 50 MG TABLET 100 MG PO (23:29)
[2023-05-22] MEDS: Mirtazapine 15 MG TABLET 22.5 MG PO (23:29)
[2023-05-23] MEDS: hydrOXYzine HCL 50 MG TABLET PO ×2 (01:05→14:46)
[2023-05-23 09:27] VITALS: BP 117/82; PULSE 95; RESP 18; TEMP 36.6; O2SAT 95
[2023-05-23] MEDS: Metoprolol Succinate ER 12.5 MG HALFTAB.ER.24H PO ×2 (09:30→22:17)
[2023-05-23] MEDS: Atorvastatin Calcium 10 MG TABLET PO (09:30)
[2023-05-23] MEDS: Sennosides 8.6 MG TABLET 17.2 MG PO ×2 (09:30→22:14)
[2023-05-23] MEDS: lamoTRIgine 100 MG TABLET PO ×2 (09:30→22:16)
[2023-05-23] MEDS: Venlafaxine HCl ER 75 MG CAP.ER.24H PO (09:31)
[2023-05-23] MEDS: Docusate Sodium 100 MG CAPSULE PO ×2 (09:31→22:16)
[2023-05-23] MEDS: polyethylene glycoL 3350 17 GM POWD.PACK PO (09:31)
[2023-05-23] MEDS: Omeprazole 20 MG CAPSULE.DR PO (09:31)
[2023-05-23] MEDS: Heparin Sodium,Porcine 5,000 UNIT/ML VIAL 5000 UNIT SUBCUT ×2 (09:31→19:13)
[2023-05-23] MEDS: Aspirin Enteric Coated 81 MG TABLET.DR PO (09:31)
[2023-05-23] MEDS: rOPINIRole HCL 1 MG TABLET 3 MG PO ×3 (09:36→22:15)
--- NOTE | 2023-05-23 10:21 | P.PNIM_ITS ---
Subjective Subjective Date of Service: 05/23/23 Interval History: Seen and evaluated this morning Denies any fever or chills Having dialysis session no complaints Review of Systems Review of Systems: Yes all other systems are reviewed and are negative Physical Exam 2 Vital Signs: Vital Signs: Last Vital Signs Temp 97.9 F 05/23/23 09:27 Pulse 95 05/23/23 09:27 Resp 18 05/23/23 09:27 BP 117/82 05/23/23 09:27 Pulse Ox 95 05/23/23 09:27 O2 Del Method Room Air 05/23/23 09:27 O2 Flow Rate 2 05/22/23 19:29 BMI result Body Mass Index 27.3 Const: Other: Constitutional : Awake, interactive, not in distress Neck : Normal inspection, Supple Cardiovascular : RRR, no JVP, no lower extremity edema Respiratory : good bilateral air entry, no crackles, wheezes or rhonchi Gastrointestinal: soft, lax, Normal bowel sounds, Non tender Skin : Warm, Dry, Permacath in place, Fistula not functioning Neurological : Alert & oriented x3, No focal deficit Objective Data Active Medications Acetaminophen (Acetaminophen 325 Mg Tablet) 650 mg PO Q6H PRN PRN Reason: Pain, Mild (Pain Scale 1-3) Last Admin: 05/22/23 17:01 Dose: 650 mg Documented By: GORDON Albuterol Sulfate (Albuterol Sulfate 90 Mcg 8 Gm Inhaler) 2 puff INHALE Q4H PRN PRN Reason: wheezing Amitriptyline HCl (Amitriptyline Hcl 50 Mg Tablet) 100 mg PO BEDTIME@2200 [facility] Last Admin: 05/22/23 23:29 Dose: 100 mg Documented By: ROBERTO Aspirin (Aspirin Enteric Coated 81 Mg Tablet.) 81 mg PO DAILY [facility] Last Admin: 05/23/23 09:31 Dose: 81 mg Documented By: GORDON Atorvastatin Calcium (Atorvastatin Calcium 10 Mg Tablet) 10 mg PO DAILY [facility] Last Admin: 05/23/23 09:30 Dose: 10 mg Documented By: GORDON Benzocaine (Throat Lozenge, Medicated Lozenge) 1 lozenge MUCOUS MEM Q2H PRN PRN Reason: Sore Throat Last Admin: 05/20/23 21:27 Dose: 1 lozenge Documented By: ROBERTO Diphenhydramine HCl (Diphenhydramine Hcl 25 Mg Capsule) 25 mg PO Q4H PRN PRN Reason: Itching Last Admin: 05/22/23 21:42 Dose: 25 mg Documented By: ROBERTO Docusate Sodium (Docusate Sodium 100 Mg Capsule) 100 mg PO BID@0900,2200 [facility] Last Admin: 05/23/23 09:31 Dose: 100 mg Documented By: GORDON Fluticasone Propionate (Fluticasone Propionate Nasal 16 Gm [place]) 1 spray NOSTRIL-B DAILY PRN PRN Reason: Allergy Symptoms Heparin Sodium (Porcine) (Heparin Sodium,Porcine 5,000 Unit/Ml Vial) 5,000 unit SUBCUT Q12H [facility] Last Admin: 05/23/23 09:31 Dose: 5,000 unit Documented By: GORDON Heparin Sodium (Porcine) (Heparin Sodium,Porcine 5,000 Unit/Ml Vial) 5,000 unit INTRACATH TUTHSA@1645 [facility] Last Admin: 05/21/23 15:34 Dose: Not Given Documented By: GORDON Non-Admin Reason: Given in Dialysis Hydroxyzine HCl (Hydroxyzine Hcl 50 Mg Tablet) 50 mg PO TID PRN PRN Reason: Anxiety Last Admin: 05/23/23 01:05 Dose: 50 mg Documented By: ROBERTO Lamotrigine (Lamotrigine 100 Mg Tablet) 100 mg PO BID@0900,2200 [facility] Last Admin: 05/23/23 09:30 Dose: 100 mg Documented By: GORDON Loperamide HCl (Loperamide Hcl 2 Mg Capsule) 2 mg PO Q3H PRN PRN Reason: Diarrhea Melatonin (Melatonin 3 Mg Tablet) 15 mg PO BEDTIME@2200 PRN PRN Reason: Insomnia Last Admin: 05/22/23 00:22 Dose: 15 mg Documented By: ROBERTO Metoprolol Succinate (Metoprolol Succinate Er 12.5 Mg Halftab.Er.24h) 12.5 mg PO BID@0900,2200 [facility]; Protocol Last Admin: 05/23/23 09:30 Dose: 12.5 mg Documented By: GORDON Midodrine (Midodrine Hcl 10 Mg Tablet) 10 mg PO TuThSa@0600,1200,1800 PRN PRN Reason: low blood pressure Mirtazapine (Mirtazapine 15 Mg Tablet) 22.5 mg PO DAILY@2200 [facility] Last Admin: 05/22/23 23:29 Dose: 22.5 mg Documented By: ROBERTO Omeprazole (Omeprazole 20 Mg Capsule.Dr) 20 mg PO DAILY@0630 [facility] Last Admin: 05/23/23 09:31 Dose: 20 mg Documented By: GORDON Ondansetron HCl (Ondansetron Hcl 4 Mg/2 Ml Vial) 4 mg IVPUSH Q8H PRN PRN Reason: Nausea and Vomiting Polyethylene Glycol (Polyethylene Glycol 3350 17 Gm Powd.Pack) 17 gm PO DAILY PRN PRN Reason: Constipation Polyethylene Glycol (Polyethylene Glycol 3350 17 Gm Powd.Pack) 17 gm PO DAILY [facility] Last Admin: 05/23/23 09:31 Dose: 17 gm Documented By: GORDON Prochlorperazine Maleate (Prochlorperazine Maleate 5 Mg Tablet) 5 mg PO TID PRN PRN Reason: nausea Last Admin: 05/16/23 08:55 Dose: 5 mg Documented By: CELINE Ropinirole HCl (Ropinirole Hcl 1 Mg Tablet) 3 mg PO TID [facility] Last Admin: 05/23/23 09:36 Dose: 3 mg Documented By: GORDON Senna (Sennosides 8.6 Mg Tablet) 17.2 mg PO BID@0900,2200 [facility] Last Admin: 05/23/23 09:30 Dose: 17.2 mg Documented By: GORDON Sodium Chloride (0.9 % Sodium Chloride Flush 3 Ml Syringe) [facility] Last Admin: 05/23/23 09:37 Dose: Not Given Documented By: GORDON Non-Admin Reason: IV access Venlafaxine HCl (Venlafaxine Hcl Er 75 Mg Cap.Er.24h) 75 mg PO DAILY [facility] Last Admin: 05/23/23 09:31 Dose: 75 mg Documented By: GORDON Zolpidem Tartrate (Zolpidem Tartrate 5 Mg Tablet) 5 mg PO BEDTIME PRN PRN Reason: Insomnia Labs 05/18/23 06:41 05/18/23 06:41 Assessment and Plan (1) ESRD on dialysis: Status: Acute Plan 62F PMH ESRD, morbid obesity s/p sleeve gastrectomy 2017 now with resolution of obesity and diabetes and htn, chronic hypoxic respiratory failure on prn 2L home o2 for COPD/ILD, mood disorder, presented with weakness, SI, now cleared by care team, awaiting STR bed ESRD HD TTS Nephrology following insomnia on ambien, melatonin mood disorder continue mood stabilizers physical deconditioning recommending str Restless leg increase Requip dvt prophyalxis - hep sq full code reason for continued hospitalization:safe dispo Quality Stroke Does the patient have a stroke diagnosis?: No VTE Prior VTE?: No VTE Risk Level:: Medical - moderate - high VTE Device Contraindication: Treatment Not Indicated VTE Drug Contraindication: N/A - Med Ordered
[2023-05-23 16:00] VITALS: BP 110/71; PULSE 86; RESP 16; TEMP 36.6; O2SAT 98
[2023-05-23] MEDS: Acetaminophen 325 MG TABLET 650 MG PO (19:13)
[2023-05-23] MEDS: diphenhydrAMINE HCL 25 MG CAPSULE PO ×2 (19:13→23:22)
[2023-05-23 19:34] VITALS: BP 108/76; PULSE 83; RESP 18; TEMP 37.1; O2SAT 100
[2023-05-23] MEDS: Amitriptyline HCl 50 MG TABLET 100 MG PO (22:15)
[2023-05-23] MEDS: Mirtazapine 15 MG TABLET 22.5 MG PO (22:17)
[2023-05-24 03:09] VITALS: BP 103/65; PULSE 81; RESP 17; TEMP 37.1; O2SAT 96
[2023-05-24] MEDS: Omeprazole 20 MG CAPSULE.DR PO (05:38)
[2023-05-24 07:46] VITALS: BP 132/82; PULSE 78; RESP 16; TEMP 36; O2SAT 97
[2023-05-24] MEDS: Docusate Sodium 100 MG CAPSULE PO ×2 (07:52→20:30)
[2023-05-24] MEDS: Heparin Sodium,Porcine 5,000 UNIT/ML VIAL 5000 UNIT SUBCUT ×2 (07:52→20:28)
[2023-05-24] MEDS: Venlafaxine HCl ER 75 MG CAP.ER.24H PO (07:52)
[2023-05-24] MEDS: polyethylene glycoL 3350 17 GM POWD.PACK PO (07:52)
[2023-05-24] MEDS: rOPINIRole HCL 1 MG TABLET 3 MG PO ×3 (07:52→22:16)
[2023-05-24] MEDS: Aspirin Enteric Coated 81 MG TABLET.DR PO (07:53)
[2023-05-24] MEDS: Sennosides 8.6 MG TABLET 17.2 MG PO ×2 (07:53→20:30)
[2023-05-24] MEDS: lamoTRIgine 100 MG TABLET PO ×2 (07:53→22:16)
[2023-05-24] MEDS: Metoprolol Succinate ER 12.5 MG HALFTAB.ER.24H PO ×2 (07:53→22:17)
[2023-05-24] MEDS: hydrOXYzine HCL 50 MG TABLET PO (07:53)
[2023-05-24] MEDS: Lidocaine 4 % Patch ADH..PATCH 1 PATCH TRANSDERMA (07:53)
[2023-05-24] MEDS: Atorvastatin Calcium 10 MG TABLET PO (07:53)
[2023-05-24] MEDS: diphenhydrAMINE HCL 25 MG CAPSULE PO ×2 (07:53→22:16)
[2023-05-24] MEDS: Prochlorperazine Maleate 5 MG TABLET PO (09:33)
--- NOTE | 2023-05-24 09:46 | P.PNNP_ITS ---
Subjective Subjective Date of Service: 05/25/23 Interval history: Seen and evaluated this morning Denies any fever or chills no complaints Physical Exam 2 Vital Signs: Vital Signs: Last Vital Signs Temp 96.8 F 05/24/23 07:46 Pulse 78 05/24/23 07:46 Resp 16 05/24/23 07:46 BP 132/82 05/24/23 07:46 Pulse Ox 97 05/24/23 07:46 O2 Del Method Room Air 05/24/23 07:46 O2 Flow Rate 2 05/22/23 19:29 BMI result Body Mass Index 27.3 Const: General: comfortable and no acute distress O rientation/consciousness: patient oriented x3 HEENT: Head: Yes normocephalic Mouth: Normal oral and palatal mucosa present Eyes: EOM: EOMs intact bilaterally Neck: Neck: Yes supple Resp: Auscultation: clear to auscultation bilaterally Cardio: Jugular venous distension: no JVD Rate: regular rate GI: Palpation (GI): Soft to palpation Auscultation: normal bowel sounds : General: Yes no CVA tenderness Back/Spine/Pelvis: Back: no CVA tenderness Skin: General skin exam: no rashes or lesions noted Neuro: General: patient oriented x3 and moves all extremities Extrem: Other: LUE AVF scar Objective Data Labs 05/18/23 06:41 05/18/23 06:41 Procedures Date of Service Date of Service: 05/25/23 Assessment & Plan Assessment and plan (1) ESRD on dialysis: Status: Acute Plan No signs or symptoms of uremia. Usually gets HD on TTS ( [facility] HD unit)/Dr. Ruiz Regular Diet - per patient request; Phos binders with meals Has a functioning permcath Keep on HD scheduled MWF Continued volume optimization on HD Midodrine for hypotension C/W rest of current medications Waiting for placement Shall continue to follow up Time Spent With Patient Time: Total time managing care of this patient today ____ minutes. Progress Note: Quality Stroke Does the patient have a stroke diagnosis?: No
--- NOTE | 2023-05-24 12:00 | P.PNIM_ITS ---
Subjective Subjective Date of Service: 05/24/23 Interval History: Seen and evaluated this morning Denies any fever or chills no complaints Review of Systems Review of Systems: Yes all other systems are reviewed and are negative Physical Exam 2 Vital Signs: Vital Signs: Last Vital Signs Temp 96.8 F 05/24/23 07:46 Pulse 78 05/24/23 07:46 Resp 16 05/24/23 07:46 BP 132/82 05/24/23 07:46 Pulse Ox 97 05/24/23 07:46 O2 Del Method Room Air 05/24/23 07:46 O2 Flow Rate 2 05/22/23 19:29 BMI result Body Mass Index 27.3 Const: Other: Constitutional : Awake, interactive, not in distress Neck : Normal inspection, Supple Cardiovascular : RRR, no JVP, no lower extremity edema Respiratory : good bilateral air entry, no crackles, wheezes or rhonchi Gastrointestinal: soft, lax, Normal bowel sounds, Non tender Skin : Warm, Dry, Permacath in place, Fistula not functioning Neurological : Alert & oriented x3, No focal deficit Objective Data Active Medications Acetaminophen (Acetaminophen 325 Mg Tablet) 650 mg PO Q6H PRN PRN Reason: Pain, Mild (Pain Scale 1-3) Last Admin: 05/23/23 19:13 Dose: 650 mg Documented By: RITA Albuterol Sulfate (Albuterol Sulfate 90 Mcg 8 Gm Inhaler) 2 puff INHALE Q4H PRN PRN Reason: wheezing Amitriptyline HCl (Amitriptyline Hcl 50 Mg Tablet) 100 mg PO BEDTIME@2200 [facility] Last Admin: 05/23/23 22:15 Dose: 100 mg Documented By: RITA Aspirin (Aspirin Enteric Coated 81 Mg Tablet.) 81 mg PO DAILY [facility] Last Admin: 05/24/23 07:53 Dose: 81 mg Documented By: SORAIDA Atorvastatin Calcium (Atorvastatin Calcium 10 Mg Tablet) 10 mg PO DAILY [facility] Last Admin: 05/24/23 07:53 Dose: 10 mg Documented By: SORAIDA Benzocaine (Throat Lozenge, Medicated Lozenge) 1 lozenge MUCOUS MEM Q2H PRN PRN Reason: Sore Throat Last Admin: 05/20/23 21:27 Dose: 1 lozenge Documented By: ROBERTO Diphenhydramine HCl (Diphenhydramine Hcl 25 Mg Capsule) 25 mg PO Q4H PRN PRN Reason: Itching Last Admin: 05/24/23 07:53 Dose: 25 mg Documented By: SORAIDA Docusate Sodium (Docusate Sodium 100 Mg Capsule) 100 mg PO BID@0900,2200 [facility] Last Admin: 05/24/23 07:52 Dose: 100 mg Documented By: SORAIDA Fluticasone Propionate (Fluticasone Propionate Nasal 16 Gm [place]) 1 spray NOSTRIL-B DAILY PRN PRN Reason: Allergy Symptoms Heparin Sodium (Porcine) (Heparin Sodium,Porcine 5,000 Unit/Ml Vial) 5,000 unit SUBCUT Q12H [facility] Last Admin: 05/24/23 07:52 Dose: 5,000 unit Documented By: SORAIDA Heparin Sodium (Porcine) (Heparin Sodium,Porcine 5,000 Unit/Ml Vial) 5,000 unit INTRACATH TUTHSA@1645 [facility] Last Admin: 05/21/23 15:34 Dose: Not Given Documented By: GORDON Non-Admin Reason: Given in Dialysis Hydroxyzine HCl (Hydroxyzine Hcl 50 Mg Tablet) 50 mg PO TID PRN PRN Reason: Anxiety Last Admin: 05/24/23 07:53 Dose: 50 mg Documented By: SORAIDA Lamotrigine (Lamotrigine 100 Mg Tablet) 100 mg PO BID@0900,2200 [facility] Last Admin: 05/24/23 07:53 Dose: 100 mg Documented By: SORAIDA Lidocaine (Lidocaine 4 % Patch Adh..Patch) 1 patch TRANSDERMA DAILY [facility]; Protocol Last Admin: 05/24/23 07:53 Dose: 1 patch Documented By: SORAIDA Loperamide HCl (Loperamide Hcl 2 Mg Capsule) 2 mg PO Q3H PRN PRN Reason: Diarrhea Melatonin (Melatonin 3 Mg Tablet) 15 mg PO BEDTIME@2200 PRN PRN Reason: Insomnia Last Admin: 05/22/23 00:22 Dose: 15 mg Documented By: ROBERTO Metoprolol Succinate (Metoprolol Succinate Er 12.5 Mg Halftab.Er.24h) 12.5 mg PO BID@0900,2200 [facility]; Protocol Last Admin: 05/24/23 07:53 Dose: 12.5 mg Documented By: SORAIDA Midodrine (Midodrine Hcl 10 Mg Tablet) 10 mg PO TuThSa@0600,1200,1800 PRN PRN Reason: low blood pressure Mirtazapine (Mirtazapine 15 Mg Tablet) 22.5 mg PO DAILY@2200 [facility] Last Admin: 05/23/23 22:17 Dose: 22.5 mg Documented By: RITA Omeprazole (Omeprazole 20 Mg Capsule.Dr) 20 mg PO DAILY@0630 [facility] Last Admin: 05/24/23 05:38 Dose: 20 mg Documented By: RITA Ondansetron HCl (Ondansetron Hcl 4 Mg/2 Ml Vial) 4 mg IVPUSH Q8H PRN PRN Reason: Nausea and Vomiting Polyethylene Glycol (Polyethylene Glycol 3350 17 Gm Powd.Pack) 17 gm PO DAILY PRN PRN Reason: Constipation Polyethylene Glycol (Polyethylene Glycol 3350 17 Gm Powd.Pack) 17 gm PO DAILY [facility] Last Admin: 05/24/23 07:52 Dose: 17 gm Documented By: SORAIDA Prochlorperazine Maleate (Prochlorperazine Maleate 5 Mg Tablet) 5 mg PO TID PRN PRN Reason: nausea Last Admin: 05/24/23 09:33 Dose: 5 mg Documented By: SORAIDA Ropinirole HCl (Ropinirole Hcl 1 Mg Tablet) 3 mg PO TID [facility] Last Admin: 05/24/23 07:52 Dose: 3 mg Documented By: SORAIDA Senna (Sennosides 8.6 Mg Tablet) 17.2 mg PO BID@0900,2200 [facility] Last Admin: 05/24/23 07:53 Dose: 17.2 mg Documented By: SORAIDA Sodium Chloride (0.9 % Sodium Chloride Flush 3 Ml Syringe) 3 ml IVFLUSH QSHIFT [facility] Last Admin: 05/24/23 07:15 Dose: Not Given Documented By: SORAIDA Non-Admin Reason: No Access Venlafaxine HCl (Venlafaxine Hcl Er 75 Mg Cap.Er.24h) 75 mg PO DAILY [facility] Last Admin: 05/24/23 07:52 Dose: 75 mg Documented By: SORAIDA Zolpidem Tartrate (Zolpidem Tartrate 5 Mg Tablet) 5 mg PO BEDTIME PRN PRN Reason: Insomnia Labs 05/18/23 06:41 05/18/23 06:41 Assessment and Plan (1) ESRD on dialysis: Status: Acute Plan 62F PMH ESRD, morbid obesity s/p sleeve gastrectomy 2017 now with resolution of obesity and diabetes and htn, chronic hypoxic respiratory failure on prn 2L home o2 for COPD/ILD, mood disorder, presented with weakness, SI, now cleared by care team, awaiting STR bed ESRD HD changed to [facility] Nephrology following insomnia on ambien, melatonin mood disorder continue mood stabilizers physical deconditioning recommending str Restless leg increase Requip dvt prophyalxis - hep sq full code reason for continued hospitalization:safe dispo to SNF Quality Stroke Does the patient have a stroke diagnosis?: No VTE Prior VTE?: No VTE Risk Level:: Medical - moderate - high VTE Device Contraindication: Treatment Not Indicated VTE Drug Contraindication: N/A - Med Ordered
[2023-05-24] MEDS: Acetaminophen 325 MG TABLET 650 MG PO (12:34)
[2023-05-24] MEDS: Throat Lozenge, Medicated LOZENGE 1 LOZENGE MUCOUS MEM ×2 (12:35→22:16)
[2023-05-24 12:37] LABS: HBS Num1 3.28 mIU/mL (0-7.99); HBc Num1 0.15 S/CO (0.00-0.79); HBsAGNum1 0.25 S/CO (0.00-0.99); Hepatitis B Core Antibody Nonreactive (Nonreactive); Hepatitis B Surface Antigen Negative (Negative); ~Hepatitis B Surface Antibody NONREACTIVE (Nonreactive)
[2023-05-24 14:03] VITALS: BP 132/82; PULSE 78; O2SAT 97
[2023-05-24 14:44] VITALS: BP 141/87; PULSE 92; RESP 16; TEMP 36; O2SAT 99
[2023-05-24 15:05] VITALS: BP 102/56; PULSE 81; RESP 18; TEMP 36.2; O2SAT 93
--- NOTE | 2023-05-24 15:41 | MHC.CM.PN ---
CM CONTINUES TO AWAIT INSURANCE [facility] HEP PANEL REQUESTED BY HD/[facility]ENTER AND RESULTS UPLOADED TO [email or web address].
[2023-05-24 19:43] VITALS: BP 94/63; PULSE 81; RESP 18; TEMP 36.1; O2SAT 97
[2023-05-24] MEDS: Amitriptyline HCl 50 MG TABLET 100 MG PO (22:17)
[2023-05-24] MEDS: Mirtazapine 15 MG TABLET 22.5 MG PO (22:17)
[2023-05-25 03:41] VITALS: BP 133/80; PULSE 77; RESP 16; TEMP 35.9; O2SAT 96
--- NOTE | 2023-05-25 10:07 | W.PM.DNNEP ---
Subjective Subjective This patient was seen during dialysis. Interval history: Seen and evaluated this morning Denies any fever or chills no complaints Physical Exam Vital Signs: Vital Signs: Last Vital Signs Temp 96.7 F L 05/25/23 03:41 Pulse 77 05/25/23 03:41 Resp 16 05/25/23 03:41 BP 133/80 05/25/23 03:41 Pulse Ox 96 05/25/23 03:41 O2 Del Method Room Air 05/25/23 03:41 O2 Flow Rate 2 05/22/23 19:29 BMI result Body Mass Index 27.3 Const: General: comfortable and no acute distress Orientation/consciousness: patient oriented x3 HEENT: Head: Yes normocephalic Mouth: Normal oral and palatal mucosa present Eyes: EOM: EOMs intact bilaterally Neck: Neck: Yes supple Resp: Auscultation: clear to auscultation bilaterally Cardio: Jugular venous distension: no JVD Rate: regular rate GI: Palpation (GI): Soft to palpation Auscultation: normal bowel sounds : General: Yes no CVA tenderness Back/Spine/Pelvis: Back: no CVA tenderness Skin: General skin exam: no rashes or lesions noted Neuro: General: patient oriented x3 and moves all extremities Extrem: Other: LUE AVF scar Assessment & Plan Assessment and plan (1) ESRD on dialysis: Status: Acute Plan No signs or symptoms of uremia. Usually gets HD on TTS ( [place] HD unit)/Dr. Ruiz Regular Diet - per patient request; Phos binders with meals Has a functioning permcath Keep on HD scheduled MWF Continued volume optimization on HD Midodrine for hypotension C/W rest of current medications Waiting for placement Shall continue to follow up Time Spent With Patient Time: Total time managing care of this patient today ____ minutes. Procedures Date of Service Date of Service: 05/27/23
--- NOTE | 2023-05-25 10:15 | HO.PM.IMPN ---
Subjective Subjective Date of Service: 05/25/23 Interval History: no copmlaints Physical Exam Vital Signs: Vital Signs: Last Vital Signs Temp 96.7 F L 05/25/23 03:41 Pulse 77 05/25/23 03:41 Resp 16 05/25/23 03:41 BP 133/80 05/25/23 03:41 Pulse Ox 96 05/25/23 03:41 O2 Del Method Room Air 05/25/23 03:41 O2 Flow Rate 2 05/22/23 19:29 BMI result Body Mass Index 27.3 Const: General: comfortable and no acute distress Orientation/consciousness: patient oriented x3 HEENT: Head: Yes normocephalic Mouth: Normal oral and palatal mucosa present Eyes: EOM: EOMs intact bilaterally Neck: Neck: Yes supple Resp: Auscultation: clear to auscultation bilaterally Cardio: Jugular venous distension: no JVD Rate: regular rate GI: Palpation (GI): Soft to palpation Auscultation: normal bowel sounds : General: Yes no CVA tenderness Back/Spine/Pelvis: Back: no CVA tenderness Skin: General skin exam: no rashes or lesions noted Neuro: General: patient oriented x3 and moves all extremities Extrem: Other: LUE AVF scar Objective Data Active Medications Acetaminophen (Acetaminophen 325 Mg Tablet) 650 mg PO Q6H PRN PRN Reason: Pain, Mild (Pain Scale 1-3) Last Admin: 05/24/23 12:34 Dose: 650 mg Documented By: ANNABELLA Albuterol Sulfate (Albuterol Sulfate 90 Mcg 8 Gm Inhaler) 2 puff INHALE Q4H PRN PRN Reason: wheezing Amitriptyline HCl (Amitriptyline Hcl 50 Mg Tablet) 100 mg PO BEDTIME@2200 [facility] Last Admin: 05/24/23 22:17 Dose: 100 mg Documented By: ANNABELLA Aspirin (Aspirin Enteric Coated 81 Mg Tablet.Dr) 81 mg PO DAILY [facility] Last Admin: 05/24/23 07:53 Dose: 81 mg Documented By: COTEMA Atorvastatin Calcium (Atorvastatin Calcium 10 Mg Tablet) 10 mg PO DAILY [facility] Last Admin: 05/24/23 07:53 Dose: 10 mg Documented By: COTEMA Benzocaine (Throat Lozenge, Medicated Lozenge) 1 lozenge MUCOUS MEM Q2H PRN PRN Reason: Sore Throat Last Admin: 05/24/23 22:16 Dose: 1 lozenge Documented By: ANNABELLA Diphenhydramine HCl (Diphenhydramine Hcl 25 Mg Capsule) 25 mg PO Q4H PRN PRN Reason: Itching Last Admin: 05/24/23 22:16 Dose: 25 mg Documented By: ANNABELLA Docusate Sodium (Docusate Sodium 100 Mg Capsule) 100 mg PO BID@0900,2200 [facility] Last Admin: 05/24/23 20:30 Dose: 100 mg Documented By: ANNABELLA Fluticasone Propionate (Fluticasone Propionate Nasal 16 Gm [place]) 1 spray NOSTRIL-B DAILY PRN PRN Reason: Allergy Symptoms Heparin Sodium (Porcine) (Heparin Sodium,Porcine 5,000 Unit/Ml Vial) 5,000 unit SUBCUT Q12H [facility] Last Admin: 05/24/23 20:28 Dose: 5,000 unit Documented By: ANNABELLA Heparin Sodium (Porcine) (Heparin Sodium,Porcine 5,000 Unit/Ml Vial) 5,000 unit INTRACATH TUTHSA@1645 [facility] Last Admin: 05/24/23 15:56 Dose: Not Given Documented By: ANNABELLA Non-Admin Reason: Dialysis order Hydroxyzine HCl (Hydroxyzine Hcl 50 Mg Tablet) 50 mg PO TID PRN PRN Reason: Anxiety Last Admin: 05/24/23 07:53 Dose: 50 mg Documented By: SORAIDA Lamotrigine (Lamotrigine 100 Mg Tablet) 100 mg PO BID@0900,2200 [facility] Last Admin: 05/24/23 22:16 Dose: 100 mg Documented By: ANNABELLA Lidocaine (Lidocaine 4 % Patch Adh..Patch) 1 patch TRANSDERMA DAILY [facility]; Protocol Last Admin: 05/24/23 07:53 Dose: 1 patch Documented By: SORAIDA Loperamide HCl (Loperamide Hcl 2 Mg Capsule) 2 mg PO Q3H PRN PRN Reason: Diarrhea Melatonin (Melatonin 3 Mg Tablet) 15 mg PO BEDTIME@2200 PRN PRN Reason: Insomnia Last Admin: 05/22/23 00:22 Dose: 15 mg Documented By: ROBERTO Metoprolol Succinate (Metoprolol Succinate Er 12.5 Mg Halftab.Er.24h) 12.5 mg PO BID@0900,2200 [facility]; Protocol Last Admin: 05/24/23 22:17 Dose: 12.5 mg Documented By: ANNABELLA Midodrine (Midodrine Hcl 10 Mg Tablet) 10 mg PO TuThSa@0600,1200,1800 PRN PRN Reason: low blood pressure Mirtazapine (Mirtazapine 15 Mg Tablet) 22.5 mg PO DAILY@2200 [facility] Last Admin: 05/24/23 22:17 Dose: 22.5 mg Documented By: ANNABELLA Omeprazole (Omeprazole 20 Mg Capsule.) 20 mg PO DAILY@0630 [facility] Last Admin: 05/25/23 05:26 Dose: Not Given Documented By: YAZMIN Non-Admin Reason: Off unit: Dialysis Ondansetron HCl (Ondansetron Hcl 4 Mg/2 Ml Vial) 4 mg IVPUSH Q8H PRN PRN Reason: Nausea and Vomiting Polyethylene Glycol (Polyethylene Glycol 3350 17 Gm Powd.Pack) 17 gm PO DAILY PRN PRN Reason: Constipation Polyethylene Glycol (Polyethylene Glycol 3350 17 Gm Powd.Pack) 17 gm PO DAILY [facility] Last Admin: 05/24/23 07:52 Dose: 17 gm Documented By: SORAIDA Prochlorperazine Maleate (Prochlorperazine Maleate 5 Mg Tablet) 5 mg PO TID PRN PRN Reason: nausea Last Admin: 05/24/23 09:33 Dose: 5 mg Documented By: SORAIDA Ropinirole HCl (Ropinirole Hcl 1 Mg Tablet) 3 mg PO TID [facility] Last Admin: 05/24/23 22:16 Dose: 3 mg Documented By: ANNABELLA Senna (Sennosides 8.6 Mg Tablet) 17.2 mg PO BID@0900,2200 [facility] Last Admin: 05/24/23 20:30 Dose: 17.2 mg Documented By: ANNABELLA Sodium Chloride (0.9 % Sodium Chloride Flush 3 Ml Syringe) 3 ml IVFLUSH QSHIFT [facility] Last Admin: 05/25/23 00:54 Dose: Not Given Documented By: YAZMIN Non-Admin Reason: No Access Venlafaxine HCl (Venlafaxine Hcl Er 75 Mg Cap.Er.24h) 75 mg PO DAILY [facility] Last Admin: 05/24/23 07:52 Dose: 75 mg Documented By: SORAIDA Zolpidem Tartrate (Zolpidem Tartrate 5 Mg Tablet) 5 mg PO BEDTIME PRN PRN Reason: Insomnia Labs 05/18/23 06:41 05/18/23 06:41 Labs: Laboratory Results - last 24 hr 05/24/23 11:47 Hep Bs Antigen Negative Hep Bs Antibody NONREACTIVE Hep B Core Total Ab Nonreactive Assessment and Plan (1) ESRD on dialysis: Status: Acute Plan 62F [facility] ESRD, morbid obesity s/p sleeve gastrectomy 2017 now with resolution of obesity and diabetes and htn, chronic hypoxic respiratory failure on prn 2L home o2 for COPD/ILD, mood disorder, presented with weakness, SI, now cleared by care team, awaiting STR bed ESRD HD changed to [facility] Nephrology following insomnia on ambien, melatonin mood disorder continue mood stabilizers physical deconditioning recommending str Restless leg increase Requip dvt prophyalxis - hep sq full code reason for continued hospitalization:safe dispo to [facility] Quality Stroke Does the patient have a stroke diagnosis?: No VTE Prior VTE?: No VTE Risk Level:: Medical - moderate - high VTE Device Contraindication: Treatment Not Indicated VTE Drug Contraindication: N/A - Med Ordered
[2023-05-25 10:21] VITALS: BP 106/62; PULSE 95; RESP 18; TEMP 36.6; O2SAT 94
[2023-05-25] MEDS: Sennosides 8.6 MG TABLET 17.2 MG PO ×2 (10:25→21:25)
[2023-05-25] MEDS: rOPINIRole HCL 1 MG TABLET 3 MG PO ×3 (10:25→20:22)
[2023-05-25] MEDS: Metoprolol Succinate ER 12.5 MG HALFTAB.ER.24H PO (10:25)
[2023-05-25] MEDS: lamoTRIgine 100 MG TABLET PO ×2 (10:25→21:22)
[2023-05-25] MEDS: Heparin Sodium,Porcine 5,000 UNIT/ML VIAL 5000 UNIT SUBCUT ×2 (10:26→20:19)
[2023-05-25] MEDS: Docusate Sodium 100 MG CAPSULE PO (10:26)
[2023-05-25] MEDS: Venlafaxine HCl ER 75 MG CAP.ER.24H PO (10:26)
[2023-05-25] MEDS: Atorvastatin Calcium 10 MG TABLET PO (10:26)
[2023-05-25] MEDS: polyethylene glycoL 3350 17 GM POWD.PACK PO (10:27)
--- NOTE | 2023-05-25 13:47 | MHC.CM.PN ---
CM CONTINUES TO AWAIT INSURANCE AUTH . PER [facility], PT IS NOW NOT COMING UP IN THE [facility] PORTAL. THIS CM CONTACTED PT'S COMMUNITY WELDING MACHINE ASSEMBLER EDUARD BAILEY NP ([phone]) WHO IS UNABLE TO ASSIST WITH THIS. [facility]ILL[facility] WAS ABLE TO ACCESS [facility] PORTAL AND WAS ABLE TO RETRIEVE PT ID # AND GROUP #. THIS INFORMATION WAS RELAYED VIA [facility] TO [facility]. CM CONTINUES TO FOLLOW
--- NOTE | 2023-05-25 14:06 | HO.WOUND ---
Addendum entered by Talia Barksdale RN 05/25/23 14:11: Bilateral Legs Original Note: Wound Consult: Initial 62yr old female admitted to [facility] on? 05/09/23 16:16- See progress notes and H&P for detailed history. Wound consult placed for Skin Integrity . Discussed with direct care nurse no skin concerns or wounds noted at this time. Arrival to bedside pt was agreeable to my lower leg assessment as directed by chart review. No open wounds noted heels intact and no swelling noted. +pp noted. The pt is noted to have a firm well adherent scab to the anterior right lower leg - no induration no fluctance and no erythema noted. Stable scab and no topical interventions is needed at this time. Will discontinue wound consult should wound development occur or concerns resurface please place new wound care consult. No topical interventions needed at this time. Re-consult wound care Nurse for wound deterioration or wound changes.
[2023-05-25 15:07] VITALS: BP 77/53; PULSE 89; RESP 18; TEMP 36.1; O2SAT 94
[2023-05-25 16:42] VITALS: BP 103/60; PULSE 83
[2023-05-25 20:00] VITALS: BP 119/65; PULSE 95; RESP 18; TEMP 36.2; O2SAT 96
[2023-05-25] MEDS: 0.9 % Sodium Chloride Flush 3 ML SYRINGE IVFLUSH (20:22)
[2023-05-25] MEDS: Amitriptyline HCl 50 MG TABLET 100 MG PO (21:24)
[2023-05-25] MEDS: Mirtazapine 15 MG TABLET 22.5 MG PO (22:30)
[2023-05-26 03:43] VITALS: BP 95/62; PULSE 87; RESP 16; TEMP 35.9; O2SAT 95
[2023-05-26] MEDS: Omeprazole 20 MG CAPSULE.DR PO (05:44)
[2023-05-26 07:20] VITALS: BP 119/84; PULSE 89; RESP 18; TEMP 36.1; O2SAT 98
[2023-05-26 08:48] VITALS: BP 119/84; PULSE 89; O2SAT 98
--- NOTE | 2023-05-26 08:52 | HO.PM.IMPN ---
Subjective Subjective Date of Service: 05/26/23 Interval History: no copmlaints Physical Exam Vital Signs: Vital Signs: Last Vital Signs Temp 97 F 05/26/23 07:20 Pulse 89 05/26/23 08:48 Resp 18 05/26/23 07:20 BP 119/84 05/26/23 08:48 Pulse Ox 98 05/26/23 08:48 O2 Del Method Room Air 05/26/23 07:20 O2 Flow Rate 2 05/22/23 19:29 BMI result Body Mass Index 27.3 Const: General: comfortable and no acute distress Orientation/consciousness: patient oriented x3 HEENT: Head: Yes normocephalic Mouth: Normal oral and palatal mucosa present Eyes: EOM: EOMs intact bilaterally Neck: Neck: Yes supple Resp: Auscultation: clear to auscultation bilaterally Cardio: Jugular venous distension: no JVD Rate: regular rate GI: Palpation (GI): Soft to palpation Auscultation: normal bowel sounds : General: Yes no CVA tenderness Back/Spine/Pelvis: Back: no CVA tenderness Skin: General skin exam: no rashes or lesions noted Neuro: General: patient oriented x3 and moves all extremities Extrem: Other: LUE AVF scar Objective Data Active Medications Acetaminophen (Acetaminophen 325 Mg Tablet) 650 mg PO Q6H PRN PRN Reason: Pain, Mild (Pain Scale 1-3) Last Admin: 05/24/23 12:34 Dose: 650 mg Documented By: ANNABELLA Albuterol Sulfate (Albuterol Sulfate 90 Mcg 8 Gm Inhaler) 2 puff INHALE Q4H PRN PRN Reason: wheezing Amitriptyline HCl (Amitriptyline Hcl 50 Mg Tablet) 100 mg PO BEDTIME@2200 [facility] Last Admin: 05/25/23 21:24 Dose: 100 mg Documented By: PHILIPP Aspirin (Aspirin Enteric Coated 81 Mg Tablet.) 81 mg PO DAILY [facility] Last Admin: 05/25/23 10:26 Dose: 81 mg Documented By: JESSENIA Atorvastatin Calcium (Atorvastatin Calcium 10 Mg Tablet) 10 mg PO DAILY [facility] Last Admin: 05/25/23 10:26 Dose: 10 mg Documented By: JESSENIA Benzocaine (Throat Lozenge, Medicated Lozenge) 1 lozenge MUCOUS MEM Q2H PRN PRN Reason: Sore Throat Last Admin: 05/24/23 22:16 Dose: 1 lozenge Documented By: ANNABELLA Diphenhydramine HCl (Diphenhydramine Hcl 25 Mg Capsule) 25 mg PO Q4H PRN PRN Reason: Itching Last Admin: 05/24/23 22:16 Dose: 25 mg Documented By: ANNABELLA Docusate Sodium (Docusate Sodium 100 Mg Capsule) 100 mg PO BID@0900,2200 [facility] Last Admin: 05/25/23 21:25 Dose: 100 mg Documented By: PHILIPP Fluticasone Propionate (Fluticasone Propionate Nasal 16 Gm [place]) 1 spray NOSTRIL-B DAILY PRN PRN Reason: Allergy Symptoms Heparin Sodium (Porcine) (Heparin Sodium,Porcine 5,000 Unit/Ml Vial) 5,000 unit SUBCUT Q12H [facility] Last Admin: 05/25/23 20:19 Dose: 5,000 unit Documented By: PHILIPP Heparin Sodium (Porcine) (Heparin Sodium,Porcine 5,000 Unit/Ml Vial) 5,000 unit INTRACATH TUTHSA@1645 [facility] Last Admin: 05/24/23 15:56 Dose: Not Given Documented By: ANNABELLA Non-Admin Reason: Dialysis order Hydroxyzine HCl (Hydroxyzine Hcl 50 Mg Tablet) 50 mg PO TID PRN PRN Reason: Anxiety Last Admin: 05/24/23 07:53 Dose: 50 mg Documented By: COTALEX Lamotrigine (Lamotrigine 100 Mg Tablet) 100 mg PO BID@0900,2200 [facility] Last Admin: 05/25/23 21:22 Dose: 100 mg Documented By: PHILIPP Lidocaine (Lidocaine 4 % Patch Adh..Patch) 1 patch TRANSDERMA DAILY [facility]; Protocol Last Admin: 05/25/23 10:25 Dose: 1 patch Documented By: JESSENIA Loperamide HCl (Loperamide Hcl 2 Mg Capsule) 2 mg PO Q3H PRN PRN Reason: Diarrhea Melatonin (Melatonin 3 Mg Tablet) 15 mg PO BEDTIME@2200 PRN PRN Reason: Insomnia Last Admin: 05/25/23 22:30 Dose: 15 mg Documented By: PHILIPP Metoprolol Succinate (Metoprolol Succinate Er 12.5 Mg Halftab.Er.24h) 12.5 mg PO BID@0900,2200 [facility]; Protocol Last Admin: 05/25/23 21:24 Dose: 12.5 mg Documented By: PHILIPP Midodrine (Midodrine Hcl 10 Mg Tablet) 10 mg PO TuThSa@0600,1200,1800 PRN PRN Reason: low blood pressure Mirtazapine (Mirtazapine 15 Mg Tablet) 22.5 mg PO DAILY@2200 [facility] Last Admin: 05/25/23 22:30 Dose: 22.5 mg Documented By: PHILIPP Omeprazole (Omeprazole 20 Mg Capsule.Dr) 20 mg PO DAILY@0630 [facility] Last Admin: 05/26/23 05:44 Dose: 20 mg Documented By: PHILIPP Ondansetron HCl (Ondansetron Hcl 4 Mg/2 Ml Vial) 4 mg IVPUSH Q8H PRN PRN Reason: Nausea and Vomiting Polyethylene Glycol (Polyethylene Glycol 3350 17 Gm Powd.Pack) 17 gm PO DAILY PRN PRN Reason: Constipation Polyethylene Glycol (Polyethylene Glycol 3350 17 Gm Powd.Pack) 17 gm PO DAILY [facility] Last Admin: 05/25/23 10:27 Dose: 17 gm Documented By: JESSENIA Prochlorperazine Maleate (Prochlorperazine Maleate 5 Mg Tablet) 5 mg PO TID PRN PRN Reason: nausea Last Admin: 05/24/23 09:33 Dose: 5 mg Documented By: SORAIDA Ropinirole HCl (Ropinirole Hcl 1 Mg Tablet) 3 mg PO TID [facility] Last Admin: 05/25/23 20:22 Dose: 3 mg Documented By: PHILIPP Senna (Sennosides 8.6 Mg Tablet) 17.2 mg PO BID@0900,2200 [facility] Last Admin: 05/25/23 21:25 Dose: 17.2 mg Documented By: PHILIPP Sodium Chloride (0.9 % Sodium Chloride Flush 3 Ml Syringe) 3 ml IVFLUSH [facility] Last Admin: 05/25/23 20:22 Dose: 3 ml Documented By: PHILIPP Venlafaxine HCl (Venlafaxine Hcl Er 75 Mg Cap.Er.24h) 75 mg PO DAILY [facility] Last Admin: 05/25/23 10:26 Dose: 75 mg Documented By: HO.FOGARTB Zolpidem Tartrate (Zolpidem Tartrate 5 Mg Tablet) 5 mg PO BEDTIME PRN PRN Reason: Insomnia Labs 05/18/23 06:41 05/18/23 06:41 Assessment and Plan (1) ESRD on dialysis: Status: Acute Plan 62F PMH ESRD, morbid obesity s/p sleeve gastrectomy 2017 now with resolution of obesity and diabetes and htn, chronic hypoxic respiratory failure on prn 2L home o2 for COPD/ILD, mood disorder, presented with weakness, SI, now cleared by care team, awaiting STR bed ESRD HD Nephrology following insomnia on ambien, melatonin mood disorder continue mood stabilizers physical deconditioning recommending str Restless leg increase Requip dvt prophyalxis - hep sq full code reason for continued hospitalization:safe dispo to SNF Quality Stroke Does the patient have a stroke diagnosis?: No VTE Prior VTE?: No VTE Risk Level:: Medical - moderate - high VTE Device Contraindication: Treatment Not Indicated VTE Drug Contraindication: N/A - Med Ordered
[2023-05-26] MEDS: Sennosides 8.6 MG TABLET 17.2 MG PO ×2 (08:58→22:53)
[2023-05-26] MEDS: rOPINIRole HCL 1 MG TABLET 3 MG PO ×3 (08:58→21:23)
[2023-05-26] MEDS: lamoTRIgine 100 MG TABLET PO (09:00)
[2023-05-26] MEDS: Heparin Sodium,Porcine 5,000 UNIT/ML VIAL 5000 UNIT SUBCUT ×2 (09:02→19:58)
[2023-05-26] MEDS: 0.9 % Sodium Chloride Flush 3 ML SYRINGE IVFLUSH ×3 (09:02→19:58)
[2023-05-26] MEDS: Prochlorperazine Maleate 5 MG TABLET PO (09:16)
[2023-05-26] MEDS: diphenhydrAMINE HCL 25 MG CAPSULE PO ×2 (12:23→21:53)
[2023-05-26] MEDS: Acetaminophen 325 MG TABLET 650 MG PO (12:23)
--- NOTE | 2023-05-26 12:39 | MHC.CM.PN ---
Addendum entered by Asmita Cortez 05/26/23 16:07: AFTER SPEAKING TO THE FINANCIAL INVESTMENT MANAGER AT [facility], THEY ARE WORKING TO DETERMINE IF PTS HD SLOT IS STILL AVAILABLE THERE AUTH STILL PENDING CM WILL FOLLOW UP TOMORROW MORNING Original Note: PT HAS BEEN READY TO DC AND WAITING FOR INSURANCE AUTH SINCE 05/19/23 [facility] INDICATED THEY HAVE SUBMITTED FOR AUTH FOUR TIMES HOWEVER PTS INSURANCE DENIES RECEIVING THESE REQUESTS TODAY, [facility] HAS RESCINDED THE BED OFFER DUE TO NOT BEING ABLE TO SUCCESSFULLY SUBMIT FOR AUTH CM LEFT A MESSAGE TO DETERMINE IF THEY WOULD BE ABLE TO TAKE HER IF [facility] CM OBTAINED THE AUTH MESSAGE SENT THROUGH [employer] AND T/C NO RESPONSE YET
[2023-05-26 15:24] VITALS: BP 94/50; PULSE 79; RESP 18; TEMP 36.2; O2SAT 97
[2023-05-26 16:26] VITALS: BP 109/71
[2023-05-26 20:00] VITALS: BP 107/65; PULSE 83; RESP 16; TEMP 36.5; O2SAT 95
[2023-05-26] MEDS: Mirtazapine 15 MG TABLET 22.5 MG PO (22:53)
[2023-05-26] MEDS: hydrOXYzine HCL 50 MG TABLET PO (22:54)
[2023-05-27] MEDS: Throat Lozenge, Medicated LOZENGE 1 LOZENGE MUCOUS MEM (03:39)
[2023-05-27 04:00] VITALS: BP 119/71; PULSE 83; RESP 16; TEMP 36.1; O2SAT 97
[2023-05-27] MEDS: Omeprazole 20 MG CAPSULE.DR PO (05:25)
[2023-05-27 07:22] VITALS: BP 110/67; PULSE 83; RESP 18; TEMP 36.2; O2SAT 96
[2023-05-27] MEDS: rOPINIRole HCL 1 MG TABLET 3 MG PO ×3 (09:15→21:26)
[2023-05-27] MEDS: Heparin Sodium,Porcine 5,000 UNIT/ML VIAL 5000 UNIT SUBCUT ×2 (09:15→19:42)
[2023-05-27] MEDS: polyethylene glycoL 3350 17 GM POWD.PACK PO (09:16)
[2023-05-27] MEDS: Sennosides 8.6 MG TABLET 17.2 MG PO ×2 (09:16→22:51)
[2023-05-27] MEDS: 0.9 % Sodium Chloride Flush 3 ML SYRINGE IVFLUSH ×3 (09:24→19:42)
--- NOTE | 2023-05-27 09:58 | HO.PM.IMPN ---
Subjective Subjective Date of Service: 05/27/23 Interval History: no copmlaints Physical Exam Vital Signs: Vital Signs: Last Vital Signs Temp 97.2 F 05/27/23 07:22 Pulse 83 05/27/23 07:22 Resp 18 05/27/23 07:22 BP 110/67 05/27/23 07:22 Pulse Ox 96 05/27/23 07:22 O2 Del Method Room Air 05/27/23 07:22 O2 Flow Rate 2 05/22/23 19:29 BMI result Body Mass Index 27.3 Const: General: comfortable and no acute distress Orientation/consciousness: patient oriented x3 HEENT: Head: Yes normocephalic Mouth: Normal oral and palatal mucosa present Eyes: EOM: EOMs intact bilaterally Neck: Neck: Yes supple Resp: Auscultation: clear to auscultation bilaterally Cardio: Jugular venous distension: no JVD Rate: regular rate GI: Palpation (GI): Soft to palpation Auscultation: normal bowel sounds : General: Yes no CVA tenderness Back/Spine/Pelvis: Back: no CVA tenderness Skin: General skin exam: no rashes or lesions noted Neuro: General: patient oriented x3 and moves all extremities Extrem: Other: LUE AVF scar Objective Data Active Medications Acetaminophen (Acetaminophen 325 Mg Tablet) 650 mg PO Q6H PRN PRN Reason: Pain, Mild (Pain Scale 1-3) Last Admin: 05/26/23 12:23 Dose: 650 mg Documented By: EMILIE Albuterol Sulfate (Albuterol Sulfate 90 Mcg 8 Gm Inhaler) 2 puff INHALE Q4H PRN PRN Reason: wheezing Amitriptyline HCl (Amitriptyline Hcl 50 Mg Tablet) 100 mg PO BEDTIME@2200 [facility] Last Admin: 05/26/23 22:54 Dose: 100 mg Documented By: PHILIPP Aspirin (Aspirin Enteric Coated 81 Mg Tablet.) 81 mg PO DAILY [facility] Last Admin: 05/27/23 09:16 Dose: 81 mg Documented By: GORDON Atorvastatin Calcium (Atorvastatin Calcium 10 Mg Tablet) 10 mg PO DAILY [facility] Last Admin: 05/27/23 09:16 Dose: 10 mg Documented By: GORDON Benzocaine (Throat Lozenge, Medicated Lozenge) 1 lozenge MUCOUS MEM Q2H PRN PRN Reason: Sore Throat Last Admin: 05/27/23 03:39 Dose: 1 lozenge Documented By: PHILIPP Diphenhydramine HCl (Diphenhydramine Hcl 25 Mg Capsule) 25 mg PO Q4H PRN PRN Reason: Itching Last Admin: 05/26/23 21:53 Dose: 25 mg Documented By: PHILIPP Docusate Sodium (Docusate Sodium 100 Mg Capsule) 100 mg PO BID@0900,2200 [facility] Last Admin: 05/27/23 09:16 Dose: 100 mg Documented By: GORDON Fluticasone Propionate (Fluticasone Propionate Nasal 16 Gm [place]) 1 spray NOSTRIL-B DAILY PRN PRN Reason: Allergy Symptoms Heparin Sodium (Porcine) (Heparin Sodium,Porcine 5,000 Unit/Ml Vial) 5,000 unit SUBCUT Q12H [facility] Last Admin: 05/27/23 09:15 Dose: 5,000 unit Documented By: GORDON Heparin Sodium (Porcine) (Heparin Sodium,Porcine 5,000 Unit/Ml Vial) 5,000 unit INTRACATH TUTHSA@1645 [facility] Last Admin: 05/26/23 16:00 Dose: Not Given Documented By: EMILIE Non-Admin Reason: no dialysis today Hydroxyzine HCl (Hydroxyzine Hcl 50 Mg Tablet) 50 mg PO TID PRN PRN Reason: Anxiety Last Admin: 05/26/23 22:54 Dose: 50 mg Documented By: PHILIPP Lamotrigine (Lamotrigine 100 Mg Tablet) 100 mg PO BID@0900,2200 [facility] Last Admin: 05/27/23 09:16 Dose: 100 mg Documented By: GORDON Lidocaine (Lidocaine 4 % Patch Adh..Patch) 1 patch TRANSDERMA DAILY [facility]; Protocol Last Admin: 05/27/23 09:16 Dose: 1 patch Documented By: GORDON Loperamide HCl (Loperamide Hcl 2 Mg Capsule) 2 mg PO Q3H PRN PRN Reason: Diarrhea Melatonin (Melatonin 3 Mg Tablet) 15 mg PO BEDTIME@2200 PRN PRN Reason: Insomnia Last Admin: 05/26/23 22:52 Dose: 15 mg Documented By: PHILIPP Metoprolol Succinate (Metoprolol Succinate Er 12.5 Mg Halftab.Er.24h) 12.5 mg PO BID@0900,2200 [facility]; Protocol Last Admin: 05/27/23 09:16 Dose: 12.5 mg Documented By: GORDON Midodrine (Midodrine Hcl 10 Mg Tablet) 10 mg PO TuThSa@0600,1200,1800 PRN PRN Reason: low blood pressure Mirtazapine (Mirtazapine 15 Mg Tablet) 22.5 mg PO DAILY@2200 [facility] Last Admin: 05/26/23 22:53 Dose: 22.5 mg Documented By: PHILIPP Omeprazole (Omeprazole 20 Mg Capsule.) 20 mg PO DAILY@0630 [facility] Last Admin: 05/27/23 05:25 Dose: 20 mg Documented By: PHILIPP Ondansetron HCl (Ondansetron Hcl 4 Mg/2 Ml Vial) 4 mg IVPUSH Q8H PRN PRN Reason: Nausea and Vomiting Polyethylene Glycol (Polyethylene Glycol 3350 17 Gm Powd.Pack) 17 gm PO DAILY PRN PRN Reason: Constipation Polyethylene Glycol (Polyethylene Glycol 3350 17 Gm Powd.Pack) 17 gm PO DAILY [facility] Last Admin: 05/27/23 09:16 Dose: 17 gm Documented By: GORDON Prochlorperazine Maleate (Prochlorperazine Maleate 5 Mg Tablet) 5 mg PO TID PRN PRN Reason: nausea Last Admin: 05/26/23 09:16 Dose: 5 mg Documented By: EMILIE Ropinirole HCl (Ropinirole Hcl 1 Mg Tablet) 3 mg PO TID [facility] Last Admin: 05/27/23 09:15 Dose: 3 mg Documented By: GORDON Senna (Sennosides 8.6 Mg Tablet) 17.2 mg PO BID@0900,2200 [facility] Last Admin: 05/27/23 09:16 Dose: 17.2 mg Documented By: GORDON Sodium Chloride (0.9 % Sodium Chloride Flush 3 Ml Syringe) 3 ml IVFLUSH [facility] Last Admin: 05/27/23 09:24 Dose: 3 ml Documented By: GORDON Venlafaxine HCl (Venlafaxine Hcl Er 75 Mg Cap.Er.24h) 75 mg PO DAILY [facility] Last Admin: 05/27/23 09:16 Dose: 75 mg Documented By: GORDON Zolpidem Tartrate (Zolpidem Tartrate 5 Mg Tablet) 5 mg PO BEDTIME PRN PRN Reason: Insomnia Labs 05/18/23 06:41 05/18/23 06:41 Assessment and Plan (1) ESRD on dialysis: Status: Acute Plan 62F PMH ESRD, morbid obesity s/p sleeve gastrectomy 2017 now with resolution of obesity and diabetes and htn, chronic hypoxic respiratory failure on prn 2L home o2 for COPD/ILD, mood disorder, presented with weakness, SI, now cleared by care team, awaiting STR bed ESRD HD Nephrology following insomnia on ambien, melatonin mood disorder continue mood stabilizers physical deconditioning recommending str Restless leg increase Requip dvt prophyalxis - hep sq full code reason for continued hospitalization:safe dispo to SNF Quality Stroke Does the patient have a stroke diagnosis?: No VTE Prior VTE?: No VTE Risk Level:: Medical - moderate - high VTE Device Contraindication: Treatment Not Indicated VTE Drug Contraindication: N/A - Med Ordered
--- NOTE | 2023-05-27 13:58 | W.PM.DNNEP ---
Subjective Subjective This patient was seen during dialysis. Interval history: no copmlaints Physical Exam Vital Signs: Vital Signs: Last Vital Signs Temp 97.2 F 05/27/23 07:22 Pulse 83 05/27/23 07:22 Resp 18 05/27/23 07:22 BP 110/67 05/27/23 07:22 Pulse Ox 96 05/27/23 07:22 O2 Del Method Room Air 05/27/23 07:22 O2 Flow Rate 2 05/22/23 19:29 BMI result Body Mass Index 27.3 Const: General: comfortable and no acute distress Orientation/consciousness: patient oriented x3 HEENT: Head: Yes normocephalic Mouth: Normal oral and palatal mucosa present Eyes: EOM: EOMs intact bilaterally Neck: Neck: Yes supple Resp: Auscultation: clear to auscultation bilaterally Cardio: Jugular venous distension: no JVD Rate: regular rate GI: Palpation (GI): Soft to palpation Auscultation: normal bowel sounds : General: Yes no CVA tenderness Back/Spine/Pelvis: Back: no CVA tenderness Skin: General skin exam: no rashes or lesions noted Neuro: General: patient oriented x3 and moves all extremities Extrem: Other: LUE AVF scar Assessment & Plan Assessment and plan (1) ESRD on dialysis: Status: Acute Plan No signs or symptoms of uremia. Usually gets HD on TTS ( [facility])/Dr. Ruiz Regular Diet - per patient request; Phos binders with meals Has a functioning permcath Keep on HD scheduled MWF Continued volume optimization on HD Midodrine for hypotension C/W rest of current medications Waiting for placement Shall continue to follow up Time Spent With Patient Time: Total time managing care of this patient today ____ minutes. Procedures Date of Service Date of Service: 05/30/23
--- NOTE | 2023-05-27 14:15 | MHC.CM.PN ---
Spoke w/Leila at [facility]: She has verbally confirmed Pt has a bed offer at the Center and is requesting the Pt D/C to them Tuesday05/30/23 after Pt receives HD at [facility]. Leila indicates fluctuating statements regarding their HD Center's availability for Pt's treatments; she states she needs to check w/them Tuesday morning. This CM reminded her that the given authorization by the insurance company for Pt's D/C to them today, may need to be re-approached for D/C on Tuesday05/30/23. Requested Leila document Center's perspective plan in allscripts for seamless communication w/[facility] team. This CM noted in allscripts as well. Reported to coiled tubing supervisor. CM to follow.
[2023-05-27 16:59] VITALS: BP 105/61; PULSE 86; RESP 18; TEMP 36.6; O2SAT 95
[2023-05-27 20:00] VITALS: BP 95/67; PULSE 97; RESP 18; TEMP 36.7; O2SAT 94
[2023-05-27 22:44] VITALS: BP 115/85; PULSE 95; O2SAT 97
[2023-05-27] MEDS: Mirtazapine 15 MG TABLET 22.5 MG PO (22:52)
[2023-05-27] MEDS: diphenhydrAMINE HCL 25 MG CAPSULE PO (23:51)
[2023-05-28] MEDS: hydrOXYzine HCL 50 MG TABLET PO ×2 (00:01→19:59)
[2023-05-28 03:09] VITALS: BP 136/72; PULSE 86; RESP 20; TEMP 36.1; O2SAT 99
[2023-05-28] MEDS: Omeprazole 20 MG CAPSULE.DR PO (05:54)
[2023-05-28 07:24] VITALS: BP 106/68; PULSE 88; RESP 18; TEMP 36.4; O2SAT 100
[2023-05-28] MEDS: 0.9 % Sodium Chloride Flush 3 ML SYRINGE IVFLUSH (09:19)
[2023-05-28] MEDS: rOPINIRole HCL 1 MG TABLET 3 MG PO ×2 (09:20→15:07)
[2023-05-28] MEDS: Sennosides 8.6 MG TABLET 17.2 MG PO ×2 (09:20→22:30)
[2023-05-28] MEDS: polyethylene glycoL 3350 17 GM POWD.PACK PO (09:21)
[2023-05-28] MEDS: Heparin Sodium,Porcine 5,000 UNIT/ML VIAL 5000 UNIT SUBCUT ×2 (09:22→19:40)
[2023-05-28] MEDS: Prochlorperazine Maleate 5 MG TABLET PO (09:30)
--- NOTE | 2023-05-28 10:20 | HO.PM.IMPN ---
Subjective Subjective Date of Service: 05/28/23 Interval History: no copmlaints Physical Exam Vital Signs: Vital Signs: Last Vital Signs Temp 97.6 F 05/28/23 07:24 Pulse 88 05/28/23 07:24 Resp 18 05/28/23 07:24 BP 106/68 05/28/23 07:24 Pulse Ox 100 05/28/23 07:24 O2 Del Method Nasal Cannula 05/28/23 07:24 O2 Flow Rate 2 05/28/23 07:24 BMI result Body Mass Index 27.3 Const: General: comfortable and no acute distress Orientation/consciousness: patient oriented x3 HEENT: Head: Yes normocephalic Mouth: Normal oral and palatal mucosa present Eyes: EOM: EOMs intact bilaterally Neck: Neck: Yes supple Resp: Auscultation: clear to auscultation bilaterally Cardio: Jugular venous distension: no JVD Rate: regular rate GI: Palpation (GI): Soft to palpation Auscultation: normal bowel sounds : General: Yes no CVA tenderness Back/Spine/Pelvis: Back: no CVA tenderness Skin: General skin exam: no rashes or lesions noted Neuro: General: patient oriented x3 and moves all extremities Extrem: Other: LUE AVF scar Objective Data Active Medications Acetaminophen (Acetaminophen 325 Mg Tablet) 650 mg PO Q6H PRN PRN Reason: Pain, Mild (Pain Scale 1-3) Last Admin: 05/26/23 12:23 Dose: 650 mg Documented By: EMILIE Albuterol Sulfate (Albuterol Sulfate 90 Mcg 8 Gm Inhaler) 2 puff INHALE Q4H PRN PRN Reason: wheezing Amitriptyline HCl (Amitriptyline Hcl 50 Mg Tablet) 100 mg PO BEDTIME@2200 [facility] Last Admin: 05/27/23 22:51 Dose: 100 mg Documented By: PHILIPP Aspirin (Aspirin Enteric Coated 81 Mg Tablet.) 81 mg PO DAILY [facility] Last Admin: 05/28/23 09:20 Dose: 81 mg Documented By: BERNA Atorvastatin Calcium (Atorvastatin Calcium 10 Mg Tablet) 10 mg PO DAILY [facility] Last Admin: 05/28/23 09:20 Dose: 10 mg Documented By: BERNA Benzocaine (Throat Lozenge, Medicated Lozenge) 1 lozenge MUCOUS MEM Q2H PRN PRN Reason: Sore Throat Last Admin: 05/27/23 03:39 Dose: 1 lozenge Documented By: PHILIPP Diphenhydramine HCl (Diphenhydramine Hcl 25 Mg Capsule) 25 mg PO Q4H PRN PRN Reason: Itching Last Admin: 05/27/23 23:51 Dose: 25 mg Documented By: PHILIPP Docusate Sodium (Docusate Sodium 100 Mg Capsule) 100 mg PO BID@0900,2200 [facility] Last Admin: 05/28/23 09:21 Dose: 100 mg Documented By: BERNA Fluticasone Propionate (Fluticasone Propionate Nasal 16 Gm [place]) 1 spray NOSTRIL-B DAILY PRN PRN Reason: Allergy Symptoms Heparin Sodium (Porcine) (Heparin Sodium,Porcine 5,000 Unit/Ml Vial) 5,000 unit SUBCUT Q12H [facility] Last Admin: 05/28/23 09:22 Dose: 5,000 unit Documented By: BERNA Heparin Sodium (Porcine) (Heparin Sodium,Porcine 5,000 Unit/Ml Vial) 5,000 unit INTRACATH TUTHSA@1645 [facility] Last Admin: 05/26/23 16:00 Dose: Not Given Documented By: EMILIE Non-Admin Reason: no dialysis today Hydroxyzine HCl (Hydroxyzine Hcl 50 Mg Tablet) 50 mg PO TID PRN PRN Reason: Anxiety Last Admin: 05/28/23 00:01 Dose: 50 mg Documented By: PHILIPP Lamotrigine (Lamotrigine 100 Mg Tablet) 100 mg PO BID@0900,2200 [facility] Last Admin: 05/28/23 09:21 Dose: 100 mg Documented By: BERNA Lidocaine (Lidocaine 4 % Patch Adh..Patch) 1 patch TRANSDERMA DAILY [facility]; Protocol Last Admin: 05/28/23 09:22 Dose: 1 patch Documented By: BERNA Loperamide HCl (Loperamide Hcl 2 Mg Capsule) 2 mg PO Q3H PRN PRN Reason: Diarrhea Melatonin (Melatonin 3 Mg Tablet) 15 mg PO BEDTIME@2200 PRN PRN Reason: Insomnia Last Admin: 05/28/23 00:01 Dose: 15 mg Documented By: PHILIPP Metoprolol Succinate (Metoprolol Succinate Er 12.5 Mg Halftab.Er.24h) 12.5 mg PO BID@0900,2200 [facility]; Protocol Last Admin: 05/28/23 09:21 Dose: 12.5 mg Documented By: BERNA Midodrine (Midodrine Hcl 10 Mg Tablet) 10 mg PO MoWeFr@0600,1200,1800 PRN PRN Reason: low blood pressure Mirtazapine (Mirtazapine 15 Mg Tablet) 22.5 mg PO DAILY@2200 [facility] Last Admin: 05/27/23 22:52 Dose: 22.5 mg Documented By: PHILIPP Omeprazole (Omeprazole 20 Mg Capsule.Dr) 20 mg PO DAILY@0630 [facility] Last Admin: 05/28/23 05:54 Dose: 20 mg Documented By: PHILIPP Ondansetron HCl (Ondansetron Hcl 4 Mg/2 Ml Vial) 4 mg IVPUSH Q8H PRN PRN Reason: Nausea and Vomiting Polyethylene Glycol (Polyethylene Glycol 3350 17 Gm Powd.Pack) 17 gm PO DAILY PRN PRN Reason: Constipation Polyethylene Glycol (Polyethylene Glycol 3350 17 Gm Powd.Pack) 17 gm PO DAILY [facility] Last Admin: 05/28/23 09:21 Dose: 17 gm Documented By: BERNA Prochlorperazine Maleate (Prochlorperazine Maleate 5 Mg Tablet) 5 mg PO TID PRN PRN Reason: nausea Last Admin: 05/28/23 09:30 Dose: 5 mg Documented By: BERNA Ropinirole HCl (Ropinirole Hcl 1 Mg Tablet) 3 mg PO TID [facility] Last Admin: 05/28/23 09:20 Dose: 3 mg Documented By: BERNA Senna (Sennosides 8.6 Mg Tablet) 17.2 mg PO BID@0900,2200 [facility] Last Admin: 05/28/23 09:20 Dose: 17.2 mg Documented By: BERNA Sodium Chloride (0.9 % Sodium Chloride Flush 3 Ml Syringe) 3 ml IVFLUSH [facility] Last Admin: 05/28/23 09:19 Dose: 3 ml Documented By: BERNA Venlafaxine HCl (Venlafaxine Hcl Er 75 Mg Cap.Er.24h) 75 mg PO DAILY [facility] Last Admin: 05/28/23 09:20 Dose: 75 mg Documented By: HO.GRAZIC Zolpidem Tartrate (Zolpidem Tartrate 5 Mg Tablet) 5 mg PO BEDTIME PRN PRN Reason: Insomnia Labs 05/18/23 06:41 05/18/23 06:41 Assessment and Plan (1) ESRD on dialysis: Status: Acute Plan 62F PMH ESRD, morbid obesity s/p sleeve gastrectomy 2017 now with resolution of obesity and diabetes and htn, chronic hypoxic respiratory failure on prn 2L home o2 for COPD/ILD, mood disorder, presented with weakness, SI, now cleared by care team, awaiting STR bed ESRD HD Nephrology following insomnia on ambien, melatonin mood disorder continue mood stabilizers physical deconditioning recommending str Restless leg increase Requip dvt prophyalxis - hep sq full code reason for continued hospitalization:safe dispo to SNF Quality Stroke Does the patient have a stroke diagnosis?: No VTE Prior VTE?: No VTE Risk Level:: Medical - moderate - high VTE Device Contraindication: Treatment Not Indicated VTE Drug Contraindication: N/A - Med Ordered
[2023-05-28] MEDS: diphenhydrAMINE HCL 25 MG CAPSULE PO ×2 (13:19→19:58)
[2023-05-28] MEDS: ondansetron HCL 4 MG/2 ML VIAL IVPUSH (13:29)
[2023-05-28 15:55] VITALS: BP 110/64; PULSE 86; RESP 18; TEMP 36.6; O2SAT 97
[2023-05-28] MEDS: Heparin Sodium,Porcine 5,000 UNIT/ML VIAL 5000 UNIT INTRACATH (16:53)
[2023-05-28] MEDS: Throat Lozenge, Medicated LOZENGE 1 LOZENGE MUCOUS MEM (19:58)
[2023-05-28 20:00] VITALS: BP 136/83; PULSE 86; RESP 18; TEMP 36.7; O2SAT 94
[2023-05-28] MEDS: Mirtazapine 15 MG TABLET 22.5 MG PO (22:30)
--- NOTE | 2023-05-29 00:32 | PC.NURSE ---
pt c/o sore throat, constipation, feels not that great, and boring. constantly calling for the [employer]. non stop talking about everything. pt seems like racing thought. she can't finish one story, continuously talking other topics. pt states that she had a bed dream, see a man sitting next to her and frightening, crying. also states that she wants feel high. she feels awful and crying. dr. Jordan made aware. receive new order. but after melatonin, pt fall asleep. said when she does like that she can get a zyprexa PRN. provided as much as I can by [employer], [employer] and snacks. will continue monitor.
[2023-05-29 04:00] VITALS: BP 133/73; PULSE 77; RESP 20; TEMP 36.1; O2SAT 97
[2023-05-29] MEDS: Omeprazole 20 MG CAPSULE.DR PO (06:14)
[2023-05-29 07:28] VITALS: BP 110/60; PULSE 76; RESP 22; TEMP 36.3; O2SAT 95
[2023-05-29 07:57] LABS: Anion Gap 21 (12-20); Blood Urea Nitrogen 60 mg/dL (9-16); Calcium 9.3 mg/dL (8.4-10.2); Carbon Dioxide 19 mmol/L (22-29); Chloride 95 mmol/L (96-108); Glucose Fasting 98 mg/dL (60-99); Potassium 5.6 mmol/L (3.3-5.1); Sodium 129 mmol/L (135-145)
[2023-05-29 08:00] LABS: Creatinine Clr Calc Pharmacy 8.7; Estimated Glomerular Filt Rate 8
[2023-05-29] MEDS: polyethylene glycoL 3350 17 GM POWD.PACK PO ×2 (08:26→14:28)
[2023-05-29] MEDS: ondansetron HCL 4 MG/2 ML VIAL IVPUSH (08:28)
[2023-05-29] MEDS: Heparin Sodium,Porcine 5,000 UNIT/ML VIAL 5000 UNIT SUBCUT ×2 (08:28→19:39)
[2023-05-29] MEDS: Sennosides 8.6 MG TABLET 17.2 MG PO ×2 (08:28→22:02)
[2023-05-29] MEDS: hydrOXYzine HCL 50 MG TABLET PO (08:29)
--- NOTE | 2023-05-29 09:31 | HO.PM.IMPN ---
Subjective Subjective Date of Service: 05/29/23 Interval History: no complaints Physical Exam Vital Signs: Vital Signs: Last Vital Signs Temp 97.4 F 05/29/23 07:28 Pulse 76 05/29/23 07:28 Resp 22 H 05/29/23 07:28 BP 110/60 05/29/23 07:28 Pulse Ox 95 05/29/23 07:28 O2 Del Method Room Air 05/29/23 07:28 O2 Flow Rate 2 05/28/23 20:00 BMI result Body Mass Index 27.3 Const: General: comfortable and no acute distress Orientation/consciousness: patient oriented x3 HEENT: Head: Yes normocephalic Mouth: Normal oral and palatal mucosa present Eyes: EOM: EOMs intact bilaterally Neck: Neck: Yes supple Resp: Auscultation: clear to auscultation bilaterally Cardio: Jugular venous distension: no JVD Rate: regular rate GI: Palpation (GI): Soft to palpation Auscultation: normal bowel sounds : General: Yes no CVA tenderness Back/Spine/Pelvis: Back: no CVA tenderness Skin: General skin exam: no rashes or lesions noted Neuro: General: patient oriented x3 and moves all extremities Extrem: Other: LUE AVF scar Objective Data Active Medications Acetaminophen (Acetaminophen 325 Mg Tablet) 650 mg PO Q6H PRN PRN Reason: Pain, Mild (Pain Scale 1-3) Last Admin: 05/26/23 12:23 Dose: 650 mg Documented By: EMIILE Albuterol Sulfate (Albuterol Sulfate 90 Mcg 8 Gm Inhaler) 2 puff INHALE Q4H PRN PRN Reason: wheezing Amitriptyline HCl (Amitriptyline Hcl 50 Mg Tablet) 100 mg PO BEDTIME@2200 [facility] Last Admin: 05/28/23 22:30 Dose: 100 mg Documented By: PHILIPP Aspirin (Aspirin Enteric Coated 81 Mg Tablet.) 81 mg PO DAILY [facility] Last Admin: 05/29/23 08:28 Dose: 81 mg Documented By: BERNA Atorvastatin Calcium (Atorvastatin Calcium 10 Mg Tablet) 10 mg PO DAILY [facility] Last Admin: 05/29/23 08:29 Dose: 10 mg Documented By: BERNA Benzocaine (Throat Lozenge, Medicated Lozenge) 1 lozenge MUCOUS MEM Q2H PRN PRN Reason: Sore Throat Last Admin: 05/28/23 19:58 Dose: 1 lozenge Documented By: PHILIPP Diphenhydramine HCl (Diphenhydramine Hcl 25 Mg Capsule) 25 mg PO Q4H PRN PRN Reason: Itching Last Admin: 05/28/23 19:58 Dose: 25 mg Documented By: PHILIPP Docusate Sodium (Docusate Sodium 100 Mg Capsule) 100 mg PO BID@0900,2200 [facility] Last Admin: 05/29/23 08:29 Dose: 100 mg Documented By: BERNA Fluticasone Propionate (Fluticasone Propionate Nasal 16 Gm [place]) 1 spray NOSTRIL-B DAILY PRN PRN Reason: Allergy Symptoms Heparin Sodium (Porcine) (Heparin Sodium,Porcine 5,000 Unit/Ml Vial) 5,000 unit SUBCUT Q12H [facility] Last Admin: 05/29/23 08:28 Dose: 5,000 unit Documented By: BERNA Heparin Sodium (Porcine) (Heparin Sodium,Porcine 5,000 Unit/Ml Vial) 5,000 unit INTRACATH TUTHSA@1645 [facility] Last Admin: 05/28/23 16:53 Dose: 5,000 unit Documented By: BERNA Hydroxyzine HCl (Hydroxyzine Hcl 50 Mg Tablet) 50 mg PO TID PRN PRN Reason: Anxiety Last Admin: 05/29/23 08:29 Dose: 50 mg Documented By: BERNA Lamotrigine (Lamotrigine 100 Mg Tablet) 100 mg PO BID@0900,2200 [facility] Last Admin: 05/29/23 08:29 Dose: 100 mg Documented By: BERNA Lidocaine (Lidocaine 4 % Patch Adh..Patch) 1 patch TRANSDERMA DAILY [facility]; Protocol Last Admin: 05/29/23 08:26 Dose: 1 patch Documented By: BERNA Loperamide HCl (Loperamide Hcl 2 Mg Capsule) 2 mg PO Q3H PRN PRN Reason: Diarrhea Melatonin (Melatonin 3 Mg Tablet) 15 mg PO BEDTIME@2200 PRN PRN Reason: Insomnia Last Admin: 05/28/23 22:29 Dose: 15 mg Documented By: PHILIPP Metoprolol Succinate (Metoprolol Succinate Er 12.5 Mg Halftab.Er.24h) 12.5 mg PO BID@0900,2200 [facility]; Protocol Last Admin: 05/29/23 08:30 Dose: 12.5 mg Documented By: BERNA Midodrine (Midodrine Hcl 10 Mg Tablet) 10 mg PO MoWeFr@0600,1200,1800 PRN PRN Reason: low blood pressure Mirtazapine (Mirtazapine 15 Mg Tablet) 22.5 mg PO DAILY@2199 [facility] Last Admin: 05/28/23 22:30 Dose: 22.5 mg Documented By: PHILIPP Olanzapine (Olanzapine 5 Mg Tablet) 5 mg PO ONCE PRN PRN Reason: anxiety/restlessness Last Admin: 05/29/23 03:24 Dose: 5 mg Documented By: PHILIPP Omeprazole (Omeprazole 20 Mg Capsule.Dr) 20 mg PO DAILY@629 [facility] Last Admin: 05/29/23 06:14 Dose: 20 mg Documented By: PHILIPP Ondansetron HCl (Ondansetron Hcl 4 Mg/2 Ml Vial) 4 mg IVPUSH Q8H PRN PRN Reason: Nausea and Vomiting Last Admin: 05/29/23 08:28 Dose: 4 mg Documented By: BERNA Polyethylene Glycol (Polyethylene Glycol 3350 17 Gm Powd.Pack) 17 gm PO DAILY PRN PRN Reason: Constipation Polyethylene Glycol (Polyethylene Glycol 3350 17 Gm Powd.Pack) 17 gm PO DAILY [facility] Last Admin: 05/29/23 08:26 Dose: 17 gm Documented By: BERNA Prochlorperazine Maleate (Prochlorperazine Maleate 5 Mg Tablet) 5 mg PO TID PRN PRN Reason: nausea Last Admin: 05/28/23 09:30 Dose: 5 mg Documented By: BERNA Ropinirole HCl (Ropinirole Hcl 1 Mg Tablet) 3 mg PO TID [facility] Last Admin: 05/29/23 08:29 Dose: 3 mg Documented By: BERNA Senna (Sennosides 8.6 Mg Tablet) 17.2 mg PO BID@0900,2200 [facility] Last Admin: 05/29/23 08:28 Dose: 17.2 mg Documented By: BERNA Sodium Chloride (0.9 % Sodium Chloride Flush 3 Ml Syringe) 3 ml IVFLUSH [facility] Last Admin: 05/29/23 08:36 Dose: 3 ml Documented By: BERNA Venlafaxine HCl (Venlafaxine Hcl Er 75 Mg Cap.Er.24h) 75 mg PO DAILY [facility] Last Admin: 05/29/23 08:29 Dose: 75 mg Documented By: BERNA Zolpidem Tartrate (Zolpidem Tartrate 5 Mg Tablet) 5 mg PO BEDTIME PRN PRN Reason: Insomnia Labs 05/29/23 06:23 05/29/23 06:23 Labs: Laboratory Results - last 24 hr 05/29/23 06:23 MCV 92.1 MCH 30.1 MCHC 32.7 RDW 13.9 Plt Count 218 MPV 10.1 Absolute Nucleated RBC 0.000 Nucleated RBC % (auto) 0.0 Anion Gap 21 H Estim Creat Clear Calc 8.7 Estimated GFR 8 Fasting Glucose 98 Calcium 9.3 Assessment and Plan (1) ESRD on dialysis: Status: Acute Plan 62F PMH ESRD, morbid obesity s/p sleeve gastrectomy 2017 now with resolution of obesity and diabetes and htn, chronic hypoxic respiratory failure on prn 2L home o2 for COPD/ILD, mood disorder, presented with weakness, SI, now cleared by care team, awaiting STR bed ESRD HD Nephrology following insomnia on ambien, melatonin mood disorder continue mood stabilizers physical deconditioning recommending str Restless leg increase Requip dvt prophyalxis - hep sq full code reason for continued hospitalization:safe dispo to SNF Quality Stroke Does the patient have a stroke diagnosis?: No VTE Prior VTE?: No VTE Risk Level:: Medical - moderate - high VTE Device Contraindication: Treatment Not Indicated VTE Drug Contraindication: N/A - Med Ordered
[2023-05-29 15:20] VITALS: BP 102/55; PULSE 73; RESP 20; TEMP 36.6
--- NOTE | 2023-05-29 19:40 | PC.NURSE ---
ZEUS and I came together to see this pt. she said side of mouth, back of throat is sore. pt has high anxiety every night. made aware of symptoms. will continue to monitor.
[2023-05-29 19:42] VITALS: BP 142/80; PULSE 78; RESP 20; TEMP 36.2
[2023-05-29] MEDS: Throat Lozenge, Medicated LOZENGE 1 LOZENGE MUCOUS MEM ×2 (20:08→22:02)
[2023-05-29] MEDS: Acetaminophen 325 MG TABLET 650 MG PO (20:08)
[2023-05-29] MEDS: diphenhydrAMINE HCL 25 MG CAPSULE PO (21:11)
[2023-05-29] MEDS: Mirtazapine 15 MG TABLET 22.5 MG PO (22:03)
[2023-05-30 04:00] VITALS: BP 117/71; PULSE 81; RESP 18; TEMP 36.1; O2SAT 96
[2023-05-30] MEDS: Omeprazole 20 MG CAPSULE.DR PO (05:56)
[2023-05-30 06:25] VITALS: BP 105/65; PULSE 79; RESP 18; TEMP 36.1; O2SAT 96
--- NOTE | 2023-05-30 09:13 | HO.PM.IMPN ---
Subjective Subjective Date of Service: 05/30/23 Interval History: no complaints Physical Exam Vital Signs: Vital Signs: Last Vital Signs Temp 96.9 F 05/30/23 06:25 Pulse 79 05/30/23 06:25 Resp 18 05/30/23 06:25 BP 105/65 05/30/23 06:25 Pulse Ox 96 05/30/23 06:25 O2 Del Method Room Air 05/30/23 06:25 O2 Flow Rate 2 05/30/23 04:00 BMI result Body Mass Index 27.3 Const: General: comfortable and no acute distress Orientation/consciousness: patient oriented x3 HEENT: Head: Yes normocephalic Mouth: Normal oral and palatal mucosa present Eyes: EOM: EOMs intact bilaterally Neck: Neck: Yes supple Resp: Auscultation: clear to auscultation bilaterally Cardio: Jugular venous distension: no JVD Rate: regular rate GI: Palpation (GI): Soft to palpation Auscultation: normal bowel sounds : General: Yes no CVA tenderness Back/Spine/Pelvis: Back: no CVA tenderness Skin: General skin exam: no rashes or lesions noted Neuro: General: patient oriented x3 and moves all extremities Extrem: Other: LUE AVF scar Objective Data Active Medications Acetaminophen (Acetaminophen 325 Mg Tablet) 650 mg PO Q6H PRN PRN Reason: Pain, Mild (Pain Scale 1-3) Last Admin: 05/29/23 20:08 Dose: 650 mg Documented By: PHILIPP Albuterol Sulfate (Albuterol Sulfate 90 Mcg 8 Gm Inhaler) 2 puff INHALE Q4H PRN PRN Reason: wheezing Amitriptyline HCl (Amitriptyline Hcl 50 Mg Tablet) 100 mg PO BEDTIME@2200 [facility]S [facility]CLUDE 234 BEDS AT [facility] Last Admin: 05/29/23 22:01 Dose: 100 mg Documented By: PHILIPP Aspirin (Aspirin Enteric Coated 81 Mg Tablet.) 81 mg PO DAILY COUNTS INCLUDE 234 BEDS AT [facility] Last Admin: 05/29/23 08:28 Dose: 81 mg Documented By: BERNA Atorvastatin Calcium (Atorvastatin Calcium 10 Mg Tablet) 10 mg PO DAILY [facility]S INCLUDE 234 BEDS AT [facility] Last Admin: 05/29/23 08:29 Dose: 10 mg Documented By: BERNA Benzocaine (Throat Lozenge, Medicated Lozenge) 1 lozenge MUCOUS MEM Q2H PRN PRN Reason: Sore Throat Last Admin: 05/29/23 22:02 Dose: 1 lozenge Documented By: PHILIPP Diphenhydramine HCl (Diphenhydramine Hcl 25 Mg Capsule) 25 mg PO Q4H PRN PRN Reason: Itching Last Admin: 05/29/23 21:11 Dose: 25 mg Documented By: PHILIPP Docusate Sodium (Docusate Sodium 100 Mg Capsule) 100 mg PO BID@0900,2200 COUNTS INCLUDE 234 BEDS AT [facility] Last Admin: 05/29/23 22:03 Dose: 100 mg Documented By: PHILIPP Fluticasone Propionate (Fluticasone Propionate Nasal 16 Gm [place]) 1 spray NOSTRIL-B DAILY PRN PRN Reason: Allergy Symptoms Heparin Sodium (Porcine) (Heparin Sodium,Porcine 5,000 Unit/Ml Vial) 5,000 unit SUBCUT Q12H COUNTS [facility]CLUDE 234 BEDS AT [facility] Last Admin: 05/30/23 06:56 Dose: Not Given Documented By: EMILIE Non-Admin Reason: Off unit: Dialysis Heparin Sodium (Porcine) (Heparin Sodium,Porcine 5,000 Unit/Ml Vial) 5,000 unit INTRACATH TUTHSA@1645 COUNTS INCLUDE 234 BEDS AT [facility] Last Admin: 05/28/23 16:53 Dose: 5,000 unit Documented By: BERNA Hydroxyzine HCl (Hydroxyzine Hcl 50 Mg Tablet) 50 mg PO TID PRN PRN Reason: Anxiety Last Admin: 05/29/23 22:02 Dose: 50 mg Documented By: PHILIPP Lamotrigine (Lamotrigine 100 Mg Tablet) 100 mg PO BID@0900,2200 COUNTS INCLUDE 234 BEDS AT [facility] Last Admin: 05/29/23 22:02 Dose: 100 mg Documented By: PHILIPP Lidocaine (Lidocaine 4 % Patch Adh..Patch) 1 patch TRANSDERMA DAILY COUNTS INCLUDE 234 BEDS AT [facility]; Protocol Last Admin: 05/29/23 08:26 Dose: 1 patch Documented By: BERNA Loperamide HCl (Loperamide Hcl 2 Mg Capsule) 2 mg PO Q3H PRN PRN Reason: Diarrhea Melatonin (Melatonin 3 Mg Tablet) 15 mg PO BEDTIME@2200 PRN PRN Reason: Insomnia Last Admin: 05/30/23 01:25 Dose: 15 mg Documented By: PHILIPP Metoprolol Succinate (Metoprolol Succinate Er 12.5 Mg Halftab.Er.24h) 12.5 mg PO BID@0900,2200 COUNTS INCLUDE 234 BEDS AT [facility]; Protocol Last Admin: 05/29/23 22:03 Dose: 12.5 mg Documented By: PHILIPP Midodrine (Midodrine Hcl 10 Mg Tablet) 10 mg PO MoWeFr@0600,1200,1800 PRN PRN Reason: low blood pressure Last Admin: 05/30/23 06:29 Dose: 10 mg Documented By: PHILIPP Mirtazapine (Mirtazapine 15 Mg Tablet) 22.5 mg PO DAILY@2200 COUNTS INCLUDE 234 BEDS AT [facility] Last Admin: 05/29/23 22:03 Dose: 22.5 mg Documented By: PHILIPP Multi-Ingred Medicated Throat [place] (Throat [place], Medicated 177 Ml Bottle) 1 spray MUCOUS MEM Q2H PRN PRN Reason: Sore Throat Last Admin: 05/29/23 22:03 Dose: 1 spray Documented By: PHILIPP Olanzapine (Olanzapine 5 Mg Tablet) 5 mg PO ONCE PRN PRN Reason: anxiety/restlessness Last Admin: 05/29/23 03:24 Dose: 5 mg Documented By: PHILIPP Omeprazole (Omeprazole 20 Mg Capsule.Dr) 20 mg PO DAILY@0630 COUNTS INCLUDE 234 BEDS AT [facility] Last Admin: 05/30/23 05:56 Dose: 20 mg Documented By: PHILIPP Ondansetron HCl (Ondansetron Hcl 4 Mg/2 Ml Vial) 4 mg IVPUSH Q8H PRN PRN Reason: Nausea and Vomiting Last Admin: 05/29/23 08:28 Dose: 4 mg Documented By: BERNA Polyethylene Glycol (Polyethylene Glycol 3350 17 Gm Powd.Pack) 17 gm PO DAILY PRN PRN Reason: Constipation Last Admin: 05/29/23 14:28 Dose: 17 gm Documented By: BERNA Polyethylene Glycol (Polyethylene Glycol 3350 17 Gm Powd.Pack) 17 gm PO DAILY COUNTS INCLUDE 234 BEDS AT [facility] Last Admin: 05/29/23 08:26 Dose: 17 gm Documented By: BERNA Prochlorperazine Maleate (Prochlorperazine Maleate 5 Mg Tablet) 5 mg PO TID PRN PRN Reason: nausea Last Admin: 05/28/23 09:30 Dose: 5 mg Documented By: BERNA Ropinirole HCl (Ropinirole Hcl 1 Mg Tablet) 3 mg PO TID COUNTS INCLUDE 234 BEDS AT [facility] Last Admin: 05/30/23 07:25 Dose: 3 mg Documented By: EMILIE Senna (Sennosides 8.6 Mg Tablet) 17.2 mg PO BID@0900,2200 COUNTS INCLUDE 234 BEDS AT [facility] Last Admin: 05/29/23 22:02 Dose: 17.2 mg Documented By: PHILIPP Sodium Chloride (0.9 % Sodium Chloride Flush 3 Ml Syringe) 3 ml IVFLUSH QSHIFT COUNTS INCLUDE 234 BEDS AT [facility] Last Admin: 05/30/23 06:56 Dose: Not Given Documented By: EMILIE Non-Admin Reason: Off unit: Dialysis Venlafaxine HCl (Venlafaxine Hcl Er 75 Mg Cap.Er.24h) 75 mg PO DAILY COUNTS INCLUDE 234 BEDS AT [facility] Last Admin: 05/29/23 08:29 Dose: 75 mg Documented By: DARGANIC Labs 05/29/23 06:23 05/29/23 06:23 Assessment and Plan (1) ESRD on dialysis: Status: Acute Plan 62F PMH ESRD, morbid obesity s/p sleeve gastrectomy 2017 now with resolution of obesity and diabetes and htn, chronic hypoxic respiratory failure on prn 2L home o2 for COPD/ILD, mood disorder, presented with weakness, SI, now cleared by care team, awaiting STR bed ESRD HD Nephrology following insomnia on ambien, melatonin mood disorder continue mood stabilizers physical deconditioning recommending str Restless leg increase Requip dvt prophyalxis - hep sq full code reason for continued hospitalization:safe dispo to SNF Quality Stroke Does the patient have a stroke diagnosis?: No VTE Prior VTE?: No VTE Risk Level:: Medical - moderate - high VTE Device Contraindication: Treatment Not Indicated VTE Drug Contraindication: N/A - Med Ordered
--- NOTE | 2023-05-30 10:35 | W.PM.DNNEP ---
Subjective Subjective This patient was seen during dialysis. Interval history: Complains of feeling weak Physical Exam Vital Signs: Vital Signs: Last Vital Signs Temp 96.9 F 05/30/23 06:25 Pulse 79 05/30/23 06:25 Resp 18 05/30/23 06:25 BP 105/65 05/30/23 06:25 Pulse Ox 96 05/30/23 06:25 O2 Del Method Room Air 05/30/23 06:25 O2 Flow Rate 2 05/30/23 04:00 BMI result Body Mass Index 27.3 Const: General: comfortable and no acute distress Orientation/consciousness: patient oriented x3 HEENT: Head: Yes normocephalic Mouth: Normal oral and palatal mucosa present Eyes: EOM: EOMs intact bilaterally Neck: Neck: Yes supple Resp: Auscultation: clear to auscultation bilaterally Cardio: Jugular venous distension: no JVD Rate: regular rate GI: Palpation (GI): Soft to palpation Auscultation: normal bowel sounds : General: Yes no CVA tenderness Back/Spine/Pelvis: Back: no CVA tenderness Skin: General skin exam: no rashes or lesions noted Neuro: General: patient oriented x3 and moves all extremities Extrem: Other: LUE AVF scar Assessment & Plan Assessment and plan (1) ESRD on dialysis: Status: Acute Plan No signs or symptoms of uremia. Usually gets HD on TTS ( [facility])/Dr. Ruiz Regular Diet - per patient request; Phos binders with meals Has a functioning permcath Keep on HD scheduled MWF Continued volume optimization on HD Midodrine for hypotension C/W rest of current medications Potassium was 5.6. Will use low-potassium bath. PT evaluation if he continues to stay week Waiting for placement Shall continue to follow up Time Spent With Patient Time: Total time managing care of this patient today ____ minutes. Procedures Date of Service Date of Service: 05/30/23
[2023-05-30 11:02] VITALS: BP 97/59; PULSE 85; RESP 18; TEMP 36.2; O2SAT 100
[2023-05-30] MEDS: Sennosides 8.6 MG TABLET 17.2 MG PO (11:18)
[2023-05-30 13:57] VITALS: BP 93/59
--- NOTE | 2023-05-30 14:57 | MHC.CM.PN ---
[facility] HAS CONFIRMED THEY HAVE AN HD SLOT FOR PT AND AUTH FOR HER HD CM OBTAINED STR AUTH SEVERAL DAYS AGO AND IT IS GOOD UNTIL 06/03/23 PT IS BOOKED FOR BLS TRANSPORT VIA [facility] AT 1600 HOURS PT IS AWARE AND REPORTS BEING EXCITED TO GET TO REHAB
[2023-05-30 15:01] VITALS: BP 100/53; PULSE 88; RESP 16; TEMP 36.6; O2SAT 95
--- NOTE | 2023-05-30 15:10 | P.DS_ITS ---
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 She presented from Dialysis center on Tuesday with concerns of SI. she was seen and evaluated by care team who did not think she is and cleared her for discharge. PT saw her and recommended SNF placement. family prefers that option. She is not suicidal or homocidal at this point. She requires dialysis as she is on TTS schedule. hospital course: Patient was initially admitted for concern of suicidal ideation but then cleared by care team. Due to debility was recommended short-term rehab to which she will now be discharged for end-stage renal disease she was continued on hemodialysis. For insomnia was continued on Ambien and melatonin. For mood disorder was continue on her mood stabilized. For restless leg syndrome was continued on requip. Time Attestation Discharge coordination time: Greater than 30 minutes Quality: Safe Use of Opioids Does Pt have an Active Cancer Diagnosis on the Problem List?: No Quality: Stroke Does the patient have a stroke diagnosis?: No Physical Exam Vital Signs: Vital Signs: Last Vital Signs Temp 97.8 F 05/30/23 15:01 Pulse 88 05/30/23 15:01 Resp 16 05/30/23 15:01 BP 100/53 L 05/30/23 15:01 Pulse Ox 95 05/30/23 15:01 O2 Del Method Room Air 05/30/23 15:01 O2 Flow Rate 2 05/30/23 04:00 BMI result Body Mass Index 27.3 Const: General: comfortable and no acute distress Orientation/consciousness: patient oriented x3 HEENT: Head: Yes normocephalic Mouth: Normal oral and palatal mucosa present Eyes: EOM: EOMs intact bilaterally Neck: Neck: Yes supple Resp: Auscultation: clear to auscultation bilaterally Cardio: Jugular venous distension: no JVD Rate: regular rate GI: Palpation (GI): Soft to palpation Auscultation: normal bowel sounds : General: Yes no CVA tenderness Back/Spine/Pelvis: Back: no CVA tenderness Skin: General skin exam: no rashes or lesions noted Neuro: General: patient oriented x3 and moves all extremities Extrem: Other: LUE AVF scar Discharge Plan Discharge Anticipated Discharge Date/Time: 05/30/23 15:06 Patient Disposition: [facility] SNF Discharge Diagnosis: esrd Referrals: [facility] [Other] Yolande Hardy PA [Primary Care Provider] - 1 Week Discharge Medications: Continued mirtazapine 45 mg tablet 22.5 mg PO BEDTIME sennosides [senna] 8.6 mg tablet 17.2 mg PO BID albuterol sulfate 2.5 mg /3 mL (0.083 %) solution for nebulization 2.5 mg inhalation Q4H PRN (Reason: wheezing) loperamide 2 mg capsule 2 mg PO Q3H PRN (Reason: Diarrhea) aspirin 81 mg tablet,delayed release (DR/EC) 81 mg PO DAILY docusate sodium 100 mg Capsule 100 mg PO BID polyethylene glycol 3350 [Miralax] 17 gram/dose Powder 17 g PO DAILY PRN (Reason: Constipation) albuterol sulfate [Ventolin HFA] 90 mcg/actuation HFA aerosol inhaler 2 puff INHALATION Q4H PRN (Reason: wheezing) midodrine 10 mg tablet 10 - 20 mg PO TID PRN (Reason: hemodialysis) Rx Instructions: On dialysis days amitriptyline 100 mg tablet 100 mg PO BEDTIME fluticasone propionate 50 mcg/actuation [place],Suspension 1 spray INTRANASAL DAILY PRN (Reason: Allergy Symptoms) Rx Instructions: administer into each nostril hydroxyzine HCl 50 mg tablet 50 mg PO TID PRN (Reason: Anxiety) venlafaxine 75 mg capsule,extended release 24hr 75 mg PO DAILY ropinirole 1 mg tablet 1 mg PO TID atorvastatin 10 mg tablet 10 mg PO DAILY calcitriol 0.5 mcg capsule 0.5 mcg PO DAILY metoprolol succinate 25 mg tablet extended release 24 hr 12.5 mg PO Q12H lamotrigine 100 mg tablet 100 mg PO BID omeprazole 20 mg capsule,delayed release(DR/EC) 20 mg PO QAM melatonin 5 mg tablet 10 mg PO BEDTIME PRN (Reason: Insomnia) diazepam 2 mg tablet 2 mg PO BID PRN (Reason: anxiety) Discontinued amiodarone 200 mg tablet 200 mg PO DAILY Discharge Orders: Discharge Order (Routine); Ordered 05/30/23 Ordered By: Harjit Zarate Diet: Advance to usual diet Activity on Discharge: As tolerated Stand Alone Forms: Patient Portal Discharge page Care Plan Goals: recovery Health Concerns: esrd, debility Plan of Treatment: rehab Assessment: see above
== END 2023-05-30 16:23 | disposition skilled nursing facility (03) | DRG 470 ==
LOC: HO.ED 05-09 16:36 → HO.EDOVER 05-09 17:18 → HO.S3 05-11 10:37
PROVIDERS: Admitting Provider Student in an Organized Health Care Education/Training Program; Emergency Provider Emergency Medicine; PCP Physician Assistant; Visit Provider Internal Medicine
DX: N18.6 End stage renal disease (principal); E87.1 Hypo-osmolality and hyponatremia; J96.11 Chronic respiratory failure with hypoxia; R45.851 Suicidal ideations; F22 Delusional disorders; G47.00 Insomnia, unspecified; E87.5 Hyperkalemia; F41.9 Anxiety disorder, unspecified; R53.81 Other malaise; G25.81 Restless legs syndrome; G47.33 Obstructive sleep apnea (adult) (pediatric); Z98.84 Bariatric surgery status; Z99.81 Dependence on supplemental oxygen; Z87.891 Personal history of nicotine dependence; Z79.82 Long term (current) use of aspirin; Z79.899 Other long term (current) drug therapy
CPT/HCPCS: 36415; 80048; 80307; 85025; 85027; 86704; 86706; 87340; 90999; 93005; 97110; 97116; 97162; 97530; 99221; 99285; J1644; J2270; J2405; S9485

== ENCOUNTER → 2023-05-07 18:15 | Outpatient (BNV) | payer MEDICAID, SELFPAY | PROVIDERS: Emergency Provider Emergency Medicine; PCP Physician Assistant; Visit Provider Student in an Organized Health Care Education/Training Program | DX: N18.6 End stage renal disease (principal); Z99.2 Dependence on renal dialysis | CPT/HCPCS: 99222; 99231; 99232; 99239; 99499 ==

== ENCOUNTER 2023-05-09 16:16 | Outpatient (BNV) | payer MEDICAID, SELFPAY | END 2023-05-29 15:08 | PROVIDERS: Admitting Provider Student in an Organized Health Care Education/Training Program; Emergency Provider Emergency Medicine; PCP Physician Assistant; Visit Provider Internal Medicine Cardiovascular Disease | DX: I44.0 Atrioventricular block, first degree (principal) | CPT/HCPCS: 93010 ==

== ENCOUNTER → 2023-05-09 16:16 | Outpatient (BNV) | payer MEDICAID, SELFPAY | PROVIDERS: Admitting Provider Student in an Organized Health Care Education/Training Program; Emergency Provider Emergency Medicine; PCP Physician Assistant; Visit Provider Internal Medicine Nephrology | DX: N18.6 End stage renal disease (principal); Z99.2 Dependence on renal dialysis | CPT/HCPCS: 90935; 90947; 99223; 99231 ==